=== PATIENT | female | born 1935 | race Caucasian/White ===

== ENCOUNTER 2018-06-07 12:33 | Emergency (ER) | payer MEDICARE, SELFPAY ==
[2018-06-07 12:35] VITALS: BP 159/75; PULSE 72; RESP 16; TEMP 36.6; O2SAT 96; BMI 24.5
--- NOTE | 2018-06-07 13:12 | EKG12_ITS ---
Test Reason : DIZZINESS Blood Pressure : / mmHG Vent. Rate : 062 BPM Atrial Rate : 062 BPM P-R Int : 220 ms QRS Dur : 084 ms QT Int : 446 ms P-R-T Axes : 029 000 076 degrees QTc Int : 452 ms Sinus rhythm with 1st degree A-V block Minimal voltage criteria for LVH, may be normal variant Nonspecific T wave abnormality Abnormal ECG Confirmed by DAVID LAWSON, YORDAN ([id number]), food expeditor CHANG CONCEPCION ([id number]) on 06/09/2018 1:44:09 PM Referred By: DAYTON Confirmed By:YORDAN HERNANDEZ MD
[2018-06-07 13:29] LABS: Absolute Lymphocyte Count 2.04 X10^3/ul (0.83-4.51); Absolute Neutrophil Count 3.2 X10^3/uL (2.0-7.7); Basophil# 0.06 X10^3/uL; Eosinophil# 0.07 X10^3/uL; Eosinophils% 1.2 % (0-5); Hematocrit 41.3 % (37-47); Hemoglobin 13.1 g/dl (12.0-15.0); Lymphocyte # 2.04 X10^3/ul (4.0); Lymphocyte % 35.2 % (19-41); Mean Corp Hgb Conc 31.7 g/gl (32-36); Mean Corpuscular Hgb 28.7 pg (27.0-32.0); Mean Corpuscular Volume 90.6 fL (81-99); Mean Platelet Vol. 9.3 fl (6.2-12.0); Monocyte# 0.39 X10^3/uL; Monocyte% 6.7 % (0-10); Neutrophil # 3.22 X10^3/uL (2.7-7.7); Neutrophil % 55.6 % (47-70); POSITIVE COUNT NO; POSITIVE DIFFERENTIAL NO; POSITIVE MORPHOLOGY NO; Platelet Count 340 K/mm3 (150-450); RBC Distribution Width SD 42.9 fl (35.1-43.9); Red Blood Count 4.56 M/mm3 (4.2-5.4); White Blood Count 5.8 K/mm3 (4.4-11.0)
[2018-06-07 13:39] LABS: Anion Gap 8 (5-15); BUN 17 mg/dL (7-18); BUN/Creat Ratio 14.4 RATIO (10-20); Calcium,Total 9.8 mg/dL (8.5-10.1); Chloride 103 mmol/L (98-107); Creatinine, Serum 1.18 mg/dL (0.55-1.02); EST Glomerular Filtration Rate 47 mL/min (>60); Est Glom Filt Rate - Afr Amer 56 mL/min (>60); Estimated Creatinine Clearance 31.74 ml/min; Glucose 110 mg/dL (74-106); Potassium 3.7 mmol/L (3.5-5.1); Sodium Level 141 mmol/L (136-145)
[2018-06-07 13:56] VITALS: BP 137/79; BP 171/76; BP 184/81; PULSE 60; PULSE 63; PULSE 80
[2018-06-07 14:56] VITALS: BP 184/69; PULSE 58; RESP 24; O2SAT 92
--- NOTE | 2018-06-07 15:27 | ED.VISSUMM ---
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 She presents because she complains of dizziness. Patient's description of dizziness is vertigo not orthostatic symptoms. She does admit to taking Pepto-Bismol this weekend. She did not no blood in her stool or maroon colored stool. She is had no nausea and vomiting. She does report mild mid abdominal discomfort located above the umbilicus. She denies fever, chills night sweats. She denies visual, ocular auditory symptoms. She denies cardiac respiratory symptoms. She denies myalgias arthralgias. She denies anesthesia, paresthesia or motor weakness. She denies headache. She denies bruising easily. Please read written note for complete detail There is a history of coronary disease, hypertension, hypercholesterolemia, pulmonary embolus and GERD. 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 Physical Examination: Vital signs noted. Blood pressure slightly elevated 141/76. Head is atraumatic normocephalic. Pupils are equal round reactive. Extraocular muscles are intact. Conjunctive are pink. TMs are pearly white with landmarks noted. Nares patent with no drainage. Posterior pharynx without erythema or exudate. Uvula is midline. There is no dysphonia or dysphasia. Trachea is midline. There is no stridor with auscultation of the neck. Heart is regular without murmur, gallop or rub. S1 and S2 are normal. Lungs are clear to auscultation with good movement of air bilaterally. Abdomen is tympanitic with increased bowel sounds. No stool in the rectal vault. There is no fissures, fistulas or hemorrhoids noted. Test Results: CBC and BMP are unremarkable. Creatinine is 1.18 which is an improvement from prior. BUN/creatinine ratio is normal. One would expect a drop in hemoglobin if bleeding for 2 days and an elevated BUN to creatinine ratio. Emergency Department Course and Treatment: With history of black stool will obtain blood work to rule in or rule out GI bleed since there is no material in the rectum to assess for blood. A [place]-Hallpike maneuver was performed and patient had nystagmus that was evident with head turned to the right. She had symptoms but no nystagmus with head turned to the right. The eye askew test was negative. The HINT was negative. Treatment Plan: Since blood work confirms suspicion that the black stool is secondary to Pepto-Bismol and Aleta maneuver was performed. This reproduced her symptoms as well as the nystagmus. Nystagmus fatigue and her symptoms resolved. Disposition: Discharged home in stable improved condition. She was instructed to resume her Eliquis since the cause of her black stools not secondary to GI bleed. Impression: 1. [place] no benign positional vertigo 2. History of hypertension, coronary disease, GERD and PE This note was generated with [employer] dictation software. It may contain incorrect words, spelling, and punctuation that were not noted in review of the chart prior to signing ED Disposition - Plan for ED Patient: Disposition: Home or Assisted Living Chief Complaint: Dizziness Instructions: ED BPV Vertigo Prescriptions: Ondansetron [Zofran Odt] 4 mg PO Q8H PRN PRN #5 tab PRN Reason: Nausea/Vomiting Referrals: Nayely Connell MD [Primary Care Provider] - As Needed
--- NOTE | 2018-06-07 15:32 | ED.DCSUM_ITS ---
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 She presents because she complains of dizziness. Patient's description of dizziness is vertigo not orthostatic symptoms. She does admit to taking Pepto-Bismol this weekend. She did not no blood in her stool or maroon colored stool. She is had no nausea and vomiting. She does report mild mid abdominal discomfort located above the umbilicus. She denies fever, chills night sweats. She denies visual, ocular auditory symptoms. She denies cardiac respiratory symptoms. She denies myalgias arthralgias. She denies anesthesia, paresthesia or motor weakness. She denies headache. She denies bruising easily. Please read written note for complete detail There is a history of coronary disease, hypertension, hypercholesterolemia, pulmonary embolus and GERD. 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 Physical Examination: Vital signs noted. Blood pressure slightly elevated 141/76. Head is atraumatic normocephalic. Pupils are equal round reactive. Extraocular muscles are intact. Conjunctive are pink. TMs are pearly white with landmarks noted. Nares patent with no drainage. Posterior pharynx without erythema or exudate. Uvula is midline. There is no dysphonia or dysphasia. Trachea is midline. There is no stridor with auscultation of the neck. Heart is regular without murmur, gallop or rub. S1 and S2 are normal. Lungs are clear to auscultation with good movement of air bilaterally. Abdomen is tympanitic with increased bowel sounds. No stool in the rectal vault. There is no fissures, fistulas or hemorrhoids noted. Test Results: CBC and BMP are unremarkable. Creatinine is 1.18 which is an improvement from prior. BUN/creatinine ratio is normal. One would expect a drop in hemoglobin if bleeding for 2 days and an elevated BUN to creatinine ratio. Emergency Department Course and Treatment: With history of black stool will obtain blood work to rule in or rule out GI bleed since there is no material in the rectum to assess for blood. A [place]-Hallpike maneuver was performed and patient had nystagmus that was evident with head turned to the right. She had symptoms but no nystagmus with head turned to the right. The eye askew test was negative. The HINT was negative. Treatment Plan: Since blood work confirms suspicion that the black stool is secondary to Pepto-Bismol and Aleta maneuver was performed. This reproduced her symptoms as well as the nystagmus. Nystagmus fatigue and her symptoms resolved. Disposition: Discharged home in stable improved condition. She was instructed to resume her Eliquis since the cause of her black stools not secondary to GI bleed. Impression: 1. [place] no benign positional vertigo 2. History of hypertension, coronary disease, GERD and PE This note was generated with [employer] dictation software. It may contain incorrect words, spelling, and punctuation that were not noted in review of the chart prior to signing ED Disposition - Plan for ED Patient: Disposition: Home or Assisted Living Chief Complaint: Dizziness Instructions: ED BPV Vertigo Prescriptions: Ondansetron [Zofran Odt] 4 mg PO Q8H PRN PRN #5 tab PRN Reason: Nausea/Vomiting Referrals: Nayely Connell MD [Primary Care Provider] - As Needed
[2018-06-07 15:49] VITALS: BP 187/78; PULSE 59; RESP 15; O2SAT 95
--- OUTSIDE RECORDS SUMMARY | 2018-08-10 02:43 | XMS RPT_ITS | Clinical Summary ---
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, CT) bilateral Essential 38537863 Active Scott Wei Essential hypertension (SNOMED 0/26 0/ Alex LAWSON hypertension CT) Sciatica 42862465 Active Scott Wei Sciatica (SNOMED 0/26 0/ Alex LAWSON CT) Pure 550331129 Active Scott Wei Pure hyperglycerid (SNOMED 0 0/ Alex LAWSON hyperglyceridemia emia CT) Pure 630258333 Active Scott Wei Pure hypercholeste (SNOMED 0 0/ Alex LAWSON hypercholesterole rolemia CT) shimon Paroxysmal 48802304 Active Scott Wei Paroxysmal supraventricu (SNOMED 0 0/ Alex LAWSON supraventricular lar CT) tachycardia tachycardia Hyperlipidemi 79786557 Active Scott Wei Hyperlipidemia a (SNOMED 0 0/[address]) Moderate 92649581 Active Scott Wei Aortic valve aortic (SNOMED 0/26 0/ Alex LAWSON stenosis stenosis CT) Generalized 341931271 Active Scott Wei 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 Generalized 47418471 Active Scott Wei Generalized anxiety (SNOMED 0/26 0/ Alex LAWSON anxiety disorder disorder CT) Esophageal 606476177 Active Scott Wei Gastroesophageal reflux (SNOMED Alex LAWSON reflux disease CT) Dysmetabolic 689530456 Active Scott Wei Metabolic syndrome X (SNOMED Alex LAWSON syndrome X CT) Carpal tunnel 71692782 Active Scott Wei Carpal tunnel syndrome (SNOMED Alex LAWSON syndrome CT) Carotid 085585161 Active Scott Wei Carotid artery artery (SNOMED Alex LAWSON occlusion occlusion CT) Allergic 23646303 Active Scott Wei Allergic rhinitis rhinitis (SNOMED Alex LAWSON CT) Medications Medication Instructions Start Stop Generic Name NDC Provider Date Date ACTIGALL 300 MG One tablet by / URSODIOL [id number] Scott Wei CAPS mouth twice 26 Alex LAWSON daily BIOTIN CAPS / BIOTIN CAPS 90957881952 Scott Wei 26 Alex LAWSON DURAGESIC-50 50 / FENTANYL 94778413568 Scott Wei MCG/HR PT72 26 Alex LAWSON NORCO 7.5-325 MG / HYDROCODONE-ACETA 24223519684 Scott Wei TABS 26 MINOPHEN Alex LAWSON NORVASC 10 MG One tablet by / AMLODIPINE 43087934284 Scott Wei TABS mouth daily 26 BESYLATE Alex LAWSON LISINOPRIL 40 MG One tablet by / LISINOPRIL 90939609435 Scott Wei TABS mouth daily 26 Alex LAWSON GABAPENTIN 600 Two tablets by / GABAPENTIN 14957113572 Scott Wei MG TABS mouth three 26 Alex LAWSON times daily LORAZEPAM 1 MG One tablet by / LORAZEPAM 11516338037 Scott Wei TABS mouth daily 26 Alex LAWSON PREVACID 30 MG One tablet by / LANSOPRAZOLE 52351627886 Scott Wei CPDR mouth daily 26 Alex LAWSON NITROGLYCERIN / NITROGLYCERIN 02828056516 Scott Wei 0.4 MG SUBL 26 Alex LAWSON ZANAFLEX 4 MG One tablet by / TIZANIDINE HCL 50036104030 Scott Wei TABS mouth daily at 26 Alex LAWSON bedtime as needed DRISDOL 63317 One tablet by / ERGOCALCIFEROL 78031212355 Scott Wei UNIT CAPS mouth three 26 Alex LAWSON times weekly TRIAMTERENE-HCTZ One tablet by / TRIAMTERENE-HCTZ 53533664858 Scott Wei 37.5-25 MG TABS mouth daily 26 Alex LAWSON VENTOLIN HFA 108 / ALBUTEROL SULFATE 48367505190 Scott Wei (90 Base) 26 Alex LAWSON MCG/ACT AERS ELIQUIS 5 MG One tablet by / APIXABAN 23919747532 Scott Wei TABS mouth twice 26 Alex LAWSON daily GUAIFENESIN-CODE as needed for / GUAIFENESIN-CODEI 51810464153 Scott Wei INE 100-10 [address] Alex LAWSON MG/5ML SOLN MECLIZINE HCL 25 One tablet by / MECLIZINE HCL 87556379618 Scott Wei MG TABS mouth three 26 Alex LAWSON times daily as needed dizziness FLONASE 50 / FLUTICASONE 84933413380 Scott Wei MCG/ACT SUSP 26 PROPIONATE Alex LAWSON DICLOFENAC use as directed / DICLOFENAC SODIUM 40850260553 Scott Wei SODIUM 1 % GEL 26 Alex LAWSON ASPIRIN 81 MG One tablet by / ASPIRIN 64762597137 Scott Wei TABS mouth daily 26 Alex LAWSON LEXISCAN 0.4 / REGADENOSON 11210742061 Scott Wei MG/5ML SOLN 26 Alex LAWSON CARAFATE 1 GM Take 1 tablet / SUCRALFATE 72993966174 Scott Wei TABS prior to meals 26 Alex LAWSON and bedtime LIDODERM 5 % Apply 2 patches / LIDOCAINE 87594529069 Scott Wei [facility] as directed 26 Alex LAWSON every 24 hours. Remove patch after 12 hours TESSALON PERLES One tablet by / BENZONATATE 44612033158 Scott Wei 100 MG CAPS mouth three 26 Alex LAWSON times daily Medications Administered No information available. Allergies, Adverse Reactions, Alerts Allergy Name Reaction Start Date Severity Status Provider Description DARVOCET Critical Active Scott Johnson MD NOVACLAINE Critical Active Scott Johnson MD SULFADIAZINE Moderate Active Scott Johnson MD PENICILLIN V POTASSIUM Moderate Active Scott Johnson MD LEVAQUIN Moderate Active Scott Johnson MD CYCLOBENZAPRINE HCL Moderate Active Scott Johnson MD DOXYCYCLINE HYCLATE Moderate Active Scott Johnson MD CARDIZEM Moderate Active Scott Johnson MD Results Date Name Value Unit Range Flag Description Office Visit: Right Cartoid blockage MEDS REVIEW Done Documentation of current medications (procedure) FALLRSKASSES No Fall risk assessment ORALTOBACUSE Never Tobacco smoking status NHIS SMOK STATUS Former smoker Tobacco use [facility] Plan of Care Type Date Detail Appointment 08:30 AM Scott Johnson MD, [address] [place] [address], [address], [place], [address], Pending order CTA Neck Procedures No information available. Vital Signs Date Name Value Unit Description BMI (Body Mass Index) 24.37 kg/m2 Body Mass Index [Ratio] Body Temperature 98.0 [degF] temperature E&M Body Temperature 36.67 Grace temperature in centigrade E&M BP Diastolic 68 mm[Hg] blood pressure, diastolic - 8462-4 BP Systolic 151 mm[Hg] blood pressure, systolic - 8480-6 Heart Rate 66 /min pulse rate E&M - 8867-4 Height 64 [in_us] height E&M - 8302-2 Height 162.56 cm height in centimeters E&M Respiratory Rate 18 /min respiratory rate E&M - 9279-1 Weight Measured 142 [lb_av] weight E&M - 3141-9 Weight Measured 64.41 kg weight in kilograms E&M
--- OUTSIDE RECORDS SUMMARY | 2018-08-10 02:43 | XMS RPT_ITS | Clinical Summary ---
:1935 Author Organization [facility] Address [address] [place] [address] Phone Care Team Providers Name Role Phone Scott Johnson MD Unavailable Conditions or Problems Problem Name Problem Onset Status Entry Provider Comment Standard Annotate Code Date Date Description Carotid 61672968 Active Scott Wei Carotid artery artery (SNOMED 0/ 0 Alex LAWSON stenosis stenosis, CT) bilateral Essential 37089836 Active Scott Wei Essential hypertension (SNOMED 0/26 0/ Alex LAWSON hypertension CT) Sciatica 01691781 Active Scott Wei Sciatica (SNOMED 0/26 0/ Alex LAWSON CT) Pure 184372316 Active Scott Wei Pure hyperglycerid (SNOMED 0/26 0/ Alex LAWSON hyperglyceridemia emia CT) Pure 500640366 Active Scott Wei Pure hypercholeste (SNOMED 0/ 0/ Alex LAWSON hypercholesterole rolemia CT) shimon Paroxysmal 35436184 Active Scott Wei Paroxysmal supraventricu (SNOMED 0 0/ Alex LAWSON supraventricular lar CT) tachycardia tachycardia Hyperlipidemi 01252829 Active Scott Wei Hyperlipidemia a (SNOMED 026 0/[address]) Moderate 85428628 Active Scott Wei Aortic valve aortic (SNOMED 0/26 0/ Alex LAWSON stenosis stenosis CT) Generalized 837773857 Active Scott Wei 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 Generalized 97660751 Active Scott Wei Generalized anxiety (SNOMED 0/26 0/ Alex LAWSON anxiety disorder disorder CT) Esophageal 294837020 Active Scott Wei Gastroesophageal reflux (SNOMED Alex LAWSON reflux disease CT) Dysmetabolic 581311013 Active Scott Wei Metabolic syndrome X (SNOMED Alex LAWSON syndrome X CT) Carpal tunnel 99989413 Active Scott Wei Carpal tunnel syndrome (SNOMED Alex LAWSON syndrome CT) Carotid 816240010 Active Scott Wei Carotid artery artery (SNOMED Alex LAWSON occlusion occlusion CT) Allergic 76546050 Active Scott Wei Allergic rhinitis rhinitis (SNOMED Alex LAWSON CT) Medications Medication Instructions Start Stop Generic Name NDC Provider Date Date ACTIGALL 300 MG One tablet by / URSODIOL 24713602461 Scott Wei CAPS mouth twice 26 Alex LAWSON daily BIOTIN CAPS / BIOTIN CAPS 75603693665 Scott Wei 26 Aelx LAWSON DURAGESIC-50 50 / FENTANYL 04709018257 Scott Wei MCG/HR PT72 26 Alex LAWSON NORCO 7.5-325 MG / HYDROCODONE-ACETA 42492072222 Scott Wei TABS 26 MINOPHEN Alex LAWSON NORVASC 10 MG One tablet by / AMLODIPINE 56412974489 Scott Wei TABS mouth daily 26 BESYLATE Alex LAWSON LISINOPRIL 40 MG One tablet by / LISINOPRIL 99207647776 Scott Wei TABS mouth daily 26 Alex LAWSON GABAPENTIN 600 Two tablets by / GABAPENTIN 35727423782 Scott Wei MG TABS mouth three 26 Alex LAWSON times daily LORAZEPAM 1 MG One tablet by / LORAZEPAM 83956499981 Scott Wei TABS mouth daily 26 Alex LAWSON PREVACID 30 MG One tablet by / LANSOPRAZOLE 45156534293 Scott Wei CPDR mouth daily 26 Alex LAWSON NITROGLYCERIN / NITROGLYCERIN 11515596003 Scott Wei 0.4 MG SUBL 26 Alex LAWSON ZANAFLEX 4 MG One tablet by / TIZANIDINE HCL 51694098607 Scott Wei TABS mouth daily at 26 Alex LAWSON bedtime as needed DRISDOL 75919 One tablet by / ERGOCALCIFEROL 98853123138 Scott Wei UNIT CAPS mouth three 26 Alex LAWSON times weekly TRIAMTERENE-HCTZ One tablet by / TRIAMTERENE-HCTZ 21253225193 Scott Wei 37.5-25 MG TABS mouth daily 26 Alex LAWSON VENTOLIN HFA 108 / ALBUTEROL SULFATE 28699147236 Scott Wei (90 Base) 26 Alex LAWSON MCG/ACT AERS ELIQUIS 5 MG One tablet by / APIXABAN 43837549354 Scott Wei TABS mouth twice 26 Alex LAWSON daily GUAIFENESIN-CODE as needed for / GUAIFENESIN-CODEI 04085851259 Scott Wei INE 100-[address] Alex LAWSON MG/5ML SOLN MECLIZINE HCL 25 One tablet by / MECLIZINE HCL 80781625564 Scott Wei MG TABS mouth three 26 Alex LAWSON times daily as needed dizziness FLONASE 50 / FLUTICASONE 09375827545 Scott Wei MCG/ACT SUSP 26 PROPIONATE Alex LAWSON DICLOFENAC use as directed / DICLOFENAC SODIUM 86358406223 Scott Wei SODIUM 1 % GEL 26 Alex LAWSON ASPIRIN 81 MG One tablet by / ASPIRIN 07672633081 Scott Wei TABS mouth daily 26 Alex LAWSON LEXISCAN 0.4 / REGADENOSON 52681010281 Scott Wei MG/5ML SOLN 26 Alex LAWSON CARAFATE 1 GM Take 1 tablet / SUCRALFATE 76232006531 Scott Wei TABS prior to meals 26 Alex LAWSON and bedtime LIDODERM 5 % Apply 2 patches / LIDOCAINE 54548384319 Scott Wei [facility] as directed 26 Alex LAWSON every 24 hours. Remove patch after 12 hours TESSALON PERLES One tablet by / BENZONATATE 01681212950 Scott Wei 100 MG CAPS mouth three [...] Date Name Value Unit Range Flag Description Lab Report: CREATININE FINGERSTICK [id number]-GE-[id number] Test not performed mL/min >60 GE use only - for [employer] import when terms are not otherwise specified Office Visit: Discuss Carotid blockage MEDS REVIEW Done Documentation of current medications (procedure) FALLRSKASSES No Fall risk assessment ORALTOBACUSE Never Tobacco smoking status NHIS SMOK STATUS Former smoker Tobacco use [facility] Plan of Care Type Date Detail Pending order CTA Neck Procedures No information [...]
--- OUTSIDE RECORDS SUMMARY | 2018-08-10 02:43 | XMS RPT_ITS | Clinical Summary ---
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, CT) bilateral Essential 77398542 Active Scott Wei Essential hypertension (SNOMED 0/26 0/ Alex LAWSON hypertension CT) Sciatica 44718691 Active Scott Wei Sciatica (SNOMED 0/26 0/ Alex LAWSON CT) Pure 502061910 Active Scott Wei Pure hyperglycerid (SNOMED 0/26 0/ Alex LAWSON hyperglyceridemia emia CT) Pure 900378661 Active Scott Wei Pure hypercholeste (SNOMED 0/ 0/ Alex LAWSON hypercholesterole rolemia CT) shimon Paroxysmal 62634742 Active Scott Wei Paroxysmal supraventricu (SNOMED 0 0/ Alex LAWSON supraventricular lar CT) tachycardia tachycardia Hyperlipidemi 49763002 Active Scott Wei Hyperlipidemia a (SNOMED 026 0/[address]) Moderate 07019628 Active Scott Wei Aortic valve aortic (SNOMED 0/26 0/ Alex LAWSON stenosis stenosis CT) Generalized 379710942 Active Scott Wei 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 Generalized 38611433 Active Scott Wei Generalized anxiety (SNOMED 0/26 0/ Alex LAWSON anxiety disorder disorder CT) Esophageal 908293225 Active Scott Wei Gastroesophageal reflux (SNOMED Alex LAWSON reflux disease CT) Dysmetabolic 313133011 Active Scott Wei Metabolic syndrome X (SNOMED Alex LAWSON syndrome X CT) Carpal tunnel 68580780 Active Scott Wei Carpal tunnel syndrome (SNOMED Alex LAWSON syndrome CT) Carotid 713467281 Active Scott Wei Carotid artery artery (SNOMED Alex LAWSON occlusion occlusion CT) Allergic 29596290 Active Scott Wei Allergic rhinitis rhinitis (SNOMED Alex LAWSON CT) Medications Medication Instructions Start Stop Generic Name NDC Provider Date Date ACTIGALL 300 MG One tablet by / URSODIOL [id number] Scott Wei CAPS mouth twice 26 Alex LAWSON daily BIOTIN CAPS / BIOTIN CAPS 85972440853 Scott Wei 26 Alex LAWSON DURAGESIC-50 50 / FENTANYL 67844881260 Scott Wei MCG/HR PT72 26 Alex LAWSON NORCO 7.5-325 MG / HYDROCODONE-ACETA 42617276530 Scott Wie TABS 26 MINOPHEN Alex LAWSON NORVASC 10 MG One tablet by / AMLODIPINE 21513123572 Scott Wei TABS mouth daily 26 BESYLATE Alex LAWSON LISINOPRIL 40 MG One tablet by / LISINOPRIL 18672772728 Scott Wei TABS mouth daily 26 Alex LAWSON GABAPENTIN 600 Two tablets by / GABAPENTIN 55454399798 Scott Wei MG TABS mouth three 26 Alex LAWSON times daily LORAZEPAM 1 MG One tablet by / LORAZEPAM 93820674795 Scott Wei TABS mouth daily 26 Alex LAWSON PREVACID 30 MG One tablet by / LANSOPRAZOLE 03182255203 Scott Wei CPDR mouth daily 26 Alex LAWSON NITROGLYCERIN / NITROGLYCERIN 47243718864 Scott Wei 0.4 MG SUBL 26 Alex LAWSON ZANAFLEX 4 MG One tablet by / TIZANIDINE HCL 61060876685 Scott Wei TABS mouth daily at 26 Alex LAWSON bedtime as needed DRISDOL 38484 One tablet by / ERGOCALCIFEROL 29451444052 Scott Wei UNIT CAPS mouth three 26 Alex LAWSON times weekly TRIAMTERENE-HCTZ One tablet by / TRIAMTERENE-HCTZ 33783869930 Scott Wei 37.5-25 MG TABS mouth daily 26 Alex LAWSON VENTOLIN HFA 108 / ALBUTEROL SULFATE 84332558102 Scott Wei (90 Base) 26 Alex LAWSON MCG/ACT AERS ELIQUIS 5 MG One tablet by / APIXABAN 19882048467 Scott Wei TABS mouth twice 26 Alex LAWSON daily GUAIFENESIN-CODE as needed for / GUAIFENESIN-CODEI 22378962724 Scott Wei INE 100-10 cough 26 [address] Alex LAWSON MG/5ML SOLN MECLIZINE HCL 25 One tablet by / MECLIZINE HCL 58560910867 Scott Wei MG TABS mouth three 26 Alex LAWSON times daily as needed dizziness FLONASE 50 / FLUTICASONE 70146551564 Scott Wei MCG/ACT SUSP 26 PROPIONATE Alex LAWSON DICLOFENAC use as directed / DICLOFENAC SODIUM 99781528143 Scott Wei SODIUM 1 % GEL 26 Alex LAWSON ASPIRIN 81 MG One tablet by / ASPIRIN 59018334948 Scott Wei TABS mouth daily 26 Alex LAWSON LEXISCAN 0.4 / REGADENOSON 53442944963 Scott Wei MG/5ML SOLN 26 Alex LAWSON CARAFATE 1 GM Take 1 tablet / SUCRALFATE 52531074595 Scott Wei TABS prior to meals 26 Alex LAWSON and bedtime LIDODERM 5 % Apply 2 patches / LIDOCAINE 31905937345 Scott Wei [facility] as directed 26 Alex LAWSON every 24 hours. Remove patch after 12 hours TESSALON PERLES One tablet by / BENZONATATE 64481790978 Scott Wei 100 MG CAPS mouth three [...] NHIS SMOK STATUS Former smoker Tobacco use [facility] Plan of Care Type Date Detail Pending [...]
--- OUTSIDE RECORDS SUMMARY | 2018-08-10 02:43 | XMS RPT_ITS | Clinical Summary ---
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, CT) bilateral Essential 57402426 Active Scott Wei Essential hypertension (SNOMED 0/26 0/ Alex LAWSON hypertension CT) Sciatica 30259582 Active Scott Wei Sciatica (SNOMED 0/26 0/ Alex LAWSON CT) Pure 512779220 Active Scott Wei Pure hyperglycerid (SNOMED 0/26 0/ Alex LAWSON hyperglyceridemia emia CT) Pure 862896487 Active Scott Wei Pure hypercholeste (SNOMED 0/ 0/ Alex LAWSON hypercholesterole rolemia CT) shimon Paroxysmal 60698901 Active Scott Wei Paroxysmal supraventricu (SNOMED 0 0/ Alex LAWSON supraventricular lar CT) tachycardia tachycardia Hyperlipidemi 60828926 Active Scott Wei Hyperlipidemia a (SNOMED 026 0/[address]) Moderate 72875211 Active Scott Wei Aortic valve aortic (SNOMED 0/26 0/ Alex LAWSON stenosis stenosis CT) Generalized 955717173 Active Scott Wei 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 Generalized 43142950 Active Scott Wei Generalized anxiety (SNOMED 0/26 0/ Alex LAWSON anxiety disorder disorder CT) Esophageal 436024667 Active Scott Wei Gastroesophageal reflux (SNOMED Alex LAWSON reflux disease CT) Dysmetabolic 879254999 Active Scott Wei Metabolic syndrome X (SNOMED Alex LAWSON syndrome X CT) Carpal tunnel 68305557 Active Scott Wei Carpal tunnel syndrome (SNOMED Alex LAWSON syndrome CT) Carotid 173652601 Active Scott Wei Carotid artery artery (SNOMED Alex LAWSON occlusion occlusion CT) Allergic 94456144 Active Scott Wei Allergic rhinitis rhinitis (SNOMED Alex LAWSON CT) Medications Medication Instructions Start Stop Generic Name NDC Provider Date Date ACTIGALL 300 MG One tablet by / URSODIOL 15444042413 Scott Wei CAPS mouth twice 26 Alex LAWSON daily BIOTIN CAPS / BIOTIN CAPS 42963750297 Scott Wei 26 Alex LAWSON DURAGESIC-50 50 / FENTANYL 72618402534 Scott Wei MCG/HR PT72 26 Alex LAWSON NORCO 7.5-325 MG / HYDROCODONE-ACETA 33668105139 Scott Wei TABS 26 MINOPHEN Alex LAWSON NORVASC 10 MG One tablet by / AMLODIPINE 82422241107 Scott Wei TABS mouth daily 26 BESYLATE Alex LAWSON LISINOPRIL 40 MG One tablet by / LISINOPRIL 99700969941 Scott Wei TABS mouth daily 26 Alex LAWSON GABAPENTIN 600 Two tablets by / GABAPENTIN 32499028065 Scott Wei MG TABS mouth three 26 Alex LAWSON times daily LORAZEPAM 1 MG One tablet by / LORAZEPAM 10594889330 Scott Wei TABS mouth daily 26 Alex LAWSON PREVACID 30 MG One tablet by / LANSOPRAZOLE 51811131697 Scott Wei CPDR mouth daily 26 Alex LAWSON NITROGLYCERIN / NITROGLYCERIN 97692846270 Scott Wei 0.4 MG SUBL 26 Alex LAWSON ZANAFLEX 4 MG One tablet by / TIZANIDINE HCL 84156087646 Scott Wei TABS mouth daily at 26 Alex LAWSON bedtime as needed DRISDOL 57181 One tablet by / ERGOCALCIFEROL 53071644783 Scott Wei UNIT CAPS mouth three 26 Alex ALWSON times weekly TRIAMTERENE-HCTZ One tablet by / TRIAMTERENE-HCTZ 76942561948 Scott Wei 37.5-25 MG TABS mouth daily 26 Alex LAWSON VENTOLIN HFA 108 / ALBUTEROL SULFATE 24776377241 Scott Wei (90 Base) 26 Alex LAWSON MCG/ACT AERS ELIQUIS 5 MG One tablet by / APIXABAN 37258085198 Scott Wei TABS mouth twice 26 Alex LAWSON daily GUAIFENESIN-CODE as needed for / GUAIFENESIN-CODEI 58428245823 Scott Wei INE 100-10 [address] 26 [address] Alex LAWSON MG/5ML SOLN MECLIZINE HCL 25 One tablet by / MECLIZINE HCL 34220112383 Scott Wei MG TABS mouth three 26 Alex LAWSON times daily as needed dizziness FLONASE 50 / FLUTICASONE 35777083786 Scott Wei MCG/ACT SUSP 26 PROPIONATE Alex LAWSON DICLOFENAC use as directed / DICLOFENAC SODIUM 10200476313 Scott Wei SODIUM 1 % GEL 26 Alex LAWSON ASPIRIN 81 MG One tablet by / ASPIRIN 17567307060 Scott Wei TABS mouth daily 26 Alex LAWSON LEXISCAN 0.4 / REGADENOSON 17829341445 Scott Wei MG/5ML SOLN 26 Alex LAWSON CARAFATE 1 GM Take 1 tablet / SUCRALFATE 21439072727 Scott Wei TABS prior to meals 26 Alex LAWSON and bedtime LIDODERM 5 % Apply 2 patches / LIDOCAINE 11936499418 Scott Wei [facility] as directed 26 Alex LAWSON every 24 hours. Remove patch after 12 hours TESSALON PERLES One tablet by / BENZONATATE 90328768523 Scott Wei 100 MG CAPS mouth three [...] NHIS SMOK STATUS Former smoker Tobacco use [facility] Plan of Care Type Date Detail Appointment 03:50 PM Scott Johnson MD, [address] [place] [address], [address], [place], [address], Pending order CTA Neck Procedures No information [...]
--- OUTSIDE RECORDS SUMMARY | 2018-08-10 02:43 | XMS RPT_ITS | Clinical Summary ---
:[address] 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, CT) bilateral Essential 92292781 Active Scott Wei Essential hypertension (SNOMED 0/26 0/ Alex LAWSON hypertension CT) Sciatica 85761984 Active Scott Wei Sciatica (SNOMED 0/26 0/ Alex LAWSON CT) Pure 416494045 Active Scott Wei Pure hyperglycerid (SNOMED 0/26 0/ Alex LAWSON hyperglyceridemia emia CT) Pure 358250901 Active [facility] Pure hypercholeste (SNOMED 0/ 0/ Alex LAWSON hypercholesterole rolemia CT) shimon Paroxysmal 92139483 Active Scott Wei Paroxysmal supraventricu (SNOMED 0 0/ Alex LAWSON supraventricular lar CT) tachycardia tachycardia Hyperlipidemi 98142798 Active Scott Wei Hyperlipidemia a (SNOMED 026 0/[address]) Moderate 00921756 Active Scott Wei Aortic valve aortic (SNOMED 0/26 0/ Alex LAWSON stenosis stenosis CT) Generalized 383304165 Active Scott Wei 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 Generalized 58116307 Active Scott Wei Generalized anxiety (SNOMED 0/26 0/ Alex LAWSON anxiety disorder disorder CT) Esophageal 982737362 Active Scott Wei Gastroesophageal reflux (SNOMED Alex LAWSON reflux disease CT) Dysmetabolic 389549330 Active Scott Wei Metabolic syndrome X (SNOMED Alex LAWSON syndrome X CT) Carpal tunnel 64609831 Active Scott Wei Carpal tunnel syndrome (SNOMED Alex LAWSON syndrome CT) Carotid 057143948 Active Scott Wei Carotid artery artery (SNOMED Alex LAWSON occlusion occlusion CT) Allergic 16764595 Active Scott Wei Allergic rhinitis rhinitis (SNOMED Alex LAWSON CT) Medications Medication Instructions Start Stop Generic Name NDC Provider Date Date ACTIGALL 300 MG One tablet by / URSODIOL 99640777038 Scott Wei CAPS mouth twice 26 Alex LAWSON daily BIOTIN CAPS / BIOTIN CAPS 39014775676 Scott Wei 26 Alex LAWSON DURAGESIC-50 50 / FENTANYL 65850063587 Scott Wei MCG/HR PT72 26 Alex LAWSON NORCO 7.5-325 MG / HYDROCODONE-ACETA 01506297877 Scott Wei TABS 26 MINOPHEN Alex LAWSON NORVASC 10 MG One tablet by / AMLODIPINE 77389339789 Scott Wei TABS mouth daily 26 BESYLATE Alex LAWSON LISINOPRIL 40 MG One tablet by / LISINOPRIL 68282440150 Scott Wei TABS mouth daily 26 Alex LAWSON GABAPENTIN 600 Two tablets by / GABAPENTIN 74159575806 Scott Wei MG TABS mouth three 26 Alex LAWSON times daily LORAZEPAM 1 MG One tablet by / LORAZEPAM 94938801018 Scott Wei TABS mouth daily 26 Alex LAWSON PREVACID 30 MG One tablet by / LANSOPRAZOLE 07163649106 Scott Wei CPDR mouth daily 26 Alex LAWSON NITROGLYCERIN / NITROGLYCERIN 64709387118 Scott Wei 0.4 MG SUBL 26 Alex LAWSON ZANAFLEX 4 MG One tablet by / TIZANIDINE HCL 78305311625 Scott Wei TABS mouth daily at 26 Alex LAWSON bedtime as needed DRISDOL 19769 One tablet by / ERGOCALCIFEROL 12904092303 Scott Wei UNIT CAPS mouth three 26 Alex LAWSON times weekly TRIAMTERENE-HCTZ One tablet by / TRIAMTERENE-HCTZ 68367501099 Scott Wei 37.5-25 MG TABS mouth daily 26 Alex LAWSON VENTOLIN HFA 108 / ALBUTEROL SULFATE 81468975234 Scott Wei (90 Base) 26 Alex LAWSON MCG/ACT AERS ELIQUIS 5 MG One tablet by / APIXABAN 96003594337 Scott Wei TABS mouth twice 26 Alex LAWSON daily GUAIFENESIN-CODE as needed for / GUAIFENESIN-CODEI 54686753695 Scott Wei INE 100-10 [address] 26 [address] Alex LAWSON MG/5ML SOLN MECLIZINE HCL 25 One tablet by / MECLIZINE HCL 63993950267 Scott Wei MG TABS mouth three 26 Alex LAWSON times daily as needed dizziness FLONASE 50 / FLUTICASONE 32021386676 Scott Wei MCG/ACT SUSP 26 PROPIONATE Alex LAWSON DICLOFENAC use as directed / DICLOFENAC SODIUM 48931341264 Scott Wei SODIUM 1 % GEL 26 Alex LAWSON ASPIRIN 81 MG One tablet by / ASPIRIN 67890217659 Scott Wei TABS mouth daily 26 Alex LAWSON LEXISCAN 0.4 / REGADENOSON 93085228690 Scott Wei MG/5ML SOLN 26 Alex LAWSON CARAFATE 1 GM Take 1 tablet / SUCRALFATE 96935707450 Scott Wei TABS prior to meals 26 Alex LAWSON and bedtime LIDODERM 5 % Apply 2 patches / LIDOCAINE 56526163325 Scott Wei [facility] as directed 26 Alex LAWSON every 24 hours. Remove patch after 12 hours TESSALON PERLES One tablet by / BENZONATATE 19244265149 Scott Wei 100 MG CAPS mouth three [...] NHIS SMOK STATUS Former smoker Tobacco use [facility] Plan of Care Type Date [...]
--- OUTSIDE RECORDS SUMMARY | 2018-08-10 02:44 | XMS RPT_ITS ---
:1935 Author Organization OHIP Care Team Providers Name Role Phone Augustoampas, David Primary Care Unavailable Roge Mckeon Attending Unavailable ARJUN JEAN) Attending Unavailable TALAMPAS, DAVID D Referring Unavailable DOMINGA TIMMONS Attending Unavailable TALAMPAS, DAVID D Referring Unavailable ARJUN JEAN) Admitting Unavailable ARJUN JEAN) Attending Unavailable DOMINGA TIMMONS Attending Unavailable TALAMPAS, DAVID D Referring Unavailable KEVIN OR[place]O Attending Unavailable DOMINGA TIMMONS Referring Unavailable DOMINGA TIMMONS Referring Unavailable JETHRO CONTE (SUPERVISOR DRYING AND SOFTENING) Attending Unavailable OLDER, CAROLINE (CORPORATE OPERATIONS COMPLIANCE MANAGER) Attending Unavailable SARAH PISANO Referring Unavailable NILSA, IAN E Attending Unavailable NILSA, IAN E Referring Unavailable TALAMPAS, DAVID D Referring Unavailable TALAMPAS, DAVID D Attending Unavailable TALAMPAS, DAVID D Referring Unavailable NILSA, IAN E Referring Unavailable NILSA, IAN E Attending Unavailable NILSA, IAN E Referring Unavailable CONTE, JETHRO (SUPERVISOR DRYING AND SOFTENING) Attending Unavailable CHEYANNE CALVO (JOAN) Attending Unavailable OLDER, CAROLINE (CORPORATE OPERATIONS COMPLIANCE MANAGER) Attending Unavailable OLDER, CAROLINE (CORPORATE OPERATIONS COMPLIANCE MANAGER) Referring Unavailable OLDER, CAROLINE (CORPORATE OPERATIONS COMPLIANCE MANAGER) Referring Unavailable OLDER, CAROLINE (CORPORATE OPERATIONS COMPLIANCE MANAGER) Referring Unavailable OLDER, CAROLINE (CORPORATE OPERATIONS COMPLIANCE MANAGER) Referring Unavailable TALAMPAS, DAVID D Attending Unavailable TALAMPAS, DAVID D Referring Unavailable NILSA IAN Attending Unavailable IMCA Referring Unavailable Adrienne TIMMONS Attending Unavailable TALAMPAS, DAVID Referring Unavailable TALAMPAS, DAVID Primary Care Unavailable Adrienne ORLANDO Attending Unavailable Adrienne TIMMONS Referring Unavailable TALAMPAS, DAVID Primary Care Unavailable Adrienne TIMMONS Attending Unavailable TALAMPAS, DAVID Referring Unavailable TALAMPAS, DAVID Primary Care Unavailable Adrienne TIMMONS Attending Unavailable TALAMPAS, DAVID Referring Unavailable TALAMPAS, DAVID Primary Care Unavailable ARJUN JEAN () Admitting Unavailable ARJUN JEAN) Attending Unavailable TALAMPAS, DAVID Primary Care Unavailable ARJUN JEAN) Admitting Unavailable ARJUN JEAN) Attending Unavailable TALAMPAS, DAVID Primary Care Unavailable Adrienne [place]O Attending Unavailable TALAMPAS, DAVID Referring Unavailable TALAMPAS, DAVID Primary Care Unavailable Adrienne TIMMONS Attending Unavailable TALAMPAS, DAVID Referring Unavailable TALAMPAS, DAVID Primary Care Unavailable ARJUN JEAN) Attending Unavailable TALAMPAS, DAVID Referring Unavailable TALAMPAS, DAVID Primary Care Unavailable Adrienne [place]O Attending Unavailable TALAMPAS, DAVID Referring Unavailable TALAMPAS, DAVID Primary Care Unavailable PROBLEMS PROBLEMS DATE TYPE CONDITION / CODE ATTENDING STATUS SOURCE 06/09/2018 Active Generalized NA Active [facility] abdominal pain / Clinic Main R10.84(ICD-10) [facility] 06/09/2018 Active Abdominal NA Active [facility] tenderness, Clinic Main unspecified site / [facility] R10.819(ICD-10) Repository 03/19/2018 Active Dizziness and NA Active [facility] giddiness / Clinic Main R42(ICD-10) [facility] 04/04/2015 Active Vitamin D NA Active [facility] deficiency, Clinic Main unspecified / [facility] E55.9(ICD-10) Repository 04/04/2015 Active Hyperlipidemia, NA Active [facility] unspecified / Clinic Main E78.5(ICD-10) [facility] 11/16/2017 Active Encounter for other NA Active [facility] preprocedural Clinic Main examination / [place] Z01.818(ICD-10) Repository 11/16/2017 Active 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 [facility] (current) drug Clinic Main therapy / [place] Z79.899(ICD-10) Repository 10/09/2017 Active Unknown / IAN ASH Active [facility] UNK(Unknown) E Clinic Main [facility] 09/08/2017 Active Other specified DOMINGA TIMMONS Active [facility] bacterial H Clinic Other intestinal [place] infections / Repository A04.8(ICD-10) 09/08/2017 Active Nausea / DOMINGA TIMMONS Active [facility] R11.0(ICD-10) H Clinic Other [facility] 07/07/2017 Active Right upper DOMINGA TIMMONS Active [facility] quadrant pain / H Clinic Other R10.11(ICD-10) [facility] 01/27/2017 Active Other specified DOMINGA TIMMONS Active [facility] diseases of biliary H Clinic Other tract / [place] K83.8(ICD-10) Repository 09/08/2017 Admitting Unknown / Adrienne TIMMONS Active [facility] diagnosis UNK(Unknown) [facility] Repository 09/02/2017 Active Abnormal findings ARJUN JEAN Active [facility] on diagnostic (MD) Clinic Other imaging of other [place] parts of digestive Repository tract / R93.3(ICD-10) 07/07/2017 Active Encounter for DOMINGA TIMMONS [facility] screening for other H Clinic Other disorder / [place] Z13.89(ICD-10) Repository PROCEDURES PROCEDURES No Procedure Records FoundRESULTS RESULTS PROGRESS Observed: 06/09/2018 Status: COMPLETED Source: [place] 3:37 PM [facility] REPOSITORY HNO ID: [id number] Author: Lisha Huston Service: (none) Author Type: (none) Type: Progress Notes Filed: 06/09/2018 3:38 PM Note Text: Radiology Service Progress Note PATIENT NAME: Cady Salmeron DATE OF SERVICE: June 09, 2018 TIME: 3:37 PM PATIENT IDENTITY VERIFICATION COMPLETED USING TWO (2) METHODS: Patient confirmed name verbally and Date of . PATIENT GENDER DATA: Female. status: : No status: NO. PATIENT RELEVANT IMPLANT DATA REVIEWED: Not Applicable CONTRAST INDUCED NEPHROPATHY RISK FACTORS: Patient age > 60 years CREATININE: Creatinine Date Value Ref Range Status 06/09/2018 1.32 (H) 0.58 - 0.96 mg/dL Final 11/16/2017 0.81 0.58 - 0.96 mg/dL Final 07/08/2017 0.83 0.58 - 0.96 mg/dL Final eGFR-All Other Races Date Value Ref Range Status 06/09/2018 39 . Final Comment: eGFR (Estimated GFR) Units of measure: mL/min/1.73 meters squared eGFR is derived from the reexpressed MDRD Study equation using the following parameters: serum creatinine, age, gender and race. The creatinine assay has been calibrated to be traceable to IDMS. An eGFR <60 mL/min/1.73m2 for >3 months is consistent with chronic kidney disease. Refer to KDOQI guidelines for clinical interpretation. In patients with unstable renal function, e.g. those with acute kidney injury, the eGFR may not accurately reflect actual GFR. eGFR- Date Value Ref Range Status 06/09/2018 47 Final P.O.C.T. RESULTS: POC done: Yes, See Lab Tab June 09, 2018 RADIOLOGIST NOTIFIED?: No ALLERGIES: Reviewed and unchanged CONTRAST ALLERGY: NO. PERIPHERAL IV ACCESS: Ambulatory: IV type: Existing peripheral IV utilized, Site assessment: Clean,Dry and Intact, Site disposition Discontinued RADIOLOGY DEPARTMENT: CT; Exam(s) Completed: Abdomen/Pelvis SIGNED BY: Lisha Shell Ct June 09, 2018 3:[address] ABD/PEL W IVCON Observed: 06/09/2018 Status: F Source: [place] 3:37 PM [facility] REPOSITORY * * *Final Report* * * DATE OF EXAM: Jun 09 2018 3:37PM [facility] 0530 - CT ABD/PEL W IVCON / PROCEDURE REASON: Generalized abdominal pain * * * * Physician Interpretation * * * * EXAMINATION: CT ABDOMEN AND PELVIS WITH IV CONTRAST CLINICAL HISTORY: Upper abdominal pain. Prior cholecystectomy and hysterectomy. TECHNIQUE: CT of the abdomen and pelvis was performed using standard technique, scanning from just above the dome of the diaphragm to the symphysis pubis. MQ: CTAP_3 Contrast: IV: 135 ml of Omnipaque 300 Oral: 50 ml of 50ML Omnipaque [address] Radiation dose: Integrated Dose-length product (DLP) for this visit = 383 mGy*cm. CT Dose Reduction Employed: Automated exposure control(AEC) and iterative recon COMPARISON: There are no prior CT abdomen pelvis for comparison. Correlation is made to report from 14 July 2017. Images are not available within the archives. RESULT: Liver: No mass. No hepatomegaly Biliary: The gallbladder surgically absent. Mild central and intrahepatic biliary prominence is consistent with postsurgical state. Common duct just before the pancreatic head measures 11 mm. No obvious obstructing stone or mass. Spleen: No mass. No splenomegaly. Pancreas: No mass or duct dilation. Adrenals: No mass. Kidneys: The kidneys promptly and symmetrically excrete contrast material without suspicious solid enhancing mass. Small 5 mm or less too small to fully characterize hypodensity is seen within the right midpole posteriorly which likely represents a tiny cyst. 2. Punctate 3 mm nonobstructing stones noted within the mid and lower pole right kidney. GI tract: The bowel gas pattern is nonobstructive. There is no bowel wall thickening or inflammatory process. The appendix is segmentally visualized and unremarkable. Multiple diverticula are present compatible with diverticulosis. There is no wall thickening or pericolonic inflammatory change to suggest diverticulitis. Lymph nodes: No abdominal or pelvic lymphadenopathy. Mesentery/Peritoneum: No ascites or mass. Retroperitoneum: No mass. Vasculature: The aorta is normal course and caliber with atherosclerotic calcification. Calcifications are seen at the origin of the mesenteric vessels as well as both renal arteries without obstruction. Pelvis: No mass, ascites or fluid collection. Bones/Soft Tissues: The bony structures are intact. Lower thorax: The lung bases are clear IMPRESSION: No acute intra-abdominal process. Box Person: PSCTerra Transcribe Date/Time: Jun 09 2018 3:44P Dictated by : CLINTON CABRAL MD This examination was interpreted and the report reviewed and electronically signed by: CLINTON CABRAL MD on Jun 09 2018 3:57PM EST [id number] LEAD ELECTROCARDIOGRAM Observed: 06/09/2018 Status: F Source: [place] 1:44 PM [facility] REPOSITORY [facility] Cardiovascular Services [address] [place] [address] 12 Lead EKG 06/07/18 1322 MR#: [id number] Acct: [id number] Name: CADY SALMERON Rep #: [id number] : 1935 83 From: Jason Hernandez MD Attending Dr: Status: DEP ER Ordering Dr: Roge Mckeon MD Date: 06/07/18 Location: ED Sex: F C Admitted: Test Reason : DIZZINESS Blood Pressure : / mmHG Vent. Rate : 062 BPM Atrial Rate : 062 BPM P-R Int : 220 ms QRS Dur : 084 ms QT Int : 446 ms P-R-T Axes : 029 000 076 degrees QTc Int : 452 ms Sinus rhythm with 1st degree A-V block Minimal voltage criteria for LVH, may be normal variant Nonspecific T wave abnormality Abnormal ECG Confirmed by DAVID LAWSON, JASON ([id number]), medical transcription editor CHANG CONCEPCION ([id number]) on 06/09/2018 1:44:09 PM Referred By: DAYTON Confirmed By:JASON HERNANDEZ MD 06/09/18 1344 Date Jason Hernandez MD CC: David Connell MD; Roge Mckeon MD Signed BASIC METABOLIC PANL Collected: 06/09/2018 Status: F Source: [place] 10:36 AM [facility] REPOSITORY TYPE CODE TESTS RESULT OUT OF REFERENCE UNITS RANGE LAB GLU 74-99 mg/dL Glucose High 158 LAB BUN 7-21 mg/dL BUN High 22 LAB CRET 0.58-0.96 mg/dL High Creatinine 1.32 LAB NA 136-144 mmol/L Sodium 140 LAB K 3.7-5.1 mmol/L Low Potassium 3.6 LAB CL 97-105 mmol/L Chloride 102 LAB CO2 22-30 mmol/L CO2 26 LAB AGAP mmol/L Anion Gap 12 LAB CA 8.5-10.2 mg/dL Calcium, Total 9.6 LAB GFRAA eGFR- 47 Amer. LAB GFRNAA . eGFR-All Other Races 39 Result Comment: eGFR (Estimated GFR) Units of measure: mL/min/1.73 meters squared eGFR is derived from the reexpressed MDRD Study equation using the following parameters: serum creatinine, age, gender and race. The creatinine assay has been calibrated to be traceable to IDMS. An eGFR <60 mL/min/1.73m2 for >3 months is consistent with chronic kidney disease. Refer to KDOQI guidelines for clinical interpretation. In patients with unstable renal function, e.g. those with acute kidney injury, the eGFR may not accurately reflect actual GFR. PROGRESS Observed: 06/08/2018 Status: COMPLETED Source: [place] 4:41 PM [facility] [place] REPOSITORY HNO ID: [id number] Author: Caroline (Robbie) Older Service: (none) Author Type: Nurse Practitioner Type: Progress Notes Filed: 06/08/2018 5:12 PM Note Text: CC Patient presents with: Established Patient HPI Cady Salmeron is a 83 year old female who presents with abdominal pain for 4 days. Gradually worsening. She was seen in the ER for dizziness and black stool yesterday. Patient states she also had abdominal pain as well. CBC, BMP unremarkable. Black stool attributed to Pepto Bismol and not GI bleed secondary to Eliquis. Diagnosed with BPPV as cause of dizziness. Pain is a little worse today then when she was in the ER. Characteristics of the pain are as follows: Location: upper abdomen without radiation Quality: constant stabbing Quantity: 7/10 in intensity Aggravating factors: eating and drinking Alleviating factors: pepto bismol Associated symptoms: nausea, gas, bloating Denies: fever, chills, vomiting, diarrhea, constipation, heartburn/reflux symptoms GI history: H.pylori treated in early 2017. Surgeries: cholecsytecomty. Endoscopy: EUS and EGD 2018, no acute findings other than H.pylori Patient treated two weeks ago for sinusitis and cough with Zithromax x 2, Tessalon Perles, Robitussin with codeine. States all symptoms have resolved. Denies cough, wheezing, SOB or sinus symptoms. 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) - Paroxysmal supraventricular tachycardia (HCC) - Pure hypercholesterolemia - Pure hyperglyceridemia - Sciatica - Stented coronary artery - Unspecified essential hypertension PAST SURGICAL HISTORY Procedure Laterality Date - CATHETER ART SYS-1ST ORD THORA 01/29/07 LEFT - CATHETER ART SYS-2ND ORD THORA 01/29/07 RIGHT - CHOLECYSTECTOMY W/CHOLANGIOGRAPHY 2017 DR TIMMONS - INSERT CATH,ART,PERCUT,SHORTTERM 02/16/07 - THROMBOENDARTECTMY NECK,NECK INCIS 02/16/07 LEFT - TOTAL ABDOM HYSTERECTOMY 1973 Hysterectomy, RAN ALLERGIES Cardizem [Diltiazem Hcl]; Cefdinir; Darvocet A500 [Propoxyphene N-Acetaminophen]; Doxycycline; Flexeril [Cyclobenzaprine Hcl]; Levaquin [Levofloxacin]; Novacaine [Other]; Peniciillins [Other]; Sulfa (Sulfonamide Antibiotics) MEDICATIONS codeine-guaiFENesin (ROBITUSSIN AC) 10-100 mg/5 mL syrup Take 5-10 mL by mouth four times daily as needed for Cough for up to 7 days. May cause drowsiness. benzonatate (TESSALON PERLE) 100 mg capsule Take 1 capsule by mouth three times daily as needed. fluticasone (FLONASE) 50 mcg/actuation nasal spray Use 2 Sprays in each nostril once daily. Rinse mouth after use. cetirizine (ZYRTEC) 10 mg tablet Take 1 tablet by mouth once daily. for nasal drainage and congestion apixaban (ELIQUIS) 5 mg tab(s) Take 1 tablet by mouth twice daily. LORazepam (ATIVAN) 0.5 mg tab Take 0.5-1 tablets by mouth twice daily for 90 days. As directed labetalol (TRANDATE) 200 mg tablet Take 1 tablet by mouth twice daily. rosuvastatin (CRESTOR) 5 mg tablet Take 1 tablet by mouth daily at bedtime. gabapentin (NEURONTIN) 600 mg tablet Take 2 tablets by mouth three times daily. lisinopril (ZESTRIL) 40 mg tablet Take 1 tablet by mouth once daily. amLODIPine (NORVASC) 10 mg tablet Take 1 tablet by mouth once daily. lansoprazole (PREVACID) 30 mg capsule TAKE 1 CAPSULE BY MOUTH EVERY DAY tiZANidine (ZANAFLEX) 4 mg tablet Take 1 tablet by mouth at bedtime as needed. bismuth subsalicylate (BISMATROL) 262 mg chew Take 1 tablet by mouth four times daily for 14 days. fentaNYL (DURAGESIC) 25 mcg/hr HYDROcodone-Acetaminophen (NORCO) 10-325 mg per tablet triamcinolone acetonide (KENALOG) 0.1 % cream aspirin 81 mg chewable tablet Take 81 mg by mouth once daily. colestipol (COLESTID) 1 gram tablet Take 1 tablet by mouth twice daily. docusate sodium (COLACE) 100 mg capsule Take 1 capsule by mouth once daily. ergocalciferol, vitamin D2, (DRISDOL) 50,000 unit capsule Take 1 capsule three times wekly triamterene-hydrochlorothiazide 37.5-25 mg per capsule Take 1 capsule by mouth once daily. Take in am. BIOTIN ORAL Take by mouth. nitroglycerin sublingual (NITROQUICK) 0.4 mg SL tablet Dissolve 1 tablet under the tongue as needed. FOR CHEST PAIN. IF NO RELIEF CALL 911 FAMILY HISTORY Problem Relation Age of Onset - Diabetes Mother - Heart Mother - Diabetes Father - Heart Father - Diabetes Sister x 3 - Diabetes Brother x 2 Social History Substance Use Topics - Smoking status: Former Smoker Packs/day: 1.00 Years: 30.00 Types: Cigarettes Quit date: 09/03/1996 - Smokeless tobacco: Never Used - Alcohol use No PHYSICAL EXAM BP 144/52 (BP Site: Left Arm, BP Position: Sitting, BP Cuff Size: Regular Adult) Pulse 62 Resp 16 Wt 66.7 kg (147 lb) BMI 26.04 kg/m? General Appearance: in no acute distress, alert, appears uncomfortable Pysch: affect is anxious Skin: Skin color, texture, turgor normal for age; Eyes: conjunctiva pink and moist, no icterus, sclera white, non-injected Oropharynx: moist Lungs: lungs clear to auscultation. No wheezing, rhonchi, rales Heart: RRR without murmur, gallop, or rubs. No ectopy Abdomen soft, non-distended. moderate upper quadrant abdominal tenderness with palpation. No guarding or rebound tenderness. Bowel sounds normal and active. No masses, organomegaly. No CVA tenderness. ASSESSMENT/PLAN: 1. Generalized abdominal pain - ICD9: 789.07, ICD10: R10.84 (primary diagnosis) Differential Diagnosis includes PUD, dyspepsia or gastritis secondary to recent antibiotics Tenderness and pain concerning, needs further work-up with CT ABD/PEL W IVCON [place] - BERTRAM ISTAT BMP to evaluate renal function for IV contrast - To ER for worsening symptoms - Follow-up pending results 2. Abdominal tenderness without rebound tenderness, unspecified location - ICD9: 789.60, ICD10: R10.819 As above - BERTRAM ISTAT BMP 3. Nausea - ICD9: 787.02, ICD10: R11.0 As above Prescription instructions reviewed with patient as applicable. Potential red flag symptoms discussed with the patient. Reviewed appropriate action plan to take if red flag symptoms occur. Patient agreeable to treatment plan. Caroline Dupree APRN.CNP CNOV Observed: 06/08/2018 Status: COMPLETED Source: [place] 4:20 PM [facility] REPOSITORY Office Visit (INTMWS) CADY SALMERON ([id number]) 1935 F Date Time Provider Department 06/08/18 4:20 PM CAROLINE DUPREE (ROBBIE) INTMWS During your visit today, we recorded the following information about you: Pulse Respiration Blood pressure Weight 62/minute 16/minute 144/52 66.7 kg Caroline Dupree APRN.CNP 06/08/2018 5:12 PM Signed CC Patient presents with: Established Patient HPI Cady Salmeron is a 83 year old female who presents with abdominal pain for 4 days. Gradually worsening. She was seen in the ER for dizziness and black stool yesterday. Patient states she also had abdominal pain as well. CBC, BMP unremarkable. Black stool attributed to Pepto Bismol and not GI bleed secondary to Eliquis. Diagnosed with BPPV as cause of dizziness. Pain is a little worse today then when she was in the ER. Characteristics of the pain are as follows: Location: upper abdomen without radiation Quality: constant stabbing Quantity: 7/10 in intensity Aggravating factors: eating and drinking Alleviating factors: pepto bismol Associated symptoms: nausea, gas, bloating Denies: fever, chills, vomiting, diarrhea, constipation, heartburn/reflux symptoms GI history: H.pylori treated in early 2018. Surgeries: cholecsytecomty. Endoscopy: EUS and EGD 2018, no acute findings other than H.pylori Patient treated two weeks ago for sinusitis and cough with Zithromax x 2, Tessalon Perles, Robitussin with codeine. States all symptoms have resolved. Denies cough, wheezing, SOB or sinus symptoms. 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) - Paroxysmal supraventricular tachycardia (HCC) - Pure hypercholesterolemia - Pure hyperglyceridemia - Sciatica - Stented coronary artery - Unspecified essential hypertension PAST SURGICAL HISTORY Procedure Laterality Date - CATHETER ART SYS-1ST ORD THORA 01/29/07 LEFT - CATHETER ART SYS-2ND ORD THORA 01/29/07 RIGHT - CHOLECYSTECTOMY W/CHOLANGIOGRAPHY 2016 DR TIMMONS - INSERT CATH,ART,PERCUT,SHORTTERM 02/16/07 - THROMBOENDARTECTMY NECK,NECK INCIS 02/16/07 LEFT - TOTAL ABDOM HYSTERECTOMY 1973 Hysterectomy, RAN ALLERGIES Cardizem [Diltiazem Hcl]; Cefdinir; Darvocet A500 [Propoxyphene N-Acetaminophen]; Doxycycline; Flexeril [Cyclobenzaprine Hcl]; Levaquin [Levofloxacin]; Novacaine [Other]; Peniciillins [Other]; Sulfa (Sulfonamide Antibiotics) MEDICATIONS codeine-guaiFENesin (ROBITUSSIN AC) 10-100 mg/5 mL syrup Take 5-10 mL by mouth four times daily as needed for Cough for up to 7 days. May cause drowsiness. benzonatate (TESSALON PERLE) 100 mg capsule Take 1 capsule by mouth three times daily as needed. fluticasone (FLONASE) 50 mcg/actuation nasal spray Use 2 Sprays in each nostril once daily. Rinse mouth after use. cetirizine (ZYRTEC) 10 mg tablet Take 1 tablet by mouth once daily. for nasal drainage and congestion apixaban (ELIQUIS) 5 mg tab(s) Take 1 tablet by mouth twice daily. LORazepam (ATIVAN) 0.5 mg tab Take 0.5-1 tablets by mouth twice daily for 90 days. As directed labetalol (TRANDATE) 200 mg tablet Take 1 tablet by mouth twice daily. rosuvastatin (CRESTOR) 5 mg tablet Take 1 tablet by mouth daily at bedtime. gabapentin (NEURONTIN) 600 mg tablet Take 2 tablets by mouth three times daily. lisinopril (ZESTRIL) 40 mg tablet Take 1 tablet by mouth once daily. amLODIPine (NORVASC) 10 mg tablet Take 1 tablet by mouth once daily. lansoprazole (PREVACID) 30 mg capsule TAKE 1 CAPSULE BY MOUTH EVERY DAY tiZANidine (ZANAFLEX) 4 mg tablet Take 1 tablet by mouth at bedtime as needed. bismuth subsalicylate (BISMATROL) 262 mg chew Take 1 tablet by mouth four times daily for 14 days. fentaNYL (DURAGESIC) 25 mcg/hr HYDROcodone-Acetaminophen (NORCO) 10-325 mg per tablet triamcinolone acetonide (KENALOG) 0.1 % cream aspirin 81 mg chewable tablet Take 81 mg by mouth once daily. colestipol (COLESTID) 1 gram tablet Take 1 tablet by mouth twice daily. docusate sodium (COLACE) 100 mg capsule Take 1 capsule by mouth once daily. ergocalciferol, vitamin D2, (DRISDOL) 50,000 unit capsule Take 1 capsule three times wekly triamterene-hydrochlorothiazide 37.5-25 mg per capsule Take 1 capsule by mouth once daily. Take in am. BIOTIN ORAL Take by mouth. nitroglycerin sublingual (NITROQUICK) 0.4 mg SL tablet Dissolve 1 tablet under the tongue as needed. FOR CHEST PAIN. IF NO RELIEF CALL 911 FAMILY HISTORY Problem Relation Age of Onset - Diabetes Mother - Heart Mother - Diabetes Father - Heart Father - Diabetes Sister x 3 - Diabetes Brother x 2 Social History Substance Use Topics - Smoking status: Former Smoker Packs/day: 1.00 Years: 30.00 Types: Cigarettes Quit date: 09/03/1996 - Smokeless tobacco: Never Used - Alcohol use No PHYSICAL EXAM BP 144/52 (BP Site: Left Arm, BP Position: Sitting, BP Cuff Size: Regular Adult) Pulse 62 Resp 16 Wt 66.7 kg (147 lb) BMI 26.04 kg/m? General Appearance: in no acute distress, alert, appears uncomfortable Pysch: affect is anxious Skin: Skin color, texture, turgor normal for age; Eyes: conjunctiva pink and moist, no icterus, sclera white, non-injected Oropharynx: moist Lungs: lungs clear to auscultation. No wheezing, rhonchi, rales Heart: RRR without murmur, gallop, or rubs. No ectopy Abdomen soft, non-distended. moderate upper quadrant abdominal tenderness with palpation. No guarding or rebound tenderness. Bowel sounds normal and active. No masses, organomegaly. No CVA tenderness. ASSESSMENT/PLAN: 1. Generalized abdominal pain - ICD9: 789.07, ICD10: R10.84 (primary diagnosis) Differential Diagnosis includes PUD, dyspepsia or gastritis secondary to recent antibiotics Tenderness and pain concerning, needs further work-up with CT ABD/PEL W IVCON [place] - BERTRAM ISTAT BMP to evaluate renal function for IV contrast - To ER for worsening symptoms - Follow-up pending results 2. Abdominal tenderness without rebound tenderness, unspecified location - ICD9: 789.60, ICD10: R10.819 As above - BERTRAM ISTAT BMP 3. Nausea - ICD9: 787.02, ICD10: R11.0 As above Prescription instructions reviewed with patient as applicable. Potential red flag symptoms discussed with the patient. Reviewed appropriate action plan to take if red flag symptoms occur. Patient agreeable to treatment plan. Caroline Dupree APRN.CORPORATE OPERATIONS COMPLIANCE MANAGER Referring Provider: SELF [[id number]] Allergies As of Date: 06/08/2018 Noted Allergy Reaction CARDIZEM (DILTIAZEM HCL) 03/18/2005 2 - Rash CEFDINIR 04/21/2017 4 - Hives DARVOCET A500 (PROPOXYPHENE N-ROSA*03/18/2005 8 - GI Upset DOXYCYCLINE 05/26/2008 11 - Vomiting FLEXERIL (CYCLOBENZAPRINE HCL) 02/19/2007 5 - Intolerance Comments: heart racing LEVAQUIN (LEVOFLOXACIN) 01/20/2013 16 - Unknown NOVACAINE [Other] 02/15/2005 PENICIILLINS [Other] 02/15/2005 10 - Anaphylaxis SULFA (SULFONAMIDE ANTIBIOTICS) 02/15/2005 7 - Swelling Comments: tongue swelling Date Reviewed: 06/06/2018 Reviewed by: Prema (Rn) Olga Lidia - Fully Assessed Reason for Visit: Established Patient [175] Primary Visit Diagnosis:Generalized abdominal pain [R10.84] Other Visit Diagnoses:Abdominal tenderness without rebound tenderness, unspecified location [R10.819] Nausea [R11.0] Order(s):CT ABD/PEL W IVCON [[id number]] Order #: [id number] FUTURE iv contrast (will be provided with radiology test)CT ABD/PEL -Inject, intravenously, once for 1 dose.No IV access, insert saline lock prior to the beginning of sedation, infusion, injection of imaging exam. Discontinue saline lock post exam. If Pt. has a central line or IVAD, may access for administration according to line specific nursing protocol. Once exam is complete flush line and de- access according to line specific nursing protocol in the CT contrast administration guidelines link.Disp: 1 EachRfl: 0 enteric contrast (will be provided with radiology test)For CT ABD/PEL W IVCON Routine order Administer, As Directed One Time Only, via Oral, Rectal, both Oral and Rectal, Enteric Tube, Stoma or Indwelling Catheter, Enteric Contrast as designated per enteric contrast guidelinesDisp: 1 EachRfl: 0 BERTRAM [facility] [[id number]] Order #: [id number] FUTURE Prescriptions as of 06/08/2018 Sig: IV CONTRAST (RADIOLOGY PROCED* CT ABD/PEL -Inject, intraveno* ENTERIC CONTRAST (RADIOLOGY P* For CT ABD/PEL W IVCON Routin* CODEINE 10 MG-GUAIFENESIN 100* Take 5-10 mL by mouth four ti* BENZONATATE 100 MG CAPSULE Take 1 capsule by mouth three* FLUTICASONE 50 MCG/ACTUATION * Use 2 Sprays in each nostril * CETIRIZINE 10 MG TABLET Take 1 tablet by mouth once d* APIXABAN 5 MG TABLET Take 1 tablet by mouth twice * LORAZEPAM 0.5 MG TABLET Take 0.5-1 tablets by mouth t* LABETALOL 200 MG TABLET Take 1 tablet by mouth twice * ROSUVASTATIN 5 MG TABLET Take 1 tablet by mouth daily * GABAPENTIN 600 MG TABLET Take 2 tablets by mouth three* LISINOPRIL 40 MG TABLET Take 1 tablet by mouth once d* AMLODIPINE 10 MG TABLET Take 1 tablet by mouth once d* LANSOPRAZOLE 30 MG CAPSULE,DE* TAKE 1 CAPSULE BY MOUTH EVERY* TIZANIDINE 4 MG TABLET Take 1 tablet by mouth at bed* BISMUTH SUBSALICYLATE 262 MG * Take 1 tablet by mouth four t* FENTANYL 25 MCG/HR TRANSDERMA* HYDROCODONE 10 MG-ACETAMINOPH* TRIAMCINOLONE ACETONIDE 0.1 %* ASPIRIN 81 MG CHEWABLE TABLET Take 81 mg by mouth once robbin* COLESTIPOL 1 GRAM TABLET Take 1 tablet by mouth twice * DOCUSATE SODIUM 100 MG CAPSULE Take 1 capsule by mouth once * ERGOCALCIFEROL (VITAMIN D2) 5* Take 1 capsule three times we* TRIAMTERENE 37.5 MG-HYDROCHLO* Take 1 capsule by mouth once * BIOTIN ORAL Take by mouth. NITROGLYCERIN 0.4 MG SUBLINGU* Dissolve 1 tablet under the t* Problem List As Of Date 06/08/2018 Noted Resolved GENERALIZED ANXIETY DIS [F41.1] More... DISACCHARIDASE DEF/MALAB [E73.9] GENERAL OSTEOARTHROSIS [M15.9] CARPAL TUNNEL SYNDROME [G56.00] Hyperlipidemia [E78.5] ALLERGIC RHINITIS NOS [J30.9] More... ARTERIAL DISEASE NEC [I77.89] SCIATICA [M54.30] Obesity, unspecified [E66.9] 12/04/2017 ESOPHAGEAL REFLUX [K21.9] PAROX ATRIAL TACHYCARDIA [I47.1] Essential hypertension [I10] Occlusion and stenosis of carotid artery [I65.2*INVALID FOR* Vitamin D deficiency [E55.9] INVALID FOR* Dysmetabolic Syndrome [E88.81] INVALID FOR* Laceration [UNC9284] INVALID FOR* Calcaneal spur [M77.30] INVALID FOR* Sinusitis [J32.9] INVALID FOR* More... 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 Imaging of gastrointestinal tract abnormal [R93*INVALID FOR* More... Nausea [R11.0] INVALID FOR* Helicobacter pylori infection [A04.8] INVALID FOR* Magnesium deficiency [E61.2] INVALID FOR* Prescriptions ordered this encounter Disp Refills Start End IV CONTRAST (RADIOLOGY PROCEDURE) 1 Ea* 0 06/08/2018 06/09/2018 Class: In Office Sig: CT ABD/PEL -Inject, intravenously, once for 1 dose.No IV access, insert saline lock prior to the beginning of sedation, infusion, injection of imaging exam. Discontinue saline lock post exam. If Pt. has a central line or IVAD, may access for administration according to line specific nursing protocol. Once exam is complete flush line and de-access according to line specific nursing protocol in the CT contrast administration guidelines link. ENTERIC CONTRAST (RADIOLOGY PROCEDUR* 1 Ea* 0 06/08/2018 06/09/2018 Class: In Office Sig: For CT ABD/PEL W IVCON Routine order Administer, As Directed One Time Only, via Oral, Rectal, both Oral and Rectal, Enteric Tube, Stoma or Indwelling Catheter, Enteric Contrast as designated per enteric contrast guidelines Encounter Status:Closed by CAROLINE DUPREE CNP on 06/08/18 EMERGENCY DEPARTMENT Observed: 06/07/2018 Status: F Source: [place] SUMMARY 3:33 PM [facility] REPOSITORY [facility] Medical Records Department [address] [place] [address] Emergency Department Summary 06/07/18 1527 MR#: [id number] Acct: [id number] Name: CADY SALMERON Rep #: [id number] : [id number] From: Roge Mckeon MD PCP: David Connell MD Status: REG ER - ER Visit Summary Date of Service: 06/07/18 Chief Complaint: Dizziness and black stool History of Present Illness: The patient is a 83 F who has 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 She presents because she complains of dizziness. Patient's description of dizziness is vertigo not orthostatic symptoms. She does admit to taking Pepto-Bismol this weekend. She did not no blood in her stool or maroon colored stool. She is had no nausea and vomiting. She does report mild mid abdominal discomfort located above the umbilicus. She denies fever, chills night sweats. She denies visual, ocular auditory symptoms. She denies cardiac respiratory symptoms. She denies myalgias arthralgias. She denies anesthesia, paresthesia or motor weakness. She denies headache. She denies bruising easily. Please read written note for complete detail There is a history of coronary disease, hypertension, hypercholesterolemia, pulmonary embolus and GERD. 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 Physical Examination: Vital signs noted. Blood pressure slightly elevated 141/76. Head is atraumatic normocephalic. Pupils are equal round reactive. Extraocular muscles are intact. Conjunctive are pink. TMs are pearly white with landmarks noted. Nares patent with no drainage. Posterior pharynx without erythema or exudate. Uvula is midline. There is no dysphonia or dysphasia. Trachea is midline. There is no stridor with auscultation of the neck. Heart is regular without murmur, gallop or rub. S1 and S2 are normal. Lungs are clear to auscultation with good movement of air bilaterally. Abdomen is tympanitic with increased bowel sounds. No stool in the rectal vault. There is no fissures, fistulas or hemorrhoids noted. Test Results: CBC and BMP are unremarkable. Creatinine is 1.18 which is an improvement from prior. BUN/creatinine ratio is normal. One would expect a drop in hemoglobin if bleeding for 2 days and an elevated BUN to creatinine ratio. Emergency Department Course and Treatment: With history of black stool will obtain blood work to rule in or rule out GI bleed since there is no material in the rectum to assess for blood. A [place]-Hallpike maneuver was performed and patient had nystagmus that was evident with head turned to the right. She had symptoms but no nystagmus with head turned to the right. The eye askew test was negative. The HINT was negative. Treatment Plan: Since blood work confirms suspicion that the black stool is secondary to Pepto-Bismol and Aleta maneuver was performed. This reproduced her symptoms as well as the nystagmus. Nystagmus fatigue and her symptoms resolved. Disposition: Discharged home in stable improved condition. She was instructed to resume her Eliquis since the cause of her black stools not secondary to GI bleed. Impression: 1. Clark no benign positional vertigo 2. History of hypertension, coronary disease, GERD and PE This note was generated with Aquafadasation software. It may contain incorrect words, spelling, and punctuation that were not noted in review of the chart prior to signing ED Disposition - Plan for ED Patient: Disposition: Home or Assisted Living Chief Complaint: Dizziness Instructions: ED BPV Vertigo Prescriptions: Ondansetron [Zofran Odt] 4 mg PO Q8H PRN PRN #5 tab PRN Reason: Nausea/Vomiting Referrals: David Connell MD [Primary Care Provider] - As Needed What to do if you have Problems For any increased pain, shortness of breath, bleeding, nausea or vomiting, chest pain, or any unexpected problems, contact your Primary Care Provider. Call [facility] ([phone]) or report to the closest Emergency Room. Call 911 if necessary. 06/07/18 1533 <Electronically signed by Roge Mckeon MD> Date Roge Mckeon MD Cosigner Signature (If Indicated): Date CC: David Connell MD CBC W/DIFF, AUTOMATED Collected: 06/07/2018 Status: F Source: [place] 1:20 PM [facility] REPOSITORY TYPE CODE TESTS RESULT OUT OF RANGE REFERENCE UNITS LAB L100.1000 4.4-11.0 K/mm3 Normal WBC 5.8 LAB L100.1200 4.2-5.4 M/mm3 Normal RBC 4.56 LAB L100.1300 12.0-15.0 g/dl Normal HGB 13.1 LAB L100.1400 37-47 % Normal HCT 41.3 LAB L100.1500 81-99 fL Normal MCV 90.6 LAB L100.1600 27.0-32.0 pg Normal MCH 28.7 LAB L100.1700 32-36 g/gl Low MCHC 31.7 LAB L100.1810 11.6-14.6 % Normal RDW CV 13.0 LAB L100.1820 35.1-43.9 fl Normal RDW SD 42.9 LAB L100.1900 150-450 K/mm3 Normal PLT 340 LAB L100.2000 6.2-12.0 fl Normal MPV 9.3 LAB L100.2100 47-70 % Normal NEUT% 55.6 LAB L100.2200 19-41 % Normal LY% 35.2 LAB L100.2300 0-10 % Normal MONO% 6.7 LAB L100.2400 0-5 % Normal EO% 1.2 LAB L100.2500 0-1 % Normal BASO% 1.0 LAB L100.2550 0.0-0.9 % Normal IM GRAN % 0.300 Result Comment: IG% - Immature Granulocytes (promyelocytes, myelocytes and metamyelocytes) > 1% indicates that a LEFT SHIFT is Present. LAB L100.2620 2.0-7.7 X10 3/uL Normal Absolute Neut 3.2 LAB L100.2720 0.83-4.51 X10 3/ul Normal Absolute Lymph 2.04 Performed By: #### L100.0100 #### [facility] [address] [place], [address] BASIC METABOLIC Collected: 06/07/2018 Status: F Source: [place] PROFILE ([facility]) 1:20 PM [facility] REPOSITORY TYPE CODE TESTS RESULT OUT OF RANGE REFERENCE UNITS LAB L501.0100 74-106 mg/dL High GLU 110 Result Comment: Fasting Glucose result from 100 to 125 mg/dL suggests IMPAIRED HOMEOSTASIS per A.D.A. criteria. Please note revised GLUCOSE reference range effective 2017. LAB L501.1000 7-18 mg/dL Normal BUN 17 LAB L501.1100 0.55-1.02 mg/dL High CREAT,SERUM 1.18 Result Comment: The validity of the calculated GFR AND GFRAA in patients over 70 years has not been determined. Clinical correlation is essential. LAB L501.1110 >60 mL/min Low EST GFR 47 Result Comment: Non- GFR Calc LAB L501.1115 >60 mL/min Low EST GFR - AA 56 Result Comment: GFR Calc LAB L501.1255 ml/min Normal Estimated CRCL 31.74 LAB L501.1300 10-20 RATIO Normal BUN/CRE 14.4 LAB L501.2200 8.5-10 mg/dL Normal .1 CA 9.8 LAB L501.5300 136-14 mmol/L Normal 5 NA 141 LAB L501.5600 3.5-5. mmol/L Normal 1 K 3.7 LAB L501.5900 98-107 mmol/L Normal CL 103 LAB L501.6100 21.0-3 mmol/L Normal 2.0 CO2 30.0 LAB L501.6200 5-15 Normal GAP 8 Performed By: #### L500.2500 #### [facility] [address] [place], [address] PROGRESS Observed: 06/01/2018 Status: COMPLETED Source: [place] 11:00 AM [facility] REPOSITORY HNO ID: [id number] Author: Krupa Calvo Service: (none) Author Type: Physician Operations Supervisor Type: Progress Notes Filed: 06/01/2018 12:02 PM Note Text: Patient presents with: Cough: patient is here cough; sinus pressure; sore throat x 3 weeks 83 year old female with c/o URI sx over the last 3 weeks with Sore throat: Yes. Nasal congestion: Yes. Nasal drip: Yes. Sinus pain/ pressure: Yes. Headache Yes. Body aches No. Ear pain: Yes. Cough: Yes. Production: Yes. Shortness of Breath: Yes. Wheezing: Yes. Fever: No. Tmax n/a. Hx asthma No. Hx pneumonia Yes Smoker: former. OTC meds tried: cough medications. Has been seen in office twice and has tried symptomatic treatments without improvement. ACTIVE PROBLEM LIST Generalized Anxiety Disorder Intestinal Disaccharidase Deficiencies and Disaccharide Malabsorption Generalized Osteoarthrosis, Unspecified Site Carpal Tunnel Syndrome Hyperlipidemia Allergic Rhinitis, Cause Unspecified Other Specified Disorders of Arteries and Arterioles (Hcc) Sciatica Esophageal Reflux Paroxysmal Supraventricular Tachycardia (Hcc) Essential Hypertension Occlusion and Stenosis of Carotid Artery Vitamin D Deficiency Dysmetabolic Syndrome Laceration Calcaneal Spur Sinusitis S/P Ptca (Percutaneous Transluminal Coronary Angioplasty) Hx Pulmonary Embolism Chronic Anticoagulation H/O Carotid Endarterectomy Nonrheumatic Aortic Valve Stenosis Dilation of Biliary Tract Chest Pain Aftercare Following Surgery Common Bile Duct Stricture Ruq Pain Abdominal Pain, Ruq Imaging of Gastrointestinal Tract Abnormal Nausea Helicobacter Pylori Infection Magnesium Deficiency Current Outpatient Prescriptions: benzonatate (TESSALON PERLE) 100 mg capsule Take 1 capsule by mouth three times daily as needed. Disp: 30 capsule Rfl: 0 fluticasone (FLONASE) 50 mcg/actuation nasal spray Use 2 Sprays in each nostril once daily. Rinse mouth after use. Disp: 1 Bottle Rfl: 0 cetirizine (ZYRTEC) 10 mg tablet Take 1 tablet by mouth once daily. for nasal drainage and congestion Disp: 30 tablet Rfl: 0 apixaban (ELIQUIS) 5 mg tab(s) Take 1 tablet by mouth twice daily. Disp: 60 tablet Rfl: 11 LORazepam (ATIVAN) 0.5 mg tab Take 0.5-1 tablets by mouth twice daily for 90 days. As directed Disp: 60 tablet Rfl: 0 labetalol (TRANDATE) 200 mg tablet Take 1 tablet by mouth twice daily. Disp: 60 tablet Rfl: 11 rosuvastatin (CRESTOR) 5 mg tablet Take 1 tablet by mouth daily at bedtime. Disp: 90 tablet Rfl: 3 gabapentin (NEURONTIN) 600 mg tablet Take 2 tablets by mouth three times daily. Disp: 540 tablet Rfl: 3 lisinopril (ZESTRIL) 40 mg tablet Take 1 tablet by mouth once daily. Disp: 90 tablet Rfl: 3 amLODIPine (NORVASC) 10 mg tablet Take 1 tablet by mouth once daily. Disp: 90 tablet Rfl: 3 lansoprazole (PREVACID) 30 mg capsule TAKE 1 CAPSULE BY MOUTH EVERY DAY Disp: 90 capsule Rfl: 5 tiZANidine (ZANAFLEX) 4 mg tablet Take 1 tablet by mouth at bedtime as needed. Disp: 90 tablet Rfl: 3 bismuth subsalicylate (BISMATROL) 262 mg chew Take 1 tablet by mouth four times daily for 14 days. Disp: 56 tablet Rfl: 0 fentaNYL (DURAGESIC) 25 mcg/hr Disp: Rfl: HYDROcodone-Acetaminophen (NORCO) 10-325 mg per tablet Disp: Rfl: triamcinolone acetonide (KENALOG) 0.1 % cream Disp: Rfl: aspirin 81 mg chewable tablet Take 81 mg by mouth once daily. Disp: Rfl: colestipol (COLESTID) 1 gram tablet Take 1 tablet by mouth twice daily. Disp: 60 tablet Rfl: 2 docusate sodium (COLACE) 100 mg capsule Take 1 capsule by mouth once daily. Disp: Rfl: ergocalciferol, vitamin D2, (DRISDOL) 50,000 unit capsule Take 1 capsule three times wekly Disp: 36 capsule Rfl: 4 triamterene-hydrochlorothiazide 37.5-25 mg per capsule Take 1 capsule by mouth once daily. Take in am. Disp: 90 capsule Rfl: 3 BIOTIN ORAL Take by mouth. Disp: Rfl: nitroglycerin sublingual (NITROQUICK) 0.4 mg SL tablet Dissolve 1 tablet under the tongue as needed. FOR CHEST PAIN. IF NO RELIEF CALL 911 Disp: 25 tablet Rfl: 3 No current facility-administered medications for this visit. ROS: SEE HPI OBJECTIVE: BP 152/60 (BP Site: Left Arm, BP Position: Sitting, BP Cuff Size: Regular Adult) Pulse 60 Temp 37.1 ?C (98.7 ?F) (Tympanic) Resp 12 Wt 65.8 kg (145 lb) BMI 25.69 kg/m? General appearance: Well appearing, alert, in no acute distress, well-hydrated, well nourished., Head: Normocephalic, no masses, lesions, tenderness or abnormalities; Ears: External ears normal, canals clear, TM's normal Nose/Sinuses: Positive findings: mucosa erythematous and swollen, and sinus pressure to palp Oropharynx: Lips, mucosa, and tongue normal, teeth and gums normal, oropharynx normal Neck: Supple, no adenopathy; thyroid symmetric, normal size, no bruits Lungs: Lungs clear to auscultation. No wheezing, rhonchi, rales Heart: RRR without murmur, gallop, or rubs. No ectopy ASSESSMENT/PLAN: 1. Bacterial sinusitis - ICD9: 473.9, 041.9, ICD10: J32.9, B96.89 (primary diagnosis) - Will begin treatment with Zithromax pack as directed - Supportive care with plenty of fluids, rest, and analgesia prn. - AZITHROMYCIN 250 MG TABLET - CODEINE 10 MG-GUAIFENESIN 100 MG/5 ML ORAL LIQUID 2. Cough - ICD9: 786.2, ICD10: R05 Can use the cough medication prn cihlo at night. - AZITHROMYCIN 250 MG TABLET - CODEINE 10 MG-GUAIFENESIN 100 MG/5 ML [facility]ID [facility] and [facility]. All prescriptions have been APPROPRIATELY filled. No suspicious activity was identified. 06/01/2018 by JIMMY BIRD PA-C CNOV Observed: 06/01/2018 Status: COMPLETED Source: [place] 10:40 AM [facility] REPOSITORY Office Visit (FAMPWS) CADY SALMERON ([id number]) 1935 F Date Time Provider Department 06/01/18 10:40 AM CHEYANNE CALVO(JIMMY) FAMPriscilaWS During your visit today, we recorded the following information about you: Temperature Pulse Respiration Blood pressure 98.7 degrees 60/minute 12/minute 152/60 Weight 65.8 kg CHEYANNE CALVO PA-C 06/01/2018 12:02 PM Signed Patient presents with: Cough: patient is here cough; sinus pressure; sore throat x 3 weeks 83 year old female with c/o URI sx over the last 3 weeks with Sore throat: Yes. Nasal congestion: Yes. Nasal drip: Yes. Sinus pain/ pressure: Yes. Headache Yes. Body aches No. Ear pain: Yes. Cough: Yes. Production: Yes. Shortness of Breath: Yes. Wheezing: Yes. Fever: No. Tmax n/a. Hx asthma No. Hx pneumonia Yes Smoker: former. OTC meds tried: cough medications. Has been seen in office twice and has tried symptomatic treatments without improvement. ACTIVE PROBLEM LIST Generalized Anxiety Disorder Intestinal Disaccharidase Deficiencies and Disaccharide Malabsorption Generalized Osteoarthrosis, Unspecified Site Carpal Tunnel Syndrome Hyperlipidemia Allergic Rhinitis, Cause Unspecified Other Specified Disorders of Arteries and Arterioles (Hcc) Sciatica Esophageal Reflux Paroxysmal Supraventricular Tachycardia (Hcc) Essential Hypertension Occlusion and Stenosis of Carotid Artery Vitamin D Deficiency Dysmetabolic Syndrome Laceration Calcaneal Spur Sinusitis S/P Ptca (Percutaneous Transluminal Coronary Angioplasty) Hx Pulmonary Embolism Chronic Anticoagulation H/O Carotid Endarterectomy Nonrheumatic Aortic Valve Stenosis Dilation of Biliary Tract Chest Pain Aftercare Following Surgery Common Bile Duct Stricture Ruq Pain Abdominal Pain, Ruq Imaging of Gastrointestinal Tract Abnormal Nausea Helicobacter Pylori Infection Magnesium Deficiency Current Outpatient Prescriptions: benzonatate (TESSALON PERLE) 100 mg capsule Take 1 capsule by mouth three times daily as needed. Disp: 30 capsule Rfl: 0 fluticasone (FLONASE) 50 mcg/actuation nasal spray Use 2 Sprays in each nostril once daily. Rinse mouth after use. Disp: 1 Bottle Rfl: 0 cetirizine (ZYRTEC) 10 mg tablet Take 1 tablet by mouth once daily. for nasal drainage and congestion Disp: 30 tablet Rfl: 0 apixaban (ELIQUIS) 5 mg tab(s) Take 1 tablet by mouth twice daily. Disp: 60 tablet Rfl: 11 LORazepam (ATIVAN) 0.5 mg tab Take 0.5-1 tablets by mouth twice daily for 90 days. As directed Disp: 60 tablet Rfl: 0 labetalol (TRANDATE) 200 mg tablet Take 1 tablet by mouth twice daily. Disp: 60 tablet Rfl: 11 rosuvastatin (CRESTOR) 5 mg tablet Take 1 tablet by mouth daily at bedtime. Disp: 90 tablet Rfl: 3 gabapentin (NEURONTIN) 600 mg tablet Take 2 tablets by mouth three times daily. Disp: 540 tablet Rfl: 3 lisinopril (ZESTRIL) 40 mg tablet Take 1 tablet by mouth once daily. Disp: 90 tablet Rfl: 3 amLODIPine (NORVASC) 10 mg tablet Take 1 tablet by mouth once daily. Disp: 90 tablet Rfl: 3 lansoprazole (PREVACID) 30 mg capsule TAKE 1 CAPSULE BY MOUTH EVERY DAY Disp: 90 capsule Rfl: 5 tiZANidine (ZANAFLEX) 4 mg tablet Take 1 tablet by mouth at bedtime as needed. Disp: 90 tablet Rfl: 3 bismuth subsalicylate (BISMATROL) 262 mg chew Take 1 tablet by mouth four times daily for 14 days. Disp: 56 tablet Rfl: 0 fentaNYL (DURAGESIC) 25 mcg/hr Disp: Rfl: HYDROcodone-Acetaminophen (NORCO) 10-325 mg per tablet Disp: Rfl: triamcinolone acetonide (KENALOG) 0.1 % cream Disp: Rfl: aspirin 81 mg chewable tablet Take 81 mg by mouth once daily. Disp: Rfl: colestipol (COLESTID) 1 gram tablet Take 1 tablet by mouth twice daily. Disp: 60 tablet Rfl: 2 docusate sodium (COLACE) 100 mg capsule Take 1 capsule by mouth once daily. Disp: Rfl: ergocalciferol, vitamin D2, (DRISDOL) 50,000 unit capsule Take 1 capsule three times wekly Disp: 36 capsule Rfl: 4 triamterene-hydrochlorothiazide 37.5-25 mg per capsule Take 1 capsule by mouth once daily. Take in am. Disp: 90 capsule Rfl: 3 BIOTIN ORAL Take by mouth. Disp: Rfl: nitroglycerin sublingual (NITROQUICK) 0.4 mg SL tablet Dissolve 1 tablet under the tongue as needed. FOR CHEST PAIN. IF NO RELIEF CALL 911 Disp: 25 tablet Rfl: 3 No current facility-administered medications for this visit. ROS: SEE HPI OBJECTIVE: BP 152/60 (BP Site: Left Arm, BP Position: Sitting, BP Cuff Size: Regular Adult) Pulse 60 Temp 37.1 ?C (98.7 ?F) (Tympanic) Resp 12 Wt 65.8 kg (145 lb) BMI 25.69 kg/m? General appearance: Well appearing, alert, in no acute distress, well-hydrated, well nourished., Head: Normocephalic, no masses, lesions, tenderness or abnormalities; Ears: External ears normal, canals clear, TM's normal Nose/Sinuses: Positive findings: mucosa erythematous and swollen, and sinus pressure to palp Oropharynx: Lips, mucosa, and tongue normal, teeth and gums normal, oropharynx normal Neck: Supple, no adenopathy; thyroid symmetric, normal size, no bruits Lungs: Lungs clear to auscultation. No wheezing, rhonchi, rales Heart: RRR without murmur, gallop, or rubs. No ectopy ASSESSMENT/PLAN: 1. Bacterial sinusitis - ICD9: 473.9, 041.9, ICD10: J32.9, B96.89 (primary diagnosis) - Will begin treatment with Zithromax pack as directed - Supportive care with plenty of fluids, rest, and analgesia prn. - AZITHROMYCIN 250 MG TABLET - CODEINE 10 MG-GUAIFENESIN 100 MG/5 ML ORAL LIQUID 2. Cough - ICD9: 786.2, ICD10: R05 Can use the cough medication prn chilo at night. - AZITHROMYCIN 250 MG TABLET - CODEINE 10 MG-GUAIFENESIN 100 MG/5 ML ORAL LIQUID PDMP website checked and validated. All prescriptions have been APPROPRIATELY filled. No suspicious activity was identified. 06/01/2018 by JIMMY BIRD PA-C Referring Provider: SELF [[id number]] Allergies As of Date: 06/01/2018 Noted Allergy Reaction CARDIZEM (DILTIAZEM HCL) 03/18/2005 2 - Rash CEFDINIR 04/21/2017 4 - Hives DARVOCET A500 (PROPOXYPHENE N-ROSA*03/18/2005 8 - GI Upset DOXYCYCLINE 05/26/2008 11 - Vomiting FLEXERIL (CYCLOBENZAPRINE HCL) 02/19/2007 5 - Intolerance Comments: heart racing LEVAQUIN (LEVOFLOXACIN) 01/20/2013 16 - Unknown NOVACAINE [Other] 02/15/2005 PENICIILLINS [Other] 02/15/2005 10 - Anaphylaxis SULFA (SULFONAMIDE ANTIBIOTICS) 02/15/2005 7 - Swelling Comments: tongue swelling Date Reviewed: 06/01/2018 Reviewed by: Susie Lozano Ma - Fully Assessed Reason for Visit: Cough [28] Cmt: patient is here cough; sinus pressure; sore throat x 3 weeks Primary Visit Diagnosis:Bacterial sinusitis [J32.9, B96.89] Other Visit Diagnosis:Cough [R05] Order(s):azithromycin (ZITHROMAX Z-ARIANNA) 250 mg tabletTake 2 tablets day one, then, 1 tablet daily until gone.Disp: 1 PackageRfl: 0 codeine-guaiFENesin (ROBITUSSIN AC) 10-100 mg/5 mL syrupTake 5-10 mL by mouth four times daily as needed for Cough for up to 7 days. May cause drowsiness.Disp: 120 mLRfl: 0 Prescriptions as of 06/01/2018 Sig: BENZONATATE 100 MG CAPSULE Take 1 capsule by mouth three* FLUTICASONE 50 MCG/ACTUATION * Use 2 Sprays in each nostril * CETIRIZINE 10 MG TABLET Take 1 tablet by mouth once d* APIXABAN 5 MG TABLET Take 1 tablet by mouth twice * LORAZEPAM 0.5 MG TABLET Take 0.5-1 tablets by mouth t* LABETALOL 200 MG TABLET Take 1 tablet by mouth twice * ROSUVASTATIN 5 MG TABLET Take 1 tablet by mouth daily * GABAPENTIN 600 MG TABLET Take 2 tablets by mouth three* LISINOPRIL 40 MG TABLET Take 1 tablet by mouth once d* AMLODIPINE 10 MG TABLET Take 1 tablet by mouth once d* LANSOPRAZOLE 30 MG CAPSULE,DE* TAKE 1 CAPSULE BY MOUTH EVERY* TIZANIDINE 4 MG TABLET Take 1 tablet by mouth at bed* BISMUTH SUBSALICYLATE 262 MG * Take 1 tablet by mouth four t* FENTANYL 25 MCG/HR TRANSDERMA* HYDROCODONE 10 MG-ACETAMINOPH* TRIAMCINOLONE ACETONIDE 0.1 %* ASPIRIN 81 MG CHEWABLE TABLET Take 81 mg by mouth once robbin* COLESTIPOL 1 GRAM TABLET Take 1 tablet by mouth twice * DOCUSATE SODIUM 100 MG CAPSULE Take 1 capsule by mouth once * ERGOCALCIFEROL (VITAMIN D2) 5* Take 1 capsule three times we* TRIAMTERENE 37.5 MG-HYDROCHLO* Take 1 capsule by mouth once * BIOTIN ORAL Take by mouth. NITROGLYCERIN 0.4 MG SUBLINGU* Dissolve 1 tablet under the t* AZITHROMYCIN 250 MG TABLET Take 2 tablets day one, then,* CODEINE 10 MG-GUAIFENESIN 100* Take 5-10 mL by mouth four ti* Problem List As Of Date 06/01/2018 Noted Resolved GENERALIZED ANXIETY DIS [F41.1] More... DISACCHARIDASE DEF/MALAB [E73.9] GENERAL OSTEOARTHROSIS [M15.9] CARPAL TUNNEL SYNDROME [G56.00] Hyperlipidemia [E78.5] ALLERGIC RHINITIS NOS [J30.9] More... ARTERIAL DISEASE NEC [I77.89] SCIATICA [M54.30] Obesity, unspecified [E66.9] 12/04/2017 ESOPHAGEAL REFLUX [K21.9] PAROX ATRIAL TACHYCARDIA [I47.1] Essential hypertension [I10] Occlusion and stenosis of carotid artery [I65.2*INVALID FOR* Vitamin D deficiency [E55.9] INVALID FOR* Dysmetabolic Syndrome [E88.81] INVALID FOR* Laceration [[id number]] INVALID FOR* Calcaneal spur [M77.30] INVALID FOR* Sinusitis [J32.9] INVALID FOR* More... 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 Imaging of gastrointestinal tract abnormal [R93*INVALID FOR* More... Nausea [R11.0] INVALID FOR* Helicobacter pylori infection [A04.8] INVALID FOR* Magnesium deficiency [E61.2] INVALID FOR* Prescriptions ordered this encounter Disp Refills Start End AZITHROMYCIN 250 MG TABLET 1 Pa* 0 06/01/2018 06/06/2018 Sig: Take 2 tablets day one, then, 1 tablet daily until gone. CODEINE 10 MG-GUAIFENESIN 100 MG/5 M* 120 * 0 06/01/2018 06/08/2018 Class: Print RX Route: ORAL Sig: Take 5-10 mL by mouth four times daily as needed for Cough for up to 7 days. May cause drowsiness. Encounter Status:Closed by CHEYANNE RAMIREZ on 06/01/18 PROGRESS Observed: 05/14/2018 Status: COMPLETED Source: [place] 11:31 AM [facility] REPOSITORY HNO ID: [id number] Author: Zoe Kelley Service: (none) Author Type: Nurse Practitioner Type: Progress Notes Filed: 05/14/2018 11:50 AM Note Text: Subjective The history is provided by the patient. No medical attendant was used. HPI Cady Salmeron is a 83 year old female who presents today for CC of sinus congestion and pressure. She is also having a cough. This 2 weeks ago. She was seen on 05/07/2018 by Jethro Conte and was given a zpack and no improvement. has been ill. Former smoker. BP 132/62 Pulse 64 Temp 37.2 ?C (99 ?F) (Left Tympanic) Resp 16 Wt 67.6 kg (149 lb) SpO2 96% BMI 26.39 kg/m? PAST MEDICAL HISTORY Diagnosis Date - Allergic rhinitis, cause unspecified Allergic rhinitis - CAROTID ART OCCL-NO INFARCT 01/14/2007 - Carpal tunnel syndrome - Dysmetabolic syndrome X - Esophageal reflux - Generalized anxiety disorder Anxiety, Generalized - Generalized osteoarthrosis, unspecified site - History of blood clots legs and lungs - Moderate aortic stenosis - Murmur - Obesity, unspecified - Other and unspecified hyperlipidemia - Other specified disorders of arteries and arterioles (HCC) - Paroxysmal supraventricular tachycardia (HCC) - Pure hypercholesterolemia - Pure hyperglyceridemia - Sciatica - Stented coronary artery - Unspecified essential hypertension Social History Marital status: Spouse name: Years of education: Number of children: Social History Main Topics Smoking status: Former Smoker Packs/day: 1.00 Years: 30.00 Types: Cigarettes Quit date: 09/03/1996 Smokeless tobacco: Never Used Alcohol use: No Drug use: No Sexual activity: Yes Partners with: Male I have confirmed and edited as necessary, the [facility] Review of Systems Constitutional: Positive for fever (tactile). Negative for chills. HENT: Positive for congestion and sinus pain. Negative for ear pain and sore throat. Respiratory: Positive for cough. Musculoskeletal: Negative for myalgias. Neurological: Negative for headaches. All other systems reviewed and are negative. Objective Physical Exam Constitutional: She is well-developed, well-nourished, and in no distress. HENT: Head: Normocephalic and atraumatic. Right Ear: Tympanic membrane, external ear and ear canal normal. Left Ear: Tympanic membrane and ear canal normal. Nose: Mucosal edema and rhinorrhea present. Right sinus exhibits no maxillary sinus tenderness and no frontal sinus tenderness. Left sinus exhibits no maxillary sinus tenderness and no frontal sinus tenderness. Mouth/Throat: Uvula is midline, oropharynx is clear and moist and mucous membranes are normal. Cardiovascular: Normal rate, regular rhythm and normal heart sounds. Pulmonary/Chest: Effort normal and breath sounds normal. She has no decreased breath sounds. She has no wheezes. She has no rhonchi. She has no rales. A dry hacking cough was noted during this encounter. Talking in full sentences. Handling secretions without drooling. Lips and nailbeds are pink without cyanosis. Lymphadenopathy: Head (right side): No submental, no submandibular and no tonsillar adenopathy present. Head (left side): No submental, no submandibular and no tonsillar adenopathy present. She has no cervical adenopathy. Neurological: She is alert. Skin: Skin is warm and dry. Psychiatric: Affect normal. Nursing note and vitals reviewed. ASSESSMENT/PLAN: 1. URI with cough and congestion - ICD9: 465.9, ICD10: J06.9 - Discussed viral etiology and rationale for treatment. Rest, increase water intake Motrin or Tylenol as needed for fever or pain. Salt water gargles, chloraseptic spray or lozenges as needed for sore throat. Nasal saline spray Or raul pot as needed Cool mist humidifier at night Zyrtec 10 mg By mouth daily at bedtime Flonase 1 spray each nostril two times a day. Tessalon Perles as prescribed for coughing, do not combine this with other cough and cold medications Follow up with PCP if no improvements next week or develop a fever > 100 * Seek medical care immediately, call 911, go to ER if you have chest pain, difficulty breathing, shortness of breath, inability to swallow. Diagnosis and treatment plan were discussed and questions were answered to the patient's satisfaction. Pt acknowledged understanding of concepts and follow up plan. Specific signs and symptoms that would indicate the need for higher level of care were discussed in detail warranting prompt ER evaluation. Zoe Kelley APRN.ROBBIE ARAUJOOV Observed: 05/14/2018 Status: COMPLETED Source: [place] 11:00 AM [facility] REPOSITORY Office Visit (WSTR) CADY SALMERON ([id number]) 1935 F Date Time Provider Department 05/14/18 11:00 AM ZOE KELLEY (ROBBIE) WS During your visit today, we recorded the following information about you: Temperature Pulse Respiration Blood pressure 99 degrees 64/minute 16/minute 132/62 Weight 67.6 kg Zoe Kelley APRN.ROBBIE 05/14/2018 11:50 AM Addendum Subjective The history is provided by the patient. No medical attendant was used. HPI Cady Salmeron is a 83 year old female who presents today for CC of sinus congestion and pressure. She is also having a cough. This 2 weeks ago. She was seen on 05/07/2018 by Jethro Conte and was given a zpack and no improvement. has been ill. Former smoker. BP 132/62 Pulse 64 Temp 37.2 ?C (99 ?F) (Left Tympanic) Resp 16 Wt 67.6 kg (149 lb) SpO2 96% BMI 26.39 kg/m? PAST MEDICAL HISTORY Diagnosis Date - Allergic rhinitis, cause unspecified Allergic rhinitis - CAROTID ART OCCL-NO INFARCT 01/14/2007 - Carpal tunnel syndrome - Dysmetabolic syndrome X - Esophageal reflux - Generalized anxiety disorder Anxiety, Generalized - Generalized osteoarthrosis, unspecified site - History of blood clots legs and lungs - Moderate aortic stenosis - Murmur - Obesity, unspecified - Other and unspecified hyperlipidemia - Other specified disorders of arteries and arterioles (HCC) - Paroxysmal supraventricular tachycardia (HCC) - Pure hypercholesterolemia - Pure hyperglyceridemia - Sciatica - Stented coronary artery - Unspecified essential hypertension Social History Marital status: Spouse name: Years of education: Number of children: Social History Main Topics Smoking status: Former Smoker Packs/day: 1.00 Years: 30.00 Types: Cigarettes Quit date: 09/03/1996 Smokeless tobacco: Never Used Alcohol use: No Drug use: No Sexual activity: Yes Partners with: Male I have confirmed and edited as necessary, the [facility] Review of Systems Constitutional: Positive for fever (tactile). Negative for chills. HENT: Positive for congestion and sinus pain. Negative for ear pain and sore throat. Respiratory: Positive for cough. Musculoskeletal: Negative for myalgias. Neurological: Negative for headaches. All other systems reviewed and are negative. Objective Physical Exam Constitutional: She is well-developed, well-nourished, and in no distress. HENT: Head: Normocephalic and atraumatic. Right Ear: Tympanic membrane, external ear and ear canal normal. Left Ear: Tympanic membrane and ear canal normal. Nose: Mucosal edema and rhinorrhea present. Right sinus exhibits no maxillary sinus tenderness and no frontal sinus tenderness. Left sinus exhibits no maxillary sinus tenderness and no frontal sinus tenderness. Mouth/Throat: Uvula is midline, oropharynx is clear and moist and mucous membranes are normal. Cardiovascular: Normal rate, regular rhythm and normal heart sounds. Pulmonary/Chest: Effort normal and breath sounds normal. She has no decreased breath sounds. She has no wheezes. She has no rhonchi. She has no rales. A dry hacking cough was noted during this encounter. Talking in full sentences. Handling secretions without drooling. Lips and nailbeds are pink without cyanosis. Lymphadenopathy: Head (right side): No submental, no submandibular and no tonsillar adenopathy present. Head (left side): No submental, no submandibular and no tonsillar adenopathy present. She has no cervical adenopathy. Neurological: She is alert. Skin: Skin is warm and dry. Psychiatric: Affect normal. Nursing note and vitals reviewed. ASSESSMENT/PLAN: 1. URI with cough and congestion - ICD9: 465.9, ICD10: J06.9 - Discussed viral etiology and rationale for treatment. Rest, increase water intake Motrin or Tylenol as needed for fever or pain. Salt water gargles, chloraseptic spray or lozenges as needed for sore throat. Nasal saline spray Or raul pot as needed Cool mist humidifier at night Zyrtec 10 mg By mouth daily at bedtime Flonase 1 spray each nostril two times a day. Tessalon Perles as prescribed for coughing, do not combine this with other cough and cold medications Follow up with PCP if no improvements next week or develop a fever > 100 * Seek medical care immediately, call 911, go to ER if you have chest pain, difficulty breathing, shortness of breath, inability to swallow. Diagnosis and treatment plan were discussed and questions were answered to the patient's satisfaction. Pt acknowledged understanding of concepts and follow up plan. Specific signs and symptoms that would indicate the need for higher level of care were discussed in detail warranting prompt ER evaluation. CHEYENNE Ridley APRN.CNP 05/14/2018 11:50 AM Addendum ASSESSMENT/PLAN: 1. URI with cough and congestion - ICD9: 465.9, ICD10: J06.9 - Discussed viral etiology and rationale for treatment. Rest, increase water intake Motrin or Tylenol as needed for fever or pain. Salt water gargles, chloraseptic spray or lozenges as needed for sore throat. Nasal saline spray Or raul pot as needed Cool mist humidifier at night Zyrtec 10 mg By mouth daily at bedtime Flonase 1 spray each nostril two times a day. Tessalon Perles as prescribed for coughing, do not combine this with other cough and cold medications Follow up with PCP if no improvements next week or develop a fever > 100 * Seek medical care immediately, call 911, go to ER if you have chest pain, difficulty breathing, shortness of breath, inability to swallow. Referring Provider: SELF [[id number]] Allergies As of Date: 05/14/2018 Noted Allergy Reaction CARDIZEM (DILTIAZEM HCL) 03/18/2005 2 - Rash CEFDINIR 04/21/2017 4 - Hives DARVOCET A500 (PROPOXYPHENE N-ROSA*03/18/2005 8 - GI Upset DOXYCYCLINE 05/26/2008 11 - Vomiting FLEXERIL (CYCLOBENZAPRINE HCL) 02/19/2007 5 - Intolerance Comments: heart racing LEVAQUIN (LEVOFLOXACIN) 01/20/2013 16 - Unknown NOVACAINE [Other] 02/15/2005 PENICIILLINS [Other] 02/15/2005 10 - Anaphylaxis SULFA (SULFONAMIDE ANTIBIOTICS) 02/15/2005 7 - Swelling Comments: tongue swelling Date Reviewed: 05/14/2018 Reviewed by: Zoe Kelley - Fully Assessed Reason for Visit: Cough [28] Fever [47] Primary Visit Diagnosis:URI with cough and congestion [J06.9] Order(s):benzonatate (TESSALON PERLE) 100 mg capsuleTake 1 capsule by mouth three times daily as needed.Disp: 30 capsuleRfl: 0 fluticasone (FLONASE) 50 mcg/actuation nasal sprayUse 2 Sprays in each nostril once daily. Rinse mouth after use.Disp: 1 BottleRfl: 0 Prescriptions as of 05/14/2018 Sig: AMLODIPINE 10 MG TABLET Take 1 tablet by mouth once d* APIXABAN 5 MG TABLET Take 1 tablet by mouth twice * ASPIRIN 81 MG CHEWABLE TABLET Take 81 mg by mouth once robbin* BIOTIN ORAL Take by mouth. BISMUTH SUBSALICYLATE 262 MG * Take 1 tablet by mouth four t* CETIRIZINE 10 MG TABLET Take 1 tablet by mouth once d* COLESTIPOL 1 GRAM TABLET Take 1 tablet by mouth twice * DOCUSATE SODIUM 100 MG CAPSULE Take 1 capsule by mouth once * ERGOCALCIFEROL (VITAMIN D2) 5* Take 1 capsule three times we* FENTANYL 25 MCG/HR TRANSDERMA* GABAPENTIN 600 MG TABLET Take 2 tablets by mouth three* HYDROCODONE 10 MG-ACETAMINOPH* LABETALOL 200 MG TABLET Take 1 tablet by mouth twice * LANSOPRAZOLE 30 MG CAPSULE,DE* TAKE 1 CAPSULE BY MOUTH EVERY* LISINOPRIL 40 MG TABLET Take 1 tablet by mouth once d* LORAZEPAM 0.5 MG TABLET Take 0.5-1 tablets by mouth t* NITROGLYCERIN 0.4 MG SUBLINGU* Dissolve 1 tablet under the t* ROSUVASTATIN 5 MG TABLET Take 1 tablet by mouth daily * TIZANIDINE 4 MG TABLET Take 1 tablet by mouth at bed* TRIAMCINOLONE ACETONIDE 0.1 %* TRIAMTERENE 37.5 MG-HYDROCHLO* Take 1 capsule by mouth once * BENZONATATE 100 MG CAPSULE Take 1 capsule by mouth three* FLUTICASONE 50 MCG/ACTUATION * Use 2 Sprays in each nostril * Problem List As Of Date 05/14/2018 Noted Resolved GENERALIZED ANXIETY DIS [F41.1] More... DISACCHARIDASE DEF/MALAB [E73.9] GENERAL OSTEOARTHROSIS [M15.9] CARPAL TUNNEL SYNDROME [G56.00] Hyperlipidemia [E78.5] ALLERGIC RHINITIS NOS [J30.9] More... ARTERIAL DISEASE NEC [I77.89] SCIATICA [M54.30] Obesity, unspecified [E66.9] 12/04/2017 ESOPHAGEAL REFLUX [K21.9] PAROX ATRIAL TACHYCARDIA [I47.1] Essential hypertension [I10] Occlusion and stenosis of carotid artery [I65.2*INVALID FOR* Vitamin D deficiency [E55.9] INVALID FOR* Dysmetabolic Syndrome [E88.81] INVALID FOR* Laceration [[id number]] INVALID FOR* Calcaneal spur [M77.30] INVALID FOR* Sinusitis [J32.9] INVALID FOR* More... 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 Imaging of gastrointestinal tract abnormal [R93*INVALID FOR* More... Nausea [R11.0] INVALID FOR* Helicobacter pylori infection [A04.8] INVALID FOR* Magnesium deficiency [E61.2] INVALID FOR* Other instructions from your clinician: ASSESSMENT/PLAN: 1. URI with cough and congestion - ICD9: 465.9, ICD10: J06.9 - Discussed viral etiology and rationale for treatment. Rest, increase water intake Motrin or Tylenol as needed for fever or pain. Salt water gargles, chloraseptic spray or lozenges as needed for sore throat. Nasal saline spray Or raul pot as needed Cool mist humidifier at night Zyrtec 10 mg By mouth daily at bedtime Flonase 1 spray each nostril two times a day. Tessalon Perles as prescribed for coughing, do not combine this with other cough and cold medications Follow up with PCP if no improvements next week or develop a fever > 100 * Seek medical care immediately, call 911, go to ER if you have chest pain, difficulty breathing, shortness of breath, inability to swallow. Prescriptions ordered this encounter Disp Refills Start End BENZONATATE 100 MG CAPSULE 30 c* 0 05/14/2018 Route: ORAL Sig: Take 1 capsule by mouth three times daily as needed. FLUTICASONE 50 MCG/ACTUATION NASAL S* 1 Shilo* 0 05/14/2018 Route: EACH NOSTRIL Sig: Use 2 Sprays in each nostril once daily. Rinse mouth after use. Encounter Status:Closed by ZOE KELLEY CNP on 05/14/18 PROGRESS Observed: 05/07/2018 Status: COMPLETED Source: [place] 10:27 AM [facility] REPOSITORY HNO ID: [id number] Author: Jethro Carter) Dg Service: (none) Author Type: Nurse Specialist Type: Progress Notes Filed: 05/07/2018 10:58 AM Note Text: This note was created using [employer]. Subjective Cady Salmeron is a 83 year old female. She reports nasal congestion and pressure, tenderness in maxillary and frontal sinus areas, frontal headache, nasal drainage, ears feel stopped up, some difficulty sleeping due to nasal congestion for 4- 5 days. Has tried nasal irrigation with normal saline without improvement. No fever at home. No sick contacts. States does best with azithromycin when treating sinus infections in the past. The history is provided by the patient. Sinus Problem This is a new problem. The current episode started in the past 7 days. The problem has been gradually worsening. Associated symptoms include congestion, fatigue, headaches (frontal) and a sore throat. Pertinent negatives include no chills, diaphoresis or fever. The symptoms are aggravated by bending. She has tried rest for the symptoms. The treatment provided mild relief. Review of Systems Constitutional: Positive for fatigue. Negative for chills, diaphoresis and fever. HENT: Positive for congestion, rhinorrhea, sinus pain, sinus pressure and sore throat. Negative for ear pain, postnasal drip, trouble swallowing and voice change. Respiratory: Negative for chest tightness, shortness of breath and wheezing. Neurological: Positive for headaches (frontal). Objective There were no vitals taken for this visit. Physical Exam Constitutional: She appears well-developed and well-nourished. HENT: Head: Normocephalic and atraumatic. Right Ear: Tympanic membrane, external ear and ear canal normal. Left Ear: Tympanic membrane, external ear and ear canal normal. Nose: Rhinorrhea present. Right sinus exhibits maxillary sinus tenderness and frontal sinus tenderness. Left sinus exhibits maxillary sinus tenderness and frontal sinus tenderness. Mouth/Throat: Uvula is midline, oropharynx is clear and moist and mucous membranes are normal. Tonsils are 0 on the right. Tonsils are 0 on the left. No tonsillar exudate. Eyes: Conjunctivae are normal. Cardiovascular: Normal rate and regular rhythm. Murmur heard. Pulmonary/Chest: Effort normal and breath sounds normal. Skin: Skin is warm and dry. Nursing note and vitals reviewed. HISTORIES FAMILY HISTORY Problem Relation Age of Onset - Diabetes Mother - Heart Mother - Diabetes Father - Heart Father - Diabetes Sister x 3 - Diabetes Brother x 2 PAST MEDICAL HISTORY Diagnosis Date - Allergic rhinitis, cause unspecified Allergic rhinitis - CAROTID ART OCCL-NO INFARCT 01/14/2007 - Carpal tunnel syndrome - Dysmetabolic syndrome X - Esophageal reflux - Generalized anxiety disorder Anxiety, Generalized - Generalized osteoarthrosis, unspecified site - History of blood clots legs and lungs - Moderate aortic stenosis - Murmur - Obesity, unspecified - Other and unspecified hyperlipidemia - Other specified disorders of arteries and arterioles (HCC) - Paroxysmal supraventricular tachycardia (HCC) - Pure hypercholesterolemia - Pure hyperglyceridemia - Sciatica - Stented coronary artery - Unspecified essential hypertension PAST SURGICAL HISTORY Procedure Laterality Date - CATHETER ART SYS-1ST ORD THORA 01/29/07 LEFT - CATHETER ART SYS-2ND ORD THORA 01/29/07 RIGHT - CHOLECYSTECTOMY W/CHOLANGIOGRAPHY 2016 DR TIMMONS - INSERT CATH,ART,PERCUT,SHORTTERM 02/16/07 - THROMBOENDARTECTMY NECK,NECK INCIS 02/16/07 LEFT - TOTAL ABDOM HYSTERECTOMY 1973 Hysterectomy, RAN Social History Marital status: Spouse name: Years of education: Number of children: Social History Main Topics Smoking status: Former Smoker Packs/day: 1.00 Years: 30.00 Types: Cigarettes Quit date: 09/03/1996 Smokeless tobacco: Never Used Alcohol use: No Drug use: No Sexual activity: Yes Partners with: Male ALLERGIES Allergen Reactions - Cardizem [Diltiazem* Rash - Cefdinir Hives - Darvocet A500 [Prop* GI Upset - Doxycycline Vomiting - Flexeril [Cyclobenz* Intolerance heart racing - Levaquin [Levofloxa* Unknown - Novacaine [Other] - Peniciillins [Other] Anaphylaxis - Sulfa (Sulfonamide * Swelling tongue swelling Current Outpatient Prescriptions: amLODIPine (NORVASC) 10 mg tablet Take 1 tablet by mouth once daily. apixaban (ELIQUIS) 5 mg tab(s) Take 1 tablet by mouth twice daily. aspirin 81 mg chewable tablet Take 81 mg by mouth once daily. BIOTIN ORAL Take by mouth. docusate sodium (COLACE) 100 mg capsule Take 1 capsule by mouth once daily. ergocalciferol, vitamin D2, (DRISDOL) 50,000 unit capsule Take 1 capsule three times wekly fentaNYL (DURAGESIC) 25 mcg/hr gabapentin (NEURONTIN) 600 mg tablet Take 2 tablets by mouth three times daily. HYDROcodone-Acetaminophen (NORCO) 10-325 mg per tablet labetalol (TRANDATE) 200 mg tablet Take 1 tablet by mouth twice daily. lansoprazole (PREVACID) 30 mg capsule TAKE 1 CAPSULE BY MOUTH EVERY DAY lisinopril (ZESTRIL) 40 mg tablet Take 1 tablet by mouth once daily. LORazepam (ATIVAN) 0.5 mg tab Take 0.5-1 tablets by mouth twice daily for 90 days. As directed nitroglycerin sublingual (NITROQUICK) 0.4 mg SL tablet Dissolve 1 tablet under the tongue as needed. FOR CHEST PAIN. IF NO RELIEF CALL 911 rosuvastatin (CRESTOR) 5 mg tablet Take 1 tablet by mouth daily at bedtime. tiZANidine (ZANAFLEX) 4 mg tablet Take 1 tablet by mouth at bedtime as needed. triamcinolone acetonide (KENALOG) 0.1 % cream triamterene-hydrochlorothiazide 37.5-25 mg per capsule Take 1 capsule by mouth once daily. Take in am. azithromycin (ZITHROMAX Z-ARIANNA) 250 mg tablet Take 2 tablets day one, then, 1 tablet daily until gone. bismuth subsalicylate (BISMATROL) 262 mg chew Take 1 tablet by mouth four times daily for 14 days. cetirizine (ZYRTEC) 10 mg tablet Take 1 tablet by mouth once daily. for nasal drainage and congestion colestipol (COLESTID) 1 gram tablet Take 1 tablet by mouth twice daily. No current facility-administered medications for this visit. Assessment and Plan 1. Acute frontal sinusitis, recurrence not specified - ICD9: 461.1, ICD10: J01.10 (primary diagnosis) - Will begin treatment with as per antibiotic as written, see orders - Supportive care with plenty of fluids, rest, and analgesia prn. - Follow up if symptoms persist or worsen. - AZITHROMYCIN 250 MG TABLET 2. Sinus drainage - ICD9: 478.19, ICD10: J34.89 - CETIRIZINE 10 MG TABLET Jethro Conte APRN.CNS May 07, 2018 CNOV Observed: 05/07/2018 Status: COMPLETED Source: [place] 10:20 AM [facility] REPOSITORY Office Visit (INTMWS) CADY SALMERON ([id number]) 1935 F Date Time Provider Department 05/07/18 10:20 AM JETHRO CONTE ([facility]) INTMWS During your visit today, we recorded the following information about you: Temperature Pulse Respiration Blood pressure 98.8 degrees 60/minute 16/minute 150/78 Weight 68.5 kg Jethro Conte APRN.CNS 05/07/2018 10:58 AM Signed This note was created using [employer]. Subjective Cady Salmeron is a 83 year old female. She reports nasal congestion and pressure, tenderness in maxillary and frontal sinus areas, frontal headache, nasal drainage, ears feel stopped up, some difficulty sleeping due to nasal congestion for 4-5 days. Has tried nasal irrigation with normal saline without improvement. No fever at home. No sick contacts. States does best with azithromycin when treating sinus infections in the past. The history is provided by the patient. Sinus Problem This is a new problem. The current episode started in the past 7 days. The problem has been gradually worsening. Associated symptoms include congestion, fatigue, headaches (frontal) and a sore throat. Pertinent negatives include no chills, diaphoresis or fever. The symptoms are aggravated by bending. She has tried rest for the symptoms. The treatment provided mild relief. Review of Systems Constitutional: Positive for fatigue. Negative for chills, diaphoresis and fever. HENT: Positive for congestion, rhinorrhea, sinus pain, sinus pressure and sore throat. Negative for ear pain, postnasal drip, trouble swallowing and voice change. Respiratory: Negative for chest tightness, shortness of breath and wheezing. Neurological: Positive for headaches (frontal). Objective There were no vitals taken for this visit. Physical Exam Constitutional: She appears well-developed and well-nourished. HENT: Head: Normocephalic and atraumatic. Right Ear: Tympanic membrane, external ear and ear canal normal. Left Ear: Tympanic membrane, external ear and ear canal normal. Nose: Rhinorrhea present. Right sinus exhibits maxillary sinus tenderness and frontal sinus tenderness. Left sinus exhibits maxillary sinus tenderness and frontal sinus tenderness. Mouth/Throat: Uvula is midline, oropharynx is clear and moist and mucous membranes are normal. Tonsils are 0 on the right. Tonsils are 0 on the left. No tonsillar exudate. Eyes: Conjunctivae are normal. Cardiovascular: Normal rate and regular rhythm. Murmur heard. Pulmonary/Chest: Effort normal and breath sounds normal. Skin: Skin is warm and dry. Nursing note and vitals reviewed. HISTORIES FAMILY HISTORY Problem Relation Age of Onset - Diabetes Mother - Heart Mother - Diabetes Father - Heart Father - Diabetes Sister x 3 - Diabetes Brother x 2 PAST MEDICAL HISTORY Diagnosis Date - Allergic rhinitis, cause unspecified Allergic rhinitis - CAROTID ART OCCL-NO INFARCT 01/14/2007 - Carpal tunnel syndrome - Dysmetabolic syndrome X - Esophageal reflux - Generalized anxiety disorder Anxiety, Generalized - Generalized osteoarthrosis, unspecified site - History of blood clots legs and lungs - Moderate aortic stenosis - Murmur - Obesity, unspecified - Other and unspecified hyperlipidemia - Other specified disorders of arteries and arterioles (HCC) - Paroxysmal supraventricular tachycardia (HCC) - Pure hypercholesterolemia - Pure hyperglyceridemia - Sciatica - Stented coronary artery - Unspecified essential hypertension PAST SURGICAL HISTORY Procedure Laterality Date - CATHETER ART SYS-1ST ORD THORA 01/29/07 LEFT - CATHETER ART SYS-2ND ORD THORA 01/29/07 RIGHT - CHOLECYSTECTOMY W/CHOLANGIOGRAPHY 2016 DR TIMMONS - INSERT CATH,ART,PERCUT,SHORTTERM 02/16/07 - THROMBOENDARTECTMY NECK,NECK INCIS 02/16/07 LEFT - TOTAL ABDOM HYSTERECTOMY 1973 Hysterectomy, RAN Social History Marital status: Spouse name: Years of education: Number of children: Social History Main Topics Smoking status: Former Smoker Packs/day: 1.00 Years: 30.00 Types: Cigarettes Quit date: 09/03/1996 Smokeless tobacco: Never Used Alcohol use: No Drug use: No Sexual activity: Yes Partners with: Male ALLERGIES Allergen Reactions - Cardizem [Diltiazem* Rash - Cefdinir Hives - Darvocet A500 [Prop* GI Upset - Doxycycline Vomiting - Flexeril [Cyclobenz* Intolerance heart racing - Levaquin [Levofloxa* Unknown - Novacaine [Other] - Peniciillins [Other] Anaphylaxis - Sulfa (Sulfonamide * Swelling tongue swelling Current Outpatient Prescriptions: amLODIPine (NORVASC) 10 mg tablet Take 1 tablet by mouth once daily. apixaban (ELIQUIS) 5 mg tab(s) Take 1 tablet by mouth twice daily. aspirin 81 mg chewable tablet Take 81 mg by mouth once daily. BIOTIN ORAL Take by mouth. docusate sodium (COLACE) 100 mg capsule Take 1 capsule by mouth once daily. ergocalciferol, vitamin D2, (DRISDOL) 50,000 unit capsule Take 1 capsule three times wekly fentaNYL (DURAGESIC) 25 mcg/hr gabapentin (NEURONTIN) 600 mg tablet Take 2 tablets by mouth three times daily. HYDROcodone-Acetaminophen (NORCO) 10-325 mg per tablet labetalol (TRANDATE) 200 mg tablet Take 1 tablet by mouth twice daily. lansoprazole (PREVACID) 30 mg capsule TAKE 1 CAPSULE BY MOUTH EVERY DAY lisinopril (ZESTRIL) 40 mg tablet Take 1 tablet by mouth once daily. LORazepam (ATIVAN) 0.5 mg tab Take 0.5-1 tablets by mouth twice daily for 90 days. As directed nitroglycerin sublingual (NITROQUICK) 0.4 mg SL tablet Dissolve 1 tablet under the tongue as needed. FOR CHEST PAIN. IF NO RELIEF CALL 911 rosuvastatin (CRESTOR) 5 mg tablet Take 1 tablet by mouth daily at bedtime. tiZANidine (ZANAFLEX) 4 mg tablet Take 1 tablet by mouth at bedtime as needed. triamcinolone acetonide (KENALOG) 0.1 % cream triamterene-hydrochlorothiazide 37.5-25 mg per capsule Take 1 capsule by mouth once daily. Take in am. azithromycin (ZITHROMAX Z-ARIANNA) 250 mg tablet Take 2 tablets day one, then, 1 tablet daily until gone. bismuth subsalicylate (BISMATROL) 262 mg chew Take 1 tablet by mouth four times daily for 14 days. cetirizine (ZYRTEC) 10 mg tablet Take 1 tablet by mouth once daily. for nasal drainage and congestion colestipol (COLESTID) 1 gram tablet Take 1 tablet by mouth twice daily. No current facility-administered medications for this visit. Assessment and Plan 1. Acute frontal sinusitis, recurrence not specified - ICD9: 461.1, ICD10: J01.10 (primary diagnosis) - Will begin treatment with as per antibiotic as written, see orders - Supportive care with plenty of fluids, rest, and analgesia prn. - Follow up if symptoms persist or worsen. - AZITHROMYCIN 250 MG TABLET 2. Sinus drainage - ICD9: 478.19, ICD10: J34.89 - CETIRIZINE 10 MG TABLET Jethro Conte APRN.[employer] May 07, 2018 Referring Provider: SELF [200] Allergies As of Date: 05/07/2018 Noted Allergy Reaction CARDIZEM (DILTIAZEM HCL) 03/18/2005 2 - Rash CEFDINIR 04/21/2017 4 - Hives DARVOCET A500 (PROPOXYPHENE N-ROSA*03/18/2005 8 - GI Upset DOXYCYCLINE 05/26/2008 11 - Vomiting FLEXERIL (CYCLOBENZAPRINE HCL) 02/19/2007 5 - Intolerance Comments: heart racing LEVAQUIN (LEVOFLOXACIN) 01/20/2013 16 - Unknown NOVACAINE [Other] 02/15/2005 PENICIILLINS [Other] 02/15/2005 10 - Anaphylaxis SULFA (SULFONAMIDE ANTIBIOTICS) 02/15/2005 7 - Swelling Comments: tongue swelling Date Reviewed: 05/07/2018 Reviewed by: Mckenzie Hotte JEWELRY SALES REPRESENTATIVE - Fully Assessed Reason for Visit: Sinus Problem [99] Primary Visit Diagnosis:Acute frontal sinusitis, recurrence not specified [J01.10] Other Visit Diagnosis:Sinus drainage [J34.89] Order(s):azithromycin (ZITHROMAX Z-ARIANNA) 250 mg tabletTake 2 tablets day one, then, 1 tablet daily until gone.Disp: 1 PackageRfl: 0 cetirizine (ZYRTEC) 10 mg tabletTake 1 tablet by mouth once daily. for nasal drainage and congestionDisp: 30 tabletRfl: 0 Prescriptions as of 05/07/2018 Sig: AMLODIPINE 10 MG TABLET Take 1 tablet by mouth once d* APIXABAN 5 MG TABLET Take 1 tablet by mouth twice * ASPIRIN 81 MG CHEWABLE TABLET Take 81 mg by mouth once robbin* BIOTIN ORAL Take by mouth. DOCUSATE SODIUM 100 MG CAPSULE Take 1 capsule by mouth once * ERGOCALCIFEROL (VITAMIN D2) 5* Take 1 capsule three times we* FENTANYL 25 MCG/HR TRANSDERMA* GABAPENTIN 600 MG TABLET Take 2 tablets by mouth three* HYDROCODONE 10 MG-ACETAMINOPH* LABETALOL 200 MG TABLET Take 1 tablet by mouth twice * LANSOPRAZOLE 30 MG CAPSULE,DE* TAKE 1 CAPSULE BY MOUTH EVERY* LISINOPRIL 40 MG TABLET Take 1 tablet by mouth once d* LORAZEPAM 0.5 MG TABLET Take 0.5-1 tablets by mouth t* NITROGLYCERIN 0.4 MG SUBLINGU* Dissolve 1 tablet under the t* ROSUVASTATIN 5 MG TABLET Take 1 tablet by mouth daily * TIZANIDINE 4 MG TABLET Take 1 tablet by mouth at bed* TRIAMCINOLONE ACETONIDE 0.1 %* TRIAMTERENE 37.5 MG-HYDROCHLO* Take 1 capsule by mouth once * AZITHROMYCIN 250 MG TABLET Take 2 tablets day one, then,* BISMUTH SUBSALICYLATE 262 MG * Take 1 tablet by mouth four t* CETIRIZINE 10 MG TABLET Take 1 tablet by mouth once d* COLESTIPOL 1 GRAM TABLET Take 1 tablet by mouth twice * Problem List As Of Date 05/07/2018 Noted Resolved GENERALIZED ANXIETY DIS [F41.1] More... DISACCHARIDASE DEF/MALAB [E73.9] GENERAL OSTEOARTHROSIS [M15.9] CARPAL TUNNEL SYNDROME [G56.00] Hyperlipidemia [E78.5] ALLERGIC RHINITIS NOS [J30.9] More... ARTERIAL DISEASE NEC [I77.89] SCIATICA [M54.30] Obesity, unspecified [E66.9] 12/04/2017 ESOPHAGEAL REFLUX [K21.9] PAROX ATRIAL TACHYCARDIA [I47.1] Essential hypertension [I10] Occlusion and stenosis of carotid artery [I65.2*INVALID FOR* Vitamin D deficiency [E55.9] INVALID FOR* Dysmetabolic Syndrome [E88.81] INVALID FOR* Laceration [[id number]] INVALID FOR* Calcaneal spur [M77.30] INVALID FOR* Sinusitis [J32.9] INVALID FOR* More... 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 Imaging of gastrointestinal tract abnormal [R93*INVALID FOR* More... Nausea [R11.0] INVALID FOR* Helicobacter pylori infection [A04.8] INVALID FOR* Magnesium deficiency [E61.2] INVALID FOR* Prescriptions ordered this encounter Disp Refills Start End AZITHROMYCIN 250 MG TABLET 1 Pa* 0 05/07/2018 05/12/2018 Cmt: Take with food Sig: Take 2 tablets day one, then, 1 tablet daily until gone. CETIRIZINE 10 MG TABLET 30 t* 0 05/07/2018 Route: ORAL Sig: Take 1 tablet by mouth once daily. for nasal drainage and congestion Medications Discontinued During This Encounter azithromycin (ZITHROMAX Z-ARIANNA) 250 m* 1 Pa* 0 08/05/2017 05/07/2018 Sig: Take 2 tablets day one, then, 1 tablet daily until gone. Disc: Reason for discontinue is not on file. 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, chronic a/c ADHERENCE TO GUIDELINES ROSA-I or ARB for HF with prior LVEF<40 (NQF 0081) - N/A ASA or Plavix for ASHD (NQF 0067) - met Beta david for ASHD with prior OK or prior LVEF<40 (NQF 0070) - met Beta david for HF with prior LVEF<40 (NQF 0083) - N/A ROSA-I or ARB for ASHD with DM or prior LVEF<40 (NQF 0066) - met Statin therapy for ASHD or FHL or DM - met BMI documented and plan if >25 (NQF 0421) - lifestyle recommendation form Tobacco use screening and referral (NQF 0028) - lifestyle recommendation form Recommendation for whole food, plant based diet - lifestyle recommendation form CLINICAL IMPRESSION/PLAN: Cady Salmeron is doing well. Her aortic stenosis is stable by exam. We will repeat echocardiogram in 6 months. She was encouraged to continue her current medications. She's having a lot of back pain today and her blood pressure was elevated. I asked her to increase labetalol to 200 milligrams twice daily and update me with vital signs next week. Further adjustments may need to be made. Her current chest pain is likely musculoskeletal, but she has been reminded to use nitroglycerin liberally for chest discomfort. I will see her in 6 months at which time she will have an echocardiogram. Written and verbal health teaching given to patient, patient verbalizes understanding and agrees with treatment plan. DIAGNOSIS FOR VISIT: ASHD Aortic stenosis Hypertension HISTORY OF PRESENT ILLNESS Cady Salmeron returns for follow-up of multiple cardiac issues, as noted above. She's had a few episodes of chest pain which are brief and predominantly in areas where she has orthopedic issues. She has taken an aspirin a few times but no nitroglycerin. Overall her exercise tolerance has been stable. She denies orthopnea. She's had minimal edema. She denies syncope, TIAs, amaurosis or claudication. She's had no true palpitations. ALLERGIES: ALLERGIES Allergen Reactions - Cardizem [Diltiazem* Rash - Cefdinir Hives - Darvocet A500 [Prop* GI Upset - Doxycycline Vomiting - Flexeril [Cyclobenz* Intolerance heart racing - Levaquin [Levofloxa* Unknown - Novacaine [Other] - Peniciillins [Other] Anaphylaxis - Sulfa (Sulfonamide * Swelling tongue swelling CURRENT OUTPATIENT MEDICATIONS: rosuvastatin (CRESTOR) 5 mg tablet Take 1 tablet by mouth daily at bedtime. gabapentin (NEURONTIN) 600 mg tablet Take 2 tablets by mouth three times daily. lisinopril (ZESTRIL) 40 mg tablet Take 1 tablet by mouth once daily. amLODIPine (NORVASC) 10 mg tablet Take 1 tablet by mouth once daily. lansoprazole (PREVACID) 30 mg capsule TAKE 1 CAPSULE BY MOUTH EVERY DAY labetalol (TRANDATE) 100 mg tablet Take 1 tablet by mouth twice daily. tiZANidine (ZANAFLEX) 4 mg tablet Take 1 tablet by mouth at bedtime as needed. bismuth subsalicylate (BISMATROL) 262 mg chew Take 1 tablet by mouth four times daily for 14 days. fentaNYL (DURAGESIC) 25 mcg/hr HYDROcodone-Acetaminophen (NORCO) 10-325 mg per tablet triamcinolone acetonide (KENALOG) 0.1 % cream aspirin 81 mg chewable tablet Take 81 mg by mouth once daily. colestipol (COLESTID) 1 gram tablet Take 1 tablet by mouth twice daily. docusate sodium (COLACE) 100 mg capsule Take 1 capsule by mouth once daily. ergocalciferol, vitamin D2, (DRISDOL) 50,000 unit capsule Take 1 capsule three times weklkarla triamterene-hydrochlorothiazide 37.5-25 mg per capsule Take 1 capsule by mouth once daily. Take in am. apixaban (ELIQUIS) 5 mg tab tab(s) Take 1 tablet by mouth twice daily. BIOTIN ORAL Take by mouth. nitroglycerin sublingual (NITROQUICK) 0.4 mg SL tablet Dissolve 1 tablet under the tongue as needed. FOR CHEST PAIN. IF NO RELIEF CALL 911 PHYSICAL EXAMINATION: VITAL SIGNS: BP 199/73 Pulse 60 Wt 152 lb (68.9kg) Chest: Clear to auscultation. Trachea is midline. Air entry is equal. Cardiac: Regular rhythm. S1 and S2 are normal. PMI is nondisplaced. There is a 3/6 mid peaking murmur of aortic stenosis. Carotids are brisk with soft bilateral bruits. JVP is less than 10 cm. Abdomen: Soft and nontender. There are no pulsatile masses or bruits. No liver enlargement. Bowel sounds are active. Extremities: Trace edema. Pulses are intact and symmetrical. Recent labs were reviewed. Renal function is normal. LDL was 79. Carotid Doppler was performed today and shows stable findings. Electronically Signed: Ian Ash MD March 19, 2018 10:36 AM CC: David Connell MD CNOV Observed: 03/19/2018 Status: COMPLETED Source: [place] 10:00 AM [facility] Office Visit (CAWSTR) CADY SALMERON ([id number]) 1935 F Date Time Provider Department 03/19/18 10:00 AM IAN ASH CAWSTR During your visit today, we recorded the following information about you: Pulse Blood pressure Weight 60/minute 199/73 68.9 kg Ian Ash MD 03/19/2018 5:30 PM Signed PERTINENT CARDIAC HISTORY Aortic stenosis - moderate Carotid disease - Left CEA 2006 ASHD - PCI RCA 1998 HTN HL - tolerating low dose Crestor DVT/PE - unprovoked, 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, chronic a/c ADHERENCE TO GUIDELINES ROSA-I or ARB for HF with prior LVEF<40 (NQF 0081) - N/A ASA or Plavix for ASHD (NQF 0067) - met Beta david for ASHD with prior OK or prior LVEF<40 (NQF 0070) - met Beta david for HF with prior LVEF<40 (NQF 0083) - N/A ROSA-I or ARB for ASHD with DM or prior LVEF<40 (NQF 0066) - met Statin therapy for ASHD or FHL or DM - met BMI documented and plan if >25 (NQF 0421) - lifestyle recommendation form Tobacco use screening and referral (NQF 0028) - lifestyle recommendation form Recommendation for whole food, plant based diet - lifestyle recommendation form CLINICAL IMPRESSION/PLAN: Cady Salmeron is doing well. Her aortic stenosis is stable by exam. We will repeat echocardiogram in 6 months. She was encouraged to continue her current medications. She's having a lot of back pain today and her blood pressure was elevated. I asked her to increase labetalol to 200 milligrams twice daily and update me with vital signs next week. Further adjustments may need to be made. Her current chest pain is likely musculoskeletal, but she has been reminded to use nitroglycerin liberally for chest discomfort. I will see her in 6 months at which time she will have an echocardiogram. Written and verbal health teaching given to patient, patient verbalizes understanding and agrees with treatment plan. DIAGNOSIS FOR VISIT: ASHD Aortic stenosis Hypertension HISTORY OF PRESENT ILLNESS Cady Salmeron returns for follow-up of multiple cardiac issues, as noted above. She's had a few episodes of chest pain which are brief and predominantly in areas where she has orthopedic issues. She has taken an aspirin a few times but no nitroglycerin. Overall her exercise tolerance has been stable. She denies orthopnea. She's had minimal edema. She denies syncope, TIAs, amaurosis or claudication. She's had no true palpitations. ALLERGIES: ALLERGIES Allergen Reactions - Cardizem [Diltiazem* Rash - Cefdinir Hives - Darvocet A500 [Prop* GI Upset - Doxycycline Vomiting - Flexeril [Cyclobenz* Intolerance heart racing - Levaquin [Levofloxa* Unknown - Novacaine [Other] - Peniciillins [Other] Anaphylaxis - Sulfa (Sulfonamide * Swelling tongue swelling CURRENT OUTPATIENT MEDICATIONS: rosuvastatin (CRESTOR) 5 mg tablet Take 1 tablet by mouth daily at bedtime. gabapentin (NEURONTIN) 600 mg tablet Take 2 tablets by mouth three times daily. lisinopril (ZESTRIL) 40 mg tablet Take 1 tablet by mouth once daily. amLODIPine (NORVASC) 10 mg tablet Take 1 tablet by mouth once daily. lansoprazole (PREVACID) 30 mg capsule TAKE 1 CAPSULE BY MOUTH EVERY DAY labetalol (TRANDATE) 100 mg tablet Take 1 tablet by mouth twice daily. tiZANidine (ZANAFLEX) 4 mg tablet Take 1 tablet by mouth at bedtime as needed. bismuth subsalicylate (BISMATROL) 262 mg chew Take 1 tablet by mouth four times daily for 14 days. fentaNYL (DURAGESIC) 25 mcg/hr HYDROcodone-Acetaminophen (NORCO) 10-325 mg per tablet triamcinolone acetonide (KENALOG) 0.1 % cream aspirin 81 mg chewable tablet Take 81 mg by mouth once daily. colestipol (COLESTID) 1 gram tablet Take 1 tablet by mouth twice daily. docusate sodium (COLACE) 100 mg capsule Take 1 capsule by mouth once daily. ergocalciferol, vitamin D2, (DRISDOL) 50,000 unit capsule Take 1 capsule three times wekly triamterene-hydrochlorothiazide 37.5-25 mg per capsule Take 1 capsule by mouth once daily. Take in am. apixaban (ELIQUIS) 5 mg tab tab(s) Take 1 tablet by mouth twice daily. BIOTIN ORAL Take by mouth. nitroglycerin sublingual (NITROQUICK) 0.4 mg SL tablet Dissolve 1 tablet under the tongue as needed. FOR CHEST PAIN. IF NO RELIEF CALL 911 PHYSICAL EXAMINATION: VITAL SIGNS: BP 199/73 Pulse 60 Wt 152 lb (68.9kg) Chest: Clear to auscultation. Trachea is midline. Air entry is equal. Cardiac: Regular rhythm. S1 and S2 are normal. PMI is nondisplaced. There is a 3/6 mid peaking murmur of aortic stenosis. Carotids are brisk with soft bilateral bruits. JVP is less than 10 cm. Abdomen: Soft and nontender. There are no pulsatile masses or bruits. No liver enlargement. Bowel sounds are active. Extremities: Trace edema. Pulses are intact and symmetrical. Recent labs were reviewed. Renal function is normal. LDL was 79. Carotid Doppler was performed today and shows stable findings. Electronically Signed: Ian Ash MD March 19, 2018 10:36 AM CC: MD Ian Barrera MD 03/19/2018 10:38 AM Signed LIFESTYLE CHANGE A healthy lifestyle is the most important component of your overall treatment plan. 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 EAT A WHOLE FOOD, PLANT BASED DIET The nutrition your body gets is more important than the medicine you take. What matters most is the overall way you eat. We encourage you to minimize the use of animal products (which include dairy and all meats except fatty fish) and use whole, unprocessed plant foods to provide your protein, vitamins and other nutrients. We have a lot of information to share with you on this topic. This is not a diet. It is a way of life that you will keep with you. EXERCISE REGULARLY It is not important to spend hours in the gym, lifting weights and perspiring heavily. A total of 2-3 hours per week of aerobic (causing you to be moderately short of breath) exercise is sufficient to improve your health. Talk to us before you begin a new exercise program, if you have heart disease or experience shortness of breath or chest pain. REDUCE STRESS Chronic emotional and physical stress leads to disease. Ways of reducing stress include meditation, visualization, prayer, yoga and other forms of relaxation therapy. Consistency is the brooke. Find a technique that works for you and do it every day. CULTIVATE RELATIONSHIPS Loneliness and isolation have a major negative impact on health. Seek out others who can love, care for and nurture you. Avoid hurtful relationships. MAINTAIN IDEAL BODY WEIGHT The best way to do this is to do all the things above. Our bodies naturally find the right weight if we keep moving and feed ourselves the right food. If your BMI is greater than 25, we strongly recommend a referral to a weight management program. Please speak to us or your family physician about available programs. AVOID NICOTINE IN ALL FORMS This includes all tobacco products, whether chewed, smoked, vaped, or rubbed on the skin. Smoking cessation programs, which can make use of tobacco substitutes, medications to suppress cravings and behavior management, are available. Please contact your family physician about programs in your area. Referring Provider: IAN ASH [[id number]] Allergies As of Date: 03/19/2018 Noted Allergy Reaction CARDIZEM (DILTIAZEM HCL) 03/18/2005 2 - Rash CEFDINIR 04/21/2017 4 - Hives DARVOCET A500 (PROPOXYPHENE N-ROSA*03/18/2005 8 - GI Upset DOXYCYCLINE 05/26/2008 11 - Vomiting FLEXERIL (CYCLOBENZAPRINE HCL) 02/19/2007 5 - Intolerance Comments: heart racing LEVAQUIN (LEVOFLOXACIN) 01/20/2013 16 - Unknown NOVACAINE [Other] 02/15/2005 PENICIILLINS [Other] 02/15/2005 10 - Anaphylaxis SULFA (SULFONAMIDE ANTIBIOTICS) 02/15/2005 7 - Swelling Comments: tongue swelling Date Reviewed: 03/19/2018 Reviewed by: Tami (Janey) Lucía - Fully Assessed Reason for Visit: Recheck [92] Primary Visit Diagnosis:ASHD (arteriosclerotic heart disease) [I25.10] Other Visit Diagnosis:Essential hypertension [I10] Order(s):ECHO [347616] Order #: [id number]: 1 FUTURE labetalol (TRANDATE) 200 mg tabletTake 1 tablet by mouth twice daily.Disp: 60 tabletRfl: 11 Prescriptions as of 03/19/2018 Sig: LABETALOL 200 MG TABLET Take 1 tablet by mouth twice * ROSUVASTATIN 5 MG TABLET Take 1 tablet by mouth daily * GABAPENTIN 600 MG TABLET Take 2 tablets by mouth three* LISINOPRIL 40 MG TABLET Take 1 tablet by mouth once d* AMLODIPINE 10 MG TABLET Take 1 tablet by mouth once d* LANSOPRAZOLE 30 MG CAPSULE,DE* TAKE 1 CAPSULE BY MOUTH EVERY* TIZANIDINE 4 MG TABLET Take 1 tablet by mouth at bed* BISMUTH SUBSALICYLATE 262 MG * Take 1 tablet by mouth four t* FENTANYL 25 MCG/HR TRANSDERMA* HYDROCODONE 10 MG-ACETAMINOPH* TRIAMCINOLONE ACETONIDE 0.1 %* ASPIRIN 81 MG CHEWABLE TABLET Take 81 mg by mouth once robbin* COLESTIPOL 1 GRAM TABLET Take 1 tablet by mouth twice * DOCUSATE SODIUM 100 MG CAPSULE Take 1 capsule by mouth once * ERGOCALCIFEROL (VITAMIN D2) 5* Take 1 capsule three times we* TRIAMTERENE 37.5 MG-HYDROCHLO* Take 1 capsule by mouth once * APIXABAN 5 MG TABLET Take 1 tablet by mouth twice * BIOTIN ORAL Take by mouth. NITROGLYCERIN 0.4 MG SUBLINGU* Dissolve 1 tablet under the t* Problem List As Of Date 03/19/2018 Noted Resolved GENERALIZED ANXIETY DIS [F41.1] More... DISACCHARIDASE DEF/MALAB [E73.9] GENERAL OSTEOARTHROSIS [M15.9] CARPAL TUNNEL SYNDROME [G56.00] Hyperlipidemia [E78.5] ALLERGIC RHINITIS NOS [J30.9] More... ARTERIAL DISEASE NEC [I77.89] SCIATICA [M54.30] Obesity, unspecified [E66.9] 12/04/2017 ESOPHAGEAL REFLUX [K21.9] PAROX ATRIAL TACHYCARDIA [I47.1] Essential hypertension [I10] Occlusion and stenosis of carotid artery [I65.2*INVALID FOR* Vitamin D deficiency [E55.9] INVALID FOR* Dysmetabolic Syndrome [E88.81] INVALID FOR* Laceration [[id number]] INVALID FOR* Calcaneal spur [M77.30] INVALID FOR* Sinusitis [J32.9] INVALID FOR* More... 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 Imaging of gastrointestinal tract abnormal [R93*INVALID FOR* More... Nausea [R11.0] INVALID FOR* Helicobacter pylori infection [A04.8] INVALID FOR* Magnesium deficiency [E61.2] INVALID FOR* Other instructions from your clinician: LIFESTYLE CHANGE A healthy lifestyle is the most important component of your overall treatment plan. Please give serious thought to the following areas and commit to making [facility] changes. EAT A WHOLE FOOD, PLANT BASED DIET The nutrition your body gets is more important than the medicine you take. What matters most is the overall way you eat. We encourage you to minimize the use of animal products (which include dairy and all meats except fatty fish) and use whole, unprocessed plant foods to provide your protein, vitamins and other nutrients. We have a lot of information to share with you on this topic. This is not a diet. It is a way of life that you will keep with you. EXERCISE REGULARLY It is not important to spend hours in the gym, lifting weights and perspiring heavily. A total of 2-3 hours per week of aerobic (causing you to be moderately short of breath) exercise is sufficient to improve your health. Talk to us before you begin a new exercise program, if you have heart disease or experience shortness of breath or chest pain. REDUCE STRESS Chronic emotional and physical stress leads to disease. Ways of reducing stress include meditation, visualization, prayer, yoga and other forms of relaxation therapy. Consistency is the brooke. Find a technique that works for you and do it every day. CULTIVATE RELATIONSHIPS Loneliness and isolation have a major negative impact on health. Seek out others who can love, care for and nurture you. Avoid hurtful relationships. MAINTAIN IDEAL BODY WEIGHT The best way to do this is to do all the things above. Our bodies naturally find the right weight if we keep moving and feed ourselves the right food. If your BMI is greater than 25, we strongly recommend a referral to a weight management program. Please speak to us or your family physician about available programs. AVOID NICOTINE IN ALL FORMS This includes all tobacco products, whether chewed, smoked, vaped, or rubbed on the skin. Smoking cessation programs, which can make use of tobacco substitutes, medications to suppress cravings and behavior management, are available. Please contact your family physician about programs in your area. Prescriptions ordered this encounter Disp Refills Start End LABETALOL 100 MG TABLET 60 t* 11 03/19/2018 03/19/2018 Route: ORAL Sig: Take 2 tablets by mouth twice daily. LABETALOL 200 MG TABLET 60 t* 11 03/19/2018 Route: ORAL Sig: Take 1 tablet by mouth twice daily. Medications Discontinued During This Encounter labetalol (TRANDATE) 100 mg tablet 60 t* 11 10/09/2017 03/19/2018 Route: ORAL Sig: Take 1 tablet by mouth twice daily. Disc: Reason for discontinue is not on file. labetalol (TRANDATE) 100 mg tablet 60 t* 11 03/19/2018 03/19/2018 Route: ORAL Sig: Take 2 tablets by mouth twice daily. Disc: Reason for discontinue is not on file. Encounter Status:Closed by IAN ASH MD on 03/19/18 PROGRESS Observed: 11/17/2017 Status: COMPLETED Source: [place] 11:00 AM [facility] [place] REPOSITORY HNO ID: [id number] Author: David Connell Service: (none) Author Type: Physician Type: Progress Notes Filed: 12/04/2017 1:23 AM Note Text: Patient presents with: Recheck: Follow up SUBJECTIVE: Cady Salmeron is a 82 year old year old lady here today for 6 month follow up appointment for review of medical conditions. Gallbladder out now--seems some symptoms worse. Took meds for H pylori--2 months ago. Still having symptoms with upper abdominal pain--knife jabbing, gas and hurts bad. Pain in lower abdomen when has BM. Has urgency after eats and has soft stool. Sometimes liquid stool followed by more formed stool. The other day: Burned sensation in hurt lower abdomen and thought was bladder infection--drank a lot of cranberry juice and resolved that pain. Cut out caffeine. Just the smell of coffee causes nausea. Trying diet for IBS. Avoid meat. Avoids greasy food. Eats some crackers. PAST MEDICAL HISTORY Diagnosis Date - Allergic rhinitis, cause unspecified Allergic rhinitis - CAROTID ART OCCL-NO INFARCT 01/14/2007 - Carpal tunnel syndrome - Dysmetabolic syndrome X - Esophageal reflux - Generalized anxiety disorder Anxiety, Generalized - Generalized osteoarthrosis, unspecified site - History of blood clots legs and lungs - Moderate aortic stenosis - Murmur - Obesity, unspecified - Other and unspecified hyperlipidemia - Other specified disorders of arteries and arterioles (HCC) - Paroxysmal supraventricular tachycardia (HCC) - Pure hypercholesterolemia - Pure hyperglyceridemia - Sciatica - Stented coronary artery - Unspecified essential hypertension Current Outpatient Prescriptions: lansoprazole (PREVACID) 30 mg capsule TAKE 1 CAPSULE BY MOUTH EVERY DAY labetalol (TRANDATE) 100 mg tablet Take 1 tablet by mouth twice daily. tiZANidine (ZANAFLEX) 4 mg tablet Take 1 tablet by mouth at bedtime as needed. fentaNYL (DURAGESIC) 25 mcg/hr HYDROcodone-Acetaminophen (NORCO) 10-325 mg per tablet triamcinolone acetonide (KENALOG) 0.1 % cream aspirin 81 mg chewable tablet Take 81 mg by mouth once daily. colestipol (COLESTID) 1 gram tablet Take 1 tablet by mouth twice daily. LORazepam (ATIVAN) 1 mg tablet daily at bedtime. rosuvastatin (CRESTOR) 5 mg tablet Take 1 tablet by mouth daily at bedtime. docusate sodium (COLACE) 100 mg capsule Take 1 capsule by mouth once daily. ergocalciferol, vitamin D2, (DRISDOL) 50,000 unit capsule Take 1 capsule three times wekly triamterene-hydrochlorothiazide 37.5-25 mg per capsule Take 1 capsule by mouth once daily. Take in am. apixaban (ELIQUIS) 5 mg tab tab(s) Take 1 tablet by mouth twice daily. BIOTIN ORAL Take by mouth. amLODIPine (NORVASC) 10 mg tablet Take 1 tablet by mouth once daily. lisinopril (ZESTRIL) 40 mg tablet Take 1 tablet by mouth once daily. gabapentin (NEURONTIN) 600 mg tablet Take 2 tablets by mouth three times daily. nitroglycerin sublingual (NITROQUICK) 0.4 mg SL tablet Dissolve 1 tablet under the tongue as needed. FOR CHEST PAIN. IF NO RELIEF CALL [address] (PROTONIX) 20 mg tablet Take 2 tablets by mouth twice daily for 14 days. Take 30 mins before meals bismuth subsalicylate (BISMATROL) 262 mg chew Take 1 tablet by mouth four times daily for 14 days. azithromycin (ZITHROMAX) 250 mg tablet benzonatate (TESSALON PERLE) 100 mg capsule fentaNYL (DURAGESIC) 12 mcg/hr pt72 HYDROcodone-Acetaminophen (NORCO) 7.5-325 mg per tablet Take 1 tablet by mouth every 6 hours as needed for Pain. (Patient not taking: Reported on 10/09/2017 ) fentaNYL (DURAGESIC) 50 mcg/hr No current facility-administered medications for this visit. OBJECTIVE: BP 140/50 Pulse 62 Resp 12 Wt 67.1 kg (148 lb) BMI 26.22 kg/m? Patient is alert, oriented times 3, no apparent distress, affect is bright, reactive. Last 5 Encounter BP Readings: Date: BP: 11/17/2017 140/50 10/09/2017 164/82 09/09/2017 176/58 09/08/2017 186/48 08/18/2017 186/69 Last 5 Encounter Wt Readings: Date: Wt: 11/17/2017 67.1 kg (148 lb) 10/09/2017 67.9 kg (149 lb 12.8 oz) 09/09/2017 66.7 kg (147 lb) 09/08/2017 63.5 kg (140 lb) 08/18/2017 63.5 kg (140 lb) Heart: Regular rate, rhythm, no murmurs, gallops, rubs. Lungs: Clear to auscultation, bilaterally, breathing non labored. Ext: No cyanosis, clubbing, or edema. Component Latest Ref Rng AND Units 05/28/2017 07/08/2017 11/16/2017 Protein, Total 6.3 - 8.0 g/dL 7.8 6.8 Albumin 3.9 - 4.9 g/dL 4.4 4.2 Calcium 8.5 - 10.2 mg/dL 9.2 Bilirubin, Total 0.2 - 1.3 mg/dL 0.2 0.3 Alkaline Phosphatase 32 - 117 U/L 53 46 AST 13 - 35 U/L 21 24 Glucose 74 - 99 mg/dL 97 BUN 7 - 21 mg/dL 15 Creatinine 0.58 - 0.96 mg/dL 0.83 0.81 Sodium 136 - 144 mmol/L 140 Potassium 3.7 - 5.1 mmol/L 4.1 Chloride 97 - 105 mmol/L 99 CO2 22 - 30 mmol/L 26 Anion Gap 9 - 18 mmol/L 15 ALT 7 - 38 U/L 13 16 eGFR- >60 >60 eGFR-All Other Races . >60 >60 WBC 3.70 - 11.00 k/uL 6.81 6.24 RBC 3.90 - 5.20 m/uL 4.08 3.88 (L) Hemoglobin 11.5 - 15.5 g/dL 12.1 11.4 (L) Hematocrit 36.0 - 46.0 % 38.9 36.6 MCV 80.0 - 100.0 fL 95.3 94.3 MCH 26.0 - 34.0 pG 29.7 29.4 MCHC 30.5 - 36.0 g/dL 31.1 31.1 RDW-CV 11.5 - 15.0 % 13.4 13.6 Platelet Count 150 - 400 k/uL 220 217 MPV 9.0 - 12.7 fL 10.9 11.4 Absolute nRBC <0.01 k/uL <0.01 <0.01 Cholesterol, Total <200 mg/dL 164 Triglyceride <150 mg/dL 183 (H) HDL Cholesterol >39 mg/dL 48 LDL Cholesterol <100 mg/dL 79 Non HDL Cholesterol <130 mg/dL 116 Fasting Time hrs 19 VLDL Cholesterol <30 mg/dL 37 (H) TC:HDL Ratio <5.10 3.42 LDL:HDL Ratio <2.54 1.65 Bilirubin, Conjug <0.2 mg/dL <0.2 Lipase 16 - 61 U/L 21 CA19-9 <36 U/mL 29 Magnesium 1.7 - 2.3 mg/dL 1.6 (L) Vitamin D level pending ASSESSMENT AND PLAN: Encounter Diagnosis ICD-10-CM 1. Mixed hyperlipidemia E78.2 rosuvastatin (CRESTOR) 5 mg tablet 2. Sciatica, unspecified laterality M54.30 gabapentin (NEURONTIN) 600 mg tablet 3. Helicobacter pylori infection A04.8 4. Anxiety F41.9 LORazepam (ATIVAN) 0.5 mg tab 5. Essential hypertension I10 6. Vitamin D deficiency E55.9 7. Magnesium deficiency E61.2 Stable with control of axiety. No signs of diversion or abuse of medication(s); no adverse effects. Continue present management. Note that sees pain management for her pain meds. At this time benefits outweigh risks. Continue to monitor for adverse effects and indications for decreasing dose or tapering off.. PDMP website checked and validated. All prescriptions have been APPROPRIATELY filled. No suspicious activity was identified. 12/04/2017 by David Connell MD Above issues addressed with patient. Patient involved in shared decision making for management of her medical issues. History and medications reviewed. Epic updated as needed Refills taken care of and meds adjusted as indicated after reviewed history, exam and labs. Health Maintenance reviewed. Updated record and/or ordered tests as recorded. Encouraged on efforts at healthy diet and regular exercise and adequate sleep. Mild anemia noted. Monitor labs. Further evaluation and treatment as indicated. See if H pylori needs treated again. PUD could cause her anemia. The majority of the visit was spent counseling and/or coordinating care for the patient. Dioc-re-wueg time was at least 20 minutes. David Connell MD CNOV Observed: 11/17/2017 Status: COMPLETED Source: [place] 10:20 AM [facility] REPOSITORY Office Visit (INTMWS) CADY SALMERON ([id number]) 1935 F Date Time Provider Department 11/17/17 10:20 AM DAVID CONNELL INTMWS During your visit today, we recorded the following information about you: Pulse Respiration Blood pressure Weight 62/minute 12/minute 140/50 67.1 kg David Connell MD 12/04/2017 1:23 AM Signed Patient presents with: Recheck: Follow up SUBJECTIVE: Cady Salmeron is a 82 year old year old lady here today for 6 month follow up appointment for review of medical conditions. Gallbladder out now--seems some symptoms worse. Took meds for H pylori--2 months ago. Still having symptoms with upper abdominal pain--knife jabbing, gas and hurts bad. Pain in lower abdomen when has BM. Has urgency after eats and has soft stool. Sometimes liquid stool followed by more formed stool. The other day: Burned sensation in hurt lower abdomen and thought was bladder infection--drank a lot of cranberry juice and resolved that pain. Cut out caffeine. Just the smell of coffee causes nausea. Trying diet for IBS. Avoid meat. Avoids greasy food. Eats some crackers. PAST MEDICAL HISTORY Diagnosis Date - Allergic rhinitis, cause unspecified Allergic rhinitis - CAROTID ART OCCL-NO INFARCT 01/14/2007 - Carpal tunnel syndrome - Dysmetabolic syndrome X - Esophageal reflux - Generalized anxiety disorder Anxiety, Generalized - Generalized osteoarthrosis, unspecified site - History of blood clots legs and lungs - Moderate aortic stenosis - Murmur - Obesity, unspecified - Other and unspecified hyperlipidemia - Other specified disorders of arteries and arterioles (HCC) - Paroxysmal supraventricular tachycardia (HCC) - Pure hypercholesterolemia - Pure hyperglyceridemia - Sciatica - Stented coronary artery - Unspecified essential hypertension Current Outpatient Prescriptions: lansoprazole (PREVACID) 30 mg capsule TAKE 1 CAPSULE BY MOUTH EVERY DAY labetalol (TRANDATE) 100 mg tablet Take 1 tablet by mouth twice daily. tiZANidine (ZANAFLEX) 4 mg tablet Take 1 tablet by mouth at bedtime as needed. fentaNYL (DURAGESIC) 25 mcg/hr HYDROcodone-Acetaminophen (NORCO) 10-325 mg per tablet triamcinolone acetonide (KENALOG) 0.1 % cream aspirin 81 mg chewable tablet Take 81 mg by mouth once daily. colestipol (COLESTID) 1 gram tablet Take 1 tablet by mouth twice daily. LORazepam (ATIVAN) 1 mg tablet daily at bedtime. rosuvastatin (CRESTOR) 5 mg tablet Take 1 tablet by mouth daily at bedtime. docusate sodium (COLACE) 100 mg capsule Take 1 capsule by mouth once daily. ergocalciferol, vitamin D2, (DRISDOL) 50,000 unit capsule Take 1 capsule [facility] triamterene-hydrochlorothiazide 37.5-25 mg per capsule Take 1 capsule by mouth once daily. Take in am. apixaban (ELIQUIS) 5 mg tab tab(s) Take 1 tablet by mouth twice daily. BIOTIN ORAL Take by mouth. amLODIPine (NORVASC) 10 mg tablet Take 1 tablet by mouth once daily. lisinopril (ZESTRIL) 40 mg tablet Take 1 tablet by mouth once daily. gabapentin (NEURONTIN) 600 mg tablet Take 2 tablets by mouth three times daily. nitroglycerin sublingual (NITROQUICK) 0.4 mg SL tablet Dissolve 1 tablet under the tongue as needed. FOR CHEST PAIN. IF NO RELIEF CALL [address] (PROTONIX) 20 mg tablet Take 2 tablets by mouth twice daily for 14 days. Take 30 mins before meals bismuth subsalicylate (BISMATROL) 262 mg chew Take 1 tablet by mouth four times daily for 14 days. azithromycin (ZITHROMAX) 250 mg tablet benzonatate (TESSALON PERLE) 100 mg capsule fentaNYL (DURAGESIC) 12 mcg/hr pt72 HYDROcodone-Acetaminophen (NORCO) 7.5-325 mg per tablet Take 1 tablet by mouth every 6 hours as needed for Pain. (Patient not taking: Reported on 10/09/2017 ) fentaNYL (DURAGESIC) 50 mcg/hr No current facility-administered medications for this visit. OBJECTIVE: BP 140/50 Pulse 62 Resp 12 Wt 67.1 kg (148 lb) BMI 26.22 kg/m? Patient is alert, oriented times 3, no apparent distress, affect is bright, reactive. Last 5 Encounter BP Readings: Date: BP: 11/17/2017 140/50 10/09/2017 164/82 09/09/2017 176/58 09/08/2017 186/48 08/18/2017 186/69 Last 5 Encounter Wt Readings: Date: Wt: 11/17/2017 67.1 kg (148 lb) 10/09/2017 67.9 kg (149 lb 12.8 oz) 09/09/2017 66.7 kg (147 lb) 09/08/2017 63.5 kg (140 lb) 08/18/2017 63.5 kg (140 lb) Heart: Regular rate, rhythm, no murmurs, gallops, rubs. Lungs: Clear to auscultation, bilaterally, breathing non labored. Ext: No cyanosis, clubbing, or edema. Component Latest Ref Rng AND Units 05/28/2017 07/08/2017 11/16/2017 Protein, Total 6.3 - 8.0 g/dL 7.8 6.8 Albumin 3.9 - 4.9 g/dL 4.4 4.2 Calcium 8.5 - 10.2 mg/dL 9.2 Bilirubin, Total 0.2 - 1.3 mg/dL 0.2 0.3 Alkaline Phosphatase 32 - 117 U/L 53 46 AST 13 - 35 U/L 21 24 Glucose 74 - 99 mg/dL 97 BUN 7 - 21 mg/dL 15 Creatinine 0.58 - 0.96 mg/dL 0.83 0.81 Sodium 136 - 144 mmol/L 140 Potassium 3.7 - 5.1 mmol/L 4.1 Chloride 97 - 105 mmol/L 99 CO2 22 - 30 mmol/L 26 Anion Gap 9 - 18 mmol/L 15 ALT 7 - 38 U/L 13 16 eGFR- >60 >60 eGFR-All Other Races . >60 >60 WBC 3.70 - 11.00 k/uL 6.81 6.24 RBC 3.90 - 5.20 m/uL 4.08 3.88 (L) Hemoglobin 11.5 - 15.5 g/dL 12.1 11.4 (L) Hematocrit 36.0 - 46.0 % 38.9 36.6 MCV 80.0 - 100.0 fL 95.3 94.3 MCH 26.0 - 34.0 pG 29.7 29.4 MCHC 30.5 - 36.0 g/dL 31.1 31.1 RDW-CV 11.5 - 15.0 % 13.4 13.6 Platelet Count 150 - 400 k/uL 220 217 MPV 9.0 - 12.7 fL 10.9 11.4 Absolute nRBC <0.01 k/uL <0.01 <0.01 Cholesterol, Total <200 mg/dL 164 Triglyceride <150 mg/dL 183 (H) HDL Cholesterol >39 mg/dL 48 LDL Cholesterol <100 mg/dL 79 Non HDL Cholesterol <130 mg/dL 116 Fasting Time hrs 19 VLDL Cholesterol <30 mg/dL 37 (H) TC:HDL Ratio <5.10 3.42 LDL:HDL Ratio <2.54 1.65 Bilirubin, Conjug <0.2 mg/dL <0.2 Lipase 16 - 61 U/L 21 CA19-9 <36 U/mL 29 Magnesium 1.7 - 2.3 mg/dL 1.6 (L) Vitamin D level pending ASSESSMENT AND PLAN: Encounter Diagnosis ICD-10-CM 1. Mixed hyperlipidemia E78.2 rosuvastatin (CRESTOR) 5 mg tablet 2. Sciatica, unspecified laterality M54.30 gabapentin (NEURONTIN) 600 mg tablet 3. Helicobacter pylori infection A04.8 4. Anxiety F41.9 LORazepam (ATIVAN) 0.5 mg tab 5. Essential hypertension I10 6. Vitamin D deficiency E55.9 7. Magnesium deficiency E61.2 Stable with control of axiety. No signs of diversion or abuse of medication(s); no adverse effects. Continue present management. Note that sees pain management for her pain meds. At this time benefits outweigh risks. Continue to monitor for adverse effects and indications for decreasing dose or tapering off.. PDMP website checked and validated. All prescriptions have been APPROPRIATELY filled. No suspicious activity was identified. 12/04/2017 by David Connell MD Above issues addressed with patient. Patient involved in shared decision making for management of her medical issues. History and medications reviewed. Epic updated as needed Refills taken care of and meds adjusted as indicated after reviewed history, exam and labs. Health Maintenance reviewed. Updated record and/or ordered tests as recorded. Encouraged on efforts at healthy diet and regular exercise and adequate sleep. Mild anemia noted. Monitor labs. Further evaluation and treatment as indicated. See if H pylori needs treated again. PUD could cause her anemia. The majority of the visit was spent counseling and/or coordinating care for the patient. Soiv-lp-kwvy time was at least 20 minutes. MD David Wolf MD 11/17/2017 11:32 AM Addendum Try taking the Colestid at least 1 pill daily every day. May increase as tolerated (max dose 16 mg but most people do not need this much for IBS and bile issues after gallbladder taken out). Might need to take 2 pills once or twice daily. Might need to take Lactaid with milk products. Alternative is to try Lactaid milk or change to nondairy milk (Soy, [place], Goat milks). If not getting better with above, might need to try Carafate for stomach and esophagus pain Can let me or the annealing operator know if not getting better so can pursue different treatments as needed for H pylori--might need H pylori test. After get stomach issues settled down, then can decide about magnesium supplements. Let me know when stomach settled down (hoping in the next 2 months). Referring Provider: DAVID CONNELL [[id number]] Allergies As of Date: 11/17/2017 Noted Allergy Reaction CARDIZEM (DILTIAZEM HCL) 03/18/2005 2 - Rash CEFDINIR 04/21/2017 4 - Hives DARVOCET A500 (PROPOXYPHENE N-ROSA*03/18/2005 8 - GI Upset DOXYCYCLINE 05/26/2008 11 - Vomiting FLEXERIL (CYCLOBENZAPRINE HCL) 02/19/2007 5 - Intolerance Comments: heart racing LEVAQUIN (LEVOFLOXACIN) 01/20/2013 16 - Unknown NOVACAINE [Other] 02/15/2005 PENICIILLINS [Other] 02/15/2005 10 - Anaphylaxis SULFA (SULFONAMIDE ANTIBIOTICS) 02/15/2005 7 - Swelling Comments: tongue swelling Date Reviewed: 11/17/2017 Reviewed by: Bela López LPN - Fully Assessed Reason for Visit: Recheck [92] Cmt: Follow up Primary Visit Diagnosis:Mixed hyperlipidemia [E78.2] Other Visit Diagnoses:Sciatica, unspecified laterality [M54.30] Helicobacter pylori infection [A04.8] Anxiety [F41.9] Essential hypertension [I10] Vitamin D deficiency [E55.9] Magnesium deficiency [E61.2] Order(s):rosuvastatin (CRESTOR) 5 mg tabletTake 1 tablet by mouth daily at bedtime.Disp: 90 tabletRfl: 3 gabapentin (NEURONTIN) 600 mg tabletTake 2 tablets by mouth three times daily.Disp: 540 tabletRfl: 3 lisinopril (ZESTRIL) 40 mg tabletTake 1 tablet by mouth once daily.Disp: 90 tabletRfl: 3 amLODIPine (NORVASC) 10 mg tabletTake 1 tablet by mouth once daily.Disp: 90 tabletRfl: 3 LORazepam (ATIVAN) 0.5 mg tabTake 0.5-1 tablets by mouth twice daily for 90 days. As directedDisp: 60 tabletRfl: 2 Prescriptions as of 11/17/2017 Sig: ROSUVASTATIN 5 MG TABLET Take 1 tablet by mouth daily * GABAPENTIN 600 MG TABLET Take 2 tablets by mouth three* LISINOPRIL 40 MG TABLET Take 1 tablet by mouth once d* AMLODIPINE 10 MG TABLET Take 1 tablet by mouth once d* LANSOPRAZOLE 30 MG CAPSULE,DE* TAKE 1 CAPSULE BY MOUTH EVERY* LABETALOL 100 MG TABLET Take 1 tablet by mouth twice * TIZANIDINE 4 MG TABLET Take 1 tablet by mouth at bed* FENTANYL 25 MCG/HR TRANSDERMA* HYDROCODONE 10 MG-ACETAMINOPH* TRIAMCINOLONE ACETONIDE 0.1 %* ASPIRIN 81 MG CHEWABLE TABLET Take 81 mg by mouth once robbin* COLESTIPOL 1 GRAM TABLET Take 1 tablet by mouth twice * DOCUSATE SODIUM 100 MG CAPSULE Take 1 capsule by mouth once * ERGOCALCIFEROL (VITAMIN D2) 5* Take 1 capsule three times we* TRIAMTERENE 37.5 MG-HYDROCHLO* Take 1 capsule by mouth once * APIXABAN 5 MG TABLET Take 1 tablet by mouth twice * BIOTIN ORAL Take by mouth. NITROGLYCERIN 0.4 MG SUBLINGU* Dissolve 1 tablet under the t* LORAZEPAM 0.5 MG TABLET Take 0.5-1 tablets by mouth t* BISMUTH SUBSALICYLATE 262 MG * Take 1 tablet by mouth four t* Problem List As Of Date 11/17/2017 Noted Resolved GENERALIZED ANXIETY DIS [F41.1] More... DISACCHARIDASE DEF/MALAB [E73.9] GENERAL OSTEOARTHROSIS [M15.9] CARPAL TUNNEL SYNDROME [G56.00] Hyperlipidemia [E78.5] ALLERGIC RHINITIS NOS [J30.9] More... ARTERIAL DISEASE NEC [I77.89] SCIATICA [M54.30] OBESITY NOS [E66.9] ESOPHAGEAL REFLUX [K21.9] PAROX ATRIAL TACHYCARDIA [I47.1] Essential hypertension [I10] Occlusion and stenosis of carotid artery [I65.2*INVALID FOR* Vitamin D deficiency [E55.9] INVALID FOR* Dysmetabolic Syndrome [E88.81] INVALID FOR* Laceration [FMP9426] INVALID FOR* Calcaneal spur [M77.30] INVALID FOR* Sinusitis [J32.9] INVALID FOR* More... 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 Imaging of gastrointestinal tract abnormal [R93*INVALID FOR* More... Nausea [R11.0] INVALID FOR* Helicobacter pylori infection [A04.8] INVALID FOR* Other instructions from your clinician: Try taking the Colestid at least 1 pill daily every day. May increase as tolerated (max dose 16 mg but most people do not need this much for IBS and bile issues after gallbladder taken out). Might need to take 2 pills once or twice daily. Might need to take Lactaid with milk products. Alternative is to try Lactaid milk or change to nondairy milk (Soy, [place], Goat milks). If not getting better with above, might need to try Carafate for stomach and esophagus pain Can let me or the annealing operator know if not getting better so can pursue different treatments as needed for H pylori--might need H pylori test. After get stomach issues settled down, then can decide about magnesium supplements. Let me know when stomach settled down (hoping in the next 2 months). Prescriptions ordered this encounter Disp Refills Start End ROSUVASTATIN 5 MG TABLET 90 t* 3 11/17/2017 Route: ORAL Sig: Take 1 tablet by mouth daily at bedtime. GABAPENTIN 600 MG TABLET 540 * 3 11/17/2017 11/17/2018 Route: ORAL Sig: Take 2 tablets by mouth three times daily. LISINOPRIL 40 MG TABLET 90 t* 3 11/17/2017 Route: ORAL Sig: Take 1 tablet by mouth once daily. AMLODIPINE 10 MG TABLET 90 t* 3 11/17/2017 Route: ORAL Sig: Take 1 tablet by mouth once daily. LORAZEPAM 0.5 MG TABLET 60 t* 2 11/17/2017 02/15/2018 Class: Print RX Cmt: Dose decrease intentional Route: ORAL Sig: Take 0.5-1 tablets by mouth twice daily for 90 days. As directed Medications Discontinued During This Encounter pantoprazole DR (PROTONIX) 20 mg tab* 56 t* 0 09/09/2017 11/17/2017 Route: ORAL Sig: Take 2 tablets by mouth twice daily for 14 days. Take 30 mins before meals Disc: Changing Therapy/Dosage Form azithromycin (ZITHROMAX) 250 mg tabl* 08/05/2017 11/17/2017 Class: Historical Med Sig: Disc: Reason for discontinue is not on file. benzonatate (TESSALON PERLE) 100 mg * 08/05/2017 11/17/2017 Class: Historical Med Sig: Disc: Reason for discontinue is not on file. fentaNYL (DURAGESIC) 12 mcg/hr pt72 07/08/2017 11/17/2017 Class: Historical Med Sig: Disc: Reason for discontinue is not on file. HYDROcodone-Acetaminophen (NORCO) 7.* 30 t* 0 04/23/2017 11/17/2017 Class: Print RX Route: ORAL Sig: Take 1 tablet by mouth every 6 hours as needed for Pain. Patient not taking: Reported on 10/09/2017 Disc: Reason for discontinue is not on file. fentaNYL (DURAGESIC) 50 mcg/hr 12/10/2016 11/17/2017 Class: Historical Med Sig: Disc: Reason for discontinue is not on file. rosuvastatin (CRESTOR) 5 mg tablet 30 t* 11 05/20/2017 11/17/2017 Route: ORAL Sig: Take 1 tablet by mouth daily at bedtime. Disc: Reason for discontinue is not on file. gabapentin (NEURONTIN) 600 mg tablet 540 * 3 11/04/2016 11/17/2017 Route: ORAL Sig: Take 2 tablets by mouth three times daily. Disc: Reason for discontinue is not on file. lisinopril (ZESTRIL) 40 mg tablet 90 t* 3 11/04/2016 11/17/2017 Route: ORAL Sig: Take 1 tablet by mouth once daily. Disc: Reason for discontinue is not on file. amLODIPine (NORVASC) 10 mg tablet 90 t* 3 11/04/2016 11/17/2017 Route: ORAL Sig: Take 1 tablet by mouth once daily. Disc: Reason for discontinue is not on file. LORazepam (ATIVAN) 1 mg tablet 06/16/2017 11/17/2017 Class: Historical Med Sig: daily at bedtime. Disc: Reason for discontinue is not on file. Disposition: Return in about 6 months (around 05/20/2018) for 6 months follow up. Follow-up and Disposition History Recorded Encounter Status:Closed by DAVID CONNELL MD on 12/04/17 CBC Collected: 11/16/2017 Status: F Source: [facility] 10:30 AM [facility] REPOSITORY TYPE CODE TESTS RESULT OUT OF REFERENCE UNITS RANGE LAB WBC 3.70-11.00 k/uL WBC 6.24 LAB RBC 3.90-5.20 m/uL Low RBC 3.88 LAB HGB 11.5-15.5 g/dL Low Hemoglobin 11.4 LAB HCT 36.0-46.0 % Hematocrit 36.6 LAB MCV 80.0-100.0 fL MCV 94.3 LAB MCH 26.0-34.0 pG MCH 29.4 LAB MCHC 30.5-36.0 g/dL MCHC 31.1 LAB RDWCV 11.5-15.0 % RDW-CV 13.6 LAB PLTCT 150-400 k/uL Platelet Count 217 LAB MPV 9.0-12.7 fL MPV 11.4 LAB ABSNUC <0.01 k/uL Absolute nRBC <0.01 Performed By: #### CBC, CMP, LIPB, MG1, VITD #### [facility] [address] [place], [place] [address] COMP METABOLIC PANEL Collected: 11/16/2017 Status: F Source: [facility] 10:30 AM [facility] [place] REPOSITORY TYPE CODE TESTS RESULT OUT OF REFERENCE UNITS RANGE LAB TP 6.3-8.0 g/dL Protein, Total 6.8 LAB ALB 3.9-4.9 g/dL Albumin 4.2 LAB CA 8.5-10.2 mg/dL Calcium, Total 9.2 LAB TBIL 0.2-1.3 mg/dL Bilirubin, Total 0.3 LAB ALKP 32-117 U/L Alkaline Phosphatase 46 LAB AST 13-35 U/L AST 24 LAB GLU 74-99 mg/dL Glucose 97 Result Comment: The [place] [employer] (ADA) provides guidance for cutoff values for fasting glucose and random glucose. The ADA defines fasting as no caloric intake for at least 8 hours. Fas ting plasma glucose results between 100 to 125 mg/dL indicate increased risk for diabetes (prediabetes). Fasting plasma glucose results greater than or equal to 126 mg/dL meet the criteria for diagnosis of diabetes. In the absence of unequivocal hyperglycemia, results should be confirmed by repeat testing. In a patient with classic symptoms of hyperglycemia or hyperglycemic crisis, random plasma glucose results greater than or equal to 200 mg/dL meet the criteria for diagnosis of diabetes. Reference: Standards of Medical Care in Diabetes 2016, [place] [employer]. Diabetes Care. 2016.39(Suppl 1). LAB BUN 7-21 mg/dL BUN 15 LAB CRET 0.58-0.96 mg/dL Creatinine 0.81 LAB NA 136-144 mmol/L Sodium 140 LAB K 3.7-5.1 mmol/L Potassium 4.1 LAB CL 97-105 mmol/L Chloride 99 LAB CO2 22-30 mmol/L CO2 26 LAB AGAP 9-18 mmol/L Anion Gap 15 LAB ALT 7-38 U/L ALT 16 LAB GFRAA eGFR- Amer. >60 LAB GFRNAA . eGFR-All Other Races >60 Result Comment: eGFR (Estimated GFR) Units of measure: mL/min/1.73 meters squared eGFR is derived from the reexpressed MDRD Study equation using the following parameters: serum creatinine, age, gender and race. The creatinine assay has been calibrated to be traceable to IDMS. An eGFR <60 mL/min/1.73m2 for >3 months is consistent with chronic kidney disease. Refer to KDOQI guidelines for clinical interpretation. In patients with unstable renal function, e.g. those with acute kidney injury, the eGFR may not accurately reflect actual GFR. Performed By: #### CBC, CMP, LIPB, MG1, VITD #### [facility] [address] [place] [id number] LIPID PANEL, BASIC Collected: 11/16/2017 Status: F Source: [facility] 10:30 AM [facility] [place] REPOSITORY TYPE CODE TESTS RESULT OUT OF REFERENCE UNITS RANGE LAB CHOL <200 mg/dL Cholesterol 164 Result Comment: <200 mg/dL, Desirable 200-239 mg/dL, Borderline high >239 mg/dL, High LAB TRIGLY <150 mg/dL Triglyceride High 183 Result Comment: <150 mg/dL, Normal 150-199 mg/dL, Borderline high 200-499 mg/dL, High >499 mg/dL, Very high LAB HDL >39 mg/dL HDL-Cholesterol 48 Result Comment: 40-59 mg/dL, Acceptable >59 mg/dL, High: Negative risk factor for coronary heart disease <40 mg/dL, Low: Positive risk factor for coronary heart disease LAB LDL <100 mg/dL LDL-Cholesterol 79 Result Comment: <100 mg/dL, Optimal 100-129 mg/dL, Near optimal/above optimal 130-159 mg/dL, Borderline high 160-189 mg/dL, High >189 mg/dL, Very high Secondary prevention optimal LDL Cholesterol levels are recommended to be < 70 mg/dL LAB NONHDL <130 mg/dL Non HDL Cholesterol 116 Result Comment: <130 mg/dL, Optimal 130-159 mg/dL, Near optimal/above optimal 160-189 mg/dL, Borderline high 190-219 mg/dL, High >219 mg/dL, Very high Secondary prevention optimal non HDL Cholesterol levels are recommended to be < 100 mg/dL LAB FT hrs Fasting Time 19 LAB VLDL <30 mg/dL High VLDL Cholesterol 37 LAB TCHDL <5.10 TC:HDL Ratio 3.42 LAB LDLHDL <2.54 LDL:HDL Ratio 1.65 Result Comment: Reference: 1. National Cholesterol Education Program ATP III Guideline At-A-Glance Quick Desk Reference: National Heart, Lung, and Blood [place]. National Institutes of Health. 2001: NIH Publication No. 01-3305. 2. An International Atherosclerosis Society position paper: global recommendations for the management of dyslipidemia: executive summary, Atherosclerosis. 2014: 232(2):410-413. Performed By: #### CBC, CMP, LIPB, MG1, VITD #### [facility] [address] [place] [address] MAGNESIUM Collected: 11/16/2017 Status: F Source: [facility] 10:30 AM [facility] REPOSITORY TYPE CODE TESTS RESULT OUT OF REFERENCE UNITS RANGE LAB MG 1.7-2.3 mg/dL Low Magnesium 1.6 Performed By: #### CBC, CMP, LIPB, MG1, VITD #### [facility] [address] [place] [address] VITAMIN D 25 HYDROXY Collected: 11/16/2017 Status: F Source: [facility] 10:30 AM [facility] REPOSITORY TYPE CODE TESTS RESULT OUT OF REFERENCE UNITS RANGE LAB VITD 31.0-80.0 ng/mL Vitamin D 25 33.7 Hydroxy Result Comment: Classification of 25 [place] Vitamin D status: Insufficiency/Moderate Deficiency: < or = 30 ng/mL Sufficiency/Optimal Levels: 31 to 80 ng/mL Toxicity: > 100 ng/mL Test performed by chemiluminescent immunoassay. 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, chronic a/c ADHERENCE TO GUIDELINES ROSA-I or ARB for HF with prior LVEF<40 (NQF 0081) - N/A ASA or Plavix for ASHD (NQF 0067) - met Beta david for ASHD with prior OK or prior LVEF<40 (NQF 0070) - met Beta david for HF with prior LVEF<40 (NQF 0083) - N/A ROSA-I or ARB for ASHD with DM or prior LVEF<40 (NQF 0066) - met Statin therapy for ASHD or FHL or DM - met BMI documented and plan if >25 (NQF 0421) - lifestyle recommendation form Tobacco use screening and referral (NQF 0028) - lifestyle recommendation form Recommendation for whole food, plant based diet - lifestyle recommendation form CLINICAL IMPRESSION/PLAN: Cady Salmeron has multiple cardiac issues, which are slowly progressive. Her palpitations and chest discomfort have been stable. Blood pressure could use better control. I've asked her to restart labetalol 100 milligrams twice daily. This may also help with her sensation of palpitations, which have been shown in the past to be related to ventricular ectopy. She's been advised to contact Dr. Johnson for follow-up of her carotid exam. She to contact me in one to 2 weeks with report of vital signs. I will see her in 6 months or as needed. Written and verbal health teaching given to patient, patient verbalizes understanding and agrees with treatment plan. DIAGNOSIS FOR VISIT: Aortic stenosis Hypertension HISTORY OF PRESENT ILLNESS Cady Salmeron returns for follow-up of multiple cardiac issues, as noted above. She reports that she's had rare episodes of chest discomfort, typically occurring at rest and usually sharp. These can last for minutes to hours. She has had not taken any nitroglycerin. Palpitations have been present intermittently. Her exercise tolerance has been stable. She has shortness of breath with moderate activity. She's had some lower extremity edema by the end of the day but denies orthopnea. She's had no TIAs, amaurosis or claudication. She is on low-dose statin and tolerating it fairly well. She has not been taking her blood pressure at home. ALLERGIES: ALLERGIES Allergen Reactions - Cardizem [Diltiazem* Rash - Cefdinir Hives - Darvocet A500 [Prop* GI Upset - Doxycycline Vomiting - Flexeril [Cyclobenz* Intolerance heart racing - Levaquin [Levofloxa* Unknown - Novacaine [Other] - Peniciillins [Other] Anaphylaxis - Sulfa (Sulfonamide * Swelling tongue swelling CURRENT OUTPATIENT MEDICATIONS: tiZANidine (ZANAFLEX) 4 mg tablet Take 1 tablet by mouth at bedtime as needed. fentaNYL (DURAGESIC) 25 mcg/hr HYDROcodone-Acetaminophen (NORCO) 10-325 mg per tablet triamcinolone acetonide (KENALOG) 0.1 % cream aspirin 81 mg chewable tablet Take 81 mg by mouth once daily. colestipol (COLESTID) 1 gram tablet Take 1 tablet by mouth twice daily. LORazepam (ATIVAN) 1 mg tablet daily at bedtime. rosuvastatin (CRESTOR) 5 mg tablet Take 1 tablet by mouth daily at bedtime. docusate sodium (COLACE) 100 mg capsule Take 1 capsule by mouth once daily. ergocalciferol, vitamin D2, (DRISDOL) 50,000 unit capsule Take 1 capsule three times wekly triamterene-hydrochlorothiazide 37.5-25 mg per capsule Take 1 capsule by mouth once daily. Take in am. apixaban (ELIQUIS) 5 mg tab tab(s) Take 1 tablet by mouth twice daily. BIOTIN ORAL Take by mouth. amLODIPine (NORVASC) 10 mg tablet Take 1 tablet by mouth once daily. lisinopril (ZESTRIL) 40 mg tablet Take 1 tablet by mouth once daily. nitroglycerin sublingual (NITROQUICK) 0.4 mg SL tablet Dissolve 1 tablet under the tongue as needed. FOR CHEST PAIN. IF NO RELIEF CALL [address] (PROTONIX) 20 mg tablet Take 2 tablets by mouth twice daily for 14 days. Take 30 mins before meals bismuth subsalicylate (BISMATROL) 262 mg chew Take 1 tablet by mouth four times daily for 14 days. azithromycin (ZITHROMAX) 250 mg tablet benzonatate (TESSALON PERLE) 100 mg capsule fentaNYL (DURAGESIC) 12 mcg/hr pt72 HYDROcodone-Acetaminophen (NORCO) 7.5-325 mg per tablet Take 1 tablet by mouth every 6 hours as needed for Pain. fentaNYL (DURAGESIC) 50 mcg/hr gabapentin (NEURONTIN) 600 mg tablet Take 2 tablets by mouth three times daily. PHYSICAL EXAMINATION: VITAL SIGNS: BP 164/82 Pulse 76 Resp 16 Ht 5' 3 (1.60m) Wt 149 lb 12.8 oz (67.9kg) BMI 26.54 kg/(m2). Chest: Clear to percussion and auscultation. Trachea is midline. Air entry is equal. Cardiac: Regular rhythm. S1 and S2 are normal. PMI is nondisplaced. There is a 3/6 mid peaking aortic stenosis murmur. Carotids are brisk with soft bilateral bruits. JVP is less than 10 cm. Abdomen: Soft and nontender. There are no pulsatile masses or bruits. No liver enlargement. Bowel sounds are active. Extremities: Trace edema. Pulses are intact and symmetrical. Recent labs were reviewed. Renal function is normal. Most recent EKG shows diffuse repolarization abnormality, without change. Carotid Doppler examination shows some progression in the right side, although this is not critical. Recent echocardiogram was discussed. This shows gradually worsening aortic valve disease. Stress test shows no evidence of ischemia. Electronically Signed: Ian Ash MD October 09, 2017 12:11 PM CC: David Connell MD CNOV Observed: 10/09/2017 Status: COMPLETED Source: [facility] 11:30 AM [facility] REPOSITORY Office Visit (CAWSTR) CADY SALMERON ([id number]) 1935 F Date Time Provider Department 10/09/17 11:30 AM [facility] During your visit today, we recorded the following information about you: Pulse Respiration Blood pressure Weight 76/minute 16/minute 164/82 67.9 kg Height 1.6 m Ian Ash MD 10/09/2017 6:15 PM Signed PERTINENT CARDIAC HISTORY Aortic stenosis - moderate Carotid disease - Left CEA 2006 ASHD - PCI RCA 1998 HTN HL - tolerating low dose Crestor DVT/PE - unprovoked, 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, chronic a/c ADHERENCE TO GUIDELINES ROSA-I or ARB for HF with prior LVEF<40 (NQF 0081) - N/A ASA or Plavix for ASHD (NQF 0067) - met Beta david for ASHD with prior OK or prior LVEF<40 (NQF 0070) - met Beta david for HF with prior LVEF<40 (NQF 0083) - N/A ROSA-I or ARB for ASHD with DM or prior LVEF<40 (NQF 0066) - met Statin therapy for ASHD or FHL or DM - met BMI documented and plan if >25 (NQF 0421) - lifestyle recommendation form Tobacco use screening and referral (NQF 0028) - lifestyle recommendation form Recommendation for whole food, plant based diet - lifestyle recommendation form CLINICAL IMPRESSION/PLAN: Cady Salmeron has multiple cardiac issues, which are slowly progressive. Her palpitations and chest discomfort have been stable. Blood pressure could use better control. I've asked her to restart labetalol 100 milligrams twice daily. This may also help with her sensation of palpitations, which have been shown in the past to be related to ventricular ectopy. She's been advised to contact Dr. Johnson for follow-up of her carotid exam. She to contact me in one to 2 weeks with report of vital signs. I will see her in 6 months or as needed. Written and verbal health teaching given to patient, patient verbalizes understanding and agrees with treatment plan. DIAGNOSIS FOR VISIT: Aortic stenosis Hypertension HISTORY OF PRESENT ILLNESS Cady Salmeron returns for follow-up of multiple cardiac issues, as noted above. She reports that she's had rare episodes of chest discomfort, typically occurring at rest and usually sharp. These can last for minutes to hours. She has had not taken any nitroglycerin. Palpitations have been present intermittently. Her exercise tolerance has been stable. She has shortness of breath with moderate activity. She's had some lower extremity edema by the end of the day but denies orthopnea. She's had no TIAs, amaurosis or claudication. She is on low-dose statin and tolerating it fairly well. She has not been taking her blood pressure at home. ALLERGIES: ALLERGIES Allergen Reactions - Cardizem [Diltiazem* Rash - Cefdinir Hives - Darvocet A500 [Prop* GI Upset - Doxycycline Vomiting - Flexeril [Cyclobenz* Intolerance heart racing - Levaquin [Levofloxa* Unknown - Novacaine [Other] - Peniciillins [Other] Anaphylaxis - Sulfa (Sulfonamide * Swelling tongue swelling CURRENT OUTPATIENT MEDICATIONS: tiZANidine (ZANAFLEX) 4 mg tablet Take 1 tablet by mouth at bedtime as needed. fentaNYL (DURAGESIC) 25 mcg/hr HYDROcodone-Acetaminophen (NORCO) 10-325 mg per tablet triamcinolone acetonide (KENALOG) 0.1 % cream aspirin 81 mg chewable tablet Take 81 mg by mouth once daily. colestipol (COLESTID) 1 gram tablet Take 1 tablet by mouth twice daily. LORazepam (ATIVAN) 1 mg tablet daily at bedtime. rosuvastatin (CRESTOR) 5 mg tablet Take 1 tablet by mouth daily at bedtime. docusate sodium (COLACE) 100 mg capsule Take 1 capsule by mouth once daily. ergocalciferol, vitamin D2, (DRISDOL) 50,000 unit capsule Take 1 capsule three times wekly triamterene-hydrochlorothiazide 37.5-25 mg per capsule Take 1 capsule by mouth once daily. Take in am. apixaban (ELIQUIS) 5 mg tab tab(s) Take 1 tablet by mouth twice daily. BIOTIN ORAL Take by mouth. amLODIPine (NORVASC) 10 mg tablet Take 1 tablet by mouth once daily. lisinopril (ZESTRIL) 40 mg tablet Take 1 tablet by mouth once daily. nitroglycerin sublingual (NITROQUICK) 0.4 mg SL tablet Dissolve 1 tablet under the tongue as needed. FOR CHEST PAIN. IF NO RELIEF CALL [address] (PROTONIX) 20 mg tablet Take 2 tablets by mouth twice daily for 14 days. Take 30 mins before meals bismuth subsalicylate (BISMATROL) 262 mg chew Take 1 tablet by mouth four times daily for 14 days. azithromycin (ZITHROMAX) 250 mg tablet benzonatate (TESSALON PERLE) 100 mg capsule fentaNYL (DURAGESIC) 12 mcg/hr pt72 HYDROcodone-Acetaminophen (NORCO) 7.5-325 mg per tablet Take 1 tablet by mouth every 6 hours as needed for Pain. fentaNYL (DURAGESIC) 50 mcg/hr gabapentin (NEURONTIN) 600 mg tablet Take 2 tablets by mouth three times daily. PHYSICAL EXAMINATION: VITAL SIGNS: BP 164/82 Pulse 76 Resp 16 Ht 5' 3 (1.60m) Wt 149 lb 12.8 oz (67.9kg) BMI 26.54 kg/(m2). Chest: Clear to percussion and auscultation. Trachea is midline. Air entry is equal. Cardiac: Regular rhythm. S1 and S2 are normal. PMI is nondisplaced. There is a 3/6 mid peaking aortic stenosis murmur. Carotids are brisk with soft bilateral bruits. JVP is less than 10 cm. Abdomen: Soft and nontender. There are no pulsatile masses or bruits. No liver enlargement. Bowel sounds are active. Extremities: Trace edema. Pulses are intact and symmetrical. Recent labs were reviewed. Renal function is normal. Most recent EKG shows diffuse repolarization abnormality, without change. Carotid Doppler examination shows some progression in the right side, although this is not critical. Recent echocardiogram was discussed. This shows gradually worsening aortic valve disease. Stress test shows no evidence of ischemia. Electronically Signed: Ian Ash MD October 09, 2017 12:11 PM CC: MD Ian Barrera MD 10/09/2017 12:10 PM Signed Add labetalol 100 mg twice a day Call with BP readings in 2 wks. LIFESTYLE CHANGE A healthy lifestyle is the most important component of your overall treatment plan. 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 EAT A WHOLE FOOD, PLANT BASED DIET The nutrition your body gets is more important than the medicine you take. What matters most is the overall way you eat. We encourage you to minimize the use of animal products (which include dairy and all meats except fatty fish) and use whole, unprocessed plant foods to provide your protein, vitamins and other nutrients. We have a lot of information to share with you on this topic. This is not a diet. It is a way of life that you will keep with you. EXERCISE REGULARLY It is not important to spend hours in the gym, lifting weights and perspiring heavily. A total of 2-3 hours per week of aerobic (causing you to be moderately short of breath) exercise is sufficient to improve your health. Talk to us before you begin a new exercise program, if you have heart disease or experience shortness of breath or chest pain. REDUCE STRESS Chronic emotional and physical stress leads to disease. Ways of reducing stress include meditation, visualization, prayer, yoga and other forms of relaxation therapy. Consistency is the brooke. Find a technique that works for you and do it every day. CULTIVATE RELATIONSHIPS Loneliness and isolation have a major negative impact on health. Seek out others who can love, care for and nurture you. Avoid hurtful relationships. MAINTAIN IDEAL BODY WEIGHT The best way to do this is to do all the things above. Our bodies naturally find the right weight if we keep moving and feed ourselves the right food. If your BMI is greater than 25, we strongly recommend a referral to a weight management program. Please speak to us or your family physician about available programs. AVOID NICOTINE IN ALL FORMS This includes all tobacco products, whether chewed, smoked, vaped, or rubbed on the skin. Smoking cessation programs, which can make use of tobacco substitutes, medications to suppress cravings and behavior management, are available. Please contact your family physician about programs in your area. Referring Provider: IAN ASH [[id number]] Allergies As of Date: 10/09/2017 Noted Allergy Reaction CARDIZEM (DILTIAZEM HCL) 03/18/2005 2 - Rash CEFDINIR 04/21/2017 4 - Hives DARVOCET A500 (PROPOXYPHENE N-ROSA*03/18/2005 8 - GI Upset DOXYCYCLINE 05/26/2008 11 - Vomiting FLEXERIL (CYCLOBENZAPRINE HCL) 02/19/2007 5 - Intolerance Comments: heart racing LEVAQUIN (LEVOFLOXACIN) 01/20/2013 16 - Unknown NOVACAINE [Other] 02/15/2005 PENICIILLINS [Other] 02/15/2005 10 - Anaphylaxis SULFA (SULFONAMIDE ANTIBIOTICS) 02/15/2005 7 - Swelling Comments: tongue swelling Date Reviewed: 10/09/2017 Reviewed by: Alvina Newell RN - Fully Assessed Reason for Visit: Recheck [92] Primary Visit Diagnosis:ASHD (arteriosclerotic heart disease) [I25.10] Other Visit Diagnosis:Hypertension, essential [I10] Order(s):labetalol (TRANDATE) 100 mg tabletTake 1 tablet by mouth twice daily.Disp: 60 tabletRfl: 11 Prescriptions as of 10/09/2017 Sig: TIZANIDINE 4 MG TABLET Take 1 tablet by mouth at bed* FENTANYL 25 MCG/HR TRANSDERMA* HYDROCODONE 10 MG-ACETAMINOPH* TRIAMCINOLONE ACETONIDE 0.1 %* ASPIRIN 81 MG CHEWABLE TABLET Take 81 mg by mouth once robbin* COLESTIPOL 1 GRAM TABLET Take 1 tablet by mouth twice * LORAZEPAM 1 MG TABLET daily at bedtime. ROSUVASTATIN 5 MG TABLET Take 1 tablet by mouth daily * DOCUSATE SODIUM 100 MG CAPSULE Take 1 capsule by mouth once * ERGOCALCIFEROL (VITAMIN D2) 5* Take 1 capsule three times we* TRIAMTERENE 37.5 MG-HYDROCHLO* Take 1 capsule by mouth once * APIXABAN 5 MG TABLET Take 1 tablet by mouth twice * BIOTIN ORAL Take by mouth. AMLODIPINE 10 MG TABLET Take 1 tablet by mouth once d* LISINOPRIL 40 MG TABLET Take 1 tablet by mouth once d* NITROGLYCERIN 0.4 MG SUBLINGU* Dissolve 1 tablet under the t* LABETALOL 100 MG TABLET Take 1 tablet by mouth twice * PANTOPRAZOLE 20 MG TABLET,DEL* Take 2 tablets by mouth twice* BISMUTH SUBSALICYLATE 262 MG * Take 1 tablet by mouth four t* AZITHROMYCIN 250 MG TABLET BENZONATATE 100 MG CAPSULE FENTANYL 12 MCG/HR TRANSDERMA* HYDROCODONE 7.5 MG-ACETAMINOP* Take 1 tablet by mouth every * Patient not taking: Reported on 10/09/2017 FENTANYL 50 MCG/HR TRANSDERMA* GABAPENTIN 600 MG TABLET Take 2 tablets by mouth three* Patient not taking: Reported on 10/09/2017 Problem List As Of Date 10/09/2017 Noted Resolved GENERALIZED ANXIETY DIS [F41.1] More... DISACCHARIDASE DEF/MALAB [E73.9] GENERAL OSTEOARTHROSIS [M15.9] CARPAL TUNNEL SYNDROME [G56.00] Hyperlipidemia [E78.5] ALLERGIC RHINITIS NOS [J30.9] More... ARTERIAL DISEASE NEC [I77.89] SCIATICA [M54.30] OBESITY NOS [E66.9] ESOPHAGEAL REFLUX [K21.9] PAROX ATRIAL TACHYCARDIA [I47.1] Essential hypertension [I10] Occlusion and stenosis of carotid artery [I65.2*INVALID FOR* Vitamin D deficiency [E55.9] INVALID FOR* Dysmetabolic Syndrome [E88.81] INVALID FOR* Laceration [[id number]] INVALID FOR* Calcaneal spur [M77.30] INVALID FOR* Sinusitis [J32.9] INVALID FOR* More... 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 Imaging of gastrointestinal tract abnormal [R93*INVALID FOR* More... Nausea [R11.0] INVALID FOR* Helicobacter pylori infection [A04.8] INVALID FOR* Other instructions from your clinician: Add labetalol 100 mg twice a day Call with BP readings in 2 wks. LIFESTYLE CHANGE A healthy lifestyle is the most important component of your overall treatment plan. Please give serious thought to the following areas and commit to making [facility] changes. EAT A WHOLE FOOD, PLANT BASED DIET The nutrition your body gets is more important than the medicine you take. What matters most is the overall way you eat. We encourage you to minimize the use of animal products (which include dairy and all meats except fatty fish) and use whole, unprocessed plant foods to provide your protein, vitamins and other nutrients. We have a lot of information to share with you on this topic. This is not a diet. It is a way of life that you will keep with you. EXERCISE REGULARLY It is not important to spend hours in the gym, lifting weights and perspiring heavily. A total of 2-3 hours per week of aerobic (causing you to be moderately short of breath) exercise is sufficient to improve your health. Talk to us before you begin a new exercise program, if you have heart disease or experience shortness of breath or chest pain. REDUCE STRESS Chronic emotional and physical stress leads to disease. Ways of reducing stress include meditation, visualization, prayer, yoga and other forms of relaxation therapy. Consistency is the brooke. Find a technique that works for you and do it every day. CULTIVATE RELATIONSHIPS Loneliness and isolation have a major negative impact on health. Seek out others who can love, care for and nurture you. Avoid hurtful relationships. MAINTAIN IDEAL BODY WEIGHT The best way to do this is to do all the things above. Our bodies naturally find the right weight if we keep moving and feed ourselves the right food. If your BMI is greater than 25, we strongly recommend a referral to a weight management program. Please speak to us or your family physician about available programs. AVOID NICOTINE IN ALL FORMS This includes all tobacco products, whether chewed, smoked, vaped, or rubbed on the skin. Smoking cessation programs, which can make use of tobacco substitutes, medications to suppress cravings and behavior management, are available. Please contact your family physician about programs in your area. Prescriptions ordered this encounter Disp Refills Start End LABETALOL 100 MG TABLET 60 t* 11 10/09/2017 10/09/2017 Route: ORAL Sig: Take 2 tablets by mouth twice daily. LABETALOL 100 MG TABLET 60 t* 11 10/09/2017 Route: ORAL Sig: Take 1 tablet by mouth twice daily. Medications Discontinued During This Encounter labetalol (TRANDATE) 100 mg tablet 60 t* 11 10/09/2017 10/09/2017 Route: ORAL Sig: Take 2 tablets by mouth twice daily. Disc: Reason for discontinue is not on file. Encounter Status:Closed by IAN ASH MD on 10/09/17 PROGRESS Observed: 09/09/2017 Status: COMPLETED Source: [facility] 4:04 PM CLINIC OTHER CAMPUS REPOSITORY HNO ID: [id number] Author: Arjun Jean Service: (none) Author Type: Physician Type: Progress Notes Filed: 09/09/2017 4:10 PM Note Text: HPI: I saw Cady Salmeron today for a follow up regarding positive H. pylori on biopsy. She was last seen here by me on 09/02/2017. This patient underwent EGD and EUS on September 02. EUS showed CBD to 9 mm and pancreatic Duct of 5 mm with no intraductal stones. The dilated ducts were thought to be related to significant use of pain medications (gabapentin, fentanyl patch, Vicodin, tizanidine).The EGD also showed a small hiatus hernia. Biopsies of the stomach were positive for H. Pylori. She was supposed to follow-up with Dr. Orlando but the patient presented today asking to see a GI physician. She saw Dr. Timmons yesterday and I think she may have been confused as to when her appointment with Dr. Orlando was scheduled as this is supposed to be in early September. Nevertheless, as she was here I tried to squeeze her in to get her started on H. pylori treatment. Of note, when I saw her last I did prescribe Colestid but she has not filled this prescription. Her diarrhea is not too bothersome but she does have ongoing epigastric and right upper quadrant pain. PAST MEDICAL HISTORY Diagnosis Date - Allergic rhinitis, cause unspecified Allergic rhinitis - CAROTID ART OCCL-NO INFARCT 01/14/2007 - Carpal tunnel syndrome - Dysmetabolic syndrome X - Esophageal reflux - Generalized anxiety disorder Anxiety, Generalized - Generalized osteoarthrosis, unspecified site - History of blood clots legs and lungs - Moderate aortic stenosis - Murmur - Obesity, unspecified - Other and unspecified hyperlipidemia - Other specified disorders of arteries and arterioles (HCC) - Paroxysmal supraventricular tachycardia (HCC) - Pure hypercholesterolemia - Pure hyperglyceridemia - Sciatica - Stented coronary artery - Unspecified essential hypertension PAST SURGICAL HISTORY Procedure Laterality Date - CATHETER ART SYS-1ST ORD THORA 01/29/07 LEFT - CATHETER ART SYS-2ND ORD THORA 01/29/07 RIGHT - CHOLECYSTECTOMY W/CHOLANGIOGRAPHY 2016 DR TIMMONS - INSERT CATH,ART,PERCUT,SHORTTERM 02/16/07 - THROMBOENDARTECTMY NECK,NECK INCIS 02/16/07 LEFT - TOTAL ABDOM HYSTERECTOMY 1973 Hysterectomy, RAN Social History Marital status: Spouse name: Years of education: Number of children: Social History Main Topics Smoking status: Former Smoker Packs/day: 1.00 Years: 30.00 Types: Cigarettes Quit date: 09/03/1996 Smokeless status: Never Used Alcohol use: No Drug use: No Sexual activity: Yes Partners with: Male Family history reviewed. No history of IBD, CRC or HPB malignancy. Current Outpatient Prescriptions: fentaNYL (DURAGESIC) 25 mcg/hr HYDROcodone-Acetaminophen (NORCO) 10-325 mg per tablet triamcinolone acetonide (KENALOG) 0.1 % cream aspirin 81 mg chewable tablet Take 81 mg by mouth once daily. colestipol (COLESTID) 1 gram tablet Take 1 tablet by mouth twice daily. LORazepam (ATIVAN) 1 mg tablet rosuvastatin (CRESTOR) 5 mg tablet Take 1 tablet by mouth daily at bedtime. docusate sodium (COLACE) 100 mg capsule Take 1 capsule by mouth once daily. ergocalciferol, vitamin D2, (DRISDOL) 50,000 unit capsule Take 1 capsule three times wekly triamterene-hydrochlorothiazide 37.5-25 mg per capsule Take 1 capsule by mouth once daily. Take in am. apixaban (ELIQUIS) 5 mg tab tab(s) Take 1 tablet by mouth twice daily. BIOTIN ORAL Take by mouth. amLODIPine (NORVASC) 10 mg tablet Take 1 tablet by mouth once daily. lisinopril (ZESTRIL) 40 mg tablet Take 1 tablet by mouth once daily. nitroglycerin sublingual (NITROQUICK) 0.4 mg SL tablet Dissolve 1 tablet under the tongue as needed. FOR CHEST PAIN. IF NO RELIEF CALL 911 tiZANidine (ZANAFLEX) 4 mg tablet Take 1 tablet by mouth at bedtime as needed. metroNIDAZOLE (FLAGYL) 500 mg tablet Take 1 tablet by mouth twice daily for [address] (PROTONIX) 20 mg tablet Take 2 tablets by mouth twice daily for 14 days. Take 30 mins before meals bismuth subsalicylate (BISMATROL) 262 mg chew Take 1 tablet by mouth four times daily for 14 days. tetracycline (SUMYCIN) 500 mg cap Take 1 capsule by mouth before meals and at bedtime for 14 days. azithromycin (ZITHROMAX) 250 mg tablet benzonatate (TESSALON PERLE) 100 mg capsule fentaNYL (DURAGESIC) 12 mcg/hr pt72 HYDROcodone-Acetaminophen (NORCO) 7.5-325 mg per tablet Take 1 tablet by mouth every 6 hours as needed for Pain. fentaNYL (DURAGESIC) 50 mcg/hr gabapentin (NEURONTIN) 600 mg tablet Take 2 tablets by mouth three times daily. (Patient taking differently: Take 1,200 mg by mouth three times daily. Pt takes twice daily) No current facility-administered medications for this visit. ALLERGIES Allergen Reactions - Cardizem [Diltiazem* Rash - Cefdinir Hives - Darvocet A500 [Prop* GI Upset - Doxycycline Vomiting - Flexeril [Cyclobenz* Intolerance heart racing - Levaquin [Levofloxa* Unknown - Novacaine [Other] - Peniciillins [Other] Anaphylaxis - Sulfa (Sulfonamide * Swelling tongue swelling REVIEW OF SYSTEMS GASTROINTESTINAL: SEE ABOVE URINARY: NONE CARDIOVASCULAR: NONE NEUROLOGICAL: NONE CONSTITUTIONAL: NONE EYES: NONE EARS, NOSE AND THROAT: NONE RESPIRATORY: NONE SKIN: NONE ENDOCRINE: NONE PSYCHIATRIC: NONE HEMATOLOGIC NONE MUSCULOSKELETAL: NONE IMMUNOLOGIC: NONE PHYSICAL EXAMINATION: BP 176/58 Ht 5' 3 (1.60m) Wt 147 lb (66.7kg) BMI 26.05 kg/(m2). GENERAL APPEARANCE: Well appearing, alert, in no acute distress, well-hydrated, well nourished. SKIN: Skin color, texture, turgor normal, no suspicious rashes or lesions. EYES: Anicteric sclera. Pupils are equally round and reactive to light. Extraocular movements are intact. . NECK: Supple, no adenopathy; thyroid symmetric, normal size, no bruits. LUNGS: Lungs clear to auscultation. No wheezing, rhonchi, rales. HEART: RRR without murmur, gallop, or rubs. No ectopy. ABDOMEN: Abdomen soft, non-tender, non distended. Bowel sounds normal. No masses, ascites or hepatosplenomegaly. EXTREMITIES: No deformities, edema, skin discoloration, clubbing or cyanosis. NEUROLOGIC: Gait normal. Sensation and strength grossly intact. DATA: Diagnostic tests and/or endoscopic procedures reviewed for today's visit: Most recent labs Most recent imaging LABS: Hemoglobin (g/dL) Date Value 05/28/2017 12.1 Hematocrit (%) Date Value 05/28/2017 38.9 WBC (k/uL) Date Value 05/28/2017 6.81 Lab Results Component Value Date LIPASE 21 05/28/2017 TBILI 0.2 05/28/2017 CREAT 0.83 07/08/2017 INR 1.0 02/01/2016 ALB 4.4 05/28/2017 CBILI <0.2 05/28/2017 ALKPHOS 53 05/28/2017 AST 21 05/28/2017 ALT 13 05/28/2017 TPROT 7.8 05/28/2017 Plan ASSESSMENT AND PLAN: This 82-year-old woman underwent EGD and EUS as reported above. The gastric biopsies are positive for H. pylori. I will start her on bismuth, metronidazole, tetracycline and a PPI given that she has a penicillin allergy. She also has doxycycline allergy listed but she says she has tolerated this previously. However her penicillin allergy is more serious so we will avoid standard Hp treatment such as CLAMET therapy. The above quadruple therapy should last 14 days. I've asked her not to fill the Colestid prescription for the time being until we treat the H. pylori. She has elected to keep the follow-up appointment with Dr. Orlando and see him once she has completed the H. pylori treatment. Thank you for involving me in the care of this patient. Arjun Jean MD MPH [facility] Observed: 09/09/2017 Status: COMPLETED Source: [facility] 11:00 AM CLINIC OTHER CAMPUS REPOSITORY Office Visit (AGGAST[facility]) CADY SALMERON ([id number]) 1935 F Date Time Provider Department 09/09/17 11:00 AM ARJUN JEAN During your visit today, we recorded the following information about you: Blood pressure Weight Height 176/58 66.7 kg 1.6 m Arjun Jean MD MPH [facility] 09/09/2017 4:10 PM Signed HPI: I saw Cady Salmeron today for a follow up regarding positive H. pylori on biopsy. She was last seen here by me on 09/02/2017. This patient underwent EGD and EUS on September 02. EUS showed CBD to 9 mm and pancreatic Duct of 5 mm with no intraductal stones. The dilated ducts were thought to be related to significant use of pain medications (gabapentin, fentanyl patch, Vicodin, tizanidine).The EGD also showed a small hiatus hernia. Biopsies of the stomach were positive for H. Pylori. She was supposed to follow-up with Dr. Orlando but the patient presented today asking to see a GI physician. She saw Dr. Timmons yesterday and I think she may have been confused as to when her appointment with Dr. Orlando was scheduled as this is supposed to be in early September. Nevertheless, as she was here I tried to squeeze her in to get her started on H. pylori treatment. Of note, when I saw her last I did prescribe Colestid but she has not filled this prescription. Her diarrhea is not too bothersome but she does have ongoing epigastric and right upper quadrant pain. PAST MEDICAL HISTORY Diagnosis Date - Allergic rhinitis, cause unspecified Allergic rhinitis - CAROTID ART OCCL-NO INFARCT 01/14/2007 - Carpal tunnel syndrome - Dysmetabolic syndrome X - Esophageal reflux - Generalized anxiety disorder Anxiety, Generalized - Generalized osteoarthrosis, unspecified site - History of blood clots legs and lungs - Moderate aortic stenosis - Murmur - Obesity, unspecified - Other and unspecified hyperlipidemia - Other specified disorders of arteries and arterioles (HCC) - Paroxysmal supraventricular tachycardia (HCC) - Pure hypercholesterolemia - Pure hyperglyceridemia - Sciatica - Stented coronary artery - Unspecified essential hypertension PAST SURGICAL HISTORY Procedure Laterality Date - CATHETER ART SYS-1ST ORD THORA 01/29/07 LEFT - CATHETER ART SYS-2ND ORD THORA 01/29/07 RIGHT - CHOLECYSTECTOMY W/CHOLANGIOGRAPHY 2016 DR TIMMONS - INSERT CATH,ART,PERCUT,SHORTTERM 02/16/07 - THROMBOENDARTECTMY NECK,NECK INCIS 02/16/07 LEFT - TOTAL ABDOM HYSTERECTOMY 1973 Hysterectomy, RAN Social History Marital status: Spouse name: Years of education: Number of children: Social History Main Topics Smoking status: Former Smoker Packs/day: 1.00 Years: 30.00 Types: Cigarettes Quit date: 09/03/1996 Smokeless status: Never Used Alcohol use: No Drug use: No Sexual activity: Yes Partners with: Male Family history reviewed. No history of IBD, CRC or HPB malignancy. Current Outpatient Prescriptions: fentaNYL (DURAGESIC) 25 mcg/hr HYDROcodone-Acetaminophen (NORCO) 10-325 mg per tablet triamcinolone acetonide (KENALOG) 0.1 % cream aspirin 81 mg chewable tablet Take 81 mg by mouth once daily. colestipol (COLESTID) 1 gram tablet Take 1 tablet by mouth twice daily. LORazepam (ATIVAN) 1 mg tablet rosuvastatin (CRESTOR) 5 mg tablet Take 1 tablet by mouth daily at bedtime. docusate sodium (COLACE) 100 mg capsule Take 1 capsule by mouth once daily. ergocalciferol, vitamin D2, (DRISDOL) 50,000 unit capsule Take 1 capsule three times wekly triamterene-hydrochlorothiazide 37.5-25 mg per capsule Take 1 capsule by mouth once daily. Take in am. apixaban (ELIQUIS) 5 mg tab tab(s) Take 1 tablet by mouth twice daily. BIOTIN ORAL Take by mouth. amLODIPine (NORVASC) 10 mg tablet Take 1 tablet by mouth once daily. lisinopril (ZESTRIL) 40 mg tablet Take 1 tablet by mouth once daily. nitroglycerin sublingual (NITROQUICK) 0.4 mg SL tablet Dissolve 1 tablet under the tongue as needed. FOR CHEST PAIN. IF NO RELIEF CALL 911 tiZANidine (ZANAFLEX) 4 mg tablet Take 1 tablet by mouth at bedtime as needed. metroNIDAZOLE (FLAGYL) 500 mg tablet Take 1 tablet by mouth twice daily for [address] (PROTONIX) 20 mg tablet Take 2 tablets by mouth twice daily for 14 days. Take 30 mins before meals bismuth subsalicylate (BISMATROL) 262 mg chew Take 1 tablet by mouth four times daily for 14 days. tetracycline (SUMYCIN) 500 mg cap Take 1 capsule by mouth before meals and at bedtime for 14 days. azithromycin (ZITHROMAX) 250 mg tablet benzonatate (TESSALON PERLE) 100 mg capsule fentaNYL (DURAGESIC) 12 mcg/hr pt72 HYDROcodone-Acetaminophen (NORCO) 7.5-325 mg per tablet Take 1 tablet by mouth every 6 hours as needed for Pain. fentaNYL (DURAGESIC) 50 mcg/hr gabapentin (NEURONTIN) 600 mg tablet Take 2 tablets by mouth three times daily. (Patient taking differently: Take 1,200 mg by mouth three times daily. Pt takes twice daily) No current facility-administered medications for this visit. ALLERGIES Allergen Reactions - Cardizem [Diltiazem* Rash - Cefdinir Hives - Darvocet A500 [Prop* GI Upset - Doxycycline Vomiting - Flexeril [Cyclobenz* Intolerance heart racing - Levaquin [Levofloxa* Unknown - Novacaine [Other] - Peniciillins [Other] Anaphylaxis - Sulfa (Sulfonamide * Swelling tongue swelling REVIEW OF SYSTEMS GASTROINTESTINAL: SEE ABOVE URINARY: NONE CARDIOVASCULAR: NONE NEUROLOGICAL: NONE CONSTITUTIONAL: NONE EYES: NONE EARS, NOSE AND THROAT: NONE RESPIRATORY: NONE SKIN: NONE ENDOCRINE: NONE PSYCHIATRIC: NONE HEMATOLOGIC NONE MUSCULOSKELETAL: NONE IMMUNOLOGIC: NONE PHYSICAL EXAMINATION: BP 176/58 Ht 5' 3ANDquot; (1.60m) Wt 147 lb (66.7kg) BMI 26.05 kg/(m2). GENERAL APPEARANCE: Well appearing, alert, in no acute distress, well-hydrated, well nourished. SKIN: Skin color, texture, turgor normal, no suspicious rashes or lesions. EYES: Anicteric sclera. Pupils are equally round and reactive to light. Extraocular movements are intact. . NECK: Supple, no adenopathy; thyroid symmetric, normal size, no bruits. LUNGS: Lungs clear to auscultation. No wheezing, rhonchi, rales. HEART: RRR without murmur, gallop, or rubs. No ectopy. ABDOMEN: Abdomen soft, non-tender, non distended. Bowel sounds normal. No masses, ascites or hepatosplenomegaly. EXTREMITIES: No deformities, edema, skin discoloration, clubbing or cyanosis. NEUROLOGIC: Gait normal. Sensation and strength grossly intact. DATA: Diagnostic tests and/or endoscopic procedures reviewed for today's visit: Most recent labs Most recent imaging LABS: Hemoglobin (g/dL) Date Value 05/28/2017 12.1 Hematocrit (%) Date Value 05/28/2017 38.9 WBC (k/uL) Date Value 05/28/2017 6.81 Lab Results Component Value Date LIPASE 21 05/28/2017 TBILI 0.2 05/28/2017 CREAT 0.83 07/08/2017 INR 1.0 02/01/2016 ALB 4.4 05/28/2017 CBILI ANDlt;0.2 05/28/2017 ALKPHOS 53 05/28/2017 AST 21 05/28/2017 ALT 13 05/28/2017 TPROT 7.8 05/28/2017 Plan ASSESSMENT AND PLAN: This 82-year-old woman underwent EGD and EUS as reported above. The gastric biopsies are positive for H. pylori. I will start her on bismuth, metronidazole, tetracycline and a PPI given that she has a penicillin allergy. She also has doxycycline allergy listed but she says she has tolerated this previously. However her penicillin allergy is more serious so we will avoid standard Hp treatment such as CLAMET therapy. The above quadruple therapy should last 14 days. I've asked her not to fill the Colestid prescription for the time being until we treat the H. pylori. She has elected to keep the follow-up appointment with Dr. Orlando and see him once she has completed the H. pylori treatment. Thank you for involving me in the care of this patient. Arjun Jean MD MPH [facility] Referring Provider: DAVID CONNELL [[id number]] Allergies As of Date: 09/09/2017 Noted Allergy Reaction CARDIZEM (DILTIAZEM HCL) 03/18/2005 2 - Rash CEFDINIR 04/21/2017 4 - Hives DARVOCET A500 (PROPOXYPHENE N-ROSA*03/18/2005 8 - GI Upset DOXYCYCLINE 05/26/2008 11 - Vomiting FLEXERIL (CYCLOBENZAPRINE HCL) 02/19/2007 5 - Intolerance Comments: heart racing LEVAQUIN (LEVOFLOXACIN) 01/20/2013 16 - Unknown NOVACAINE [Other] 02/15/2005 PENICIILLINS [Other] 02/15/2005 10 - Anaphylaxis SULFA (SULFONAMIDE ANTIBIOTICS) 02/15/2005 7 - Swelling Comments: tongue swelling Date Reviewed: 09/09/2017 Reviewed by: Ann ([facility]) Erik - Fully Assessed Visit Diagnosis:Helicobacter pylori infection [A04.8] Order(s):metroNIDAZOLE (FLAGYL) 500 mg tabletTake 1 tablet by mouth twice daily for 14 days.Disp: 28 tabletRfl: [address] (PROTONIX) 20 mg tabletTake 2 tablets by mouth twice daily for 14 days. Take 30 mins before mealsDisp: 56 tabletRfl: 0 bismuth subsalicylate (BISMATROL) 262 mg chewTake 1 tablet by mouth four times daily for 14 days.Disp: 56 tabletRfl: 0 tetracycline (SUMYCIN) 500 mg capTake 1 capsule by mouth before meals and at bedtime for 14 days.Disp: 56 capsuleRfl: 0 Prescriptions as of 09/09/2017 Sig: FENTANYL 25 MCG/HR TRANSDERMA* HYDROCODONE 10 MG-ACETAMINOPH* TRIAMCINOLONE ACETONIDE 0.1 %* ASPIRIN 81 MG CHEWABLE TABLET Take 81 mg by mouth once robbin* COLESTIPOL 1 GRAM TABLET Take 1 tablet by mouth twice * LORAZEPAM 1 MG TABLET ROSUVASTATIN 5 MG TABLET Take 1 tablet by mouth daily * DOCUSATE SODIUM 100 MG CAPSULE Take 1 capsule by mouth once * ERGOCALCIFEROL (VITAMIN D2) 5* Take 1 capsule three times we* TRIAMTERENE 37.5 MG-HYDROCHLO* Take 1 capsule by mouth once * APIXABAN 5 MG TABLET Take 1 tablet by mouth twice * BIOTIN ORAL Take by mouth. AMLODIPINE 10 MG TABLET Take 1 tablet by mouth once d* LISINOPRIL 40 MG TABLET Take 1 tablet by mouth once d* NITROGLYCERIN 0.4 MG SUBLINGU* Dissolve 1 tablet under the t* TIZANIDINE 4 MG TABLET Take 1 tablet by mouth at bed* METRONIDAZOLE 500 MG TABLET Take 1 tablet by mouth twice * PANTOPRAZOLE 20 MG TABLET,DEL* Take 2 tablets by mouth twice* BISMUTH SUBSALICYLATE 262 MG * Take 1 tablet by mouth four t* TETRACYCLINE 500 MG CAPSULE Take 1 capsule by mouth befor* AZITHROMYCIN 250 MG TABLET BENZONATATE 100 MG CAPSULE FENTANYL 12 MCG/HR TRANSDERMA* HYDROCODONE 7.5 MG-ACETAMINOP* Take 1 tablet by mouth every * FENTANYL 50 MCG/HR TRANSDERMA* GABAPENTIN 600 MG TABLET Take 2 tablets by mouth three* Patient taking differently: Take 1,200 mg by mouth three * Medication notes this encounter FENTANYL 12 MCG/HR TRANSDERMAL PATCH >> Ann (Abigail) Erik 09/09/2017 11:17 AM >> ANN BUI CMA ThuSep 09, 2017 11:17 AM Not taking HYDROCODONE 7.5 MG-ACETAMINOPHEN 325 MG TABLET >> Ann (Director Trade) Erik 09/09/2017 11:17 AM >> ANN BUI CMA ThuSep 09, 2017 11:17 AM Not taking Problem List As Of Date 09/09/2017 Noted Resolved GENERALIZED ANXIETY DIS [F41.1] More... DISACCHARIDASE DEF/MALAB [E73.9] GENERAL OSTEOARTHROSIS [M15.9] CARPAL TUNNEL SYNDROME [G56.00] Hyperlipidemia [E78.5] ALLERGIC RHINITIS NOS [J30.9] More... ARTERIAL DISEASE NEC [I77.89] SCIATICA [M54.30] OBESITY NOS [E66.9] ESOPHAGEAL REFLUX [K21.9] PAROX ATRIAL TACHYCARDIA [I47.1] Essential hypertension [I10] Occlusion and stenosis of carotid artery [I65.2*INVALID FOR* Vitamin D deficiency [E55.9] INVALID FOR* Dysmetabolic Syndrome [E88.81] INVALID FOR* Laceration [[id number]] INVALID FOR* Calcaneal spur [M77.30] INVALID FOR* Sinusitis [J32.9] INVALID FOR* More... 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 Imaging of gastrointestinal tract abnormal [R93*INVALID FOR* More... Nausea [R11.0] INVALID FOR* Helicobacter pylori infection [A04.8] INVALID FOR* Prescriptions ordered this encounter Disp Refills Start End METRONIDAZOLE 500 MG TABLET 28 t* 0 09/09/2017 09/23/2017 Route: ORAL Sig: Take 1 tablet by mouth twice daily for 14 days. PANTOPRAZOLE 20 MG TABLET,DELAYED RE* 56 t* 0 09/09/2017 09/23/2017 Route: ORAL Sig: Take 2 tablets by mouth twice daily for 14 days. Take 30 mins before meals BISMUTH SUBSALICYLATE 262 MG CHEWABL* 56 t* 0 09/09/2017 09/23/2017 Route: ORAL Sig: Take 1 tablet by mouth four times daily for 14 days. TETRACYCLINE 500 MG CAPSULE 56 c* 0 09/09/2017 09/23/2017 Route: ORAL Sig: Take 1 capsule by mouth before meals and at bedtime for 14 days. Medications Discontinued During This Encounter lansoprazole (PREVACID) 30 mg capsule 90 c* 3 11/04/2016 09/09/2017 Route: ORAL Sig: Take 1 capsule by mouth once daily. Disc: Reason for discontinue is not on file. Letter Text Encounter Status:Closed by ARJUN JEAN MD on 09/09/17 PROGRESS Observed: 09/08/2017 Status: COMPLETED Source: [facility] 3:22 PM [facility] OTHER C[facility] REPOSITORY HNO ID: [id number] Author: Dominga Timmons Service: (none) Author Type: Physician Type: Progress Notes Filed: 09/08/2017 5:58 PM Note Text: Cady Salmeron is a 82 year old female who is here for follow- up after EUS and ERCP. 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 Gastric biopsy shows gastritis and positive for H. pylori. She is due to see gastroenterology tomorrow. She still notes nausea and some abdominal discomfort especially in the morning. ALLERGIES Allergen Reactions - Cardizem [Diltiazem* Rash - Cefdinir Hives - Darvocet A500 [Prop* GI Upset - Doxycycline Vomiting - Flexeril [Cyclobenz* Intolerance heart racing - Levaquin [Levofloxa* Unknown - Novacaine [Other] - Peniciillins [Other] Anaphylaxis - Sulfa (Sulfonamide * Swelling tongue swelling Current Outpatient Prescriptions: fentaNYL (DURAGESIC) 12 mcg/hr pt72 fentaNYL (DURAGESIC) 25 mcg/hr HYDROcodone-Acetaminophen (NORCO) 10-325 mg per tablet triamcinolone acetonide (KENALOG) 0.1 % cream aspirin 81 mg chewable tablet Take 81 mg by mouth once daily. colestipol (COLESTID) 1 gram tablet Take 1 tablet by mouth twice daily. LORazepam (ATIVAN) 1 mg tablet rosuvastatin (CRESTOR) 5 mg tablet Take 1 tablet by mouth daily at bedtime. docusate sodium (COLACE) 100 mg capsule Take 1 capsule by mouth once daily. ergocalciferol, vitamin D2, (DRISDOL) 50,000 unit capsule Take 1 capsule three times wekly triamterene-hydrochlorothiazide 37.5-25 mg per capsule Take 1 capsule by mouth once daily. Take in am. apixaban (ELIQUIS) 5 mg tab tab(s) Take 1 tablet by mouth twice daily. BIOTIN ORAL Take by mouth. amLODIPine (NORVASC) 10 mg tablet Take 1 tablet by mouth once daily. lisinopril (ZESTRIL) 40 mg tablet Take 1 tablet by mouth once daily. gabapentin (NEURONTIN) 600 mg tablet Take 2 tablets by mouth three times daily. (Patient taking differently: Take 1,200 mg by mouth three times daily. Pt takes twice daily) lansoprazole (PREVACID) 30 mg capsule Take 1 capsule by mouth once daily. nitroglycerin sublingual (NITROQUICK) 0.4 mg SL tablet Dissolve 1 tablet under the tongue as needed. FOR CHEST PAIN. IF NO RELIEF CALL 911 tiZANidine (ZANAFLEX) 4 mg tablet Take 1 tablet by mouth at bedtime as needed. azithromycin (ZITHROMAX) 250 mg tablet benzonatate (TESSALON PERLE) 100 mg capsule HYDROcodone-Acetaminophen (NORCO) 7.5-325 mg per tablet Take 1 tablet by mouth every 6 hours as needed for Pain. fentaNYL (DURAGESIC) 50 mcg/hr No current facility-administered medications for this visit. PHYSICAL EXAM: BP 186/48 Pulse 68 Ht 5' 3 (1.60m) Wt 140 lb (63.5kg) BMI 24.81 kg/(m2). General Appearance: Well appearing, alert, in no acute distress, well-hydrated, well nourished.. Skin: Skin texture and turgor normal, no suspicious rashes or lesions, Negative for jaundice or pallor. Lungs: Normal respirations Heart: RRR, 4/6 JACINDA Abdomen: Soft with mild tenderness to deep palpation in the epigastrium and right upper quadrant, without masses, guarding, hepatomegaly or peritoneal signs. Musculoskeletal: No soft tissue edema; calves non tender EUS and Path findings reviewed with the patient and her . ASSESSMENT/PLAN: 1. RUQ pain - ICD9: 789.01, ICD10: R10.11 (primary diagnosis) Patient will follow-up with her annealing operator tomorrow for review of her studies and possibly treatment of her H. pylori. She is going to follow-up with me as needed. 2. Nausea - ICD9: 787.02, ICD10: R11.0 3. Dilation of CBD 4. Helicobacter pylori infection - ICD9: 041.86, ICD10: A04.8 Treatment as per gastroenterology. Dominga Timmons MD, FACS CNOV Observed: 09/08/2017 Status: COMPLETED Source: [facility] 2:00 PM [facility] OTHER [facility] REPOSITORY Office Visit ([facility]GENS[facility]) CADY SALMERON ([id number]) 1935 F Date Time Provider Department 09/08/17 2:00 PM DOMINGA TIMMONS [facility] During your visit today, we recorded the following information about you: Pulse Blood pressure Weight Height 68/minute 186/48 63.5 kg 1.6 m Felicia Wallace CMA 09/08/2017 2:[address] JEAN AND HAD EUS DONE IN August. SHE STILL STATES SHE FEELS THE SAME. SHE DOES HAVE A PAST HISTORY OF H-PYLORI A KID AND SHE THINKS THIS IS BACK AND WHATS CAUSING HER PAIN AND NAUSEA. Dominga Timmons MD, FACS 09/08/2017 5:58 PM Signed Cady Salmeron is a 82 year old female who is here for follow- up after EUS and ERCP. 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 Gastric biopsy shows gastritis and positive for H. pylori. She is due to see gastroenterology tomorrow. She still notes nausea and some abdominal discomfort especially in the morning. ALLERGIES Allergen Reactions - Cardizem [Diltiazem* Rash - Cefdinir Hives - Darvocet A500 [Prop* GI Upset - Doxycycline Vomiting - Flexeril [Cyclobenz* Intolerance heart racing - Levaquin [Levofloxa* Unknown - Novacaine [Other] - Peniciillins [Other] Anaphylaxis - Sulfa (Sulfonamide * Swelling tongue swelling Current Outpatient Prescriptions: fentaNYL (DURAGESIC) 12 mcg/hr pt72 fentaNYL (DURAGESIC) 25 mcg/hr HYDROcodone-Acetaminophen (NORCO) 10-325 mg per tablet triamcinolone acetonide (KENALOG) 0.1 % cream aspirin 81 mg chewable tablet Take 81 mg by mouth once daily. colestipol (COLESTID) 1 gram tablet Take 1 tablet by mouth twice daily. LORazepam (ATIVAN) 1 mg tablet rosuvastatin (CRESTOR) 5 mg tablet Take 1 tablet by mouth daily at bedtime. docusate sodium (COLACE) 100 mg capsule Take 1 capsule by mouth once daily. ergocalciferol, vitamin D2, (DRISDOL) 50,000 unit capsule Take 1 capsule three times wekly triamterene-hydrochlorothiazide 37.5-25 mg per capsule Take 1 capsule by mouth once daily. Take in am. apixaban (ELIQUIS) 5 mg tab tab(s) Take 1 tablet by mouth twice daily. BIOTIN ORAL Take by mouth. amLODIPine (NORVASC) 10 mg tablet Take 1 tablet by mouth once daily. lisinopril (ZESTRIL) 40 mg tablet Take 1 tablet by mouth once daily. gabapentin (NEURONTIN) 600 mg tablet Take 2 tablets by mouth three times daily. (Patient taking differently: Take 1,200 mg by mouth three times daily. Pt takes twice daily) lansoprazole (PREVACID) 30 mg capsule Take 1 capsule by mouth once daily. nitroglycerin sublingual (NITROQUICK) 0.4 mg SL tablet Dissolve 1 tablet under the tongue as needed. FOR CHEST PAIN. IF NO RELIEF CALL 911 tiZANidine (ZANAFLEX) 4 mg tablet Take 1 tablet by mouth at bedtime as needed. azithromycin (ZITHROMAX) 250 mg tablet benzonatate (TESSALON PERLE) 100 mg capsule HYDROcodone-Acetaminophen (NORCO) 7.5-325 mg per tablet Take 1 tablet by mouth every 6 hours as needed for Pain. fentaNYL (DURAGESIC) 50 mcg/hr No current facility-administered medications for this visit. PHYSICAL EXAM: BP 186/48 Pulse 68 Ht 5' 3ANDquot; (1.60m) Wt 140 lb (63.5kg) BMI 24.81 kg/(m2). General Appearance: Well appearing, alert, in no acute distress, well-hydrated, well nourished.. Skin: Skin texture and turgor normal, no suspicious rashes or lesions, Negative for jaundice or pallor. Lungs: Normal respirations Heart: RRR, 4/6 JACINDA Abdomen: Soft with mild tenderness to deep palpation in the epigastrium and right upper quadrant, without masses, guarding, hepatomegaly or peritoneal signs. Musculoskeletal: No soft tissue edema; calves non tender EUS and Path findings reviewed with the patient and her . ASSESSMENT/PLAN: 1. RUQ pain - ICD9: 789.01, ICD10: R10.11 (primary diagnosis) Patient will follow-up with her annealing operator tomorrow for review of her studies and possibly treatment of her H. pylori. She is going to follow-up with me as needed. 2. Nausea - ICD9: 787.02, ICD10: R11.0 3. Dilation of CBD 4. Helicobacter pylori infection - ICD9: 041.86, ICD10: A04.8 Treatment as per gastroenterology. Dominga Timmons MD, FACS Referring Provider: DAVID CONNELL [[id number]] Allergies As of Date: 09/08/2017 Noted Allergy Reaction CARDIZEM (DILTIAZEM HCL) 03/18/2005 2 - Rash CEFDINIR 04/21/2017 4 - Hives DARVOCET A500 (PROPOXYPHENE N-ROSA*03/18/2005 8 - GI Upset DOXYCYCLINE 05/26/2008 11 - Vomiting FLEXERIL (CYCLOBENZAPRINE HCL) 02/19/2007 5 - Intolerance Comments: heart racing LEVAQUIN (LEVOFLOXACIN) 01/20/2013 16 - Unknown NOVACAINE [Other] 02/15/2005 PENICIILLINS [Other] 02/15/2005 10 - Anaphylaxis SULFA (SULFONAMIDE ANTIBIOTICS) 02/15/2005 7 - Swelling Comments: tongue swelling Date Reviewed: 09/08/2017 Reviewed by: Dominga Timmons - Fully Assessed Reason for Visit: Follow Up [171] Primary Visit Diagnosis:RUQ pain [R10.11] Other Visit Diagnoses:Nausea [R11.0] Dilation of biliary tract [K83.8] Helicobacter pylori infection [A04.8] Prescriptions as of 09/08/2017 Sig: FENTANYL 12 MCG/HR TRANSDERMA* FENTANYL 25 MCG/HR TRANSDERMA* HYDROCODONE 10 MG-ACETAMINOPH* TRIAMCINOLONE ACETONIDE 0.1 %* ASPIRIN 81 MG CHEWABLE TABLET Take 81 mg by mouth once robbin* COLESTIPOL 1 GRAM TABLET Take 1 tablet by mouth twice * LORAZEPAM 1 MG TABLET ROSUVASTATIN 5 MG TABLET Take 1 tablet by mouth daily * DOCUSATE SODIUM 100 MG CAPSULE Take 1 capsule by mouth once * ERGOCALCIFEROL (VITAMIN D2) 5* Take 1 capsule three times we* TRIAMTERENE 37.5 MG-HYDROCHLO* Take 1 capsule by mouth once * APIXABAN 5 MG TABLET Take 1 tablet by mouth twice * BIOTIN ORAL Take by mouth. AMLODIPINE 10 MG TABLET Take 1 tablet by mouth once d* LISINOPRIL 40 MG TABLET Take 1 tablet by mouth once d* GABAPENTIN 600 MG TABLET Take 2 tablets by mouth three* Patient taking differently: Take 1,200 mg by mouth three * LANSOPRAZOLE 30 MG CAPSULE,DE* Take 1 capsule by mouth once * NITROGLYCERIN 0.4 MG SUBLINGU* Dissolve 1 tablet under the t* TIZANIDINE 4 MG TABLET Take 1 tablet by mouth at bed* AZITHROMYCIN 250 MG TABLET BENZONATATE 100 MG CAPSULE HYDROCODONE 7.5 MG-ACETAMINOP* Take 1 tablet by mouth every * FENTANYL 50 MCG/HR TRANSDERMA* Medication notes this encounter AZITHROMYCIN 250 MG TABLET >> Felicia Wallace CMA 09/08/2017 2:50 PM >> FELICIA WALLACE CMA Sep 08, 2017 2:50 PM COMPLETED BENZONATATE 100 MG CAPSULE >> Felicia Wallace CMA 09/08/2017 2:50 PM >> FELICIA WALLACE CMA Sep 08, 2017 2:50 PM COMPLETED FENTANYL 50 MCG/HR TRANSDERMAL PATCH >> Felicia Wallace CMA 09/08/2017 2:51 PM >> FELICIA WALLACE CMASep 08, 2017 2:51 PM NOT USING Problem List As Of Date 09/08/2017 Noted Resolved GENERALIZED ANXIETY DIS [F41.1] More... DISACCHARIDASE DEF/MALAB [E73.9] GENERAL OSTEOARTHROSIS [M15.9] CARPAL TUNNEL SYNDROME [G56.00] Hyperlipidemia [E78.5] ALLERGIC RHINITIS NOS [J30.9] More... ARTERIAL DISEASE NEC [I77.89] SCIATICA [M54.30] OBESITY NOS [E66.9] ESOPHAGEAL REFLUX [K21.9] PAROX ATRIAL TACHYCARDIA [I47.1] Essential hypertension [I10] Occlusion and stenosis of carotid artery [I65.2*INVALID FOR* Vitamin D deficiency [E55.9] INVALID FOR* Dysmetabolic Syndrome [E88.81] INVALID FOR* Laceration [[id number]] INVALID FOR* Calcaneal spur [M77.30] INVALID FOR* Sinusitis [J32.9] INVALID FOR* More... 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 Imaging of gastrointestinal tract abnormal [R93*INVALID FOR* More... Nausea [R11.0] INVALID FOR* Helicobacter pylori infection [A04.8] INVALID FOR* Visit Notes: >> Felicia Mercado Sep 08, 2017 2:48 PM Status: Signed SAW DR JEAN AND HAD EUS DONE IN August. SHE STILL STATES SHE FEELS THE SAME. SHE DOES HAVE A PAST HISTORY OF H-PYLORI A KID AND SHE THINKS THIS IS BACK AND WHATS CAUSING HER PAIN AND NAUSEA. Disposition: Return if symptoms worsen or fail to improve. Follow-up and Disposition History Recorded Letter Text Encounter Status:Closed by DOMINGA TIMMONS MD on 09/08/17 XR SHOULDER 2V Observed: 09/07/2017 Status: F Source: [place] AP/TRUE AP RT 2:25 PM [facility] REPOSITORY * * *Final Report* * * DATE OF EXAM: Sep 07 2017 2:25PM [id number] - XR SHOULDER 2V AP/TRUE AP RT / PROCEDURE REASON: pain * * * * Physician Interpretation * * * * HISTORY: Pt. states pain in bilateral shoulders. Hx of fall 2 yrs ago. No new injury.. pain. TECHNIQUE: XR SHOULDER 2V AP/TRUE AP LT, XR SHOULDER 2V AP/TRUE AP RT Laterality: LEFT (accession [id number]), RIGHT (accession [id number]) Number of different views (projections): 2 of each side COMPARISON: None RESULT: Degenerative changes in the AC joint on both sides. Bones otherwise unremarkable. The glenohumeral articulation and subacromial space are maintained. IMPRESSION: Acromioclavicular degenerative changes. Box Person: TOMMY Transcribe Date/Time: Sep 08 2017 11:56A Dictated by : CHRISTIANO BRADLEY MD This examination was interpreted and the report reviewed and electronically signed by: CHRISTIANO BRADLEY MD on Sep 08 2017 11:58AM EST [id number] XR SHOULDER 2V Observed: 09/07/2017 Status: F Source: [place] AP/TRUE AP LT 2:25 PM [facility] REPOSITORY * * *Final Report* * * DATE OF EXAM: Sep 07 2017 2:25PM [id number] - XR SHOULDER 2V AP/TRUE AP LT / PROCEDURE REASON: pain * * * * Physician Interpretation * * * * HISTORY: Pt. states pain in bilateral shoulders. Hx of fall 2 yrs ago. No new injury.. pain. TECHNIQUE: XR SHOULDER 2V AP/TRUE AP LT, XR SHOULDER 2V AP/TRUE AP RT Laterality: LEFT (accession [id number]), RIGHT (accession [id number]) Number of different views (projections): 2 of each side COMPARISON: None RESULT: Degenerative changes in the AC joint on both sides. Bones otherwise unremarkable. The glenohumeral articulation and subacromial space are maintained. IMPRESSION: Acromioclavicular degenerative changes. Box Person: TOMMY Transcribe Date/Time: Sep 08 2017 11:56A Dictated by : CHRISTIANO BRADLEY MD This examination was interpreted and the report reviewed and electronically signed by: CHRISTIANO BRADLEY MD on Sep 08 2017 11:58AM EST [id number] XR CERVICAL 4V Observed: 09/07/2017 Status: F Source: [place] AP/LAT/OBL 2:25 PM [facility] REPOSITORY * * *Final Report* * * DATE OF EXAM: Sep 07 2017 2:25PM [id number] - XR CERVICAL 4V AP/LAT/OBL / PROCEDURE REASON: pain * * * * Physician Interpretation * * * * CERVICAL SPINE X-RAYS HISTORY: Pt. states pain in bilateral shoulders. Hx of fall 2 yrs ago. No new injury.. pain TECHNIQUE: 4 views of the cervical spine COMPARISON: 07/14/2007 cervical spine x-rays RESULT: Counting reference: Craniocervical junction. There is degenerative disc disease with disc space narrowing at C4-C5, C5-C6 and C6-C7. Facet arthropathy is also noted at C7-T1. There is left-sided neural foraminal stenosis at C4-C5, C5-C6 and C6- C7 and right-sided neural foraminal stenosis C5-C6 and C6-C7 secondary to uncovertebral osteophyte formation. IMPRESSION: Multilevel degenerative change C4-C7 with associated neural foraminal stenosis as described. Box Person: PSCB Transcribe Date/Time: Sep 08 2017 12:43P Dictated by : JILLIAN SINGH MD This examination was interpreted and the report reviewed and electronically signed by: JILLIAN SINGH MD on Sep 08 2017 12:44PM EST [id number] PROGRESS Observed: 09/07/2017 Status: COMPLETED Source: [place] 2:09 PM [facility] REPOSITORY HNO ID: [id number] Author: Ian Marion (Rt) Liana Catalan Service: (none) Author Type: Junior Accounting Clerk Type: Progress Notes Filed: 09/07/2017 2:26 PM Note Text: Radiology Service Progress Note PATIENT NAME: Cady Salmeron DATE OF SERVICE: September 07, 2017 TIME: 2:09 PM PATIENT IDENTITY VERIFICATION COMPLETED USING TWO (2) METHODS: Patient confirmed name verbally and Date of . PATIENT GENDER DATA: Female. status: : No status: NO. PATIENT RELEVANT IMPLANT DATA REVIEWED: Not Applicable RADIOLOGY DEPARTMENT: General X-ray: Exam(s) Completed: Spine X-Ray(s): Cervical AP / LAT / OBL Upper Extremity X-Ray(s): Shoulder, AP / TRUE AP bilateral : PERIPHERAL IV DATA: Not applicable SIGNED BY: RT Darcie September 07, 2017 2:09 PM NURSING PROG Observed: 09/02/2017 Status: COMPLETED Source: [place] 3:33 PM [facility] REPOSITORY HNO ID: [id number] Author: Nancy (Rn) NHI Bender Service: Nursing Author Type: Registered Nurse Type: Nursing Progress Note Filed: 09/02/2017 3:37 PM Note Text: Dr. Concepcion notified of elevated BP 186/69 and of patient's complaint of pain to feet and legs. Ok to be discharged to home per Dr. Concepcion No furthers orders given at this time. Patient is passing air. Abdominal pain decreases when passing air. ANES POST Observed: 09/02/2017 Status: COMPLETED Source: [place] 3:19 PM [facility] [place] REPOSITORY HNO ID: [id number] Author: Allan Concepcion Service: Anesthesiology Author Type: Physician Type: Anesthesia PostOp Filed: 09/02/2017 3:19 PM Note Text: POST ANESTHESIA EVALUATION NOTE SERVICE DATE: 09/02/2017 SERVICE TIME: 3:19 PM : 1935 Vitals: There were no vitals filed for this visit. 09/02/17 1253 09/02/17 1503 BP: 187/65 142/68 09/02/17 1253 09/02/17 1503 Pulse: 72 (!) 59 09/02/17 1253 09/02/17 1503 Resp: 16 16 09/02/17 1253 09/02/17 1503 SpO2: 96% 100% Validated Vital Signs: Yes POST ANES STATUS: No apparent anesthetic complications. The patient is appropriately hydrated with stable respiratory and cardiovascular status. Patient has safe and adequate airway control. The patient has appropriate pain relief and no significant post operative nausea or vomiting. The patient has achieved baseline mental status. Further assessment by Anesthesia Service: None Other Remarks: SIGNATURE: Allan Concepcion DO PATIENT NAME: Cady Salmeron DATE: September 02, 2017 TIME: 3:19 PM PAGER/CONTACT #: [phone] PT ED Observed: 09/02/2017 Status: COMPLETED Source: [place] 3:13 PM [facility] REPOSITORY HNO ID: [id number] Author: Nancy De PazRn) NHI Bender Service: Nursing Author Type: Registered Nurse Type: Patient Education Filed: 09/02/2017 3:15 PM Note Text: POST OP LEARNING RESPONSE INSTRUCTION PROVIDED TO: Patient and family member METHOD OF INSTRUCTION: Individual instruction PATIENT / FAMILY RESPONSE: Verbalizes understanding of: POST-PROCEDURE INSTRUCTIONS-Correct actions to take to reduce post procedure complications FOLLOW-UP PLAN: Patient instructed to call with any further issues SUPPLEMENTAL MATERIAL: None REFERRAL (RECOMMENDATION): None Electronically Signed By: Nancy Bender RN In Department: [facility] NO Observed: 09/02/2017 Status: COMPLETED Source: [place] 3:02 PM [facility] REPOSITORY HNO ID: [id number] Author: Arjun Jean Service: Gastroenterology Author Type: Physician Type: Operative Report Filed: 09/02/2017 3:18 PM Note Text: OPERATIVE/PROCEDURE REPORT LOG ID: [id number] Surgery/Procedure Date: 09/02/2017 Incision/Procedure Start Time: 2:41 PM Incision Close/Procedure End Time: 2:57 PM Surgeon(s)/Proceduralist(s) and Operations Supervisor(s): Surgeon(s) and Role: * Arjun Jean - Primary No Additional Staff Procedure(s): Endoscopic Ultrasound (EUS) Esophagogastroduodenoscopy (EGD) and biopsy Anesthesia: Monitored Anesthesia Care Brief History: RUQ pain x 1 yr. Went for lap trav but no change in pain. Tends to be worse post-prandially. Associated N but no V. Reports 25lb wt loss over 9 months. Does report non-bloody diarrhea 2-3 BM/d after trav. No dysphagia or GERD. No jaundice, icterus, dark urine. No prior EGD or EUS. Had c-scope 18yrs ago - results unknown. Has dilated CBD on CT and MRI. Procedure Details: The patient was placed in the left lateral decubitus position. A bite block was placed and medications administered as above. The Olympus gastroscope was used to intubate the oropharynx and esophagus with ease. We proceeded down to the second part of the duodenum. The duodenal mucosa and bulb appeared normal. Biopsies were taken to rule out celiac disease. We then withdrew into the stomach and visualized a normal antrum and body. Biopsies were taken to rule out H. Pylori. Retroflexion was performed and this showed a normal fundus and cardia. A small 2cm HH was noted. The squamocolumnar junction, GE junction and esophagus appeared normal. The scope was then withdrawn and the patient tolerated the procedure well. With the patient in the same position, the Olympus radial echoendoscope was then used to intubate the oropharynx and esophagus with ease. We proceeded down to the posterior aspect of the gastric body. The aorta and celiac artery takeoff were visualized. The splenic vasculature appeared normal. The pancreatic parenchyma was visualized and had normal echogenicity. The pancreatic duct in the body was mildly dilated and measured 3mm. There is no evidence of cystic structures, masses or chronic pancreatitis. The pancreatic parenchyma was scanned down to the tail and appeared normal. We then advanced the scope to the duodenal bulb. The CBD was dilated, measuring 9mm with no evidence of intraductal stones. The pancreatic duct measured up to 5mm in the head. A normal stack sign was seen with normal portal vein, pancreatic duct and CBD. The scope was advanced to the second part of the duodenum. The ampullary view appeared normal. The uncinate process of the pancreas along with the SMA, aorta and SMV were normal. The scope was then withdrawn and the patient tolerated procedure well. 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 SOD pts sometimes respond to ERCP + sphincterotomy and this can be discussed with her in follow up. 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 Orlando but I would be happy to be involved again if needed The primary surgeon/proceduralist performed the entire procedure. Arjun Jean MD MPH [facility] SIGNATURE: Arjun Jean MD MPH [facility] PATIENT NAME: Cady Salmeron DATE: September 02, 2017 TIME: 3:02 PM PAGER/CONTACT #: [phone] ANES PREOP Observed: 09/02/2017 Status: COMPLETED Source: [facility] 1:16 PM [facility] OTHER [facility] REPOSITORY HNO ID: [id number] Author: Allan Concepcion Service: Anesthesiology Author Type: Physician Type: Anesthesia PreOp Filed: 09/02/2017 1:18 PM Note Text: ANESTHESIOLOGY DAY OF SURGERY NOTE SERVICE DATE: 09/02/2017 SERVICE TIME: 1:16 PM : 1935 Procedure(s) (LRB): ENDOSCOPY UPPER GI W/ ENDOSCOPIC ULTRASOUND EXAMINATION, (Left) Surgeon(s): Arjun Jean Estimated body mass index is 24.03 kg/(m2) as calculated from the following: Height as of this encounter: 162.6 cm (5' 4). Weight as of this encounter: 63.5 kg (140 lb). Most recent hematocrit and potassium results: Hematocrit 38.9 05/28/2017 Potassium 4.3 04/23/2017 ANES DOS/PREOP NOTE: Vitals: 09/02/17 1253 BP: 187/65 Pulse: 72 Resp: 16 SpO2: 96% Weight: 63.5 kg (140 lb) Height: 162.6 cm (5' 4) ACTIVE PROBLEM LIST Generalized Anxiety Disorder Intestinal Disaccharidase Deficiencies and Disaccharide Malabsorption Generalized Osteoarthrosis, Unspecified Site Carpal Tunnel Syndrome Hyperlipidemia Allergic Rhinitis, Cause Unspecified Other Specified Disorders of Arteries and Arterioles (Hcc) Sciatica Obesity, Unspecified Esophageal Reflux Paroxysmal Supraventricular Tachycardia (Hcc) Essential Hypertension Occlusion and Stenosis of Carotid Artery Vitamin D Deficiency Dysmetabolic Syndrome Laceration Calcaneal Spur Sinusitis S/P Ptca (Percutaneous Transluminal Coronary Angioplasty) Hx Pulmonary Embolism Chronic Anticoagulation H/O Carotid Endarterectomy Nonrheumatic Aortic Valve Stenosis Dilation of Biliary Tract Chest Pain Aftercare Following Surgery Common Bile Duct Stricture Ruq Pain Abdominal Pain, Ruq Imaging of Gastrointestinal Tract Abnormal PAST MEDICAL HISTORY Diagnosis Date - Allergic rhinitis, cause unspecified Allergic rhinitis - CAROTID ART OCCL-NO INFARCT 01/14/2007 - Carpal tunnel syndrome - Dysmetabolic syndrome X - Esophageal reflux - Generalized anxiety disorder Anxiety, Generalized - Generalized osteoarthrosis, unspecified site - History of blood clots legs and lungs - Moderate aortic stenosis - Obesity, unspecified - Other and unspecified hyperlipidemia - Other specified disorders of arteries and arterioles (HCC) - Paroxysmal supraventricular tachycardia (HCC) - Pure hypercholesterolemia - Pure hyperglyceridemia - Sciatica - Stented coronary artery - Unspecified essential hypertension PAST SURGICAL HISTORY Procedure Laterality Date - CATHETER ART SYS-1ST ORD THORA 01/29/07 LEFT - CATHETER ART SYS-2ND ORD THORA 01/29/07 RIGHT - CHOLECYSTECTOMY W/CHOLANGIOGRAPHY 2016 DR TIMMONS - INSERT CATH,ART,PERCUT,SHORTTERM 02/16/07 - THROMBOENDARTECTMY NECK,NECK INCIS 02/16/07 LEFT - TOTAL ABDOM HYSTERECTOMY 1973 Hysterectomy, RAN FAMILY HISTORY Problem Relation Age of Onset - Diabetes Mother - Heart Mother - Diabetes Father - Heart Father - Diabetes Sister x 3 - Diabetes Brother x 2 Social History: Social History Substance Use Topics - Smoking status: Former Smoker Packs/day: 1.00 Years: 30.00 Types: Cigarettes Quit date: 09/03/1996 - Smokeless tobacco: Never Used - Alcohol use No No current facility-administered medications on file prior to encounter. Current Outpatient Prescriptions on File Prior to Encounter: LORazepam (ATIVAN) 1 mg tablet rosuvastatin (CRESTOR) 5 mg tablet Take 1 tablet by mouth daily at bedtime. HYDROcodone-Acetaminophen (NORCO) 7.5-325 mg per tablet Take 1 tablet by mouth every 6 hours as needed for Pain. amLODIPine (NORVASC) 10 mg tablet Take 1 tablet by mouth once daily. lisinopril (ZESTRIL) 40 mg tablet Take 1 tablet by mouth once daily. gabapentin (NEURONTIN) 600 mg tablet Take 2 tablets by mouth three times daily. (Patient taking differently: Take 1,200 mg by mouth three times daily. Pt takes twice daily) lansoprazole (PREVACID) 30 mg capsule Take 1 capsule by mouth once daily. tiZANidine (ZANAFLEX) 4 mg tablet Take 1 tablet by mouth at bedtime as needed. docusate sodium (COLACE) 100 mg capsule Take 1 capsule by mouth once daily. ergocalciferol, vitamin D2, (DRISDOL) 50,000 unit capsule Take 1 capsule three times wekly triamterene-hydrochlorothiazide 37.5-25 mg per capsule Take 1 capsule by mouth once daily. Take in am. apixaban (ELIQUIS) 5 mg tab tab(s) Take 1 tablet by mouth twice daily. BIOTIN ORAL Take by mouth. fentaNYL (DURAGESIC) 50 mcg/hr nitroglycerin sublingual (NITROQUICK) 0.4 mg SL tablet Dissolve 1 tablet under the tongue as needed. FOR CHEST PAIN. IF NO RELIEF CALL 911 Current Facility-Administered Medications: lactated ringers infusion 30 mL/hr INTRAVENOUS CONTINUOUS Meera E (High School English Teacher) Bucur Last Rate: 30 mL/hr at 09/02/17 1300 30 mL/hr at 09/02/17 1300 Allergies: ALLERGIES Allergen Reactions - Cardizem [Diltiazem* Rash - Cefdinir Hives - Darvocet A500 [Prop* GI Upset - Doxycycline Vomiting - Flexeril [Cyclobenz* Intolerance heart racing - Levaquin [Levofloxa* Unknown - Novacaine [Other] - Peniciillins [Other] Anaphylaxis - Sulfa (Sulfonamide * Swelling tongue swelling DOS EXAM: Adequate NPO status: Yes Anesthetic risks, benefits, alternatives, personnel and consent discussed: Yes Patient agrees to proceed: Yes Previous Anesthesia: No history of adverse event. Airway Assessment: MP 2; Neck ROM: Full ROM without neurologic symptoms; Airway Evaluation: No significant abnormalities Symptoms of Sleep Apnea: Hypertension and Age over 50 (82 year old) Dentition: Dentures: upper Removable partial: lower Additional Physical Exam: Lungs: Patient health status unchanged since recent history and physical. See history and physical for exam findings. Cardiac: Patient health status unchanged since recent history and physical. See history and physical for exam findings. Additional Pertinent Findings: N/A Blood Products: Not anticipated for this procedure. Anesthetic Plan: MAC with Sedation Pain Management Plan: Parenteral or Oral ASA Class: 4 Other Medical Problems: poorly controlled HTN, Hx CEA, coronary stent x 1 on aspirin. eliquis held since 08/29. Has 25 mcg fentanyl patch. Chronic Beta David medication administered within 24 hours: N/A I have interviewed and examined the patient. I have reviewed the medical record and/or the pre-anesthesia evaluation, pertinent labs, and test results. Significant changes in the patient's condition since the History and Physical, not otherwise documented in primary service progress notes: No This contains updated information obtained within 48 hours of Surgery/Procedure. SIGNATURE: Allan Concepcion DO PATIENT NAME: Cady Salmeron DATE: September 02, 2017 TIME: 1:16 PM CSN: [id number] PT ED Observed: 09/02/2017 Status: COMPLETED Source: [facility] 1:07 PM [facility] REPOSITORY HNO ID: [id number] Author: Concepción De PazRn) [facility] Haney Service: Nursing Author Type: Registered Nurse Type: Patient Education Filed: 09/02/2017 1:08 PM Note Text: PRE OP LEARNING ASSESSMENT PROCEDURE/SURGERY: GI PROCEDURES: EGD READINESS TO LEARN COGNITIVE ABILITY: Alert and oriented MOTIVATION TO LEARN: Interested FAMILY SUPPORT: High - Very involved in pt care PATIENT LEARNS BEST BY: Individual Instruction FACTORS AFFECTING LEARNING: None PHYSICAL LIMITATIONS AFFECTING LEARNING: None Electronically Signed By: Concepción Haney RN In Department: [facility] ONGOING PATIENT EDUCATION TOPIC Reinforced: pre and post Patient Name: Cady Salmeron [facility] Readiness To Learn Motivation To Learn: Interested Instruction Provided To: Patient and family member Learning Response Patient/Family Response: Information received as demonstrated by interest and questions Method of Instruction: Individual instruction Follow-Up Plan: Recommend - Recommend continued instruction and follow up as directed Electronically signed by: Concepción Haney RN HISTORY PHYSICAL Observed: 09/02/2017 Status: COMPLETED Source: [facility] 12:41 PM [facility] REPOSITORY HNO ID: [id number] Author: Meera Ace Service: General Surgery Author Type: Nurse Practitioner Type: HANDP Filed: 09/02/2017 1:45 PM Note Text: HISTORY AND PHYSICAL EXAMINATION SERVICE DATE: 09/02/2017 SERVICE TIME: 1241 PRIMARY CARE PHYSICIAN: David Connell MD REASON FOR VISIT: Cady Salmeron is a 82 year old female who is scheduled for Procedure(s) with comments: ENDOSCOPY UPPER GI W/ ENDOSCOPIC ULTRASOUND EXAMINATION, (Left) - RADIAL SCOPE, NO CYTO - Dr. Jean. The patient has the following: ACTIVE PROBLEM LIST Generalized Anxiety Disorder Intestinal Disaccharidase Deficiencies and Disaccharide Malabsorption Generalized Osteoarthrosis, Unspecified Site Carpal Tunnel Syndrome Hyperlipidemia Allergic Rhinitis, Cause Unspecified Other Specified Disorders of Arteries and Arterioles (Hcc) Sciatica Obesity, Unspecified Esophageal Reflux Paroxysmal Supraventricular Tachycardia (Hcc) Essential Hypertension Occlusion and Stenosis of Carotid Artery Vitamin D Deficiency Dysmetabolic Syndrome Laceration Calcaneal Spur Sinusitis S/P Ptca (Percutaneous Transluminal Coronary Angioplasty) Hx Pulmonary Embolism Chronic Anticoagulation H/O Carotid Endarterectomy Nonrheumatic Aortic Valve Stenosis Dilation of Biliary Tract Chest Pain Aftercare Following Surgery Common Bile Duct Stricture Ruq Pain Abdominal Pain, Ruq Imaging of Gastrointestinal Tract Abnormal Subjective CHIEF COMPLAINT: Nausea- before and after eating HPI: 82 year old female reports for UGI. Patient is status post laparoscopic cholecystectomy (03/2017). Patient has been experiencing nausea before and after eating for over a year. Prevacid daily. Pepto-bismol prn. Denies vomiting. Denies fever and chills. Per patient has lost weight over the past 6 months- clothes are big- patient unsure how much weight she has lost. Denies bloody and tarry stools. Last EGD was several years ago. CT ABD 07/14/2017 IMPRESSION: ? Surgically absent gallbladder. ?No fluid collections are identified in the gallbladder fossa to suggest abscess or leak. ? The common bile duct is mildly dilated measuring 9 mm. ?This is unchanged in size when compared with previous MRCP from 12/01/2016. ?No cause for this dilatation is ?identified. ? Nonobstructing right renal calculi. ? Sigmoid colon diverticulosis without evidence of diverticulitis. PAST MEDICAL HISTORY Diagnosis Date - Allergic rhinitis, cause unspecified Allergic rhinitis - CAROTID ART OCCL-NO INFARCT 01/14/2007 - Carpal tunnel syndrome - Dysmetabolic syndrome X - Esophageal reflux - Generalized anxiety disorder Anxiety, Generalized - Generalized osteoarthrosis, unspecified site - History of blood clots legs and lungs - Moderate aortic stenosis - Murmur - Obesity, unspecified - Other and unspecified hyperlipidemia - Other specified disorders of arteries and arterioles (HCC) - Paroxysmal supraventricular tachycardia (HCC) - Pure hypercholesterolemia - Pure hyperglyceridemia - Sciatica - Stented coronary artery - Unspecified essential hypertension PAST SURGICAL HISTORY Procedure Laterality Date - CATHETER ART SYS-1ST ORD THORA 01/29/07 LEFT - CATHETER ART SYS-2ND ORD THORA 01/29/07 RIGHT - CHOLECYSTECTOMY W/CHOLANGIOGRAPHY 2016 DR TIMMONS - INSERT CATH,ART,PERCUT,SHORTTERM 02/16/07 - THROMBOENDARTECTMY NECK,NECK INCIS 02/16/07 LEFT - TOTAL ABDOM HYSTERECTOMY 1973 Hysterectomy, RAN FAMILY HISTORY Problem Relation Age of Onset - Diabetes Mother - Heart Mother - Diabetes Father - Heart Father - Diabetes Sister x 3 - Diabetes Brother x 2 SOCIAL HISTORY: Social History Marital status: Spouse name: Years of education: Number of children: Social History Main Topics Smoking status: Former Smoker Packs/day: 1.00 Years: 30.00 Types: Cigarettes Quit date: 09/03/1996 Smokeless status: Never Used Alcohol use: No Drug use: No Sexual activity: Yes Partners with: Male Prior to Admission medications as of 09/02/17 1315 Medication Sig Last Dose Taking aspirin 81 mg chewable tablet Take 81 mg by mouth once daily. 09/01/2017 Yes LORazepam (ATIVAN) 1 mg tablet 09/01/2017 at Unknown time Yes rosuvastatin (CRESTOR) 5 mg tablet Take 1 tablet by mouth daily at bedtime. Past Week at Unknown time Yes HYDROcodone-Acetaminophen (NORCO) 7.5-325 mg per tablet Take 1 tablet by mouth every 6 hours as needed for Pain. 09/01/2017 at Unknown time Yes amLODIPine (NORVASC) 10 mg tablet Take 1 tablet by mouth once daily. 09/01/2017 at Unknown time Yes lisinopril (ZESTRIL) 40 mg tablet Take 1 tablet by mouth once daily. 09/02/2017 at Unknown time Yes gabapentin (NEURONTIN) 600 mg tablet Take 2 tablets by mouth three times daily. Patient taking differently: Take 1,200 mg by mouth three times daily. Pt takes twice daily 09/01/2017 at Unknown time Yes lansoprazole (PREVACID) 30 mg capsule Take 1 capsule by mouth once daily. 09/01/2017 at Unknown time Yes tiZANidine (ZANAFLEX) 4 mg tablet Take 1 tablet by mouth at bedtime as needed. 09/01/2017 at Unknown time Yes docusate sodium (COLACE) 100 mg capsule Take 1 capsule by mouth once daily. Unknown at Unknown time ergocalciferol, vitamin D2, (DRISDOL) 50,000 unit capsule Take 1 capsule three times wekly 08/26/2017 triamterene-hydrochlorothiazide 37.5-25 mg per capsule Take 1 capsule by mouth once daily. Take in am. Unknown at Unknown time apixaban (ELIQUIS) 5 mg tab tab(s) Take 1 tablet by mouth twice daily. 08/29/2017 BIOTIN ORAL Take by mouth. Unknown at Unknown time fentaNYL (DURAGESIC) 50 mcg/hr nitroglycerin sublingual (NITROQUICK) 0.4 mg SL tablet Dissolve 1 tablet under the tongue as needed. FOR CHEST PAIN. IF NO RELIEF CALL 911 Unknown at Unknown time No medication comments found. ALLERGIES Allergen Reactions - Cardizem [Diltiazem* Rash - Cefdinir Hives - Darvocet A500 [Prop* GI Upset - Doxycycline Vomiting - Flexeril [Cyclobenz* Intolerance heart racing - Levaquin [Levofloxa* Unknown - Novacaine [Other] - Peniciillins [Other] Anaphylaxis - Sulfa (Sulfonamide * Swelling tongue swelling REVIEW OF SYSTEMS: PAIN ASSESSMENT: Pain Pain Score: 5/10 Pain Location: (all over, arthritis) Pain Assessment (RN/JEWELRY SALES REPRESENTATIVE): Assessment Tool: Verbal (Numeric Rating or Visual Analog Scale) General: Denies fever, chills Neuro: positive headaches. Respiratory: Denies SOB. Cardiovascular: Occasional chest tightness. Feels like heart beats fast. Denies chest pain at this time. Dr. Concepcion aware. Appointment with oil burner installer next month. GI: see HPI : Denies dysuria. Endocrine: No history of diabetes. Hematology: PE and DVT- 2016 Eliquis daily Psych: Denies anxiety/depression. Musculoskeletal: generalized pain- arthritis Skin: small rash to abd. Objective PHYSICAL EXAM: VITALS: BP 187/65 Pulse 72 Resp 16 Ht 5' 4 (1.63m) Wt 140 lb (63.5kg) SpO2 96% BMI 24.02 kg/(m2). General: NAD. Cooperative. Skin: Skin is warm HEENT: Normocephalic. Cardiovascular: Normal S1 AND S2. RRR 3/6 murmur Lungs: Dim post Abdomen: Soft. +BS Extremities: No edema. Neurological: Alert and oriented to person, place, and time. Pulses: radial pulses +2 Diagnostic tests reviewed for today's visit: Lab Value Units Date High Low HB 12.1 g/dL 05/28/2017 15.5 11.5 HB 12.3 g/dL 04/23/2017 15.7 11.2 HCT 38.9 % 05/28/2017 46.0 36.0 WBC 6.81 k/uL 05/28/2017 11.00 3.70 PLT 220 k/uL 05/28/2017 400 150 NA 138 mEq/L 04/23/2017 145 136 K 4.3 mEq/L 04/23/2017 5.1 3.5 GLUC 111 mg/dL 04/23/2017 99 70 BUN 13 mg/dL 04/23/2017 18 7 CREAT 0.83 mg/dL 07/08/2017 0.96 0.58 ALT 13 U/L 05/28/2017 38 7 AST 21 U/L 05/28/2017 35 13 TBILI 0.2 mg/dL 05/28/2017 1.3 0.2 Hemoglobin A1C (%) Date Value 05/05/2016 6.2 11/22/2014 6.0 05/09/2014 6.2 HBA1CBertram (%) Date Value 05/29/2011 6.1 11/18/2007 6.9 Assessment/Plan METS: Take care of self; that is eating, dressing, bathing, using the toilet (2.75 METs) ANESTHESIA FINDINGS: Intubation History: No history of difficult intubation Significant Anesthesia Considerations: high blood pressure after anesthesia Shaker Plate Operator- Dr. Reese (Bertram) Seen by Dr. Mensah on 04/2017- note in EPIC Echo 02/2017 CONCLUSIONS: - Exam indication: Preop evaluation for noncardiac surgery with low/intermediate clinical risk - The left ventricle is normal in size. There is mild left ventricular hypertrophy. Left ventricular?systolic function is normal. EF = 62 ? 5% (2D biplane) Grade I left ventricular diastolic dysfunction. - The right ventricle is normal in size. Right ventricular systolic function is normal. - The left atrial cavity is mildly dilated. - Tricuspid aortic valve. There is moderate aortic valve stenosis caused by calcified valve and restricted opening. AV area is 1.07 cm? (0.60 cm?/m?) by continuity, VTI. The peak gradient is 34 mmHg, the mean gradient is 21 mmHg and the dimensionless valve index is 0.27. - Exam was compared with the prior echocardiographic exam performed on 09/20/2015 (stress). Overall, similar findings. PLAN Diagnosis: Right upper quadrant abdominal pain [R10.11], Imaging of gastrointestinal tract abnormal [R93.3] Planned Procedure: Procedure(s) with comments: ENDOSCOPY UPPER GI W/ ENDOSCOPIC ULTRASOUND EXAMINATION, (Left) - RADIAL SCOPE, NO CYTO The Following Tests/Procedures Have Been Initiated: Insert IV, LR KVO Planned Anesthetic: MAC Instructions Given to Patient: Patient given verbal preop instructions and voices comprehension and compliance. SIGNATURE: Meera Ace APRN.CNP PATIENT NAME: Cady Duarte Salmeron DATE: September 02, 2017 TIME: 12:41 PM PAGER/CONTACT #: [email or web address] Observed: 09/02/2017 Status: COMPLETED Source: [facility] 12:00 AM [facility] OTHER [facility] REPOSITORY Telephone ([facility]) CADY SALMERON ([id number]) 1935 F Date Time Provider Department 09/02/17 ARJUN JEAN During your visit today, we recorded the following information about you: Matt Mckeon 09/03/2017 4:44 PM Signed Follow up 10/09/17 @10:15 w/ Dr. Orlando 09/03/2017 16:44:04 Matt Mckeon Allergies As of Date: 09/02/2017 Noted Allergy Reaction CARDIZEM (DILTIAZEM HCL) 03/18/2005 2 - Rash CEFDINIR 04/21/2017 4 - Hives DARVOCET A500 (PROPOXYPHENE N-ROSA*03/18/2005 8 - GI Upset DOXYCYCLINE 05/26/2008 11 - Vomiting FLEXERIL (CYCLOBENZAPRINE HCL) 02/19/2007 5 - Intolerance Comments: heart racing LEVAQUIN (LEVOFLOXACIN) 01/20/2013 16 - Unknown NOVACAINE [Other] 02/15/2005 PENICIILLINS [Other] 02/15/2005 10 - Anaphylaxis SULFA (SULFONAMIDE ANTIBIOTICS) 02/15/2005 7 - Swelling Comments: tongue swelling Date Reviewed: 09/02/2017 Reviewed by: Nancy (Rn) [facility] Bender - Fully Assessed Reason for Visit: office f/u [Other] Cmt: office f/u w Dr. Orlando in 3-4wks Prescriptions as of 09/02/2017 Sig: ASPIRIN 81 MG CHEWABLE TABLET Take 81 mg by mouth once robbin* COLESTIPOL 1 GRAM TABLET Take 1 tablet by mouth twice * LORAZEPAM 1 MG TABLET ROSUVASTATIN 5 MG TABLET Take 1 tablet by mouth daily * DOCUSATE SODIUM 100 MG CAPSULE Take 1 capsule by mouth once * HYDROCODONE 7.5 MG-ACETAMINOP* Take 1 tablet by mouth every * ERGOCALCIFEROL (VITAMIN D2) 5* Take 1 capsule three times we* TRIAMTERENE 37.5 MG-HYDROCHLO* Take 1 capsule by mouth once * APIXABAN 5 MG TABLET Take 1 tablet by mouth twice * BIOTIN ORAL Take by mouth. FENTANYL 50 MCG/HR TRANSDERMA* AMLODIPINE 10 MG TABLET Take 1 tablet by mouth once d* LISINOPRIL 40 MG TABLET Take 1 tablet by mouth once d* GABAPENTIN 600 MG TABLET Take 2 tablets by mouth three* Patient taking differently: Take 1,200 mg by mouth three * X LANSOPRAZOLE 30 MG CAPSULE,DE* Take 1 capsule by mouth once * NITROGLYCERIN 0.4 MG SUBLINGU* Dissolve 1 tablet under the t* X TIZANIDINE 4 MG TABLET Take 1 tablet by mouth at bed* Problem List As Of Date 09/02/2017 Noted Resolved GENERALIZED ANXIETY DIS [F41.1] More... DISACCHARIDASE DEF/MALAB [E73.9] GENERAL OSTEOARTHROSIS [M15.9] CARPAL TUNNEL SYNDROME [G56.00] Hyperlipidemia [E78.5] ALLERGIC RHINITIS NOS [J30.9] More... ARTERIAL DISEASE NEC [I77.89] SCIATICA [M54.30] OBESITY NOS [E66.9] ESOPHAGEAL REFLUX [K21.9] PAROX ATRIAL TACHYCARDIA [I47.1] Essential hypertension [I10] Occlusion and stenosis of carotid artery [I65.2*INVALID FOR* Vitamin D deficiency [E55.9] INVALID FOR* Dysmetabolic Syndrome [E88.81] INVALID FOR* Laceration [VMA0371] INVALID FOR* Calcaneal spur [M77.30] INVALID FOR* Sinusitis [J32.9] INVALID FOR* More... 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 Imaging of gastrointestinal tract abnormal [R93*INVALID FOR* More... Encounter Status:Closed by ARJUN JEAN MD on 10/06/17 SURGICAL TISSUE EXAM Observed: 09/02/2017 Status: F Source: [facility] 12:00 AM [facility] REPOSITORY Test performed at [address] [address] NAME: CADY SALMERON REQUESTING: ARJNU JEAN MD FINAL DIAGNOSIS: A) DUODENUM, BIOPSY - SMALL BOWEL MUCOSA WITH NO SIGNIFICANT HISTOPATHOLOGIC CHANGE. B) STOMACH, BIOPSY - FOCALLY ACTIVE MODERATE CHRONIC GASTRITIS AND REACTIVE GASTROPATHY. POSITIVE FOR HELICOBACTER PYLORI ORGANISMS. (SEE NOTE) NOTE: Immunostain for H. pylori is positive. OPERATIVE PROCEDURE: EGD with biopsy and radial EUS CLINICAL INFORMATION: RUQ pain; dilated CBD and pancreatic duct GROSS DESCRIPTION: A) Duodenal biopsy Received in formalin labeled duodenal biopsy is an irregular-shaped segment of rodriguez-brown soft tissue measuring 0.4 x 0.3 x 0.2 cm. The specimen is totally submitted in cassette A1. Levels x 3. B) Gastric biopsy Received in formalin labeled gastric biopsy are two irregular-shaped segments of rodriguez soft tissue aggregating to 0.5 x 0.1 x 0.1 cm. The specimen is totally submitted in cassette B1. Levels x 3. H. pylori. ARH:oli KINGSLEY M.D.,PATHOLOGIST (Electronic signature on file) Signed out: 09/04/2017 14:46 PRINTED: 09/04/2017 Page 1 of 1 Performed By: #### SURG #### [place] [id number] HOSP Observed: 08/18/2017 Status: COMPLETED Source: [facility] 12:00 AM CLINIC OTHER CAMPUS REPOSITORY Patient:Cady Salmeron MRN: <[id number]> Height:5' 4(1.626 m) Weight:140 lb (63.504 kg) Outpatient Medications as of 09/02/17: aspirin 81 mg chewable tablet LORazepam (ATIVAN) 1 mg tablet rosuvastatin (CRESTOR) 5 mg tablet docusate sodium (COLACE) 100 mg capsule HYDROcodone-Acetaminophen (NORCO) 7.5-325 mg per tablet ergocalciferol, vitamin D2, (DRISDOL) 50,000 unit capsule triamterene-hydrochlorothiazide 37.5-25 mg per capsule apixaban (ELIQUIS) 5 mg tab tab(s) BIOTIN ORAL fentaNYL (DURAGESIC) 50 mcg/hr amLODIPine (NORVASC) 10 mg tablet lisinopril (ZESTRIL) 40 mg tablet gabapentin (NEURONTIN) 600 mg tablet lansoprazole (PREVACID) 30 mg capsule nitroglycerin sublingual (NITROQUICK) 0.4 mg SL tablet tiZANidine (ZANAFLEX) 4 mg tablet Admission/Clinic Administered Medications as of 09/02/17: lactated ringers infusion Problem List: Generalized anxiety disorder [F41.1] 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] Generalized osteoarthrosis, unspecified site [M15.9] Carpal tunnel syndrome [G56.00] Hyperlipidemia [E78.5] Allergic rhinitis, cause unspecified [J30.9] Other specified disorders of arteries and arterioles (HCC) [I77.89] Sciatica [M54.30] Obesity, unspecified [E66.9] Esophageal reflux [K21.9] Paroxysmal supraventricular tachycardia (HCC) [I47.1] Essential hypertension [I10] Occlusion and stenosis of carotid artery [I65.29] Vitamin D deficiency [E55.9] Dysmetabolic syndrome [E88.81] Laceration [[id number]] Calcaneal spur [M77.30] Sinusitis [J32.9] S/P PTCA (percutaneous transluminal coronary angioplasty) [Z98.61] Hx pulmonary embolism [Z86.711] Chronic anticoagulation [Z79.01] H/O carotid endarterectomy [Z98.890] Nonrheumatic aortic valve stenosis [I35.0] Dilation of biliary tract [K83.8] Chest pain [R07.9] Aftercare following surgery [Z48.89] 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 CASE # [id number]. PREP MAILED TO PT. 08/18/2017 16:31:34 Eli Pedroza CMA Progress Notes (GENS AG ACC 107): Felicia Wallace CMA 08/17/2017 10:59 AM Signed SPOKE TO PATIENT AND ASKED WHY HER EUS WAS CANCELLED WITH DR JEAN AND IF THIS WAS RESCHEDULED. PATIENT STATES SHE CANCELLED IT DUE TO BEING VERY SICK. DR JEAN OFFICE IS SUPPOSED TO CALL HER AND GET THE TEST RESCHEDULED HAI[place]. SHE WILL LET DR TIMMONS KNOW WHEN THIS HAS BEEN RESCHEDULED AND FOLLOW UP WITH DR TIMMONS ACCORDINGLY. 08/17/2017 10:58:59 Felicia Wallace CMA PROGRESS Observed: 08/05/2017 Status: COMPLETED Source: [facility] 1:11 PM [facility] REPOSITORY HNO ID: [id number] Author: Caroline (Robbie) CHEYENNE Dupree Service: (none) Author Type: Nurse Practitioner Type: Progress Notes Filed: 08/05/2017 1:22 PM Note Text: CC: Patient presents with: Sore Throat HPI: Cady Salmeron is a 82 year old female who presents to the office with complaint of respiratory symptoms for a few days. Symptoms are worsening Associated symptoms includes nasal congestion, sore throat, hoarse voice, right ear pain, cough and tactile fever. Denies wheezing and dyspnea. Treatments tried include tessalon perles with temporary relief of symptoms. Sick contacts: yes. History of asthma, frequent episodes of bronchitis, chronic bronchitis, bronchiectasis or COPD: No Smoker: No Seasonal/environmental allergies: No The ROS is otherwise negative. The patient's pmh, medications, allergies, and past visits are reviewed. PHYSICAL EXAM: BP 130/99 Pulse 67 Temp 36.6 ?C (97.9 ?F) (Temporal Artery) Resp 16 Wt 63.5 kg (140 lb) SpO2 97% BMI 24.03 kg/m2 General appearance: tired/ill appearing, in no acute distress Head: Normocephalic Eyes: conjunctiva pink and moist, no icterus, sclera white, non-injected Ears: Right ear: External ear/canal- Normal, TM - clear with good landmarks. Left ear: External ear/canal- Normal, TM - clear with good landmarks Nose: clear, no sinus tenderness. Oropharynx:No erythema, exudates or tonsillar hypertrophy. Neck:supple and no adenopathy Heart: Negative. RRR without obvious murmur, gallop, or rubs. No ectopy. Lungs: clear to auscultation, without rales or wheeze, good air exchange ASSESSMENT/PLAN: 1. Viral URI with cough - ICD9: 465.9, ICD10: J06.9, B97.89 - Discussed viral etiology and rationale for treatment. Patient very argumentative and upset that antibiotics were not offered. Attempted to educate patient on virus vs bacteria and antibiotics only work on bacterial infections. Patient reports had same symptoms and they gave him a shot in the office and antibiotics. Discussed risks of taking antibiotics unnecessarily. Patient continues to request antibiotic and remains adamant that her PCP always gives her a Z-pack and she gets better. - Start zithromax - Symptomatic treatment with prn analgesia - Supportive care with fluids and rest - The patient may also use Tessalon Perles. - Follow up in one week if symptoms persist or sooner if worsening of symptoms Prescription instructions reviewed with patient as applicable. Potential red flag symptoms discussed with the patient. Reviewed appropriate action plan to take if red flag symptoms occur. Patient agreeable to treatment plan. Caroline Dupree APRN.CNP CNOV Observed: 08/05/2017 Status: COMPLETED Source: [facility] 1:00 PM [facility] REPOSITORY Office Visit (INTMWS) CADY SALMERON ([id number]) 1935 F Date Time Provider Department 08/05/17 1:00 PM CAROLINE DUPREE (ROBBIE) INTMWS During your visit today, we recorded the following information about you: Temperature Pulse Respiration Blood pressure 97.9 degrees 67/minute 16/minute 130/99 Weight 63.5 kg Caroline Dupree APRN.CNP, APRN.CNP 08/05/2017 1:22 PM Signed CC: Patient presents with: Sore Throat HPI: Cady Salmeron is a 82 year old female who presents to the office with complaint of respiratory symptoms for a few days. Symptoms are worsening Associated symptoms includes nasal congestion, sore throat, hoarse voice, right ear pain, cough and tactile fever. Denies wheezing and dyspnea. Treatments tried include tessalon perles with temporary relief of symptoms. Sick contacts: yes. History of asthma, frequent episodes of bronchitis, chronic bronchitis, bronchiectasis or COPD: No Smoker: No Seasonal/environmental allergies: No The ROS is otherwise negative. The patient's pmh, medications, allergies, and past visits are reviewed. PHYSICAL EXAM: BP 130/99 Pulse 67 Temp 36.6 ?C (97.9 ?F) (Temporal Artery) Resp 16 Wt 63.5 kg (140 lb) SpO2 97% BMI 24.03 kg/m2 General appearance: tired/ill appearing, in no acute distress Head: Normocephalic Eyes: conjunctiva pink and moist, no icterus, sclera white, non-injected Ears: Right ear: External ear/canal- Normal, TM - clear with good landmarks. Left ear: External ear/canal- Normal, TM - clear with good landmarks Nose: clear, no sinus tenderness. Oropharynx:No erythema, exudates or tonsillar hypertrophy. Neck:supple and no adenopathy Heart: Negative. RRR without obvious murmur, gallop, or rubs. No ectopy. Lungs: clear to auscultation, without rales or wheeze, good air exchange ASSESSMENT/PLAN: 1. Viral URI with cough - ICD9: 465.9, ICD10: J06.9, B97.89 - Discussed viral etiology and rationale for treatment. Patient very argumentative and upset that antibiotics were not offered. Attempted to educate patient on virus vs bacteria and antibiotics only work on bacterial infections. Patient reports had same symptoms and ANDquot;they gave him a shot in the office and antibioticsANDquot;. Discussed risks of taking antibiotics unnecessarily. Patient continues to request antibiotic and remains adamant that her PCP always gives her a Z-pack and she gets better. - Start zithromax - Symptomatic treatment with prn analgesia - Supportive care with fluids and rest - The patient may also use Tessalon Perles. - Follow up in one week if symptoms persist or sooner if worsening of symptoms Prescription instructions reviewed with patient as applicable. Potential red flag symptoms discussed with the patient. Reviewed appropriate action plan to take if red flag symptoms occur. Patient agreeable to treatment plan. Caroline Dupree APRN.CORPORATE OPERATIONS COMPLIANCE MANAGER Referring Provider: SELF [[id number]] Allergies As of Date: 08/05/2017 Noted Allergy Reaction CARDIZEM (DILTIAZEM HCL) 03/18/2005 2 - Rash CEFDINIR 04/21/2017 4 - Hives DARVOCET A500 (PROPOXYPHENE N-ROSA*03/18/2005 8 - GI Upset DOXYCYCLINE 05/26/2008 11 - Vomiting FLEXERIL (CYCLOBENZAPRINE HCL) 02/19/2007 5 - Intolerance Comments: heart racing LEVAQUIN (LEVOFLOXACIN) 01/20/2013 16 - Unknown NOVACAINE [Other] 02/15/2005 PENICIILLINS [Other] 02/15/2005 10 - Anaphylaxis SULFA (SULFONAMIDE ANTIBIOTICS) 02/15/2005 7 - Swelling Comments: tongue swelling Date Reviewed: 08/05/2017 Reviewed by: Kika Pierce Director Trade - Fully Assessed Reason for Visit: Sore Throat [200] Primary Visit Diagnosis:Viral URI with cough [J06.9, B97.89] Order(s):benzonatate (TESSALON PERLE) 100 mg capsuleTake 1 capsule by mouth three times daily as needed.Disp: 30 capsuleRfl: 0 azithromycin (ZITHROMAX Z-ARIANNA) 250 mg tabletTake 2 tablets day one, then, 1 tablet daily until gone.Disp: 1 PackageRfl: 0 Prescriptions as of 08/05/2017 Sig: BENZONATATE 100 MG CAPSULE Take 1 capsule by mouth three* LORAZEPAM 1 MG TABLET TRIAMCINOLONE ACETONIDE 0.1 %* Apply 1 application to affect* ROSUVASTATIN 5 MG TABLET Take 1 tablet by mouth daily * NYSTATIN 100,000 UNIT/ML ORAL* Take 5 mL by mouth four times* DOCUSATE SODIUM 100 MG CAPSULE Take 1 capsule by mouth once * HYDROCODONE 7.5 MG-ACETAMINOP* Take 1 tablet by mouth every * ERGOCALCIFEROL (VITAMIN D2) 5* Take 1 capsule three times we* TRIAMTERENE 37.5 MG-HYDROCHLO* Take 1 capsule by mouth once * ALBUTEROL SULFATE HFA 90 MCG/* Inhale 2 Puffs as instructed * APIXABAN 5 MG TABLET Take 1 tablet by mouth twice * BIOTIN ORAL Take by mouth. FENTANYL 50 MCG/HR TRANSDERMA* AMLODIPINE 10 MG TABLET Take 1 tablet by mouth once d* LISINOPRIL 40 MG TABLET Take 1 tablet by mouth once d* GABAPENTIN 600 MG TABLET Take 2 tablets by mouth three* Patient taking differently: Take 1,200 mg by mouth three * LANSOPRAZOLE 30 MG CAPSULE,DE* Take 1 capsule by mouth once * NITROGLYCERIN 0.4 MG SUBLINGU* Dissolve 1 tablet under the t* TIZANIDINE 4 MG TABLET Take 1 tablet by mouth at bed* GUAIFENESIN 100 MG/5 ML ORAL * Take 10 mL by mouth three denisse* FLUTICASONE 50 MCG/ACTUATION * Use 2 Sprays in each nostril * DICLOFENAC 1 % TOPICAL GEL Apply to affected area. Appl* AZITHROMYCIN 250 MG TABLET Take 2 tablets day one, then,* Problem List As Of Date 08/05/2017 Noted Resolved GENERALIZED ANXIETY DIS [F41.1] More... DISACCHARIDASE DEF/MALAB [E73.9] GENERAL OSTEOARTHROSIS [M15.9] CARPAL TUNNEL SYNDROME [G56.00] Hyperlipidemia [E78.5] ALLERGIC RHINITIS NOS [J30.9] More... ARTERIAL DISEASE NEC [I77.89] SCIATICA [M54.30] OBESITY NOS [E66.9] ESOPHAGEAL REFLUX [K21.9] PAROX ATRIAL TACHYCARDIA [I47.1] Essential hypertension [I10] Occlusion and stenosis of carotid artery [I65.2*INVALID FOR* Vitamin D deficiency [E55.9] INVALID FOR* Dysmetabolic Syndrome [E88.81] INVALID FOR* Laceration [[id number]] INVALID FOR* Calcaneal spur [M77.30] INVALID FOR* Sinusitis [J32.9] INVALID FOR* More... 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 Imaging of gastrointestinal tract abnormal [R93*INVALID FOR* More... Prescriptions ordered this encounter Disp Refills Start End BENZONATATE 100 MG CAPSULE 30 c* 0 08/05/2017 Route: ORAL Sig: Take 1 capsule by mouth three times daily as needed. AZITHROMYCIN 250 MG TABLET 1 Pa* 0 08/05/2017 08/10/2017 Sig: Take 2 tablets day one, then, 1 tablet daily until gone. Medications Discontinued During This Encounter cefdinir (OMNICEF) 300 mg capsule 04/14/2017 08/05/2017 Class: Historical Med Sig: Disc: Reason for discontinue is not on file. benzonatate (TESSALON PERLE) 100 mg * 30 c* 0 07/10/2017 08/05/2017 Route: ORAL Sig: Take 1 capsule by mouth three times daily as needed. Disc: Reason for discontinue is not on file. Encounter Status:Closed by CAROLINE DUPREE CNP on 08/05/17 CNCO Observed: 07/16/2017 Status: COMPLETED Source: [facility] 12:00 AM CLINIC OTHER CAMPUS REPOSITORY Letter Text Endoscopy (EGD) Location: [address] [place] [address]) Report to the 3rd Floor - Endoscopy Center Date: August 14, 2017 Time: 11:30am Arrive at: 10:30am Endoscopy: This examination has been recommended for you. This examination involves guiding a tubular, flexible instrument through your mouth and into your esophagus, stomach and first portion of your small intestine. Instructions: Your exam is scheduled for August 14, 2017 at 11:30am. Do not have anything to eat or drink on the day of the procedure Make sure to take someone with you to your procedure. You will not be permitted to drive home afterward. Medications Rules: Insulin- Take 1/2 your usual dose on procedure day. Diabeta and Glucophage- do not take on the day of the procedure. Hold iron supplements for 5 days before your procedure. If you have any questions regarding your instructions or your exam, please contact Dr. Jean at . CT ABDOMEN AND PELVIS Observed: 07/14/2017 Status: F Source: [facility] W/O CONTRAST 12:05 PM [facility] REPOSITORY Performed at [facility] APPROVED BY: Irineo Alicia MD EXAMINATION: CT ABDOMEN AND PELVIS WITHOUT IV CONTRAST CLINICAL HISTORY: Right upper quadrant abdominal pain, previous cholecystectomy TECHNIQUE: Non-IV contrast imaging of the abdomen and pelvis was performed using standard technique, scanning from just above the dome of the diaphragm to the symphysis pubis. Sagittal and coronal wilton nstructions were performed. No IV access could be obtained and the study was performed without IV contrast. Unenhanced imaging is limited for the evaluation of some intra-abdominal and pelvic pathology. Oral contrast was administered. M: [id number]_3 Contrast: 900 mL Redicat oral contrast was administered. CT Dose-Length Product: 665.14 mGy*cm CT Dose Reduction Employed: 1. Automated exposure control (AEC) was used. COMPARISON: MRI and MRCP report available on [facility] dated 12/01/2016 RESULT: Abdomen / Pelvis: Lower thorax: Lung bases are unremarkable. Liver: Unremarkable. Normal liver morphology. Biliary: The common duct is mildly dilated measuring 9 mm. The duct had a similar size on previous MRCP. Gallbladder is surgically absent. No fluid collections are identified within the gallbladder fossa. Spleen: No splenomegaly. Pancreas: Unremarkable. Adrenals: No mass. Kidneys: There are 2 stones in the lower pole of the right kidney measuring 2 mm each. No hydronephrosis. Normal renal contour. GI Tract: No bowel dilation. There are multiple diverticula scattered throughout the sigmoid colon without evidence of diverticulitis. Normal appearance of the appendix. Lymph Nodes: No lymphadenopathy. Mesentery/peritoneum: No ascites. Retroperitoneum: No mass. Vasculature: There is fairly extensive atherosclerotic calcification of the vascular structures. Abdominal aorta and iliac arteries are normal in caliber. Pelvis: No mass or ascites. Bones/Soft Tissues: No acute abnormality. IMPRESSION: Surgically absent gallbladder. No fluid collections are identified in the gallbladder fossa to suggest abscess or leak. The common bile duct is mildly dilated measuring 9 mm. This is unchanged in size when compared with previous MRCP from 12/01/2016. No cause for this dilatation is identified. Nonobstructing right renal calculi. Sigmoid colon diverticulosis without evidence of diverticulitis. PROGRESS Observed: 07/10/2017 Status: COMPLETED Source: [facility] 11:15 AM [facility] REPOSITORY O ID: [id number] Author: ESCOBAR Graham (Cns) Service: (none) Author Type: Nurse Specialist Type: Progress Notes Filed: 07/10/2017 11:37 AM Note Text: OUTPATIENT VISIT DATE July 10, 2017 OUTPATIENT VISIT TYPE ESTABLISHED PRIMARY CARE PHYSICIAN: David Connell MD CHIEF COMPLAINT: Patient presents with: Sinus Problem Blood Pressure Check History of Present Illness: Cady Salmeron is a 82 year old female who was last seen 05/20/2017 by David Connell MD. She has been seen in the past for ACTIVE PROBLEM LIST Generalized Anxiety Disorder Intestinal Disaccharidase Deficiencies and Disaccharide Malabsorption Generalized Osteoarthrosis, Unspecified Site Carpal Tunnel Syndrome Hyperlipidemia Allergic Rhinitis, Cause Unspecified Other Specified Disorders of Arteries and Arterioles (Hcc) Sciatica Obesity, Unspecified Esophageal Reflux Paroxysmal Supraventricular Tachycardia (Hcc) Essential Hypertension Occlusion and Stenosis of Carotid Artery Vitamin D Deficiency Dysmetabolic Syndrome Laceration Calcaneal Spur Sinusitis S/P Ptca (Percutaneous Transluminal Coronary Angioplasty) Hx Pulmonary Embolism Chronic Anticoagulation H/O Carotid Endarterectomy Nonrheumatic Aortic Valve Stenosis Dilation of Biliary Tract Chest Pain Aftercare Following Surgery Common Bile Duct Stricture Ruq Pain Presents today for recheck of blood pressure. Separately reports congestion in her head, sore throat, ear discomfort, sinus pressure. She reports fever at home of 100-101F. reports cough is productive for green colored sputum. Reports has all of her medications for blood pressure at home. States she is allergic to all antibiotics except for azithromycin. Tessalon perles help with cough. The ROS is otherwise negative. The patient's pmh, medications, allergies, and past visits are reviewed. PHYSICAL EXAM: BP 142/68 (BP Site: Right Arm, BP Position: Sitting, BP Cuff Size: Regular Adult) Pulse 64 Temp 36.6 ?C (97.8 ?F) Resp 16 Wt 64.9 kg (143 lb) BMI 24.55 kg/m2 General appearance: alert, cooperative, pleasant Head: Normocephalic Eyes: conjunctiva/corneas normal Ears: R TM - dull, L TM - dull Nose: mucosa erythematous and swollen Oropharynx: moist without lesions, without exudates present Neck: supple and small, benign anterior cervical nodes bilaterally Heart: regular rate and rhythm, with 3/6 SM RUSB Lungs: clear to auscultation, without rales or wheeze, good air exchange No recent hospital or ED visits. No new medical problems or medications. Able to obtain medications. No problems with taking medications or note side effects. PAST MEDICAL HISTORY Diagnosis Date - Allergic rhinitis, cause unspecified Allergic rhinitis - CAROTID ART OCCL-NO INFARCT 01/14/2007 - Carpal tunnel syndrome - Dysmetabolic syndrome X - Esophageal reflux - Generalized anxiety disorder Anxiety, Generalized - Generalized osteoarthrosis, unspecified site - Moderate aortic stenosis - Obesity, unspecified - Other and unspecified hyperlipidemia - Other specified disorders of arteries and arterioles (HCC) - Paroxysmal supraventricular tachycardia (HCC) - Pure hypercholesterolemia - Pure hyperglyceridemia - Sciatica - Unspecified essential hypertension PAST SURGICAL HISTORY Procedure Laterality Date - CATHETER ART SYS-1ST ORD THORA 01/29/07 LEFT - CATHETER ART SYS-2ND ORD THORA 01/29/07 RIGHT - CHOLECYSTECTOMY W/CHOLANGIOGRAPHY 2016 DR TIMMONS - INSERT CATH,ART,PERCUT,SHORTTERM 02/16/07 - THROMBOENDARTECTMY NECK,NECK INCIS 02/16/07 LEFT - TOTAL ABDOM HYSTERECTOMY 1973 Hysterectomy, RAN FAMILY HISTORY Problem Relation Age of Onset - Diabetes Mother - Heart Mother - Diabetes Father - Heart Father - Diabetes Sister x 3 - Diabetes Brother x 2 Social History Substance Use Topics - Smoking status: Former Smoker Packs/day: 1.00 Years: 30.00 Types: Cigarettes Quit date: 09/03/1996 - Smokeless tobacco: Never Used - Alcohol use No ALLERGIES: ALLERGIES Allergen Reactions - Cardizem [Diltiazem* Rash - Cefdinir Hives - Darvocet A500 [Prop* GI Upset - Doxycycline Vomiting - Flexeril [Cyclobenz* Intolerance heart racing - Levaquin [Levofloxa* Unknown - Novacaine [Other] - Peniciillins [Other] Anaphylaxis - Sulfa (Sulfonamide * Swelling tongue swelling MEDICATIONS triamterene-hydrochlorothiazide 37.5-25 mg per capsule Take 1 capsule by mouth once daily. Take in am. lisinopril (ZESTRIL) 40 mg tablet Take 1 tablet by mouth once daily. LORazepam (ATIVAN) 1 mg tablet cefdinir (OMNICEF) 300 mg capsule triamcinolone acetonide (KENALOG) 0.1 % cream Apply 1 application to affected area three times daily as needed. Apply sparingly to area for rash/itching. rosuvastatin (CRESTOR) 5 mg tablet Take 1 tablet by mouth daily at bedtime. nystatin (MYCOSTATIN) 100,000 unit/mL suspension Take 5 mL by mouth four times daily. 1tsp swish in mouth for several minutes, then swallow (or expectorate) 4 times daily until gone. docusate sodium (COLACE) 100 mg capsule Take 1 capsule by mouth once daily. HYDROcodone-Acetaminophen (NORCO) 7.5-325 mg per tablet Take 1 tablet by mouth every 6 hours as needed for Pain. ergocalciferol, vitamin D2, (DRISDOL) 50,000 unit capsule Take 1 capsule three times wekly albuterol HFA (PROVENTIL HFA, VENTOLIN HFA) 90 mcg/actuation inhaler Inhale 2 Puffs as instructed every 4 hours as needed for Wheezing/Shortness of Breath. apixaban (ELIQUIS) 5 mg tab tab(s) Take 1 tablet by mouth twice daily. benzonatate (TESSALON PERLE) 100 mg capsule Take 1 capsule by mouth three times daily as needed. BIOTIN ORAL Take by mouth. fentaNYL (DURAGESIC) 50 mcg/hr amLODIPine (NORVASC) 10 mg tablet Take 1 tablet by mouth once daily. gabapentin (NEURONTIN) 600 mg tablet Take 2 tablets by mouth three times daily. lansoprazole (PREVACID) 30 mg capsule Take 1 capsule by mouth once daily. nitroglycerin sublingual (NITROQUICK) 0.4 mg SL tablet Dissolve 1 tablet under the tongue as needed. FOR CHEST PAIN. IF NO RELIEF CALL 911 tiZANidine (ZANAFLEX) 4 mg tablet Take 1 tablet by mouth at bedtime as needed. guaiFENesin (COUGH CONTROL) 100 mg/5 mL syrup Take 10 mL by mouth three times daily as needed for Cough. fluticasone (FLONASE) 50 mcg/actuation nasal spray Use 2 Sprays in each nostril once daily. Rinse mouth after use. Diclofenac Sodium 1 % gel Apply to affected area. Apply 2 grams to upper extremity joints up to 4 times daily as needed. No more than 32 grams total per day. I personally interviewed, confirmed and edited the above information if obtained by others. TESTING: Glucose (mg/dL) Date Value 04/23/2017 111 Potassium (mEq/L) Date Value 04/23/2017 4.3 Sodium (mEq/L) Date Value 04/23/2017 138 Chloride (mEq/L) Date Value 04/23/2017 102 CO2 (mEq/L) Date Value 04/23/2017 29 Creatinine (mg/dL) Date Value 07/08/2017 0.83 BUN (mg/dL) Date Value 04/23/2017 13 Anion Gap (no units) Date Value 04/23/2017 11 Calcium (mg/dL) Date Value 04/23/2017 8.9 Glucose (mg/dL) Date Value 04/23/2017 111 Potassium (mEq/L) Date Value 04/23/2017 4.3 Sodium (mEq/L) Date Value 04/23/2017 138 Chloride (mEq/L) Date Value 04/23/2017 102 CO2 (mEq/L) Date Value 04/23/2017 29 Creatinine (mg/dL) Date Value 07/08/2017 0.83 BUN (mg/dL) Date Value 04/23/2017 13 Anion Gap (no units) Date Value 04/23/2017 11 Calcium (mg/dL) Date Value 04/23/2017 8.9 Protein, Total (g/dL) Date Value 05/28/2017 7.8 Albumin (g/dL) Date Value 05/28/2017 4.4 Bilirubin, Total (mg/dL) Date Value 05/28/2017 0.2 Alkaline Phosphatase (U/L) Date Value 05/28/2017 53 AST (U/L) Date Value 05/28/2017 21 ALT (U/L) Date Value 05/28/2017 13 Hemoglobin (g/dL) Date Value 05/28/2017 12.1 Hematocrit (%) Date Value 05/28/2017 38.9 WBC (k/uL) Date Value 05/28/2017 6.81 Cholesterol, Total (mg/dL) Date Value 05/05/2016 194 HDL Cholesterol (mg/dL) Date Value 05/05/2016 48 LDL Cholesterol (mg/dL) Date Value 05/05/2016 92 Triglyceride (mg/dL) Date Value 05/05/2016 270 Hemoglobin A1C Date Value Ref Range Status 05/05/2016 6.2 (H) 4.3 - 5.6 % Final Comment: [place] [employer] guidelines indicate that patients with HgbA1c in the range 5.7-6.4% are at increased risk for development of diabetes, and intervention by lifestyle modification may be beneficial. HgbA1c greater or equal to 6.5% is considered diagnostic of diabetes. 11/22/2014 6.0 4.0 - 6.0 % Final Comment: [place] [employer] guidelines indicate that patients with HgbA1c in the range 5.7-6.4% are at increased risk for development of diabetes, and intervention by lifestyle modification may be beneficial. HgbA1c greater or equal to 6.5% is considered diagnostic of diabetes. 05/09/2014 6.2 (H) 4.0 - 6.0 % Final Comment: [place] [employer] guidelines indicate that patients with HgbA1c in the range 5.7-6.4% are at increased risk for development of diabetes, and intervention by lifestyle modification may be beneficial. HgbA1c greater or equal to 6.5% is considered diagnostic of diabetes. HBA1CBertram Date Value Ref Range Status 05/29/2011 6.1 (H) 4.0 - 6.0 % Final 11/18/2007 6.9 (H) 4.2 - 5.8 % Final Comment: Test performed by: [facility] [place], [id number] [place] [id number]. Ejection Fraction - Result: 62 % Date: 02/24/2017 Time: 15:14:44 IMPRESSION: Ms. Salmeron is a 82 year old Woman presents for blood pressure check and complaint of sinus symptoms. After my examination and review of data, I make the following recommendations. PLAN AND RECOMMENDATIONS: 1. Essential hypertension - ICD9: 401.9, ICD10: I10 (primary diagnosis) - Improved control - Continue current medication(s) - Encouraged dietary sodium restriction/DASH diet - Recommended regular aerobic exercise. - Recommend home blood pressure monitoring, to bring results in on next visit - Goal of BP <130/80 2. Sinobronchitis - ICD9: 473.9, 490, ICD10: J32.9, J40 - Will begin treatment with as per antibiotic as written, see orders - Supportive care with plenty of fluids, rest, and analgesia prn. - BENZONATATE 100 MG CAPSULE - AZITHROMYCIN 250 MG TABLET Advised to go to ER if develops chest pain, shortness of breath, or severe worsening of symptoms. Discussed risks, benefits, alternatives, and potential side effects of medications. Ms. Salmeron expressed understanding and agreed with the plan. ESCOBAR Graham PROGRESS Observed: 07/08/2017 Status: COMPLETED Source: [place] 1:45 PM [facility] [place] REPOSITORY HNO ID: [id number] Author: Karrie Mathew Cma Service: (none) Author Type: (none) Type: Progress Notes Filed: 07/08/2017 1:48 PM Note Text: I spoke with iris and she agreed to come in for a BP check. Appointment scheduled for 07/10/17. The patient has been identified by name and date of : YES I have scheduled the patient for an appointment on 11/17/2017. 07/10/17 for nurse BP check. The patient will report to the lab prior to the visit. PHMA Documentation 07/08/2017 Opts out of [employer] [facility] No Appointments Scheduled Scheduled PCP Appt BP > 139/89 Other Appt Appt Date 07/10/2017 Karrie Mathew Cma PROGRESS Observed: 07/08/2017 Status: COMPLETED Source: [place] 11:54 AM [facility] [place] REPOSITORY HNO ID: [id number] Author: Karrie Mathew Cma Service: (none) Author Type: (none) Type: Progress Notes Filed: 07/08/2017 1:48 PM Note Text: Previously PHMA encounter closed due to computer issue. Will make two more attempts to contact patient to make Nurse visit for a BP check. PHIA TEAMLET DOCUMENTATION ? Provider Action/FYI: ? ? PSR Action/FYI: ? ? ? Teamlet has identified patient by name and date of . ? Team: Myself, Felicity, Dr. Connell ? ? Last Office Visit:05/20/2017 ? Next Office Visit: 11/17/2017 ? ? Last BP/Labs: ? Blood Pressure: Last 3 Encounter BP Readings: Date: BP: 06/24/2017 186/79 05/22/2017 179/74 05/20/2017 140/60 Lipids: ? Cholesterol, Total (mg/dL) Date Value 05/05/2016 194 11/28/2015 201 ? HDL Cholesterol (mg/dL) Date Value 05/05/2016 48 11/28/2015 45 ? LDL Cholesterol (mg/dL) Date Value 05/05/2016 92 11/28/2015 85 ? Triglyceride (mg/dL) Date Value 05/05/2016 270 11/28/2015 354 HGB A1C: ? Lab Results Component Value Date HBA1C 6.2 05/05/2016 HBA1C 6.0 11/22/2014 HBA1C 6.2 05/09/2014 ? TSH: No results found for: TSH) ? Care Gap: HTN - Last BP NOT under 140/90 ?? Plan: ? ? Type of appointment needed: Nurse BP vist next available ? ? Labs, HM and Immunization: ? Health Maintenance Due: There are no preventive care reminders to display for this patient. ? ? Karrie Mathew Director Trade ? CREATININE Collected: 07/08/2017 Status: F Source: [place] 10:20 AM [facility] REPOSITORY TYPE CODE TESTS RESULT OUT OF REFERENCE UNITS RANGE LAB CRET 0.58-0.96 mg/dL Creatinine 0.83 LAB GFRAA eGFR- >60 Amer. LAB GFRNAA . eGFR-All Other Races >60 Result Comment: eGFR (Estimated GFR) Units of measure: mL/min/1.73 meters squared eGFR is derived from the reexpressed MDRD Study equation using the following parameters: serum creatinine, age, gender and race. The creatinine assay has been calibrated to be traceable to IDAZ. An eGFR <60 mL/min/1.73m2 for >3 months is consistent with chronic kidney disease. Refer to KDOQI guidelines for clinical interpretation. In patients with unstable renal function, e.g. those with acute kidney injury, the eGFR may not accurately reflect actual GFR. Performed By: #### CRET1 #### [facility] [address] [place], [place] [address] CNPTOUTREA Observed: 07/08/2017 Status: COMPLETED Source: [place] 12:00 AM [facility] REPOSITORY Patient Outreach (INTMWS) CADY SALMERON ([id number]) 1935 F Date Time Provider Department 07/08/17 KARRIE MATHEW ([facility]) INTMWS During your visit today, we recorded the following information about you: Karrie Mathew [facility] 07/08/2017 1:48 PM Signed Previously [facility] encounter closed due to computer issue. Will make two more attempts to contact patient to make Nurse visit for a BP check. PHMA TEAMLET DOCUMENTATION ? Provider Action/FYI: ? ? PSR Action/FYI: ? ? ? Teamlet has identified patient by name and date of . ? Team: Myself, Dr. Ko Blevins ? ? Last Office Visit:05/20/2017 ? Next Office Visit: 11/17/2017 ? ? Last BP/Labs: ? Blood Pressure: Last 3 Encounter BP Readings: Date: BP: 06/24/2017 186/79 05/22/2017 179/74 05/20/2017 140/60 Lipids: ? Cholesterol, Total (mg/dL) Date Value 05/05/2016 194 11/28/2015 201 ? HDL Cholesterol (mg/dL) Date Value 05/05/2016 48 11/28/2015 45 ? LDL Cholesterol (mg/dL) Date Value 05/05/2016 92 11/28/2015 85 ? Triglyceride (mg/dL) Date Value 05/05/2016 270 11/28/2015 354 HGB A1C: ? Lab Results Component Value Date HBA1C 6.2 05/05/2016 HBA1C 6.0 11/22/2014 HBA1C 6.2 05/09/2014 ? TSH: No results found for: TSH) ? Care Gap: HTN - Last BP NOT under 140/90 ?? Plan: ? ? Type of appointment needed: Nurse BP vist next available ? ? Labs, HM and Immunization: ? Health Maintenance Due: There are no preventive care reminders to display for this patient. ? ? Karrie Quincy Hayes ? Karrie Mathew Cma 07/08/2017 1:48 PM Signed I spoke with iris and she agreed to come in for a BP check. Appointment scheduled for 07/10/17. The patient has been identified by name and date of : YES I have scheduled the patient for an appointment on 11/17/2017. 07/10/17 for nurse BP check. The patient will report to the lab prior to the visit. PHMA Documentation 07/08/2017 Opts out of [facility] No Appointments Scheduled Scheduled PCP Appt BP ANDgt; 139/89 Other Appt Appt Date 07/10/2017 Karrie Mathew Cma Allergies As of Date: 07/08/2017 Noted Allergy Reaction CARDIZEM (DILTIAZEM HCL) 03/18/2005 2 - Rash CEFDINIR 04/21/2017 4 - Hives DARVOCET A500 (PROPOXYPHENE N-ROSA*03/18/2005 8 - GI Upset DOXYCYCLINE 05/26/2008 11 - Vomiting FLEXERIL (CYCLOBENZAPRINE HCL) 02/19/2007 5 - Intolerance Comments: heart racing LEVAQUIN (LEVOFLOXACIN) 01/20/2013 16 - Unknown NOVACAINE [Other] 02/15/2005 PENICIILLINS [Other] 02/15/2005 10 - Anaphylaxis SULFA (SULFONAMIDE ANTIBIOTICS) 02/15/2005 7 - Swelling Comments: tongue swelling Date Reviewed: 07/07/2017 Reviewed by: Dominga Timmons - Fully Assessed Reason for Visit: PHMA/Care Gap Outreach [[id number]] Prescriptions as of 07/08/2017 Sig: LORAZEPAM 1 MG TABLET IV CONTRAST (RADIOLOGY PROCED* CT ABD/PEL -Inject, intraveno* ENTERIC CONTRAST (RADIOLOGY P* For CT ABD/PEL W IVCON Routin* CEFDINIR 300 MG CAPSULE TRIAMCINOLONE ACETONIDE 0.1 %* Apply 1 application to affect* ROSUVASTATIN 5 MG TABLET Take 1 tablet by mouth daily * NYSTATIN 100,000 UNIT/ML ORAL* Take 5 mL by mouth four times* DOCUSATE SODIUM 100 MG CAPSULE Take 1 capsule by mouth once * HYDROCODONE 7.5 MG-ACETAMINOP* Take 1 tablet by mouth every * ERGOCALCIFEROL (VITAMIN D2) 5* Take 1 capsule three times we* TRIAMTERENE 37.5 MG-HYDROCHLO* Take 1 capsule by mouth once * ALBUTEROL SULFATE HFA 90 MCG/* Inhale 2 Puffs as instructed * APIXABAN 5 MG TABLET Take 1 tablet by mouth twice * BENZONATATE 100 MG CAPSULE Take 1 capsule by mouth three* BIOTIN ORAL Take by mouth. FENTANYL 50 MCG/HR TRANSDERMA* AMLODIPINE 10 MG TABLET Take 1 tablet by mouth once d* LISINOPRIL 40 MG TABLET Take 1 tablet by mouth once d* GABAPENTIN 600 MG TABLET Take 2 tablets by mouth three* Patient taking differently: Take 1,200 mg by mouth three * LANSOPRAZOLE 30 MG CAPSULE,DE* Take 1 capsule by mouth once * NITROGLYCERIN 0.4 MG SUBLINGU* Dissolve 1 tablet under the t* TIZANIDINE 4 MG TABLET Take 1 tablet by mouth at bed* GUAIFENESIN 100 MG/5 ML ORAL * Take 10 mL by mouth three denisse* FLUTICASONE 50 MCG/ACTUATION * Use 2 Sprays in each nostril * DICLOFENAC 1 % TOPICAL GEL Apply to affected area. Appl* Problem List As Of Date 07/08/2017 Noted Resolved GENERALIZED ANXIETY DIS [F41.1] More... DISACCHARIDASE DEF/MALAB [E73.9] GENERAL OSTEOARTHROSIS [M15.9] CARPAL TUNNEL SYNDROME [G56.00] Hyperlipidemia [E78.5] ALLERGIC RHINITIS NOS [J30.9] More... ARTERIAL DISEASE NEC [I77.89] SCIATICA [M54.30] OBESITY NOS [E66.9] ESOPHAGEAL REFLUX [K21.9] PAROX ATRIAL TACHYCARDIA [I47.1] Essential hypertension [I10] Occlusion and stenosis of carotid artery [I65.2*INVALID FOR* Vitamin D deficiency [E55.9] INVALID FOR* Dysmetabolic Syndrome [E88.81] INVALID FOR* Laceration [RHA0558] INVALID FOR* Calcaneal spur [M77.30] INVALID FOR* Sinusitis [J32.9] INVALID FOR* More... 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 She is still quite active but notes intermittent episodes of discomfort in her abdomen especially right sided with some nausea, especially after overeating. She states her bowels are moving frequently and are yellow in color. She did follow-up with GI and has no endoscopic ultrasound pending. ALLERGIES Allergen Reactions - Cardizem [Diltiazem* Rash - Cefdinir Hives - Darvocet A500 [Prop* GI Upset - Doxycycline Vomiting - Flexeril [Cyclobenz* Intolerance heart racing - Levaquin [Levofloxa* Unknown - Novacaine [Other] - Peniciillins [Other] Anaphylaxis - Sulfa (Sulfonamide * Swelling tongue swelling Current Outpatient Prescriptions: LORazepam (ATIVAN) 1 mg tablet cefdinir (OMNICEF) 300 mg capsule triamcinolone acetonide (KENALOG) 0.1 % cream Apply 1 application to affected area three times daily as needed. Apply sparingly to area for rash/itching. rosuvastatin (CRESTOR) 5 mg tablet Take 1 tablet by mouth daily at bedtime. nystatin (MYCOSTATIN) 100,000 unit/mL suspension Take 5 mL by mouth four times daily. 1tsp swish in mouth for several minutes, then swallow (or expectorate) 4 times daily until gone. docusate sodium (COLACE) 100 mg capsule Take 1 capsule by mouth once daily. HYDROcodone-Acetaminophen (NORCO) 7.5-325 mg per tablet Take 1 tablet by mouth every 6 hours as needed for Pain. ergocalciferol, vitamin D2, (DRISDOL) 50,000 unit capsule Take 1 capsule three times wekly triamterene-hydrochlorothiazide 37.5-25 mg per capsule Take 1 capsule by mouth once daily. Take in am. albuterol HFA (PROVENTIL HFA, VENTOLIN HFA) 90 mcg/actuation inhaler Inhale 2 Puffs as instructed every 4 hours as needed for Wheezing/Shortness of Breath. apixaban (ELIQUIS) 5 mg tab tab(s) Take 1 tablet by mouth twice daily. benzonatate (TESSALON PERLE) 100 mg capsule Take 1 capsule by mouth three times daily as needed. BIOTIN ORAL Take by mouth. fentaNYL (DURAGESIC) 50 mcg/hr amLODIPine (NORVASC) 10 mg tablet Take 1 tablet by mouth once daily. lisinopril (ZESTRIL) 40 mg tablet Take 1 tablet by mouth once daily. gabapentin (NEURONTIN) 600 mg tablet Take 2 tablets by mouth three times daily. (Patient taking differently: Take 1,200 mg by mouth three times daily. Pt takes twice daily) lansoprazole (PREVACID) 30 mg capsule Take 1 capsule by mouth once daily. nitroglycerin sublingual (NITROQUICK) 0.4 mg SL tablet Dissolve 1 tablet under the tongue as needed. FOR CHEST PAIN. IF NO RELIEF CALL 911 tiZANidine (ZANAFLEX) 4 mg tablet Take 1 tablet by mouth at bedtime as needed. guaiFENesin (COUGH CONTROL) 100 mg/5 mL syrup Take 10 mL by mouth three times daily as needed for Cough. fluticasone (FLONASE) 50 mcg/actuation nasal spray Use 2 Sprays in each nostril once daily. Rinse mouth after use. Diclofenac Sodium 1 % gel Apply to affected area. Apply 2 grams to upper extremity joints up to 4 times daily as needed. No more than 32 grams total per day. No current facility-administered medications for this visit. PHYSICAL EXAM: There were no vitals taken for this visit. General Appearance: Well appearing, alert, in no acute distress, well-hydrated, well nourished.. Skin: Skin texture and turgor normal, no suspicious rashes or lesions, Negative for jaundice or pallor. Lungs: Normal respirations Heart: RRR, + systolicmurmurs, gallops, rubs Abdomen: +BS, soft with right sided tenderness without guarding, peritoneal signs.. Musculoskeletal: No soft tissue edema; calves non tender Op AND Path and recent lab findings reviewed with patient / family and all questions were answered. ASSESSMENT/PLAN: 1. RUQ pain - ICD9: 789.01, ICD10: R10.11 (primary diagnosis) - Work up with CT Abdomen/Pelvis--with follow-up visit in 3-4 weeks. - CT ABD/PEL W IVCON - IV CONTRAST (RADIOLOGY PROCEDURE) - ENTERIC CONTRAST (RADIOLOGY PROCEDURE) Evaluation and probable endoscopic ultrasound is pending. 2. Screening for nephropathy - ICD9: V81.5, ICD10: Z13.89 - CREATININE BLD Dominga Timmons MD, FACS CNOV Observed: 07/07/2017 Status: COMPLETED Source: [facility] 2:00 PM [facility] OTHER [facility] REPOSITORY Office Visit ([id number]) CADY SALMERON ([id number]) 1935 F Date Time Provider Department 07/07/17 2:00 PM DOMINGA TIMMONS During your visit today, we recorded the following information about you: Felicia Wallace CMA 07/07/2017 3:[address] ORLANDO. AND HE REFERRED HER TO DR JEAN. FOR EUS. PATIENT STATES SHE FEELS THE SAME. Dominga Timmons MD, FACS 07/07/2017 4:04 PM Signed Cady Salmeron is a 82 year old female who is here for her follow- up visit. She is still quite active but notes intermittent episodes of discomfort in her abdomen especially right sided with some nausea, especially after overeating. She states her bowels are moving frequently and are yellow in color. She did follow-up with GI and has no endoscopic ultrasound pending. ALLERGIES Allergen Reactions - Cardizem [Diltiazem* Rash - Cefdinir Hives - Darvocet A500 [Prop* GI Upset - Doxycycline Vomiting - Flexeril [Cyclobenz* Intolerance heart racing - Levaquin [Levofloxa* Unknown - Novacaine [Other] - Peniciillins [Other] Anaphylaxis - Sulfa (Sulfonamide * Swelling tongue swelling Current Outpatient Prescriptions: LORazepam (ATIVAN) 1 mg tablet cefdinir (OMNICEF) 300 mg capsule triamcinolone acetonide (KENALOG) 0.1 % cream Apply 1 application to affected area three times daily as needed. Apply sparingly to area for rash/itching. rosuvastatin (CRESTOR) 5 mg tablet Take 1 tablet by mouth daily at bedtime. nystatin (MYCOSTATIN) 100,000 unit/mL suspension Take 5 mL by mouth four times daily. 1tsp swish in mouth for several minutes, then swallow (or expectorate) 4 times daily until gone. docusate sodium (COLACE) 100 mg capsule Take 1 capsule by mouth once daily. HYDROcodone-Acetaminophen (NORCO) 7.5-325 mg per tablet Take 1 tablet by mouth every 6 hours as needed for Pain. ergocalciferol, vitamin D2, (DRISDOL) 50,000 unit capsule Take 1 capsule three times wekly triamterene-hydrochlorothiazide 37.5-25 mg per capsule Take 1 capsule by mouth once daily. Take in am. albuterol HFA (PROVENTIL HFA, VENTOLIN HFA) 90 mcg/actuation inhaler Inhale 2 Puffs as instructed every 4 hours as needed for Wheezing/Shortness of Breath. apixaban (ELIQUIS) 5 mg tab tab(s) Take 1 tablet by mouth twice daily. benzonatate (TESSALON PERLE) 100 mg capsule Take 1 capsule by mouth three times daily as needed. BIOTIN ORAL Take by mouth. fentaNYL (DURAGESIC) 50 mcg/hr amLODIPine (NORVASC) 10 mg tablet Take 1 tablet by mouth once daily. lisinopril (ZESTRIL) 40 mg tablet Take 1 tablet by mouth once daily. gabapentin (NEURONTIN) 600 mg tablet Take 2 tablets by mouth three times daily. (Patient taking differently: Take 1,200 mg by mouth three times daily. Pt takes twice daily) lansoprazole (PREVACID) 30 mg capsule Take 1 capsule by mouth once daily. nitroglycerin sublingual (NITROQUICK) 0.4 mg SL tablet Dissolve 1 tablet under the tongue as needed. FOR CHEST PAIN. IF NO RELIEF CALL 911 tiZANidine (ZANAFLEX) 4 mg tablet Take 1 tablet by mouth at bedtime as needed. guaiFENesin (COUGH CONTROL) 100 mg/5 mL syrup Take 10 mL by mouth three times daily as needed for Cough. fluticasone (FLONASE) 50 mcg/actuation nasal spray Use 2 Sprays in each nostril once daily. Rinse mouth after use. Diclofenac Sodium 1 % gel Apply to affected area. Apply 2 grams to upper extremity joints up to 4 times daily as needed. No more than 32 grams total per day. No current facility-administered medications for this visit. PHYSICAL EXAM: There were no vitals taken for this visit. General Appearance: Well appearing, alert, in no acute distress, well-hydrated, well nourished.. Skin: Skin texture and turgor normal, no suspicious rashes or lesions, Negative for jaundice or pallor. Lungs: Normal respirations Heart: RRR, + systolicmurmurs, gallops, rubs Abdomen: +BS, soft with right sided tenderness without guarding, peritoneal signs.. Musculoskeletal: No soft tissue edema; calves non tender Op ANDamp; Path and recent lab findings reviewed with patient / family and all questions were answered. ASSESSMENT/PLAN: 1. RUQ pain - ICD9: 789.01, ICD10: R10.11 (primary diagnosis) - Work up with CT Abdomen/Pelvis--with follow-up visit in 3-4 weeks. - CT ABD/PEL W IVCON - IV CONTRAST (RADIOLOGY PROCEDURE) - ENTERIC CONTRAST (RADIOLOGY PROCEDURE) Evaluation and probable endoscopic ultrasound is pending. 2. Screening for nephropathy - ICD9: V81.5, ICD10: Z13.89 - CREATININE BLD Dominga Timmons MD, FACS Referring Provider: DAVID CONNELL [[id number]] Allergies As of Date: 07/07/2017 Noted Allergy Reaction CARDIZEM (DILTIAZEM HCL) 03/18/2005 2 - Rash CEFDINIR 04/21/2017 4 - Hives DARVOCET A500 (PROPOXYPHENE N-ROSA*03/18/2005 8 - GI Upset DOXYCYCLINE 05/26/2008 11 - Vomiting FLEXERIL (CYCLOBENZAPRINE HCL) 02/19/2007 5 - Intolerance Comments: heart racing LEVAQUIN (LEVOFLOXACIN) 01/20/2013 16 - Unknown NOVACAINE [Other] 02/15/2005 PENICIILLINS [Other] 02/15/2005 10 - Anaphylaxis SULFA (SULFONAMIDE ANTIBIOTICS) 02/15/2005 7 - Swelling Comments: tongue swelling Date Reviewed: 07/07/2017 Reviewed by: Dominga Timmons - Fully Assessed Reason for Visit: Follow Up [171] Cmt: S/P GI CONSULT Primary Visit Diagnosis:RUQ pain [R10.11] Other Visit Diagnosis:Screening for nephropathy [Z13.89] Order(s):CREATININE BLD [SQCRET] Order #: [id number] FUTURE CT ABD/PEL W IVCON [[id number]] Order #: [id number] FUTURE iv contrast (radiology procedure)CT ABD/PEL -Inject, intravenously, once for 1 dose.No IV access, insert saline lock prior to the beginning of sedation, infusion, injection of imaging exam. Discontinue saline lock post exam. If Pt. has a central line or IVAD, may access for administration according to line specific nursing protocol. Once exam is complete flush line and de- access according to line specific nursing protocol in the CT contrast administration guidelines link.Disp: 1 EachRfl: 0 enteric contrast (radiology procedure)For CT ABD/PEL W IVCON Routine order Administer, As Directed One Time Only, via Oral, Rectal, both Oral and Rectal, Enteric Tube, Stoma or Indwelling Catheter, Enteric Contrast as designated per enteric contrast guidelinesDisp: 1 EachRfl: 0 Prescriptions as of 07/07/2017 Sig: LORAZEPAM 1 MG TABLET CEFDINIR 300 MG CAPSULE TRIAMCINOLONE ACETONIDE 0.1 %* Apply 1 application to affect* ROSUVASTATIN 5 MG TABLET Take 1 tablet by mouth daily * NYSTATIN 100,000 UNIT/ML ORAL* Take 5 mL by mouth four times* DOCUSATE SODIUM 100 MG CAPSULE Take 1 capsule by mouth once * HYDROCODONE 7.5 MG-ACETAMINOP* Take 1 tablet by mouth every * ERGOCALCIFEROL (VITAMIN D2) 5* Take 1 capsule three times we* TRIAMTERENE 37.5 MG-HYDROCHLO* Take 1 capsule by mouth once * ALBUTEROL SULFATE HFA 90 MCG/* Inhale 2 Puffs as instructed * APIXABAN 5 MG TABLET Take 1 tablet by mouth twice * BENZONATATE 100 MG CAPSULE Take 1 capsule by mouth three* BIOTIN ORAL Take by mouth. FENTANYL 50 MCG/HR TRANSDERMA* AMLODIPINE 10 MG TABLET Take 1 tablet by mouth once d* LISINOPRIL 40 MG TABLET Take 1 tablet by mouth once d* GABAPENTIN 600 MG TABLET Take 2 tablets by mouth three* Patient taking differently: Take 1,200 mg by mouth three * LANSOPRAZOLE 30 MG CAPSULE,DE* Take 1 capsule by mouth once * NITROGLYCERIN 0.4 MG SUBLINGU* Dissolve 1 tablet under the t* TIZANIDINE 4 MG TABLET Take 1 tablet by mouth at bed* GUAIFENESIN 100 MG/5 ML ORAL * Take 10 mL by mouth three denisse* FLUTICASONE 50 MCG/ACTUATION * Use 2 Sprays in each nostril * DICLOFENAC 1 % TOPICAL GEL Apply to affected area. Appl* IV CONTRAST (RADIOLOGY PROCED* CT ABD/PEL -Inject, intraveno* ENTERIC CONTRAST (RADIOLOGY P* For CT ABD/PEL W IVCON Routin* Problem List As Of Date 07/07/2017 Noted Resolved GENERALIZED ANXIETY DIS [F41.1] More... DISACCHARIDASE DEF/MALAB [E73.9] GENERAL OSTEOARTHROSIS [M15.9] CARPAL TUNNEL SYNDROME [G56.00] Hyperlipidemia [E78.5] ALLERGIC RHINITIS NOS [J30.9] More... ARTERIAL DISEASE NEC [I77.89] SCIATICA [M54.30] OBESITY NOS [E66.9] ESOPHAGEAL REFLUX [K21.9] PAROX ATRIAL TACHYCARDIA [I47.1] Essential hypertension [I10] Occlusion and stenosis of carotid artery [I65.2*INVALID FOR* Vitamin D deficiency [E55.9] INVALID FOR* Dysmetabolic Syndrome [E88.81] INVALID FOR* Laceration [[id number]] INVALID FOR* Calcaneal spur [M77.30] INVALID FOR* Sinusitis [J32.9] INVALID FOR* More... 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 AND HE REFERRED HER TO DR JEAN. FOR EUS. PATIENT STATES SHE FEELS THE SAME. Prescriptions ordered this encounter Disp Refills Start End IV CONTRAST (RADIOLOGY PROCEDURE) 1 Ea* 0 07/07/2017 07/08/2017 Class: In Office Sig: CT ABD/PEL -Inject, intravenously, once for 1 dose.No IV access, insert saline lock prior to the beginning of sedation, infusion, injection of imaging exam. Discontinue saline lock post exam. If Pt. has a central line or IVAD, may access for administration according to line specific nursing protocol. Once exam is complete flush line and de-access according to line specific nursing protocol in the CT contrast administration guidelines link. ENTERIC CONTRAST (RADIOLOGY PROCEDUR* 1 Ea* 0 07/07/2017 07/08/2017 Class: In Office Sig: For CT ABD/PEL W IVCON Routine order Administer, As Directed One Time Only, via Oral, Rectal, both Oral and Rectal, Enteric Tube, Stoma or Indwelling Catheter, Enteric Contrast as designated per enteric contrast guidelines Disposition: Return in about 4 weeks (around 08/04/2017). Follow-up and Disposition History Recorded Letter Text Encounter Status:Closed by DOMINGA TIMMONS MD on 07/07/17 PROGRESS Observed: 07/03/2017 Status: COMPLETED Source: [place] 12:34 PM [facility] [place] REPOSITORY HNO ID: [id number] Author: Karrie Mathew Director Trade Service: (none) Author Type: (none) Type: Progress Notes Filed: 07/05/2017 10:07 PM Note Text: BP will be rechecked at appointment on 07/07. Will wait to see what it is. PROGRESS Observed: 06/30/2017 Status: COMPLETED Source: [place] 2:47 PM [facility] REPOSITORY HNO ID: [id number] Author: Karrie Mathew [facility] Service: (none) Author Type: (none) Type: Progress Notes Filed: 07/05/2017 10:07 PM Note Text: Mailbox full - unable to leave a message. Try again later. PROGRESS Observed: 06/30/2017 Status: COMPLETED Source: [place] 2:44 PM [facility] REPOSITORY HNO ID: [id number] Author: Karrie Mathew Director Trade Service: (none) Author Type: (none) Type: Progress Notes Filed: 07/05/2017 10:07 PM Note Text: PHMA TEAMLET DOCUMENTATION Provider Action/FYI: PSR Action/FYI: Teamlet has identified patient by name and date of . Team: Myself, Dr. Ko Blevins ? Last Office Visit:05/20/2017 ? Next Office Visit: 11/17/2017 ? Last BP/Labs: Blood Pressure: Last 3 Encounter BP Readings: Date: BP: 06/24/2017 186/79 05/22/2017 179/74 05/20/2017 140/60 Lipids: Cholesterol, Total (mg/dL) Date Value 05/05/2016 194 11/28/2015 201 HDL Cholesterol (mg/dL) Date Value 05/05/2016 48 11/28/2015 45 LDL Cholesterol (mg/dL) Date Value 05/05/2016 92 11/28/2015 85 Triglyceride (mg/dL) Date Value 05/05/2016 270 11/28/2015 354 HGB A1C: Lab Results Component Value Date HBA1C 6.2 05/05/2016 HBA1C 6.0 11/22/2014 HBA1C 6.2 05/09/2014 TSH: No results found for: TSH) Care Gap: HTN - Last BP NOT under 140/90 Plan: ? Type of appointment needed: Nurse BP vist next available Labs, HM and Immunization: Health Maintenance Due: There are no preventive care reminders to display for this patient. Karrie Mathew [facility] CNPTOUTREACH Observed: 06/30/2017 Status: COMPLETED Source: BRITT 12:00 AM [facility] REPOSITORY Patient Outreach (INTMWS) CADY SALMERON ([id number]) 1935 F Date Time Provider Department 06/30/17 KARRIE MATHEW ([facility]) INTMWS During your visit today, we recorded the following information about you: Karrie Mathew [facility] 07/05/2017 10:07 PM Signed PHMA TEAMLET DOCUMENTATION Provider Action/FYI: PSR Action/FYI: Teamlet has identified patient by name and date of . Team: Myself, Dr. Ko Blevins ? Last Office Visit:05/20/2017 ? Next Office Visit: 11/17/2017 ? Last BP/Labs: Blood Pressure: Last 3 Encounter BP Readings: Date: BP: 06/24/2017 186/79 05/22/2017 179/74 05/20/2017 140/60 Lipids: Cholesterol, Total (mg/dL) Date Value 05/05/2016 194 11/28/2015 201 HDL Cholesterol (mg/dL) Date Value 05/05/2016 48 11/28/2015 45 LDL Cholesterol (mg/dL) Date Value 05/05/2016 92 11/28/2015 85 Triglyceride (mg/dL) Date Value 05/05/2016 270 11/28/2015 354 HGB A1C: Lab Results Component Value Date HBA1C 6.2 05/05/2016 HBA1C 6.0 11/22/2014 HBA1C 6.2 05/09/2014 TSH: No results found for: TSH) Care Gap: HTN - Last BP NOT under 140/90 Plan: ? Type of appointment needed: Nurse BP vist next available Labs, HM and Immunization: Health Maintenance Due: There are no preventive care reminders to display for this patient. Karrie Mathew [facility] Karrie Mathew [facility] 07/05/2017 10:07 PM Signed Mailbox full - unable to leave a message. Try again later. Karrie Mathew [facility] 07/05/2017 10:07 PM Signed BP will be rechecked at appointment on 07/07. Will wait to see what it is. Allergies As of Date: 06/30/2017 Noted Allergy Reaction CARDIZEM (DILTIAZEM HCL) 03/18/2005 2 - Rash CEFDINIR 04/21/2017 4 - Hives DARVOCET A500 (PROPOXYPHENE N-ROSA*03/18/2005 8 - GI Upset DOXYCYCLINE 05/26/2008 11 - Vomiting FLEXERIL (CYCLOBENZAPRINE HCL) 02/19/2007 5 - Intolerance Comments: heart racing LEVAQUIN (LEVOFLOXACIN) 01/20/2013 16 - Unknown NOVACAINE [Other] 02/15/2005 PENICIILLINS [Other] 02/15/2005 10 - Anaphylaxis SULFA (SULFONAMIDE ANTIBIOTICS) 02/15/2005 7 - Swelling Comments: tongue swelling Date Reviewed: 06/24/2017 Reviewed by: Kevin Orlando - Fully Assessed Reason for Visit: PHMA/Care Gap Outreach [[id number]] Prescriptions as of 06/30/2017 Sig: CEFDINIR 300 MG CAPSULE TRIAMCINOLONE ACETONIDE 0.1 %* Apply 1 application to affect* ROSUVASTATIN 5 MG TABLET Take 1 tablet by mouth daily * NYSTATIN 100,000 UNIT/ML ORAL* Take 5 mL by mouth four times* DOCUSATE SODIUM 100 MG CAPSULE Take 1 capsule by mouth once * HYDROCODONE 7.5 MG-ACETAMINOP* Take 1 tablet by mouth every * ERGOCALCIFEROL (VITAMIN D2) 5* Take 1 capsule three times we* TRIAMTERENE 37.5 MG-HYDROCHLO* Take 1 capsule by mouth once * ALBUTEROL SULFATE HFA 90 MCG/* Inhale 2 Puffs as instructed * APIXABAN 5 MG TABLET Take 1 tablet by mouth twice * BENZONATATE 100 MG CAPSULE Take 1 capsule by mouth three* BIOTIN ORAL Take by mouth. FENTANYL 50 MCG/HR TRANSDERMA* AMLODIPINE 10 MG TABLET Take 1 tablet by mouth once d* LISINOPRIL 40 MG TABLET Take 1 tablet by mouth once d* GABAPENTIN 600 MG TABLET Take 2 tablets by mouth three* Patient taking differently: Take 1,200 mg by mouth three * LANSOPRAZOLE 30 MG CAPSULE,DE* Take 1 capsule by mouth once * NITROGLYCERIN 0.4 MG SUBLINGU* Dissolve 1 tablet under the t* TIZANIDINE 4 MG TABLET Take 1 tablet by mouth at bed* GUAIFENESIN 100 MG/5 ML ORAL * Take 10 mL by mouth three denisse* FLUTICASONE 50 MCG/ACTUATION * Use 2 Sprays in each nostril * DICLOFENAC 1 % TOPICAL GEL Apply to affected area. Appl* Problem List As Of Date 06/30/2017 Noted Resolved GENERALIZED ANXIETY DIS [F41.1] More... DISACCHARIDASE DEF/MALAB [E73.9] GENERAL OSTEOARTHROSIS [M15.9] CARPAL TUNNEL SYNDROME [G56.00] Hyperlipidemia [E78.5] ALLERGIC RHINITIS NOS [J30.9] More... ARTERIAL DISEASE NEC [I77.89] SCIATICA [M54.30] OBESITY NOS [E66.9] ESOPHAGEAL REFLUX [K21.9] PAROX ATRIAL TACHYCARDIA [I47.1] Essential hypertension [I10] Occlusion and stenosis of carotid artery [I65.2*INVALID FOR* Vitamin D deficiency [E55.9] INVALID FOR* Dysmetabolic Syndrome [E88.81] INVALID FOR* Laceration [[id number]] INVALID FOR* Calcaneal spur [M77.30] INVALID FOR* Sinusitis [J32.9] INVALID FOR* More... 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 Pt was seen by me in the past (February) and then had trav done by Dr. Timmons recently for gallstones and RUQ pain. Pt has had nl LFT's and MRCP showed some pancreatic and rell ductal dilation w/o any other pathology in November. Recent labs including LFT's, CBC, Ca 19-9, lipase were all nl. Still has postprandial RUQ pain, and nausea. Pt had IOC that suggested ?'able distal CBD stricture, so Dr. Timmons asked me to see again. I reviewed IOC. Current Outpatient Prescriptions: cefdinir (OMNICEF) 300 mg capsule triamcinolone acetonide (KENALOG) 0.1 % cream Apply 1 application to affected area three times daily as needed. Apply sparingly to area for rash/itching. rosuvastatin (CRESTOR) 5 mg tablet Take 1 tablet by mouth daily at bedtime. nystatin (MYCOSTATIN) 100,000 unit/mL suspension Take 5 mL by mouth four times daily. 1tsp swish in mouth for several minutes, then swallow (or expectorate) 4 times daily until gone. docusate sodium (COLACE) 100 mg capsule Take 1 capsule by mouth once daily. HYDROcodone-Acetaminophen (NORCO) 7.5-325 mg per tablet Take 1 tablet by mouth every 6 hours as needed for Pain. ergocalciferol, vitamin D2, (DRISDOL) 50,000 unit capsule Take 1 capsule three times wekly triamterene-hydrochlorothiazide 37.5-25 mg per capsule Take 1 capsule by mouth once daily. Take in am. albuterol HFA (PROVENTIL HFA, VENTOLIN HFA) 90 mcg/actuation inhaler Inhale 2 Puffs as instructed every 4 hours as needed for Wheezing/Shortness of Breath. apixaban (ELIQUIS) 5 mg tab tab(s) Take 1 tablet by mouth twice daily. benzonatate (TESSALON PERLE) 100 mg capsule Take 1 capsule by mouth three times daily as needed. BIOTIN ORAL Take by mouth. fentaNYL (DURAGESIC) 50 mcg/hr amLODIPine (NORVASC) 10 mg tablet Take 1 tablet by mouth once daily. lisinopril (ZESTRIL) 40 mg tablet Take 1 tablet by mouth once daily. gabapentin (NEURONTIN) 600 mg tablet Take 2 tablets by mouth three times daily. (Patient taking differently: Take 1,200 mg by mouth three times daily. Pt takes twice daily) lansoprazole (PREVACID) 30 mg capsule Take 1 capsule by mouth once daily. nitroglycerin sublingual (NITROQUICK) 0.4 mg SL tablet Dissolve 1 tablet under the tongue as needed. FOR CHEST PAIN. IF NO RELIEF CALL 911 tiZANidine (ZANAFLEX) 4 mg tablet Take 1 tablet by mouth at bedtime as needed. guaiFENesin (COUGH CONTROL) 100 mg/5 mL syrup Take 10 mL by mouth three times daily as needed for Cough. fluticasone (FLONASE) 50 mcg/actuation nasal spray Use 2 Sprays in each nostril once daily. Rinse mouth after use. Diclofenac Sodium 1 % gel Apply to affected area. Apply 2 grams to upper extremity joints up to 4 times daily as needed. No more than 32 grams total per day. No current facility-administered medications for this visit. ALLERGIES Allergen Reactions - Cardizem [Diltiazem* Rash - Cefdinir Hives - Darvocet A500 [Prop* GI Upset - Doxycycline Vomiting - Flexeril [Cyclobenz* Intolerance heart racing - Levaquin [Levofloxa* Unknown - Novacaine [Other] - Peniciillins [Other] Anaphylaxis - Sulfa (Sulfonamide * Swelling tongue swelling REVIEW OF SYSTEMS: GENERAL: No weight loss, malaise or fevers. HEENT: Negative for frequent or significant headaches, No changes in hearing or vision, no nose bleeds or other nasal problems. NECK: Negative for lumps, goiter, pain and significant neck swelling. RESPIRATORY: Negative for cough, hemoptysis, wheezing or shortness of breath CARDIOVASCULAR: Negative for chest pain, leg swelling or palpitations GI: See HPI : No history of dysuria, frequency or incontinence MUSCULOSKELETAL: Negative for joint pain or swelling, back pain or muscle pain. SKIN: Negative for lesions, rash, and itching PSYCH: Negative for sleep disturbance, mood disorder and recent psychosocial stressors NEURO: No history of headaches, syncope, paralysis, seizures or tremors PHYSICAL EXAMINATION: BP 186/79 Pulse 65 Ht 5' 4 (1.63m) Wt 145 lb 12.8 oz (66.1kg) BMI 25.01 kg/(m2). GENERAL APPEARANCE: Well appearing, alert, in no acute distress, well-hydrated, well nourished. EYES: No icterus ABDOMEN: Normal, soft, non-tender, no masses or organomegaly. ASSESSMENT AND PLAN: ASSESSMENT/PLAN: 1. Imaging of gastrointestinal tract abnormal - ICD9: 793.4, ICD10: R93.3 (primary diagnosis) - CONSULT TO GASTROENTEROLOGY, Dr Jean for EUS 2. RUQ pain - ICD9: 789.01, ICD10: R10.11 - CONSULT TO GASTROENTEROLOGY Kevin Orlando MD CNOV Observed: 06/24/2017 Status: COMPLETED Source: [facility] 1:30 PM [facility] REPOSITORY Office Visit (AGGASTACC) CADY SALMERON ([id number]) 1935 F Date Time Provider Department 06/24/17 1:30 PM KEVIN ORLANDO AGGASTACC During your visit today, we recorded the following information about you: Pulse Blood pressure Weight Height 65/minute 186/79 66.1 kg 1.626 m Kevin Orlando MD 06/24/2017 2:21 PM Signed HPI: Cady Salmeron is a 82 year old female who presents for follow up of Consult (Dilation of biliary tract). Pt was seen by me in the past (February) and then had trav done by Dr. Timmons recently for gallstones and RUQ pain. Pt has had nl LFT's and MRCP showed some pancreatic and rell ductal dilation w/o any other pathology in November. Recent labs including LFT's, CBC, Ca 19- 9, lipase were all nl. Still has postprandial RUQ pain, and nausea. Pt had IOC that suggested ?'able distal CBD stricture, so Dr. Timmons asked me to see again. I reviewed IOC. Current Outpatient Prescriptions: cefdinir (OMNICEF) 300 mg capsule triamcinolone acetonide (KENALOG) 0.1 % cream Apply 1 application to affected area three times daily as needed. Apply sparingly to area for rash/itching. rosuvastatin (CRESTOR) 5 mg tablet Take 1 tablet by mouth daily at bedtime. nystatin (MYCOSTATIN) 100,000 unit/mL suspension Take 5 mL by mouth four times daily. 1tsp swish in mouth for several minutes, then swallow (or expectorate) 4 times daily until gone. docusate sodium (COLACE) 100 mg capsule Take 1 capsule by mouth once daily. HYDROcodone-Acetaminophen (NORCO) 7.5-325 mg per tablet Take 1 tablet by mouth every 6 hours as needed for Pain. ergocalciferol, vitamin D2, (DRISDOL) 50,000 unit capsule Take 1 capsule three times wekly triamterene-hydrochlorothiazide 37.5-25 mg per capsule Take 1 capsule by mouth once daily. Take in am. albuterol HFA (PROVENTIL HFA, VENTOLIN HFA) 90 mcg/actuation inhaler Inhale 2 Puffs as instructed every 4 hours as needed for Wheezing/Shortness of Breath. apixaban (ELIQUIS) 5 mg tab tab(s) Take 1 tablet by mouth twice daily. benzonatate (TESSALON PERLE) 100 mg capsule Take 1 capsule by mouth three times daily as needed. BIOTIN ORAL Take by mouth. fentaNYL (DURAGESIC) 50 mcg/hr amLODIPine (NORVASC) 10 mg tablet Take 1 tablet by mouth once daily. lisinopril (ZESTRIL) 40 mg tablet Take 1 tablet by mouth once daily. gabapentin (NEURONTIN) 600 mg tablet Take 2 tablets by mouth three times daily. (Patient taking differently: Take 1,200 mg by mouth three times daily. Pt takes twice daily) lansoprazole (PREVACID) 30 mg capsule Take 1 capsule by mouth once daily. nitroglycerin sublingual (NITROQUICK) 0.4 mg SL tablet Dissolve 1 tablet under the tongue as needed. FOR CHEST PAIN. IF NO RELIEF CALL 911 tiZANidine (ZANAFLEX) 4 mg tablet Take 1 tablet by mouth at bedtime as needed. guaiFENesin (COUGH CONTROL) 100 mg/5 mL syrup Take 10 mL by mouth three times daily as needed for Cough. fluticasone (FLONASE) 50 mcg/actuation nasal spray Use 2 Sprays in each nostril once daily. Rinse mouth after use. Diclofenac Sodium 1 % gel Apply to affected area. Apply 2 grams to upper extremity joints up to 4 times daily as needed. No more than 32 grams total per day. No current facility-administered medications for this visit. ALLERGIES Allergen Reactions - Cardizem [Diltiazem* Rash - Cefdinir Hives - Darvocet A500 [Prop* GI Upset - Doxycycline Vomiting - Flexeril [Cyclobenz* Intolerance heart racing - Levaquin [Levofloxa* Unknown - Novacaine [Other] - Peniciillins [Other] Anaphylaxis - Sulfa (Sulfonamide * Swelling tongue swelling REVIEW OF SYSTEMS: GENERAL: No weight loss, malaise or fevers. HEENT: Negative for frequent or significant headaches, No changes in hearing or vision, no nose bleeds or other nasal problems. NECK: Negative for lumps, goiter, pain and significant neck swelling. RESPIRATORY: Negative for cough, hemoptysis, wheezing or shortness of breath CARDIOVASCULAR: Negative for chest pain, leg swelling or palpitations GI: See HPI : No history of dysuria, frequency or incontinence MUSCULOSKELETAL: Negative for joint pain or swelling, back pain or muscle pain. SKIN: Negative for lesions, rash, and itching PSYCH: Negative for sleep disturbance, mood disorder and recent psychosocial stressors NEURO: No history of headaches, syncope, paralysis, seizures or tremors PHYSICAL EXAMINATION: BP 186/79 Pulse 65 Ht 5' 4ANDquot; (1.63m) Wt 145 lb 12.8 oz (66.1kg) BMI 25.01 kg/(m2). GENERAL APPEARANCE: Well appearing, alert, in no acute distress, well-hydrated, well nourished. EYES: No icterus ABDOMEN: Normal, soft, non-tender, no masses or organomegaly. ASSESSMENT AND PLAN: ASSESSMENT/PLAN: 1. Imaging of gastrointestinal tract abnormal - ICD9: 793.4, ICD10: R93.3 (primary diagnosis) - CONSULT TO GASTROENTEROLOGY, Dr Jean for EUS 2. RUQ pain - ICD9: 789.01, ICD10: R10.11 - CONSULT TO GASTROENTEROLOGY Kevin Orlando MD Referring Provider: DOMINGA TIMMONS [[id number]] Allergies As of Date: 06/24/2017 Noted Allergy Reaction CARDIZEM (DILTIAZEM HCL) 03/18/2005 2 - Rash CEFDINIR 04/21/2017 4 - Hives DARVOCET A500 (PROPOXYPHENE N-ROSA*03/18/2005 8 - GI Upset DOXYCYCLINE 05/26/2008 11 - Vomiting FLEXERIL (CYCLOBENZAPRINE HCL) 02/19/2007 5 - Intolerance Comments: heart racing LEVAQUIN (LEVOFLOXACIN) 01/20/2013 16 - Unknown NOVACAINE [Other] 02/15/2005 PENICIILLINS [Other] 02/15/2005 10 - Anaphylaxis SULFA (SULFONAMIDE ANTIBIOTICS) 02/15/2005 7 - Swelling Comments: tongue swelling Date Reviewed: 06/24/2017 Reviewed by: Kevin Orlando - Fully Assessed Reason for Visit: Consult [173] Cmt: Dilation of biliary tract Primary Visit Diagnosis:Imaging of gastrointestinal tract abnormal [R93.3] Other Visit Diagnosis:RUQ pain [R10.11] Order(s):CONSULT TO GASTROENTEROLOGY [9010] Order #: [id number]: 1 Prescriptions as of 06/24/2017 Sig: CEFDINIR 300 MG CAPSULE TRIAMCINOLONE ACETONIDE 0.1 %* Apply 1 application to affect* ROSUVASTATIN 5 MG TABLET Take 1 tablet by mouth daily * NYSTATIN 100,000 UNIT/ML ORAL* Take 5 mL by mouth four times* DOCUSATE SODIUM 100 MG CAPSULE Take 1 capsule by mouth once * HYDROCODONE 7.5 MG-ACETAMINOP* Take 1 tablet by mouth every * ERGOCALCIFEROL (VITAMIN D2) 5* Take 1 capsule three times we* TRIAMTERENE 37.5 MG-HYDROCHLO* Take 1 capsule by mouth once * ALBUTEROL SULFATE HFA 90 MCG/* Inhale 2 Puffs as instructed * APIXABAN 5 MG TABLET Take 1 tablet by mouth twice * BENZONATATE 100 MG CAPSULE Take 1 capsule by mouth three* BIOTIN ORAL Take by mouth. FENTANYL 50 MCG/HR TRANSDERMA* AMLODIPINE 10 MG TABLET Take 1 tablet by mouth once d* LISINOPRIL 40 MG TABLET Take 1 tablet by mouth once d* GABAPENTIN 600 MG TABLET Take 2 tablets by mouth three* Patient taking differently: Take 1,200 mg by mouth three * LANSOPRAZOLE 30 MG CAPSULE,DE* Take 1 capsule by mouth once * NITROGLYCERIN 0.4 MG SUBLINGU* Dissolve 1 tablet under the t* TIZANIDINE 4 MG TABLET Take 1 tablet by mouth at bed* GUAIFENESIN 100 MG/5 ML ORAL * Take 10 mL by mouth three denisse* FLUTICASONE 50 MCG/ACTUATION * Use 2 Sprays in each nostril * DICLOFENAC 1 % TOPICAL GEL Apply to affected area. Appl* Problem List As Of Date 06/24/2017 Noted Resolved GENERALIZED ANXIETY DIS [F41.1] More... DISACCHARIDASE DEF/MALAB [E73.9] GENERAL OSTEOARTHROSIS [M15.9] CARPAL TUNNEL SYNDROME [G56.00] Hyperlipidemia [E78.5] ALLERGIC RHINITIS NOS [J30.9] More... ARTERIAL DISEASE NEC [I77.89] SCIATICA [M54.30] OBESITY NOS [E66.9] ESOPHAGEAL REFLUX [K21.9] PAROX ATRIAL TACHYCARDIA [I47.1] Essential hypertension [I10] Occlusion and stenosis of carotid artery [I65.2*INVALID FOR* Vitamin D deficiency [E55.9] INVALID FOR* Dysmetabolic Syndrome [E88.81] INVALID FOR* Laceration [[id number]] INVALID FOR* Calcaneal spur [M77.30] INVALID FOR* Sinusitis [J32.9] INVALID FOR* More... 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 Disc: Reason for discontinue is not on file. LORazepam (ATIVAN) 1 mg tablet 45 t* 5 06/16/2017 06/24/2017 Class: Print RX Sig: Take one(1) tablet daily at bedtime and half pill daily in afternoon. Each refill should last at least 30 days Disc: Reason for discontinue is not on file. azithromycin (ZITHROMAX) 250 mg tabl* 04/01/2017 06/24/2017 Class: Historical Med Sig: Disc: Reason for discontinue is not on file. Level of Service: [facility] PATIENT VISIT LEVEL 4 [[id number]] Disposition: Return for f/up per DR Jean after procedure. Follow-up and Disposition History Recorded Encounter Status:Closed by KEVIN ORLANDO MD on 06/24/17 ALLERGIES ALLERGIES DATE TYPE / CODE NAME / CODE REACTION SEVERITY SOURCE 06/07/19 Drug Penicillins/[id number] Swelling Unknown [place] 19 Allergy/[id number] 476(RXNORM) [facility] (SNOMED CT) Hospital Repository 06/07/19 Drug Sulfa (Sulfonamide Other Unknown [place] 19 Allergy/[id number] Antibiotics)/[id number] [facility] (SNOMED CT) 0491(RXNORM) Hospital Repository 04/21/20 DRUG CEFDINIR HIVES [place] 17 INGREDI/[id number] Clinic Other (SNOMED CT) [place] Repository 01/21/20 DRUG LEVOFLOXACIN UNKNOWN [place] [facility] INGREDI/[id number] Clinic Other (SNOMED CT) [place] Repository 05/26/19 DRUG DOXYCYCLINE Vomiting [place] [facility] INGREDI/[id number] Clinic Other (SNOMED CT) [place] Repository 02/20/20 DRUG CYCLOBENZAPRINE HCL INTOLERANCE [place] [facility] INGREDI/[id number] Clinic Other (SNOMED CT) [place] Repository 03/18/20 DRUG DILTIAZEM HCL RASH [place] [facility] INGREDI/[id number] Clinic Other (SNOMED CT) [place] Repository 03/18/20 DRUG/[id number](SN PROPOXYPHENE GI UPSET [place] [address]) N-ACETAMINOPHEN Clinic Other [place] Repository 02/16/20 Miscellaneous OTHER [place] [facility] Allergy/[id number] Clinic Other (SNOMED CT) [place] Repository 02/16/20 Miscellaneous OTHER ANAPHYLAXIS [place] 05 Allergy/[id number] Clinic Other (SNOMED CT) [place] [facility] 02/16/20 Drug SULFA (SULFONAMIDE SWELLING [place] 05 Class/[id number](S ANTIBIOTICS) Clinic Other NOMED CT) [facility] NG/[id number](SNOM DILTIAZEM HCL [facility] ED [facility]) [facility] NG/[id number](SNOM PROPOXYPHENE [facility] ED [facility]) N-ACETAMINOPHEN [facility] Rep[facility] NG/658022995(SNOM DOXYCYCLINE [facility] ED [facility]) [facility] NG/[id number](SNOM CYCLOBENZAPRINE HCL [facility] ED [facility]) [facility] NG/[id number](SNOM LEVOFLOXACIN [facility] ED CT) [facility] NG/270441630(SNOM OTHER [facility] ED [facility]) [facility] NG/[id number](SNOM SULFA (SULFONAMIDE [facility] ED CT) ANTIBIOTICS) [facility] NG/204984241(SNOM CEFDINIR [facility] ED CT) [facility] ENCOUNTERS ENCOUNTERS ADMIT/DISCHARGE ACCOUNT NUMBER ADMITTING ENCOUNTER LOCATION SOURCE CLASS 06/10/2018/06/10/19 [id number] Ambulatory [address] Main [place] [facility] 06/09/2018/06/11/19 [id number] Ambulatory [address] [place] [facility] 06/09/2018/06/09/19 [id number] Ambulatory [address] Repository 06/09/2018/06/10/19 [id number] Ambulatory [address] [facility] 06/09/2018/06/09/19 [id number] Ambulatory [address] [facility] 06/08/2018/06/09/19 [id number] Ambulatory [place] [facility] [place] [facility] 06/07/2018/06/07/19 [id number] [facility] [place] [address] ding:ED Repository 06/01/2018/06/02/19 [id number] Ambulatory [place] [facility] [place] [facility] 05/14/2018/05/16/20 [id number] Ambulatory [place] [facility] [place] [facility] 05/07/2018/05/09/20 [id number] Ambulatory [place] [facility] [place] [facility] 03/19/2018/03/22/20 [id number] Ambulatory [place] 18 [facility] Main [place] [facility] 03/19/2018/03/19/20 [id number] Ambulatory [place] 18 [facility] Main [place] [facility] 11/17/2017/12/08/19 [id number] Ambulatory [place] 18 [facility] Main [place] [facility] 11/16/2017/11/17/19 [id number] Ambulatory [place] 18 [facility] Main [place] [facility] 10/09/2017/10/10/19 [id number] Ambulatory [address] Main [place] [facility] 10/09/2017 [id number] Ambulatory [facility] MEDICAL Repository CENTERBuildi ng:AGGASTACC 10/05/2017 [id number] Ambulatory [facility] MEDICAL Repository CENTERBuildi ng:AGGASTACC 09/09/2017/09/10/19 [id number] Ambulatory [place] 18 [facility] Other [place] [facility] 09/09/2017/09/10/19 [id number] Ambulatory [address] MEDICAL Repository CENTERBuildi ng:AGGASTACC 09/08/2017/09/09/19 [id number] Ambulatory [address] Other [facility] 09/08/2017/09/09/19 [id number] Ambulatory [address] MEDICAL Repository CENTERBuildi ng:AGGENS2 09/07/2017/09/08/19 [id number] Ambulatory [address] Main [place] [facility] 09/02/2017/09/03/19 [id number] ARJUN JEAN Ambulatory [place] [address] ANDRZEJ) [facility] Other [facility] 09/02/2017/09/03/19 [id number] ARJUN JEAN Inpatient [place] [address] ANDRZEJ) [facility] MEDICAL Repository CENTERBuildi ng:ENDORoom: POOLBed: 05 08/21/2017 [id number] Ambulatory Building:[facility] Repository 08/14/2017 [id number] ARJUN JEAN [facility] HAMMONDBuildi ng:AKEND 08/05/2017/08/06/19 [id number] Ambulatory [address] Main [place] [facility] 07/31/2017 [id number] Ambulatory [facility] MEDICAL Repository HAMMONDBuildi ng:AGGENS2 07/10/2017/07/15/19 [id number] Ambulatory [address] Main [place] [facility] 07/08/2017/07/08/19 [id number] Ambulatory [address] Main [place] [facility] 07/07/2017/07/07/19 [id number] Ambulatory [address] Other [place] [facility] 07/07/2017/07/07/19 [id number] Ambulatory [address] [facility] 06/24/2017/06/24/19 [id number] Ambulatory [address] Other [place] [facility] 06/24/2017/06/24/19 [id number] Ambulatory [address] [facility] 06/23/2017 [id number] Ambulatory [facility] PAYERS PAYERS ENCOUNTER GUARANTOR PAYER SUBSCRIBER SOURCE 06/07/2018 TIP [id number] Primary IRIS J [facility] Insurance:ADELE MONSALVE: [facility] Number: [id number] Hospital [address]Kyd: ([phone]) [facility]WS[facility] Repository [phone] () Date:[id number] [id number] ANNY TURNER [id number]: 06/07/2018 Secondary NOT GIVENUNK [place] Insurance:SELF PAY [facility] Number: Effective Repository Date:2018-06-07 10/09/2017 CADY MONSALVE: Primary IRIS J [facility] [id number] Insurance:ADELE MONSALVE: [facility] [place] MEDICARE PPOPolicy [id number] [place] Number: [id number]: [phone]) MEBJWWSSEffective [phone] (HP) Date: 10/05/2017 IRIS J STARKDOB: Primary IRIS J [facility] Insurance:AETNATHAN KONGB: [facility] [place] MEDICARE PPOPolicy [id number] Repository [place] Number: [id number]: (330) MEBJWWSSEffective [phone] (HP) Date: 09/09/2017 IRIS J STARKDOB: Primary IRIS J [facility] Insurance:AETNATHAN KONGB: [facility] [place] MEDICARE PPOPolicy [id number] Repository [place] Number: [id number]: [phone]) MEBJWWSSEffective [phone] (HP) Date: 09/08/2017 IRIS J STARKDOB: Primary IRIS J [facility] Insurance:AETNATHAN KONGB: [facility] [place] MEDICARE PPOPolicy [id number] Repository [place] Number: [id number]: [phone]) MEBJWWSSEffective [phone] (HP) Date: 09/02/2017 IRIS J STARKDOB: Primary IRIS J [facility] Insurance:MAYTETNATHAN KONGB: [facility] [place] MEDICARE PPOPolicy [id number] Repository [place] Number: [id number]: (330) MEBJWWSSEffective [phone] (HP) Date: 08/21/2017 IRIS STARKDOB: Primary IRIS STARKDOB: [facility] Insurance:AETNA [id number] [facility] [place] MEDICARE PPOPolicy Repository [place] Number: [id number]: [phone]) MEBJWWSSEffective [phone] (HP) Date: 08/14/2017 IRIS J STARKDOB: Primary IRIS J [facility] Insurance:AETNATHAN KONGB: [facility] [place] MEDICARE PPOPolicy [id number] Repository [place] Number: [id number]: [phone] MEBJWWSSEffective [phone] (HP) Date: 07/31/2017 IRIS J STARKDOB: Primary IRIS J [facility] Insurance:AETNATHAN KONGB: [facility] [place] MEDICARE PPOPolicy [id number] Repository [place] Number: [id number]: [phone] MEBJWWSSEffective [phone] (HP) Date: 07/07/2017 IRIS J STARKDOB: Primary IRIS J [facility] Insurance:AETNATHAN KONGB: [facility] [place] MEDICARE PPOPolicy [id number] Repository [place] Number: [id number]: [phone]) MEBJWWSSEffective [phone] (HP) Date: 06/24/2017 IRIS J STARKDOB: Primary IRIS J [facility] Insurance:MAYTETNATHAN KONGB: [facility] [place] MEDICARE PPOPolicy [id number] Repository [place] Number: [id number]: (330) MEBJWWSSEffective [phone] (HP) Date: 06/23/2017 IRIS J STARKDOB: Primary IRIS J [facility] Insurance:AETNATHAN KONGB: [facility] [place] MEDICARE PPOPolicy [id number] Repository [place] Number: [id number]: ([phone] MEBJWWSSEffective [phone] (HP) Date:
--- OUTSIDE RECORDS SUMMARY | 2018-08-10 02:44 | XMS RPT_ITS | Clinical Summary ---
:1935 Author Organization Formerly [facility] Address [address] [place] [phone] Phone Care Team Providers Name Role Phone Scott Johnson MD Unavailable Conditions or Problems Problem Name Problem Onset Status Entry Provider Comment Standard Annotate Code Date Date Description Carotid 06839743 Active Scott Wei Carotid artery artery (SNOMED 0/ 0 Alex LAWSON stenosis stenosis, CT) bilateral Essential 63183706 Active Scott Wei Essential hypertension (SNOMED 0/26 0/ Alex LAWSON hypertension CT) Sciatica 07206718 Active Scott Wei Sciatica (SNOMED 0/26 0/ Alex LAWSON CT) Pure 910409276 Active Scott Wei Pure hyperglycerid (SNOMED 0/26 0/ Alex LAWSON hyperglyceridemia emia CT) Pure 520101550 Active Scott Wei Pure hypercholeste (SNOMED 0/ 0/ Alex LAWSON hypercholesterole rolemia CT) shimon Paroxysmal 47551428 Active Scott Wei Paroxysmal supraventricu (SNOMED 0 0/ Alex LAWSON supraventricular lar CT) tachycardia tachycardia Hyperlipidemi 73980916 Active Scott Wei Hyperlipidemia a (SNOMED 026 0/[address]) Moderate 78724764 Active Scott Wei Aortic valve aortic (SNOMED 0/26 0/ Alex LAWSON stenosis stenosis CT) Generalized 339990266 Active Scott Wei 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 Generalized 05991335 Active Scott Wei Generalized anxiety (SNOMED 0/26 0/ Alex LAWSON anxiety disorder disorder CT) Esophageal 399476112 Active cSott Wei Gastroesophageal reflux (SNOMED Alex LAWSON reflux disease CT) Dysmetabolic 946662474 Active Scott Wei Metabolic syndrome X (SNOMED Alex LAWSON syndrome X CT) Carpal tunnel 83610822 Active Scott Wei Carpal tunnel syndrome (SNOMED Alex LAWSON syndrome CT) Carotid 435806416 Active Scott Wei Carotid artery artery (SNOMED Alex LAWSON occlusion occlusion CT) Allergic 29608658 Active Scott Wei Allergic rhinitis rhinitis (SNOMED Alex LAWSON CT) Medications Medication Instructions Start Stop Generic Name NDC Provider Date Date ACTIGALL 300 MG One tablet by / URSODIOL [id number] Scott eWi CAPS mouth twice 26 Alex LAWSON daily BIOTIN CAPS / BIOTIN CAPS 65390836401 Scott Wei 26 Alex LAWSON DURAGESIC-50 50 / FENTANYL 12225615897 Scott Wei MCG/HR PT72 26 Alex LAWSON NORCO 7.5-325 MG / HYDROCODONE-ACETA 04876900228 Scott Wei TABS 26 MINOPHEN Alex LAWSON NORVASC 10 MG One tablet by / AMLODIPINE 53269380478 Scott Wei TABS mouth daily 26 BESYLATE Alex LAWSON LISINOPRIL 40 MG One tablet by / LISINOPRIL 28423822700 Scott Wei TABS mouth daily 26 Alex LAWSON GABAPENTIN 600 Two tablets by / GABAPENTIN 93030525973 Scott Wei MG TABS mouth three 26 Alex LAWSON times daily LORAZEPAM 1 MG One tablet by / LORAZEPAM 15289455152 Scott Wei TABS mouth daily 26 Alex LAWSON PREVACID 30 MG One tablet by / LANSOPRAZOLE 75687009845 Scott Wei CPDR mouth daily 26 Alex LAWSON NITROGLYCERIN / NITROGLYCERIN 29824152188 Scott Wei 0.4 MG SUBL 26 Alex LAWSON ZANAFLEX 4 MG One tablet by / TIZANIDINE HCL 98452761811 Scott Wei TABS mouth daily at 26 Alex LAWSON bedtime as needed DRISDOL 93214 One tablet by / ERGOCALCIFEROL 68916165135 Scott Wei UNIT CAPS mouth three 26 Alex LAWSON times weekly TRIAMTERENE-HCTZ One tablet by / TRIAMTERENE-HCTZ 45497568635 Scott Wei 37.5-25 MG TABS mouth daily 26 Alex LAWSON VENTOLIN HFA 108 / ALBUTEROL SULFATE 24405721813 Scott Wei (90 Base) 26 Alex LAWSON MCG/ACT AERS ELIQUIS 5 MG One tablet by / APIXABAN 32616636860 Scott Wei TABS mouth twice 26 Alex LAWSON daily GUAIFENESIN-CODE as needed for / GUAIFENESIN-CODEI 60391871747 Scott Wei INE 100-10 cough 26 [address] Alex LAWSON MG/5ML SOLN MECLIZINE HCL 25 One tablet by / MECLIZINE HCL 80300569068 Scott Wei MG TABS mouth three 26 Alex LAWSON times daily as needed dizziness FLONASE 50 / FLUTICASONE 25442418693 Scott Wei MCG/ACT SUSP 26 PROPIONATE Alex LAWSON DICLOFENAC use as directed / DICLOFENAC SODIUM 48610830296 Scott Wei SODIUM 1 % GEL 26 Alex LAWSON ASPIRIN 81 MG One tablet by / ASPIRIN 76858614643 Scott Wei TABS mouth daily 26 Alex LAWSON LEXISCAN 0.4 / REGADENOSON 65505676634 Scott Wei MG/5ML SOLN 26 Alex LAWSON CARAFATE 1 GM Take 1 tablet / SUCRALFATE 05528426893 Scott Wei TABS prior to meals 26 Alex LAWSON and bedtime LIDODERM 5 % Apply 2 patches / LIDOCAINE 16537069935 Scott Wei [facility] as directed 26 Alex LAWSON every 24 hours. Remove patch after 12 hours TESSALON PERLES One tablet by / BENZONATATE 87511956516 Scott Wei 100 MG CAPS mouth three 26 Alex LAWSON times daily Medications Administered No information available. Allergies, Adverse Reactions, Alerts Allergy Name Reaction Start Date Severity Status Provider Description DARVOCET Critical Active Scott Johnson MD NOVACLAINE Critical Active Scott Jonhson MD SULFADIAZINE Moderate Active Scott Johnson MD [...] NHIS SMOK STATUS Former smoker Tobacco use [facility] Lab Report: CREATININE FINGERSTICK [id number] Test not performed mL/min >60 GE use only - for [employer] import when terms are not otherwise specified Plan of Care Type Date Detail Pending [...]
== END 2018-06-07 15:50 | disposition home or self-care (01) ==
PROVIDERS: Emergency Provider Emergency Medicine; Family Provider Internal Medicine; PCP Internal Medicine
DX: H81.10 Benign paroxysmal vertigo, unspecified ear (principal); R10.9 Unspecified abdominal pain; R19.5 Other fecal abnormalities; I10 Essential (primary) hypertension; I25.10 Atherosclerotic heart disease of native coronary artery without angina pectoris; K21.9 Gastro-esophageal reflux disease without esophagitis; Z86.711 Personal history of pulmonary embolism; Z95.828 Presence of other vascular implants and grafts; Z79.01 Long term (current) use of anticoagulants; Z79.82 Long term (current) use of aspirin; Z79.899 Other long term (current) drug therapy; Z87.891 Personal history of nicotine dependence
CPT/HCPCS: 80048; 85025; 93005; 99285; A4216

== ENCOUNTER → 2018-07-22 09:50 | Outpatient (CLI) | payer MEDICARE, SELFPAY ==
--- NOTE | 2018-07-22 09:56 | RAD_ITS ---
STUDY: AIR-CONTRAST UPPER GI SERIES AND SMALL BOWEL FOLLOW-THROUGH EXAMINATION. REASON FOR EXAM: Female, 83 years old. One-year history of nausea and right upper quadrant pain. Constipation and bloating. FLUOROSCOPY TIME (if supplied): (2:27) minutes/seconds. 23 images were obtained. TECHNIQUE: The patient ingested barium. Multiple images of the esophagus, stomach and duodenum were obtained. COMPARISON: None. FINDINGS: There is evidence of a small sliding hiatal hernia. No evidence of gastroesophageal reflux. The remainder of the stomach and duodenum is unremarkable. A small bowel follow-through examination was then obtained. The small bowel transit is normal. There is no evidence of intrinsic or extrinsic small bowel disease. The terminal ileum is unremarkable. RAD/Upper GI/w Small Bowel IMPRESSION: Small sliding hiatal hernia without gastroesophageal reflux. The remainder of the examination is unremarkable. Electronically Signed: Alan Perrin, at 9:34 EST , Service support ,
== END ==
PROVIDERS: Family Provider Internal Medicine; PCP Internal Medicine; Referring Provider Nurse Practitioner Adult Health; Visit Provider Nurse Practitioner Adult Health
DX: R11.0 Nausea (principal); R19.4 Change in bowel habit
CPT/HCPCS: 74249

== ENCOUNTER 2018-12-26 16:58 | Emergency (ER) | payer MEDICARE, SELFPAY ==
[2018-12-26 16:59] VITALS: BP 199/100; PULSE 96; RESP 18; TEMP 36.2; O2SAT 99; BMI 25.9
--- NOTE | 2018-12-26 17:29 | RAD_ITS ---
HISTORY:PAIN AND LROM, UNABLE TO ABDUCT ARM x3 DAYS, NKI PAIN AND LROM, UNABLE TO ABDUCT ARM x3 DAYS, NKI COMPARISON: None FINDINGS: # of images incl. paperwork: 2 XR Shoulder Min 2 Views: Right BONE AND JOINTS: No acute fracture or subluxation. Acromioclavicular arthropathy SOFT TISSUES: Unremarkable. No radiopaque foreign body. RAD/Shoulder min 2 Views IMPRESSION: No acute pathology Acromioclavicular arthropathy Consider a [place]as[place] view for additional evaluation if clinically indicated at 1744 Reported and signed by: Mckenzie Blood DO Electronically Signed: Mckenzie Blood DO at 17:43 EDT Tel , Service support ,
[2018-12-26] MEDS: HYDROmorphone 1 MG/ML Syringe IM (17:39)
--- NOTE | 2018-12-26 17:57 | ED.VISSUMM ---
- ER Visit Summary Date of Service: 12/26/18 Chief Complaint: [Right shoulder pain History of Present Illness: The patient is a 83 F [presents to the emergency department with pain in her right shoulder and she said for about 4 days. Patient states that she had a similar episode of pain and swelling after injuring her shoulder several weeks ago but then that resolved after a couple of days. Patient denies any trauma this time around. Patient is on Eliquis and Plavix. Patient denies any fevers. She denies any chest pain or shortness of breath. Patient states that the pain is severe and anytime she moves that she has severe pain. Patient already in pain management and has Duragesic patches and uses Vicodin for breakthrough pain.] Physical Examination: [HEENT-PERRLA, EOMI. Cranial nerves II through XII grossly intact. TMs clear. Mucous membranes moist. No adenopathy. Cardiovascular-regular rate and rhythm without murmur or ectopy Lungs-clear to auscultation, chest wall stable without crepitus or subcu emphysema Abdomen-normoactive bowel sounds, soft, nontender, no rebound or rigidity, no peritoneal signs. Extremities-intact ?4, normal range of motion, normal pulses, atraumatic. Right shoulder-patient has soft tissue swelling anterior glenohumeral joint with some fullness noted which I suspect is likely a hemarthrosis. Patient has pain with any type of range of motion. There is no erythema or warmth or cellulitis noted.] Test Results: [X-rays of the right shoulder showed acromioclavicular arthropathy.] Emergency Department Course and Treatment: [He was medicated with Dilaudid 1 mg IM. Case was discussed with orthopedic surgeon on-call Dr. Enoc Tracy who asked that we give the patient a sling and have her follow-up with his office.] I do not suspect patient to have septic joint. Treatment Plan: [Sling and follow-up with orthopedics. Patient also to follow-up with her paint prepper.] Disposition: [Discharged home stable condition] Impression: Right shoulder pain Hemarthrosis [] This note was generated with [employer]ation software. It may contain incorrect words, spelling, and punctuation that were not noted in review of the chart prior to signing ED Disposition - Plan for ED Patient: Referrals: Nayely Connell MD [Primary Care Provider] -
--- NOTE | 2018-12-26 18:00 | ED.DEP ---
ED Disposition - Plan for ED Patient: Instructions: SHOULDER PAIN (Uncertain Cause) Referrals: Nayely Connell MD [Primary Care Provider] - Enoc Tracy DO [STAFF PHYSICIAN] - As soon as possible
[2018-12-26 18:09] VITALS: BP 205/91; PULSE 96; RESP 18; O2SAT 98
--- NOTE | 2018-12-26 18:09 | ED.RN ---
PT GIVEN WRITTEN AND VERBAL DISCHARGE INSTRUCTIONS. SLING APPLIED TO RIGHT SHOULDER. PT EDUCATED ON USE. EDUCATED NOT TO DRIVE ON NARCOTIC MEDICATION. PT BP ELEVATED, DR GRANADOS AWARE. PT REPORTS THAT SHE FORGOT TO TAKE HER MEDS THIS MORNING, BUT WILL TAKE HER NIGHT MEDS.
== END 2018-12-26 18:16 | disposition home or self-care (01) ==
LOC: ED 17:15
PROVIDERS: Emergency Provider Emergency Medicine; Family Provider Internal Medicine; PCP Internal Medicine
DX: M25.011 Hemarthrosis, right shoulder (principal); M25.511 Pain in right shoulder; I25.10 Atherosclerotic heart disease of native coronary artery without angina pectoris; K21.9 Gastro-esophageal reflux disease without esophagitis; I10 Essential (primary) hypertension; Z86.718 Personal history of other venous thrombosis and embolism; Z79.01 Long term (current) use of anticoagulants; Z79.02 Long term (current) use of antithrombotics/antiplatelets; Z79.82 Long term (current) use of aspirin; Z79.899 Other long term (current) drug therapy
CPT/HCPCS: 73030; 96372; 99283

== ENCOUNTER 2019-05-17 11:51 | Inpatient (IN) | payer MEDICARE, SELFPAY ==
[2019-05-17] VITALS (9 sets, daily range): BP systolic 128–213; BP diastolic 44–105; PULSE 59–86; RESP 16–20; TEMP 36.9–37.1; O2SAT 85–97; BMI 25.6; BMI 28.3; BMI 28.4
--- NOTE | 2019-05-17 12:05 | CT_ITS ---
STUDY: CT BRAIN WITHOUT CONTRAST REASON FOR EXAM: Female, 84 years old. Headache and dizziness x 3-4 days, elevated BP also. Hx CHF, hypertension. RADIATION DOSAGE (If Supplied By Facility): CTDIvol = ( 44.99 ) mGy, DLP = ( 745.49 ) mGycm TECHNIQUE: Transaxial CT imaging of the brain was performed without administration of intravenous contrast material. Individualized dose optimization techniques were used for this CT. COMPARISON: 10/20/2014 FINDINGS: Normal soft tissue structures. Normal calvarium. There is mild cerebral atrophy with widening of the extra-axial spaces and ventricular dilatation. There are areas of decreased attenuation within the white matter tracts of the supratentorial brain, consistent with microvascular disease changes. Normal basal ganglia and thalami. Normal brainstem. Normal cerebellum. There is no intracranial hemorrhage. There are no findings of an acute ischemic infarction. Normal visualized paranasal sinuses. CT/Brain/Head without Contrast IMPRESSION: Chronic involutional changes of the brain. Electronically Signed: Dallas Lazaro MD at 13:25 EST Tel , Service support ,
[2019-05-17 12:37] LABS: Absolute Lymphocyte Count 1.38 X10^3/uL (0.83-4.51); Absolute Neutrophil Count 3.7 X10^3/uL (2.0-7.7); Basophil# 0.03 X10^3/uL; Basophil% 0.5 % (0-1); Eosinophil# 0.04 X10^3/uL; Eosinophils% 0.7 % (0-5); Hemoglobin 12.6 g/dL (12.0-15.0); Lymphocyte # 1.38 X10^3/ul (4.0); Lymphocyte % 24.7 % (19-41); Mean Corp Hgb Conc 32.3 g/dL (32-36); Mean Corpuscular Hgb 29.3 pg (27.0-32.0); Mean Corpuscular Volume 90.7 fL (81-99); Mean Platelet Vol. 9.4 fl (6.2-12.0); Monocyte# 0.43 X10^3/uL; Monocyte% 7.7 % (0-10); NRBC Flagged by Analyzer 0 % (0-5); Neutrophil # 3.68 X10^3/uL (2.7-7.7); Platelet Count 240 K/mm3 (150-450); RBC Distribution Width CV 13.7 % (11.6-14.6); RBC Distribution Width SD 45.4 fl (35.1-43.9); White Blood Count 5.6 K/mm3 (4.4-11.0)
[2019-05-17] MEDS: 0.9% Normal Saline 1,000 ML 150 ML IV (12:46)
[2019-05-17] MEDS: Ondansetron 4 MG/2 ML Vial IV (12:46)
[2019-05-17] MEDS: MethylPREDNISolone 125 MG/2 ML Vial IV (12:46)
[2019-05-17 12:58] LABS: AST(SGOT) 25 U/L (15-37); Alanine Aminotransfer ALT/SGPT 33 U/L (13-56); Albumin, Serum 3.9 g/dL (3.2-5.0); Alkaline Phosphatase 54 U/L (45-117); Anion Gap 7 (5-15); BUN 17 mg/dL (7-18); BUN/Creat Ratio 12.8 RATIO (10-20); Bilirubin, Direct 0.11 mg/dL (0.00-0.30); Calcium,Total 9.5 mg/dL (8.5-10.1); Chloride 99 mmol/L (98-107); Creatinine, Serum 1.33 mg/dL (0.55-1.02); EST Glomerular Filtration Rate 41 mL/min (>60); Est Glom Filt Rate - Afr Amer 49 mL/min (>60); Estimated Creatinine Clearance 25.35 ml/min; Globulin 3.4 g/dL (2.2-4.2); Glucose 154 mg/dL (74-106); Potassium 2.5 mmol/L (3.5-5.1); Protein, Total 7.3 g/dL (6.4-8.2); Sodium Level 141 mmol/L (136-145)
[2019-05-17 13:43] LABS: Bacteria 0 SEEN /hpf (None Seen); Mucous, Urine 0 SEEN /hpf (<or=2+); White Blood Cells 0 SEEN /hpf (0-5)
[2019-05-17 13:55] LABS: Color, Urine Yellow (Yellow); Glucose, Dipstick Normal (Normal); Ketone-Dipstick Negative (Negative); Leukocyte Esterase-Dipstick Negative /ul (Negative); Nitrite-Dipstick Negative (Negative); Occult Blood-Urine 50 /ul (Negative); Protein-Dipstick 100 mg/dl (Negative); Urine Bilirubin Dipstick Negative (Negative); Urine Clarity Sl. Cloudy (Clear); Urine Urobilinogen Normal (Normal); Urine pH 6.5 (5.0 - 8.0)
[2019-05-17 14:03] LABS: Red Blood Cells-Urine 0-5 SEEN /hpf (0-5); Squamous Epithelial Cells - UA 0-5 SEEN /hpf (5-10)
--- NOTE | 2019-05-17 14:16 | RAD_ITS ---
STUDY: X-RAY CHEST REASON FOR EXAM: Female, 84 years old. PT STATED SHORT OF BREATH TECHNIQUE: PA and lateral views of the chest. COMPARISON: 10/20/2014 FINDINGS: The lungs are clear and expanded. There is no demonstrated pleural abnormality. There is moderate cardiac enlargement. Normal mediastinum and tabby. Normal visualized pulmonary arteries. Normal visualized aortic arch and descending thoracic aorta. Normal visualized thoracic spine. Normal visualized ribs, clavicles, and shoulders. There is no demonstrated abnormality of the visualized soft tissue structures of the upper abdomen. RAD/Chest PA and Lateral IMPRESSION: No active disease. Electronically Signed: Dallas Lazaro MD at 15:03 EST Tel , Service support ,
--- NOTE | 2019-05-17 14:25 | EKG12_ITS ---
Test Reason : DIZZINESS Blood Pressure : / mmHG Vent. Rate : 066 BPM Atrial Rate : 066 BPM P-R Int : 258 ms QRS Dur : 086 ms QT Int : 448 ms P-R-T Axes : 032 000 164 degrees QTc Int : 469 ms Sinus rhythm with 1st degree A-V block Left ventricular hypertrophy with repolarization abnormality Abnormal ECG Confirmed by MIKEL SHEPHERD ([id number]), international editorial producer SHERRON SAM ([id number]) on 05/19/2019 10:43:20 AM Referred By: Rhianna Tellez Confirmed By:MIKEL SHEPHERD
--- NOTE | 2019-05-17 14:28 | ED.DCSUM_ITS ---
History of Present Illness Chief Complaint: Dizziness Detail of Chief Complaint: Dizzy and nausea Informant: Patient Onset: Days Narrative: Patient presents with complaints of rash on legs, dizzy and nausea. She states she gets recurrent rash on her legs that typically clears with prednisone. She had 2 prior episodes. This episode started just before [place]. She states her doctor told her they would not give her any more prednisone because her blood pressure is too high. She was told to follow-up with dermatology but was not given a name or phone number. She was given prescriptions for triamcinolone cream, hydroxyzine, cetirizine. She states after starting these medications she became dizzy and felt nauseated. She has had vomiting and was unable to keep her medication down over the past 3 days. She states the only medicine she was able to keep down was her Eliquis. She does report a mild headache. She denies feeling short of breath or having chest pain. - Past Medical History (1) Benign hypertension Status: Chronic (2) CAD (coronary artery disease) Status: Chronic (3) Carotid artery disease Status: Chronic (4) GERD (gastroesophageal reflux disease) Status: Chronic (5) HLD (hyperlipidemia) Status: Chronic (6) History of DVT (deep vein thrombosis) Status: Chronic (7) S/P IVC filter Status: Chronic Past Medical History - Allergies and Home Meds Allergies/Adverse Reactions: Allergies Penicillins Allergy (Verified 05/17/19 12:45) Swelling Sulfa (Sulfonamide Antibiotics) Allergy (Verified 05/17/19 12:45) Other Primary Care Physician: Nayely Connell MD [Primary Care Provider] - Prior records reviewed: Yes Surgical History: noncontributory, - - Hysterectomy, right carotid endarterectomy, colon area artery disease, previous stents, previous cardiac catheterization. Lives: Spouse/ Significant Other Smoking Status: Never smoker - Family History Maternal Family History: Reports: No pertinent history Review of Systems General: Denies: Chills, Fever Eyes: Denies: Visual changes - bilaterally ENT: Denies: Bilateral ear pain Cardiovascular: Denies: Chest pain Respiratory: Denies: Dyspnea, Cough Gastrointestinal: Reports: Abdominal pain, Nausea, Vomiting. Denies: Diarrhea Genitourinary: Denies: Dysuria Musculoskeletal: Reports: Extremity Pain - Burning sensation on legs. Denies: Neck pain, Back pain Skin: Reports: Rash Neurological: Reports: Headache. Denies: Weakness, Parasthesia Hematologic: Denies: Easy bruising Allergy: Denies: Uticaria Physical Exam Vital Signs/Narrative: Vital Signs Temp Pulse Resp BP Pulse Ox 05/17/19 13:46 96 05/17/19 11:52 98.6 F 86 16 213/105 H 95 Inital Vital Signs reviewed: Yes General: Well nourished, Well developed Head: Normocephalic ENT: Moist mucous membranes Neck: Supple Cardiovascular: Regular rate, Regular rhythm, Murmur Respiratory: No distress, CTA bilaterally Abdomen: Soft, Nontender Skin: - - Mild patchy erythema to the lower extremities. Lesions do not appear consistent with cellulitis. Lesions are not raised. Neurological: Alert, Oriented x3 Psychological: Normal affect Diagnostic/Tx/Re-eval Chest X-Ray - ED: 2 View, Read by ED Physician, - - Chronic changes, no focal i nfiltrate or effusion. Impressions Brain CT 05/17/19 12:05 IMPRESSION: Chronic involutional changes of the brain. Electronically Signed: Dallas Lazaro MD at 13:25 EST Tel , Service support , 05/17/19 12:05 Brain/Head without Contrast [CT] Stat 05/17/19 14:16 Chest PA and Lateral [RAD] Stat Laboratory Results 05/17/19 05/17/19 05/17/19 12:27 12:27 13:40 WBC 5.6 RBC 4.30 Hgb 12.6 Hct 39.0 MCV 90.7 MCH 29.3 MCHC 32.3 RDW Std Deviation 45.4 H RDW Coeff of Addi 13.7 Plt Count 240 MPV 9.4 Immature Gran % (Auto) 0.400 Neut % (Auto) 66.0 Lymph % (Auto) 24.7 [place] % (Auto) 7.7 Eos % (Auto) 0.7 Baso % (Auto) 0.5 Absolute Neuts (auto) 3.7 Absolute Lymphs (auto) 1.38 Nucleated RBC % 0 Sodium 141 Potassium 2.5 L* Chloride 99 Carbon Dioxide 35.0 H Anion Gap 7 BUN 17 Creatinine 1.33 H Estim Creat Clear Calc 25.35 Est GFR (MDRD) Af Amer 49 L Est GFR (MDRD) Non-Af 41 L BUN/Creatinine Ratio 12.8 Glucose 154 H Calcium 9.5 Total Bilirubin 0.30 Direct Bilirubin 0.11 AST 25 ALT 33 Alkaline Phosphatase 54 Total Protein 7.3 Albumin 3.9 Globulin 3.4 Urine Color Yellow Urine Clarity Sl. Cloudy Urine pH 6.5 Ur Specific [place] 1.010 Urine Protein 100 H Urine Glucose (UA) Normal Urine Ketones Negative Urine Occult Blood 50 H Urine Nitrite Negative Urine Bilirubin Negative Urine Urobilinogen Normal Ur Leukocyte Esterase Negative Urine RBC 0-5 SEEN Urine WBC 0 SEEN Ur Squamous Epith Cells 0-5 SEEN Urine Bacteria 0 SEEN Urine Mucus 0 SEEN - EKG Initial EKG Interpretation: Sinus Rhythm - Sinus at 66 with a first-degree AV block. Nonspecific T wave flattening noted in the lateral precordial leads. - Medical Decision Making Patient was given IV fluids, Zofran, and Solu-Medrol. She was given 20 mg of IV labetalol which improved her blood pressure into the 170s, but on recheck was back up to 196 systolic. Potassium is low and patient is able to tolerate p.o. replacement. She is given her normal home blood pressure medications. Nursing staff states that when they went to check her her pulse ox was 88% on room air and when ambulating to the restroom and back had dropped to as low as 83%. She was placed on nasal cannula. Patient denies feeling short of breath or having cough. She states that she does have some shortness of breath when going up and down steps at home. At this time patient is requiring O2 and will would need to be admitted for this. She is already on Eliquis and I do not suspect pulmonary embolism. ED Disposition - Plan for ED Patient: Disposition: Acute Care [facility] Diagnosis: Hypoxia, Hypokalemia, Hypertension Referrals: Nayely Connell MD [Primary Care Provider] -
[2019-05-17] MEDS: Labetalol 200 MG Tablet PO (15:00)
[2019-05-17] MEDS: amLODIPine 10 MG Tablet PO (15:00)
--- NOTE | 2019-05-17 15:20 | PCM.HP.STD ---
Problem List (1) Rash Status: Acute (2) Hypertension, uncontrolled Status: Acute (3) Hypokalemia Status: Acute (4) Hypoxia Status: Acute (5) Former tobacco use Status: Chronic (6) CAD (coronary artery disease) Status: Chronic Qualifiers: Coronary Disease-Associated Artery/Lesion type: unspecified vessel or lesion type [place] vs. transplanted heart: unspecified whether [place] or transplanted heart Associated angina: angina presence unspecified Qualified Code(s): I25.10 - Atherosclerotic heart disease of [place] coronary artery without angina pectoris (7) Carotid artery disease Status: Chronic Qualifiers: Carotid artery disease type: unspecified Laterality: unspecified laterality Qualified Code(s): I73.9 - Peripheral vascular disease, unspecified (8) GERD (gastroesophageal reflux disease) Status: Chronic Qualifiers: Esophagitis presence: esophagitis presence not specified Qualified Code(s): K21.9 - Gastro-esophageal reflux disease without esophagitis (9) HLD (hyperlipidemia) Status: Chronic Qualifiers: Hyperlipidemia type: unspecified Qualified Code(s): E78.5 - Hyperlipidemia, unspecified (10) History of DVT (deep vein thrombosis) Status: Chronic History of Present Illness Date of Admission: 05/17/19 Chief Complaint: BL LE rash, N/V x 3 days The patient is an 84 y/o F w/ PMHx: Former Tobacco use, 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, CAD, Carotid disease s/p L CEA, HTN, HLD, Chronic pain syndrome following w/ Pain Management, Anxiety and Depression, GERD who presents to the [facility] ED 05/17/19 with history of intermittent bilateral lower extremity rash with patchy erythematous regions, nonraised noted to be severely pruritic with clinical improvement with steroids with most recent episode starting just prior to [facility] evaluation with attempt to avoid steroid initiation with referral to dermatology and at that time initiation of triamcinolone, hydroxyzine and certirizine with onset dizziness and nausea following these regimens as well as emesis with poor oral intake attempt x 3 days including her blood pressure regimen with notably elevated blood pressure as a result. In the ED patient with noted hypoxia primarily with exertion. She does state that she has had a longstanding months to years history of dyspnea primarily when she exerts herself. She does have a very prolonged history of prior tobacco use. Work-up in the ED included T 98.6, rate 86, BP 213/105, respiratory rate 16, 95% on room air, CBC with WBC 5.6, hemoglobin 12.6, platelet 240 without shift, CMP with potassium 2.5, carbond dioxide 35, BUN/creatinine 17/1.33, glucose 134, unremarkable hepatic profile, CT head w/ chronic involution changes, EKG w/ sinus rhythm with no acute evidence of ischemia, UA w/ SG 1.010, Protein 100, Occult blood 50, negative nitrite, negative LE, no marked WBC or bacteria. In the ED patient administered potassium 60 mEq p.o. x1, Zofran, Solu-Medrol 125 mg IV x1, labetalol 20 mg IV x1 in addition to normal saline. Past Medical History Past Medical History (Chronic Problems): Chronic Problems Former tobacco use (Chronic) GERD (gastroesophageal reflux disease) (Chronic) S/P IVC filter (Chronic) Carotid artery disease (Chronic) CAD (coronary artery disease) (Chronic) History of DVT (deep vein thrombosis) (Chronic) HLD (hyperlipidemia) (Chronic) Benign hypertension (Chronic) Allergies Penicillins Allergy (Verified 05/17/19 12:45) Swelling Sulfa (Sulfonamide Antibiotics) Allergy (Verified 05/17/19 12:45) Other Home Medications: Ambulatory Orders Medication Instructions Recorded Amlodipine [Norvasc] 10 mg PO DAILY 10/20/14 Aspirin [Aspirin, Baby] 81 mg PO DAILY@0800 10/20/14 Gabapentin [Neurontin] 1,200 mg PO TID 10/20/14 Hydrocodone/Acetaminophen 1 each PO Q6H PRN PRN 10/20/14 [Hydrocodone-Acetamin 5-325 mg] Lansoprazole [Prevacid] 30 mg PO DAILY 10/20/14 Lisinopril [Zestril] 40 mg PO DAILY 10/20/14 Lorazepam [Ativan] 1 mg PO QHS 10/20/14 Tizanidine HCl [Zanaflex] 4 mg PO QHS PRN PRN 10/20/14 fentaNYL patch [Duragesic patch] 25 mcg TRANSDERM. Q72H 10/20/14 Apixaban [Eliquis] 5 mg PO BID 06/07/18 Cetirizine HCl 10 mg PO DAILY 06/07/18 Labetalol [Trandate (Beta Gen)] 200 mg PO BID 06/07/18 Multivit-Min/Iron/Folic/[id number] 1 each PO DAILY 06/07/18 [Hair, Skin and Nails Tablet] Ondansetron [Zofran Odt] 4 mg PO Q8H PRN PRN #5 tab 06/07/18 Surgical History: - - Hysterectomy, right carotid endarterectomy, colon area artery disease, CAD s/p PCI x 5. Psychiatric History: No pertinent psych hx MANAGEMENT AIDE History: No pertinent MANAGEMENT AIDE history Lives: Spouse/ Significant Other Smoking Status: Former smoker - Patient smokes cigarette tobacco usage from age 23 to approximately 30 years prior to current presentation with 1 pack/day usage. Alcohol: Rare Drugs: None - *Family History Maternal History Items: Diabetes, Heart Disease, Hypertension Paternal History Items: Cancer, Diabetes, Heart Disease, Hypertension Review of Systems Constitutional: Reports: Anorexia, Malaise, Weakness, Fatigue. Denies: Chills, Fever, Weight Change HEENT: Denies: Head Aches, Sinus Congestion, Sinus Drainage Cardiovascular: Denies: Chest Pain, Palpitations Respiratory: Reports: Shortness of breath upon exertion. Denies: Cough, Shortness of breath at rest, Sputum production Gastrointestinal: Reports: Nausea, Vomiting. Denies: Abdominal Pain Genitourinary: Denies: Dysuria Musculoskeletal: Reports: Joint Pain. Denies: Joint Tenderness Skin: Reports: Rash, Skin Changes. Denies: Wounds Neurological: Denies: Numbness, Tingling, Focal weakness Psychiatric: Reports: Anxiety, Depression. Denies: Homicidal Ideations, Suicidal Ideations Hematologic/ Lymphatic: Reports: Easy Bruising, Easy Bleeding VTE Information - Inpt Only VTE Present on Admission: No VTE Mechan Device Prophylaxis: SCD's VTE Pharm Prophylaxis ordered?: No Reason prophylaxis not ordered:: Treatment Not Indicated - We will continue patient home Eliquis regimen. Patient Problems: Active and Suspected Problems Hypertension, uncontrolled (Acute) Hypokalemia (Acute) Hypoxia (Acute) Rash (Acute) Subjective: Seated upright in ED bed, fatigued appearance, no acute distress otherwise but notes lower extremities are itching. Objective: Physical Examination: General: awake, alert, oriented x 3 and cooperative, seated upright in the ED bed in no apparent distress. Skin: normal color, turgor, no icterus, cyanosis except notable bilateral lower extremity erythematous rash primarily to distal below the knee bilaterally, nonraised, pruritic, blanching. HEENT: AT/NC, EOMI, PERRLA, dry MM, no carotid bruits or JVD noted. Lungs: Diffusely diminished breath sounds, greater bases, moderate effort, no rales, ronchi or wheezing. Heart: Regular rate and rhythm; no gallop, rub audible, notable SM present which she notes is chronic. Abdomen: soft, NTTP, ND, normal BS, no HSM. Extremities: no cyanosis, clubbing, see skin, nonedematous lower extremities. Neurological: patient awake, alert, oriented x 3; cognitive function intact; pupils equally reactive to light and accomodation; cranial nerves II-XII grossly normal, moving all 4 extremities, no focal deficits, strength moderately to severely globally decreased secondary to acute presentation as noted. Psychiatric: affect appears fatigued mildly flat, no acute evidence of depressive or anxiety feelings. - Physical Exam Vitals/I&O's: Vital Signs Temp Pulse Resp BP Pulse Ox 98.6 F 76 16 182/98 H 96 05/17/19 11:52 05/17/19 15:00 05/17/19 15:00 05/17/19 15:00 05/17/19 15:00 Oxygen Flow Rate (L/min) 2 Oxygen Delivery Method Nasal Cannula Weight: 140 lb Body Mass Index (BMI) 25.6 Laboratory Results 05/17/19 12:27: WBC 5.6, RBC 4.30, Hgb 12.6, Hct 39.0, MCV 90.7, MCH 29.3, MCHC 32.3, RDW Std Deviation 45.4 H, RDW Coeff of Addi 13.7, Plt Count 240, MPV 9.4, Immature Gran % (Auto) 0.400, Neut % (Auto) 66.0, Lymph % (Auto) 24.7, [place] % (Auto) 7.7, Eos % (Auto) 0.7, Baso % (Auto) 0.5, Absolute Neuts (auto) 3.7, Absolute Lymphs (auto) 1.38, Nucleated RBC % 0 05/17/19 12:27: Sodium 141, Potassium 2.5 L*, Chloride 99, Carbon Dioxide 35.0 H, Anion Gap 7, BUN 17, Creatinine 1.33 H, Estim Creat Clear Calc 25.35, Est GFR (MDRD) Af Amer 49 L, Est GFR (MDRD) Non-Af 41 L, BUN/Creatinine Ratio 12.8, Glucose 154 H, Calcium 9.5, Total Bilirubin 0.30, Direct Bilirubin 0.11, AST 25, ALT 33, Alkaline Phosphatase 54, Total Protein 7.3, Albumin 3.9, Globulin 3.4 05/17/19 13:40: Urine Color Yellow, Urine Clarity Sl. Cloudy, Urine pH 6.5, Ur Specific [place] 1.010, Urine Protein 100 H, Urine Glucose (UA) Normal, Urine Ketones Negative, Urine Occult Blood 50 H, Urine Nitrite Negative, Urine Bilirubin Negative, Urine Urobilinogen Normal, Ur Leukocyte Esterase Negative, Urine RBC 0-5 SEEN, Urine WBC 0 SEEN, Ur Squamous Epith Cells 0-5 SEEN, Urine Bacteria 0 SEEN, Urine Mucus 0 SEEN Current Medications Sodium Chloride () 1,000 mls @ 150 mls/hr IV .Q6H40M [facility] Last Admin: 05/17/19 12:46 Dose: 150 mls/hr Documented by: Assessment/Plan All Active Problems Hypertension, uncontrolled (Acute) Hypokalemia (Acute) Hypoxia (Acute) Rash (Acute) The patient is an 84 y/o F w/ PMHx: 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, CAD, Carotid disease s/p L CEA, HTN, HLD, Chronic pain syndrome following w/ Pain Management, Anxiety and Depression, GERD who presents to the [facility] ED 05/17/19 with history of intermittent bilateral lower extremity rash with patchy erythematous regions, nonraised noted to be severely pruritic with clinical improvement with steroids with most recent episode starting just prior to [facility] evaluation with attempt to avoid steroid initiation with referral to dermatology and at that time initiation of triamcinolone, hydroxyzine and certirizine with onset dizziness and nausea following these regimens as well as emesis with poor oral intake attempt x 3 days. 1. Intractable Dizziness with Nausea, ? Medication side effect versus Recent Acute Viral Syndrome w/ Concurrent noted Hypoxia versus Undiagnosed Chronic COPD: Work-up in the ED included T 98.6, rate 86, BP 213/105, respiratory rate 16, 95% on room air however did decrease with ambulation to 86% on RA, CBC with WC 5.6, hemoglobin 12.6, platelet 240 without shift, CMP with potassium 2.5, carbond dioxide 35, BUN/creatinine 17/1.33, glucose 134, unremarkable hepatic profile, CT head w/ chronic involution changes, EKG w/ sinus rhythm with no acute evidence of ischemia, UA w/ SG 1.010, Protein 100, Occult blood 50, negative nitrite, negative LE, no marked WBC or bacteria. In the ED patient administered potassium 60 mEq p.o. x1, Zofran, Solu-Medrol 125 mg IV x1, labetalol 20 mg IV x1 in addition to normal saline. Given patient presentation and recent history, onset of dizziness as well as nausea with emesis following new medications for lower extremity rash, will discontinue this regimen at this time, as noted Solu-Medrol IV x1 administered in the ED with then plan transition to prednisone therapy with close BP monitoring as of been hypertensive prior, maintain fall precautions, allow clear liquids once improved with PRN nausea regimen, will obtain respiratory viral panel, continue hydration with plan repeat chest x-ray in a.m. in case developing pneumonia given hypoxia, maintain on albuterol as needed, DuoNeb therapy, PT/OT/case management consultations for discharge planning. If chest x-ray and respiratory viral panel unremarkable given patient history of months to years history of dyspnea primarily with exertion and prolonged tobacco use history would plan on outpatient pulmonary function testing with oxygenation assessment prior to discharge to home while ambulatory. 2. Recurrent bilateral lower extremity rash, unclear specific etiology: Patient has had this rash intermittently, clears with oral prednisone therapy, episode started just prior to with her PCP referral to dermatology given elevated BP and preference to avoid further oral prednisone with prescription per PCP recently of triamcinolone, hydroxyzine and certirizine with onset dizziness and nausea following these regimens as well as emesis with poor oral intake attempt x3 days. Will initiate prednisone therapy given recent use of Solu-Medrol the following day, will plan referral to [facility] especially given the physician willingness to get patients in very quickly for close follow-up following discharge. Will hold all prior oral regimens given patient debility associated. 2. Hypertension, Uncontrolled: Notably elevated BP upon presentation, possibly contributing to acute presentation with prednisone therapy deferred per PCP secondary to elevated level, will have PRN antinausea medicines and once improved will initiate home labetalol, lisinopril and Norvasc regimens which she has been unable to keep down, continue PRN IV hydralazine if necessary may add labetalol PRN IV also. 3. Hypokalemia: Admission K+ 2.5, supplementation given, repeat level upon transition to floor and also in AM. Magnesium requested. 4. Hyperglycemia: Admission glucose 154, possibly stress response, hemoglobin A1c requested though does have history of recent steroid usage thus possibly contributing. 5. Renal insufficiency on Suspected CKD stage III: Admission BUN/creatinine 17/1.33, most recent creatinine noted in system on 06/07/2018 1.18, gently hydrating given acute presentation as noted, repeat BMP this evening and in a.m. given electrolyte disturbances. 6. CAD: We will continue patient home aspirin, Eliquis regimen as well as labetalol, lisinopril therapy, not on statin therapy but given age defer to outpatient. 7. History PE/DVT: s/p IVC Filter prior, continue patient home Eliquis regimen. 8. Hyperlipidemia: Not on regimen, defer to outpatient. 9. Chronic pain syndrome: Following with pain management, continue patient home fentanyl Duragesic patch, gabapentin, Zanaflex, oral narcotic therapy for breakthrough with fall precautions, positional changes, PT/OT/case management consultation for discharge planning. 10. Anxiety and depression: We will continue patient home nightly Ativan given prolonged usage but maintain strict fall precautions given acute presentation as noted #1 and hold if sedate. 11. GERD: Continue patient home PPI. 12. DVT prophylaxis: SCDs, continue home Eliquis regimen. CODE status: Patient and spouse present, they do not have a healthcare power of regulatory attorney nor living will set up between them. Encouraged case management discussions to assist in this process. Discussed CODE status at length including difference between FULL code, DNR-CCA and DNR-CC status. Following discussions about the differences in these status, requested full CODE STATUS. Advanced Care Planning Face to Face Time: 16 minutes. Code Visit Inpatient E&M: 10028 Init Hosp L3 Procedures: 08926 Advncd Care Plan 30 Min
[2019-05-17 16:54] LABS: Magnesium 1.8 mg/dL (1.6-2.6)
[2019-05-17] MEDS: 0.9% Normal Saline 1,000 ML 100 ML IV (17:07)
[2019-05-17] MEDS: 0.9% Saline Lock 10 ML Syringe IV (17:08)
[2019-05-17] MEDS: Ensure Clear 120 ML Liquid PO (18:14)
[2019-05-17] MEDS: HYDROcodone Bitartrate/Apap 5/325 Tablet PO (18:17)
[2019-05-17 18:57] LABS: Hemoglobin A1c 7.2 % (4.2-6.3)
--- NOTE | 2019-05-17 18:58 | NURSING ---
Reviewed and agreed on all charting with Tim anton RN
[2019-05-17 21:00] LABS: Anion Gap 14 (5-15); BUN 18 mg/dL (7-18); BUN/Creat Ratio 10.1 RATIO (10-20); Calcium,Total 8.3 mg/dL (8.5-10.1); Chloride 101 mmol/L (98-107); Creatinine, Serum 1.79 mg/dL (0.55-1.02); EST Glomerular Filtration Rate 29 mL/min (>60); Est Glom Filt Rate - Afr Amer 35 mL/min (>60); Estimated Creatinine Clearance 18.83 ml/min; Glucose 300 mg/dL (74-106); Potassium 2.9 mmol/L (3.5-5.1); Sodium Level 139 mmol/L (136-145)
[2019-05-17] MEDS: APIXABAN 5 MG TABLET PO (21:27)
[2019-05-17] MEDS: Gabapentin 600 MG Tablet 1200 MG PO (21:27)
[2019-05-17] MEDS: Sucralfate 1 GM Tablet PO (21:28)
[2019-05-17] MEDS: Labetalol 100 MG Tablet 300 MG PO (21:29)
[2019-05-17] MEDS: Atorvastatin Calcium 80 MG Tablet PO (21:29)
[2019-05-17] MEDS: Potassium Chloride 10mEq/100mL 10 MEQ/100 ML IV.SOLN. 100 MEQ IV BOLUS ×2 (22:42→23:47)
[2019-05-18] VITALS (8 sets, daily range): BP systolic 116–139; BP diastolic 49–55; PULSE 64–74; RESP 16–18; TEMP 36.5–37.1; O2SAT 93–95
[2019-05-18] MEDS: Potassium Chloride 10mEq/100mL 10 MEQ/100 ML IV.SOLN. 100 MEQ IV BOLUS ×2 (00:39→01:51)
[2019-05-18] MEDS: 0.9% Normal Saline 1,000 ML 100 ML IV (04:51)
[2019-05-18 05:27] LABS: Absolute Lymphocyte Count 0.64 X10^3/uL (0.83-4.51); Absolute Neutrophil Count 6.4 X10^3/uL (2.0-7.7); Hematocrit 34.7 % (37-47); Hemoglobin 10.8 g/dL (12.0-15.0); Lymphocyte # 0.64 X10^3/ul (4.0); Lymphocyte % 8.9 % (19-41); Mean Corp Hgb Conc 31.1 g/dL (32-36); Mean Corpuscular Hgb 29.1 pg (27.0-32.0); Mean Corpuscular Volume 93.5 fL (81-99); Mean Platelet Vol. 9.9 fl (6.2-12.0); Monocyte# 0.14 X10^3/uL; NRBC Flagged by Analyzer 0 % (0-5); Neutrophil # 6.35 X10^3/uL (2.7-7.7); Neutrophil % 88.5 % (47-70); Platelet Count 224 K/mm3 (150-450); RBC Distribution Width SD 47.8 fl (35.1-43.9); Red Blood Count 3.71 M/mm3 (4.2-5.4); White Blood Count 7.2 K/mm3 (4.4-11.0)
[2019-05-18 05:48] LABS: ALB/GLOB Ratio 0.9 RATIO (0.9-2.4); AST(SGOT) 16 U/L (15-37); Alanine Aminotransfer ALT/SGPT 30 U/L (13-56); Alkaline Phosphatase 44 U/L (45-117); Anion Gap 8 (5-15); BUN 20 mg/dL (7-18); BUN/Creat Ratio 13.1 RATIO (10-20); Calcium,Total 7.9 mg/dL (8.5-10.1); Chloride 102 mmol/L (98-107); Creatinine, Serum 1.53 mg/dL (0.55-1.02); EST Glomerular Filtration Rate 34 mL/min (>60); Est Glom Filt Rate - Afr Amer 42 mL/min (>60); Estimated Creatinine Clearance 22.03 ml/min; Globulin 3.3 g/dL (2.2-4.2); Glucose 219 mg/dL (74-106); Potassium 4.4 mmol/L (3.5-5.1); Protein, Total 6.3 g/dL (6.4-8.2); Sodium Level 138 mmol/L (136-145)
--- NOTE | 2019-05-18 05:55 | RAD_ITS ---
STUDY: X-RAY CHEST REASON FOR EXAM: Female, 84 years old. DIZZINESS, SOB TECHNIQUE: PA and lateral views of the chest. COMPARISON: May 17, 2019 at 2:33 PM. FINDINGS: Again seen is stable mild hyperinflation. There is stable mild prominence of the interstitium bilaterally and diffusely without focal alveolar opacification. There is no pneumothorax. There is no pleural effusion. Again seen is [id number] enlargement of the cardiac mediastinal silhouette. Normal visualized pulmonary arteries. There is atherosclerotic calcification of the aortic arch with tortuosity. There is no evident acute osseous abnormality. Again seen are nonacute, minimally offset fractures of the posterior left third and fourth ribs. Diffuse degenerative changes are seen throughout visualized cervical spine. There is no demonstrated abnormality of the visualized soft tissue structures of the upper abdomen. RAD/Chest PA and Lateral IMPRESSION: Stable examination. No evident acute cardiopulmonary disease. Nonacute left posterior rib fractures as above. Stable mild to moderate cardiomegaly. Prominent interstitium, most consistent with interstitial fibrosis. Electronically Signed: Evan Salinas MD at 9:43 EST , Service support ,
[2019-05-18] MEDS: Sucralfate 1 GM Tablet PO (05:59)
[2019-05-18] MEDS: HYDROcodone Bitartrate/Apap 5/325 Tablet PO ×2 (09:15→15:26)
[2019-05-18] MEDS: predniSONE 20 MG Tablet 40 MG PO (09:15)
[2019-05-18] MEDS: Aspirin 81 MG TAB.CHEW PO (09:16)
[2019-05-18] MEDS: APIXABAN 5 MG TABLET PO (09:16)
[2019-05-18] MEDS: amLODIPine 10 MG Tablet PO (09:17)
[2019-05-18] MEDS: Clopidogrel Bisulfate 75 MG Tablet PO (09:18)
[2019-05-18] MEDS: Pantoprazole Sodium 40 MG Tablet PO (09:19)
[2019-05-18] MEDS: Labetalol 100 MG Tablet 300 MG PO (09:19)
[2019-05-18] MEDS: Famotidine 20 MG Tablet PO (09:20)
[2019-05-18] MEDS: Lisinopril 40 MG Tablet PO (09:20)
[2019-05-18] MEDS: Ensure Clear 120 ML Liquid PO (15:23)
--- NOTE | 2019-05-18 16:08 | PCM.DC ---
- Discharge Diagnoses Current Active Problems: Current Active and Chronic Problems Hypertension, uncontrolled (Acute) Hypokalemia (Acute) Hypoxia (Acute) Former tobacco use (Chronic) Rash (Acute) Hypoxia (Acute) Hypokalemia (Acute) Hypertension (Chronic) You will use the following diet at home:: No restrictions Your food should be the consistency of: Regular Your liquids should be the consistency of: Regular/Thin Discharge Activity: Return to Normal Activity Weight Bearing Status: Full weight bearing Allergies/Adverse Reactions: Allergies Penicillins Allergy (Verified 05/17/19 12:45) Swelling Sulfa (Sulfonamide Antibiotics) Allergy (Verified 05/17/19 16:25) Swelling milk Adverse Reaction (Verified 05/17/19 16:25) Diarrhea Medications to take at Discharge Amlodipine [Norvasc] 10 mg PO DAILY 10/20/14 Apixaban [Eliquis] 5 mg PO BID 05/17/19 Clopidogrel Bisulfate [Clopidogrel] 75 mg PO DAILY 05/17/19 Colestipol HCl 1 gm PO BID 05/17/19 Ergocalciferol (Vitamin D2) [Vitamin D2] 50,000 unit PO UD 05/17/19 Fentanyl 25 mcg TP Q72H 05/17/19 Labetalol HCl 300 mg PO BID 05/17/19 Lisinopril 40 mg PO DAILY 05/17/19 Rosuvastatin Calcium 40 mg PO QHS 05/17/19 Apixaban [Eliquis] 5 mg PO BID tablet 05/18/19 Gabapentin [Neurontin] 1,200 mg PO QHS #1 tablet 05/18/19 Hydrocodone Bitart/Apap 5-325 [[place] 5/325] 1 - 2 tablet PO Q4H PRN PRN 1 Days #1 tablet 05/18/19 Labetalol [Trandate (Beta Gen)] 300 mg PO BID tablet 05/18/19 Lisinopril [Zestril] 40 mg PO DAILY tablet 05/18/19 MethylPREDNISolone DosePak [Medrol DosePak] 4 mg PO UD #1 box 05/18/19 Pantoprazole Sodium [Protonix] 40 mg PO DAILY #30 tab 05/18/19 The following prescriptions were given: MethylPREDNISolone DosePak [Medrol DosePak] 4 mg PO UD #1 box Transmission Status: Pending to [facility] Gabapentin [Neurontin] 1,200 mg PO QHS #1 tablet Pantoprazole Sodium [Protonix] 40 mg PO DAILY #30 tab Transmission Status: Pending to [facility] Primary Care Physician: Nayely Connell MD [Primary Care Provider] - Please follow up with your Primary Care Physician in: as scheduled Test Results: Test results from this visit will be discussed in further detail at your follow-up appointment, if applicable.
--- NOTE | 2019-05-20 08:27 | DS.PCM_ITS ---
Discharge Date and Diagnosis Date of Admission: 05/17/19 Date of Discharge: 05/18/19 - Primary Discharge Diagnosis #1 hypokalemia-secondary to vomiting #2 Dizziness-etiology unknown #3 hypoxia-etiology unknown #4 essential hypertension #5 coronary artery disease #6 eczema of the lower extremity-probable atopic dermatitis - Secondary Discharge Diagnosis Chronic Problems Former tobacco use (Chronic) Hypertension (Chronic) GERD (gastroesophageal reflux disease) (Chronic) S/P IVC filter (Chronic) Carotid artery disease (Chronic) CAD (coronary artery disease) (Chronic) History of DVT (deep vein thrombosis) (Chronic) HLD (hyperlipidemia) (Chronic) Benign hypertension (Chronic) Hospital Course and Treatment Operations: None Procedures: None Summary of Care Provided: The patient is a 84 year old F who was seen in the emergency room at [facility] with complaints of dizziness, nausea and rash over her lower legs. The rash was not new, she had had prior episodes of this and she was on triamcinolone cream for the rash. Work-up in the emergency room included labs which showed a low potassium, pulse ox was low at 88 on room air when ambulating it dropped to as low as 83% in the emergency room. Patient denied any shortness of breath or chest discomfort, patient was given oral potassium and was given IV labetalol due to elevated blood pressure. Patient was admitted to PCU, IV fluids were continued and patient was seen by PT and OT, blood pressure was monitored, labs were repeated and her potassium normalized. Patient was able to be weaned off oxygen. On 05/18/2019, patient was seen and examined: On examination she appeared in good health and spirits. Vital signs as documented. Skin warm and dry and without overt rashes. Neck without JVD. Lungs clear. Heart exam notable for regular rhythm, normal sounds and absence of murmurs, rubs or gallops. Abdomen unremarkable and without evidence of organomegaly, masses, or abdominal aortic enlargement. Extremities nonedematous. Neuro: Cranial nerves II through XII are grossly intact, no focal motor deficits were noted, sensation to light touch and pinprick is intact. Psych: Patient is alert and oriented x3, she does not appear anxious or depressed Patient was able to ambulate without difficulty on 05/18/2019, she was felt to be stable for discharge home, her medications were reviewed and adjusted prior to her discharge home. - Physical Exam Vitals/I&O's: Vital Signs Temp Pulse Resp BP Pulse Ox 97.7 F L 67 16 116/49 L 94 05/18/19 15:21 05/18/19 15:21 05/18/19 15:21 05/18/19 15:21 05/18/19 15:21 Oxygen Flow Rate (L/min) 2 Oxygen Delivery Method Room Air Weight: 70.352 kg Body Mass Index (BMI) 28.3 Intake and Output for Last 24 Hours 05/18/19 05/19/19 05/20/19 23:59 23:59 23:59 Intake Total 2475.67 / 2475.67 Balance 2475.67 / 2475.67 Microbiology Past 72 Hours 05/17/19 17:12 Mucosa - Nasopharyngeal Respiratory Panel (PCR) - Final Discharge Activity: Return to Normal Activity Weight Bearing Status: Full weight bearing Home Medications: Medications to take at Discharge Amlodipine [Norvasc] 10 mg PO DAILY 10/20/14 Apixaban [Eliquis] 5 mg PO BID 05/17/19 Clopidogrel Bisulfate [Clopidogrel] 75 mg PO DAILY 05/17/19 Colestipol HCl 1 gm PO BID 05/17/19 Ergocalciferol (Vitamin D2) [Vitamin D2] 50,000 unit PO UD 05/17/19 Fentanyl 25 mcg TP Q72H 05/17/19 Labetalol HCl 300 mg PO BID 05/17/19 Lisinopril 40 mg PO DAILY 05/17/19 Rosuvastatin Calcium 40 mg PO QHS 05/17/19 Apixaban [Eliquis] 5 mg PO BID tab 05/18/19 Gabapentin [Neurontin] 1,200 mg PO QHS #1 tab 05/18/19 Labetalol [Trandate (Beta Gen)] 300 mg PO BID tab 05/18/19 Lisinopril [Zestril] 40 mg PO DAILY tab 05/18/19 MethylPREDNISolone DosePak [Medrol DosePak] 4 mg PO UD #1 box 05/18/19 Pantoprazole Sodium [Protonix] 40 mg PO DAILY #30 tab 05/18/19 Following Prescrptions Were Given to Patient: MethylPREDNISolone DosePak [Medrol DosePak] 4 mg PO UD #1 box Transmission Status: Received by [facility] #30 Gabapentin [Neurontin] 1,200 mg PO QHS #1 tab Pantoprazole Sodium [Protonix] 40 mg PO DAILY #30 tab Transmission Status: Received by [facility]30 Primary Care Physician: Nayely Connell MD [Primary Care Provider] - Please follow up with your Primary Care Physician in: as scheduled Disposition: Home Minutes spent on discharge:: 31 Patient Condition:: Stable Medical Necessity - Tobacco Use Smoking Status: Former smoker Tobacco Use: Cigarettes Meaningful Use Info Meaningful Use Diagnoses (Choose all that apply): None applicable Code Visit Inpatient E&M: 05974 Disch Hosp
== END 2019-05-18 17:19 | disposition home or self-care (01) | DRG 641 ==
LOC: ED 15:24 → PCU 15:49
PROVIDERS: Admitting Provider Family Medicine; Emergency Provider Emergency Medicine; Family Provider Internal Medicine; PCP Internal Medicine; Referring Provider Family Medicine; Visit Provider Internal Medicine
DX: E87.6 Hypokalemia (principal); R42 Dizziness and giddiness; R09.02 Hypoxemia; I25.10 Atherosclerotic heart disease of native coronary artery without angina pectoris; L20.9 Atopic dermatitis, unspecified; K21.9 Gastro-esophageal reflux disease without esophagitis; E78.5 Hyperlipidemia, unspecified; I10 Essential (primary) hypertension; Z95.828 Presence of other vascular implants and grafts; Z86.718 Personal history of other venous thrombosis and embolism; Z79.01 Long term (current) use of anticoagulants; G89.4 Chronic pain syndrome; Z87.891 Personal history of nicotine dependence
CPT/HCPCS: 36415; 70450; 71046; 80048; 80053; 80076; 81001; 83036; 83735; 85025; 87633; 93005; 97802; 99251; 99285; J7030; A4216; G0463; J2405

== ENCOUNTER 2019-06-03 09:43 | Emergency (ER) | payer MEDICARE, SELFPAY ==
[2019-05-17 16:27] VITALS: BMI 28.3
[2019-06-03 09:44] VITALS: BP 195/99; PULSE 77; RESP 18; TEMP 36.4; O2SAT 96; BMI 29.8
--- NOTE | 2019-06-03 09:55 | CT_ITS ---
STUDY: CT BRAIN WITHOUT CONTRAST REASON FOR EXAM: Female, 84 years old. FELL, HIT BACK OF HEAD. ON BLOOD THINNERS. RADIATION DOSAGE (If Supplied By Facility): CTDIvol = ( 44.99 ) mGy, DLP = ( 779.24 ) mGycm TECHNIQUE: Transaxial CT imaging of the brain was performed without administration of intravenous contrast material. Individualized dose optimization techniques were used for this CT. COMPARISON: Comparison is made with prior study dated May 17, 2019. FINDINGS: Normal soft tissue structures. Normal calvarium. There is mild cerebral atrophy with widening of the extra-axial spaces and ventricular dilatation. There are areas of decreased attenuation within the white matter tracts of the supratentorial brain, consistent with microvascular disease changes. Normal basal ganglia and thalami. Normal brainstem. There is mild cerebellar atrophy. There is no intracranial hemorrhage. There are no findings of an acute ischemic infarction. Atherosclerotic calcification of the cavernous portions of the internal carotid arteries bilaterally. Normal visualized paranasal sinuses. CT/Brain/Head without Contrast IMPRESSION: Chronic involutional changes of the brain. Electronically Signed: Alan Perrin, at 10:29 EST , Service support ,
--- NOTE | 2019-06-03 09:56 | RAD_ITS ---
STUDY: X-RAY - RIGHT SHOULDER REASON FOR EXAM: Female, 84 years old. FELL THIS MORNING -- SHOULDER PAIN, LIMITED ROM TECHNIQUE: 4 view(s) of the shoulder. COMPARISON: None. FINDINGS: There is mild degenerative arthrosis of the glenohumeral articulation. There is degenerative arthrosis of the acromioclavicular joint without inferior osseous spur formation. Normal acromion. Normal humeral head and visualized proximal humerus. The soft tissue structures are unremarkable. Normal visualized pulmonary apex. RAD/Shoulder min 2 Views IMPRESSION: Mild degree of degenerative changes of the glenohumeral joint and acromioclavicular joint. Electronically Signed: Alan Perrin, at 10:46 EST , Service support ,
--- NOTE | 2019-06-03 09:56 | CT_ITS ---
STUDY: CT CERVICAL SPINE WITHOUT CONTRAST REASON FOR EXAM: Female, 84 years old. FELL, HIT BACK OF HEAD. ON BLOOD THINNERS. RADIATION DOSAGE (If Supplied By Facility): CTDIvol = ( 16.92 ) mGy, DLP = ( 341.29 ) mGycm TECHNIQUE: High resolution transaxial imaging was performed without contrast material. Sagittal and coronal images were reconstructed. Individualized dose optimization techniques were used for this CT. COMPARISON: None FINDINGS: Normal craniovertebral junction. There are degenerative changes of the anterior atlantoaxial articulation. Normal odontoid process. Normal cervical lordosis. Normal vertebral bodies and posterior osseous elements. C2-3: Normal endplates. Normal disc height and morphology. Normal central canal and intervertebral neuroforamina. C3-4: Normal endplates. Normal disc height and morphology. Normal central canal and intervertebral neuroforamina. C4-5: Marked degree of disc space narrowing and spondylosis. Facet joint osteoarthritis. Uncovertebral arthrosis. Bilateral neural foraminal stenosis. C5-6: Mild degree of disc space narrowing. Spondylosis. Uncovertebral arthrosis. Bilateral neural foraminal stenosis worse on the left side. C6-7: Marked degree of disc space narrowing. Spondylosis. Facet joint osteoarthritis and uncovertebral arthrosis. Bilateral neural foraminal stenosis. C7-T1: Normal endplates. Normal disc height and morphology. Normal central canal and intervertebral neuroforamina. Normal visualized soft tissue structures. CT/Spine Cervical without Contras IMPRESSION: Multilevel degenerative changes, as described above. Electronically Signed: Alan Perrin, at 11:19 EST , Service support ,
--- NOTE | 2019-06-03 09:57 | RAD_ITS ---
STUDY: X-RAY - LUMBAR SPINE REASON FOR EXAM: Female, 84 years old. FELL THIS MORNING -- LBP TECHNIQUE: 3 view(s) of the lumbar spine were obtained. COMPARISON: None FINDINGS: Normal lumbar lordosis. There is no substantial scoliosis. There is a normal alignment of the vertebrae. There is endplate spondylosis of the lumbar vertebrae. Mild disc space narrowing at the L3-L4 and L4-L5 levels. Facet joint osteoarthritis. There is atherosclerotic calcification of the abdominal aorta without a demonstrated aneurysm. RAD/Lumbar Spine 2 or 3 Views IMPRESSION: Degenerative changes of the spine, as detailed above. Electronically Signed: Alan Perrin, at 10:44 EST , Service support ,
--- NOTE | 2019-06-03 09:57 | ED.DCSUM_ITS ---
History of Present Illness Chief Complaint: Fall Informant: Patient Onset: Today Current Severity: Moderate Maximum Severity: Severe Worsened by: Movement Narrative: Patient presents after a fall at home. She was carrying a laundry basket down the steps. She missed the last step. Patient states she was holding onto the rail which caused her to twist and landed on her back. She did strike the back of her head. She is on Eliquis. There was no loss of consciousness. Patient is complaining of mild headache and neck pain. She also complaining of right shoulder pain and lower back pain. She was able to get up and ambulate to the emergency room. Patient is already on Vicodin and a pain patch and does not anything further currently. - Past Medical History (1) Benign hypertension Status: Chronic (2) CAD (coronary artery disease) Status: Chronic (3) Carotid artery disease Status: Chronic (4) GERD (gastroesophageal reflux disease) Status: Chronic (5) HLD (hyperlipidemia) Status: Chronic (6) History of DVT (deep vein thrombosis) Status: Chronic Past Medical History - Allergies and Home Meds Allergies/Adverse Reactions: Allergies Penicillins Allergy (Verified 06/03/19 09:44) Swelling Sulfa (Sulfonamide Antibiotics) Allergy (Verified 06/03/19 09:44) Swelling milk Adverse Reaction (Verified 06/03/19 09:44) Diarrhea Primary Care Physician: Nayely Connell MD [Primary Care Provider] - Prior records reviewed: Yes Surgical History: - - Hysterectomy, right carotid endarterectomy, colon area artery disease, CAD s/p PCI x 5. Lives: Spouse/ Significant Other Smoking Status: Former smoker - Family History Paternal Family History: Reports: Cancer, Diabetes, Heart Disease, Hypertension Maternal Family History: Reports: Diabetes, Heart Disease, Hypertension Review of Systems General: Denies: Chills, Fever Eyes: Denies: Visual changes - bilaterally ENT: Denies: Bilateral ear pain Cardiovascular: Denies: Chest pain Respiratory: Denies: Dyspnea, Cough Gastrointestinal: Denies: Abdominal pain, Nausea, Vomiting, Diarrhea Musculoskeletal: Reports: Back pain, Extremity Pain Skin: Denies: Wounds Neurological: Reports: Headache. Denies: Weakness, Parasthesia Allergy: Denies: Uticaria Physical Exam Vital Signs/Narrative: Vital Signs Temp Pulse Resp BP Pulse Ox 06/03/19 09:44 97.6 F L 77 18 195/99 H 96 Inital Vital Signs reviewed: Yes General: Well nourished, Well developed Head: Normocephalic ENT: Moist mucous membranes Neck: Supple Cardiovascular: Irregular, Murmur Respiratory: No distress, CTA bilaterally, Chest tenderness - Mild right lower rib tenderness. No crepitus. Abdomen: Soft, Nontender Back: - - Mild lumbar tenderness. No ecchymosis or abrasions. Extremities: - - Mild tenderness to the right shoulder. Good range of motion. No sign of dislocation. Strong distal pulses. Skin: Normal color Neurological: Alert, Oriented x3, Normal Strength, Normal Sensation Psychological: Normal affect Diagnostic/Tx/Re-eval Impressions Brain CT 06/03/19 09:55 IMPRESSION: Chronic involutional changes of the brain. Electronically Signed: Alan Perrin, at 10:29 EST , Service support , Cervical Spine CT 06/03/19 09:56 IMPRESSION: Multilevel degenerative changes, as described above. Electronically Signed: Alan Perrin at 11:19 EST , Service support , Shoulder X-Ray 06/03/19 09:56 IMPRESSION: Mild degree of degenerative changes of the glenohumeral joint and acromioclavicular joint. Electronically Signed: Alan Perrin at 10:46 EST , Service support , Lumbar Spine X-Ray 06/03/19 09:57 IMPRESSION: Degenerative changes of the spine, as detailed above. Electronically Signed: Alan Perrin at 10:44 EST , Service support , 06/03/19 09:55 CT Head [Brain/Head without Contrast] [CT] Stat 06/03/19 09:56 CT Cervical [Spine Cervical without Contras] [CT] Stat Shoulder min 2 Views [RAD] Stat 06/03/19 09:57 Xray Lumbar [Lumbar Spine 2 or 3 Views] [RAD] Stat - Medical Decision Making Patient declined anything for pain here. Test results were discussed with her. She will continue her home pain medication regimen. Patient was noted to be hypertensive here. On further questioning from the nurse patient has stopped 2 out of her 3 antihypertensives stating that she was having episodes of dizziness. We encouraged her to at least restart her lisinopril. She is scheduled to be seen by a new rubber flap tuber machine operator next month. ED Disposition - Plan for ED Patient: Disposition: Home or Assisted Living Diagnosis: Fall, Closed head injury Instructions: FALL, Mechanical, HEAD INJURY, No Wake-Up (Adult), CONTUSION, Upper Extremity, CONTUSION, Back Referrals: Nayely Connell MD [Primary Care Provider] - 1 Week if not improving
[2019-06-03 11:30] VITALS: BP 181/91
== END 2019-06-03 11:31 | disposition home or self-care (01) ==
PROVIDERS: Emergency Provider Emergency Medicine; PCP Internal Medicine
DX: S09.90XA Unspecified injury of head, initial encounter (principal); M25.511 Pain in right shoulder; R07.89 Other chest pain; M54.5 Low back pain; W10.9XXA Fall (on) (from) unspecified stairs and steps, initial encounter; Y93.9 Activity, unspecified; Y92.9 Unspecified place or not applicable; I10 Essential (primary) hypertension; I25.10 Atherosclerotic heart disease of native coronary artery without angina pectoris; I65.29 Occlusion and stenosis of unspecified carotid artery; K21.9 Gastro-esophageal reflux disease without esophagitis; E78.5 Hyperlipidemia, unspecified; Z86.718 Personal history of other venous thrombosis and embolism; Z79.01 Long term (current) use of anticoagulants; Z79.02 Long term (current) use of antithrombotics/antiplatelets; Z79.899 Other long term (current) drug therapy; Z87.891 Personal history of nicotine dependence
CPT/HCPCS: 70450; 72100; 72125; 73030; 99282

== ENCOUNTER → 2019-06-20 16:59 | Outpatient (CLI) | payer MEDICARE, SELFPAY ==
[2019-06-03 09:44] VITALS: BMI 29.8
[2019-06-20 17:21] LABS: Absolute Lymphocyte Count 2.43 X10^3/uL (0.83-4.51); Absolute Neutrophil Count 3.8 X10^3/uL (2.0-7.7); Basophil# 0.05 X10^3/uL; Basophil% 0.7 % (0-1); Eosinophil# 0.12 X10^3/uL; Eosinophils% 1.7 % (0-5); Hematocrit 38.1 % (37-47); Hemoglobin 11.5 g/dL (12.0-15.0); Lymphocyte # 2.43 X10^3/ul (4.0); Lymphocyte % 35.1 % (19-41); Mean Corp Hgb Conc 30.2 g/dL (32-36); Mean Corpuscular Hgb 28.1 pg (27.0-32.0); Mean Corpuscular Volume 93.2 fL (81-99); Mean Platelet Vol. 9.6 fl (6.2-12.0); Monocyte# 0.51 X10^3/uL; Monocyte% 7.4 % (0-10); NRBC Flagged by Analyzer 0 % (0-5); Neutrophil # 3.79 X10^3/uL (2.7-7.7); Neutrophil % 54.8 % (47-70); Platelet Count 312 K/mm3 (150-450); RBC Distribution Width CV 14.1 % (11.6-14.6); RBC Distribution Width SD 47.9 fl (35.1-43.9); Red Blood Count 4.09 M/mm3 (4.2-5.4); White Blood Count 6.9 K/mm3 (4.4-11.0)
[2019-06-20 18:20] LABS: ALB/GLOB Ratio 1.1 RATIO (0.9-2.4); AST(SGOT) 19 U/L (15-37); Alanine Aminotransfer ALT/SGPT 23 U/L (13-56); Alkaline Phosphatase 99 U/L (45-117); Anion Gap 4 (5-15); BUN 19 mg/dL (7-18); BUN/Creat Ratio 13.3 RATIO (10-20); Chloride 105 mmol/L (98-107); Creatinine, Serum 1.43 mg/dL (0.55-1.02); EST Glomerular Filtration Rate 37 mL/min (>60); Est Glom Filt Rate - Afr Amer 45 mL/min (>60); Globulin 3.5 g/dL (2.2-4.2); Glucose 115 mg/dL (74-106); Potassium 4.1 mmol/L (3.5-5.1); Protein, Total 7.5 g/dL (6.4-8.2); Sodium Level 140 mmol/L (136-145); Thyroid Stim Hormone (TSH) 1.18 uIU/mL (0.358-3.74)
== END ==
PROVIDERS: Visit Provider Family Medicine Geriatric Medicine
DX: I10 Essential (primary) hypertension (principal)
CPT/HCPCS: 36415; 80053; 84443; 85025

== ENCOUNTER 2019-09-30 09:42 | Emergency (ER) | payer MEDICARE, SELFPAY ==
[2019-07-15 11:55] VITALS: BMI 29.2
[2019-09-30 09:43] VITALS: BP 198/81; PULSE 61; RESP 18; TEMP 36.4; O2SAT 95; BMI 26.5
--- NOTE | 2019-09-30 09:50 | CT_ITS ---
STUDY: CT BRAIN WITHOUT CONTRAST REASON FOR EXAM: Female, 84 years old. FALL TWO DAYS AGO. ON BLOOD THINNERS RADIATION DOSAGE (If Supplied By Facility): CTDIvol = ( 44.99 ) mGy, DLP = ( 812.98 ) mGycm TECHNIQUE: Transaxial CT imaging of the brain was performed without administration of intravenous contrast material. Individualized dose optimization techniques were used for this CT. COMPARISON: Comparison is made with prior examination dated June 03, 2019 FINDINGS: Small scalp hematoma overlying the posterior aspect of the superior right parietal bone. Normal calvarium. There is mild cerebral atrophy with widening of the extra-axial spaces and ventricular dilatation. There are areas of decreased attenuation within the white matter tracts of the supratentorial brain, consistent with microvascular disease changes. Normal basal ganglia and thalami. Normal brainstem. There is mild cerebellar atrophy. There is no intracranial hemorrhage. There are no findings of an acute ischemic infarction. Normal visualized paranasal sinuses. CT/Brain/Head without Contrast IMPRESSION: Small scalp hematoma overlying the posterior superior aspect of the right parietal bone. Chronic involutional changes of the brain. Electronically Signed: Alan Perrin, at 10:36 EDT , Service support ,
--- NOTE | 2019-09-30 09:50 | EKG12_ITS ---
Test Reason : FALL Blood Pressure : / mmHG Vent. Rate : 062 BPM Atrial Rate : 062 BPM P-R Int : 300 ms QRS Dur : 084 ms QT Int : 416 ms P-R-T Axes : 088 002 169 degrees QTc Int : 422 ms Sinus rhythm with 1st degree A-V block Left ventricular hypertrophy with repolarization abnormality Abnormal ECG Confirmed by VILMA LAWSON, YUSEF ([id number]), social media editor CHANG CONCEPCION ([id number]) on 10/04/2019 3:13:53 PM Referred By: SIXTO Confirmed By:CARA ESPARZA MD
--- NOTE | 2019-09-30 09:51 | CT_ITS ---
STUDY: CT CERVICAL SPINE WITHOUT CONTRAST REASON FOR EXAM: Female, 84 years old. FALL TWO DAYS AGO. ON BLOOD THINNERS RADIATION DOSAGE (If Supplied By Facility): CTDIvol = ( 16.56 ) mGy, DLP = ( 1225.98 ) mGycm TECHNIQUE: High resolution transaxial imaging was performed without contrast material. Sagittal and coronal images were reconstructed. Individualized dose optimization techniques were used for this CT. COMPARISON: Comparison is made with prior examination dated June 03, 2019. FINDINGS: Normal craniovertebral junction. There are degenerative changes of the anterior atlantoaxial articulation. Normal odontoid process. Normal cervical lordosis. Normal vertebral bodies and posterior osseous elements. C2-3: Normal endplates. Normal disc height and morphology. Normal central canal and intervertebral neuroforamina. C3-4: Minimal posterior spondylosis. No significant disc space narrowing is seen. C4-5: Moderate degree of disc space narrowing with spondylosis and uncovertebral arthrosis. Bilateral neural foraminal stenosis worse on the left side. C5-6: Marked degree of disc space narrowing. Facet joint osteoarthritis with uncovertebral arthrosis. Bilateral neural foraminal stenosis worse on the left side. C6-7: Marked degree of disc space narrowing and spondylosis. Facet joint osteoarthritis and uncovertebral arthrosis. Bilateral neural foraminal stenosis. C7-T1: Normal endplates. Normal disc height and morphology. Normal central canal and intervertebral neuroforamina. Normal visualized soft tissue structures. CT/Spine Cervical without Contras IMPRESSION: Multilevel degenerative changes, as described above. Electronically Signed: Alan Perrin, at 10:39 EDT , Service support ,
--- NOTE | 2019-09-30 09:52 | ED.VIS.GEN ---
History of Present Illness Chief Complaint: Fall Informant: Patient Onset: Days Context: Gradual Onset Timing: Continuous Current Severity: Moderate Maximum Severity: Moderate Narrative: The patient is an 84-year-old female with medical history significant for paroxysmal SVT, severe aortic stenosis who is scheduled for valve replacement at the end of the month, who is also anticoagulated on Eliquis that presents to the emergency department after head injury. Patient states 2 days ago, she was standing in her driveway. She states that there was a young man at her house helping with her yard work. She states she was telling him where she wanted things done and then she passed out. She fell to the ground and struck her head. She denies being prodromal prior to it. She states she suddenly just passed out. She does not think she tripped or fell. She struck her head. Since then, she has had headache, intermittent blurry vision, nausea, and dizziness. She denies any fevers or chills. She denies any cough or chest pain. She states she is otherwise been in her normal state of health. She has been compliant with all of her medications. Prior similar symptoms: No Recent Illness/Hospitalization: No Past Medical History - Allergies and Home Meds Allergies/Adverse Reactions: Allergies cefdinir Allergy (Severe, Verified 09/30/19 09:43) Hives diltiazem [From Cardizem] Allergy (Severe, Verified 09/30/19 09:43) Rash Penicillins Allergy (Verified 09/30/19 09:43) Swelling Sulfa (Sulfonamide Antibiotics) Allergy (Verified 09/30/19 09:43) Swelling acetaminophen [From Darvocet-N] Adverse Reaction (Severe, Verified 09/30/19 09:43) GI Upset cyclobenzaprine [From Flexeril] Adverse Reaction (Severe, Verified 09/30/19 09:43) Heart Racing doxycycline Adverse Reaction (Severe, Verified 09/30/19 09:43) Emesis furosemide Adverse Reaction (Severe, Verified 09/30/19 09:43) Jerking propoxyphene [From Darvocet-N] Adverse Reaction (Severe, Verified 09/30/19 09:43) GI Upset levofloxacin [From Levaquin] Adverse Reaction (Unknown, Verified 09/30/19 09:43) Unknown milk Adverse Reaction (Verified 09/30/19 09:43) Diarrhea Primary Care Physician: Chip Yadav Chi, MD [COURTESY STAFF PHYSICIAN] - Prior records reviewed: Yes Past Medical History: - - Severe aortic stenosis, PSVT, anticoagulation, coronary vascular disease Surgical History: noncontributory, - - Hysterectomy, right carotid endarterectomy, colon area artery disease, CAD s/p PCI x 5. Smoking Status: Former smoker - Family History Paternal Family History: Family History (Last Updated 06/29/19 @ 09:53 by Chloe Quezada) Mother Heart disease Diabetes Father Heart disease Diabetes Sister Diabetes Brother Diabetes Family History: Reports: Cancer, Diabetes, Heart Disease, Hypertension Maternal Family History: Family History (Last Updated 06/29/19 @ 09:53 by Chloe Quezada) Mother Heart disease Diabetes Father Heart disease Diabetes Sister Diabetes Brother Diabetes Family History: Reports: Diabetes, Heart Disease, Hypertension Review of Systems General: Denies: Chills, Fever, Sweats Eyes: Reports: Blurred Vision - bilaterally. Denies: Visual changes - bilaterally, Diplopia ENT: Denies: Rhinorrhea, Sore throat Cardiovascular: Denies: Chest pain, Palpitations Respiratory: Denies: Dyspnea, Cough, Dyspnea on exertion Gastrointestinal: Reports: Nausea. Denies: Abdominal pain, Vomiting, Diarrhea, Melena, Hematochezia Genitourinary: Denies: Dysuria, Hematuria, Frequency Musculoskeletal: Denies: Back pain, Extremity Pain Skin: Denies: Rash, Wounds Neurological: Reports: Headache. Denies: Weakness, Numbness Physical Exam Vital Signs/Narrative: Vital Signs Temp Pulse Resp BP Pulse Ox 09/30/19 09:43 97.5 F L 61 18 198/81 H 95 Inital Vital Signs reviewed: Yes General: Well nourished, Well developed, No Acute Distress Head: Normocephalic, Trauma - Abrasion on posterior occiput Eyes: Perrl, EOMI ENT: Moist mucous membranes, No rhinorrhea Neck: Supple, Nontender Cardiovascular: Regular rate, Regular rhythm, Murmur Respiratory: No distress, CTA bilaterally, Chest nontender Abdomen: Soft, Nontender, Nondistended, Normal bowel sounds Back: Nontender, Normal Inspection Extremities: Nontender, No edema Skin: Normal color, No rash Neurological: Alert, Oriented x3, Cranial nerves II-XII grossly intact, Normal Strength, Normal Sensation Psychological: Normal affect, Normal Mood Diagnostic/Tx/Re-eval Chest X-Ray - ED: 1 View, Normal, Heart, Lungs, Mediastinum Clinical Impression(s) from Imaging Studies Brain CT 09/30/19 09:50 IMPRESSION: Small scalp hematoma overlying the posterior superior aspect of the right parietal bone. Chronic involutional changes of the brain. Electronically Signed: Alan Perrin, at 10:36 EDT , Service support , Cervical Spine CT 09/30/19 09:51 IMPRESSION: Multilevel degenerative changes, as described above. Electronically Signed: Alan Perrin, at 10:39 EDT , Service support , Chest X-Ray 09/30/19 10:20 IMPRESSION: Cardiomegaly. Mild residual linear atelectasis and/or scarring at the lung bases although this has improved as compared to prior study. Electronically Signed: Alan Perrin, at 10:36 EDT , Service support , Abnormal Lab Results 09/30/19 09/30/19 09/30/19 10:05 10:05 10:05 WBC 7.4 RBC 4.01 L Hgb 11.2 L Hct 36.4 L MCV 90.8 MCH 27.9 MCHC 30.8 L RDW Std Deviation 48.3 H RDW Coeff of Addi 14.4 Plt Count 209 MPV 10.4 Immature Gran % (Auto) 0.300 Neut % (Auto) 58.5 Lymph % (Auto) 30.5 [place] % (Auto) 7.4 Eos % (Auto) 2.6 Baso % (Auto) 0.7 Absolute Neuts (auto) 4.4 Absolute Lymphs (auto) 2.27 Nucleated RBC % 0 PT 14.5 INR 1.2 APTT 33.0 Sodium 140 Potassium 3.7 Chloride 104 Carbon Dioxide 28.0 Anion Gap 8 BUN 24 H Creatinine 1.26 H Estim Creat Clear Calc 26.76 Est GFR (MDRD) Af Amer 52 L Est GFR (MDRD) Non-Af 43 L BUN/Creatinine Ratio 19.0 Glucose 118 H Calcium 8.7 Total Bilirubin 0.30 AST 14 L ALT 20 Alkaline Phosphatase 61 Troponin I < 0.015 Total Protein 7.1 Albumin 3.7 Globulin 3.4 Albumin/Globulin Ratio 1.1 - Rhythm Strip Rhythm Strip: Sinus Rhythm Rate: 80 Ectopy: None - EKG Initial EKG Interpretation: Sinus Rhythm, No Acute Injury Pattern Prior: Unchanged - Medical Decision Making The patient presents with head injury 2 days ago. Her history of illness would change based on the questions have asked her. It was very hard to determine if this was josue syncope versus a fall. She states she has significant gait dysfunction and when she walks, she will trip easily. She had reported to her primary care physician that this was a trip. She told me that she just fell backwards but cannot recall the details. EKG was obtained on patient arrival. Was sinus rhythm. There is no acute ischemic change. There was LVH consistent with her aortic stenosis history. CT of the head and C-spine were obtained which do not show acute abnormality. Chest x-ray shows no evidence of volume overload. Patient is not anemic. Chemistry and troponin were obtained. Kidney function is at her baseline. There is no significant electrolyte abnormalities. Cardiac enzymes were negative. After more discussion with the patient, it does seem like the fall was more mechanical. As her metabolic work-up is unremarkable, EKG is unchanged, and she is had no further symptoms for the past 2 days I do feel that she is safe for discharge with outpatient follow-up. She is scheduled for her valve replacement in 10 days. I did adolescent counselor her on concerning symptoms and reasons to return. She will be discharged home. Impression 1. Fall 2. Concussion without loss of consciousness 3. Scalp hematoma ED Disposition - Plan for ED Patient: Instructions: ED Concussion Referrals: Chip Yadav Chi, MD [COURTESY STAFF PHYSICIAN] -
[2019-09-30 10:16] LABS: Absolute Lymphocyte Count 2.27 X10^3/uL (0.83-4.51); Absolute Neutrophil Count 4.4 X10^3/uL (2.0-7.7); Basophil# 0.05 X10^3/uL; Basophil% 0.7 % (0-1); Eosinophil# 0.19 X10^3/uL; Eosinophils% 2.6 % (0-5); Hematocrit 36.4 % (37-47); Hemoglobin 11.2 g/dL (12.0-15.0); Lymphocyte # 2.27 X10^3/ul (4.0); Lymphocyte % 30.5 % (19-41); Mean Corp Hgb Conc 30.8 g/dL (32-36); Mean Corpuscular Hgb 27.9 pg (27.0-32.0); Mean Corpuscular Volume 90.8 fL (81-99); Mean Platelet Vol. 10.4 fl (6.2-12.0); Monocyte# 0.55 X10^3/uL; Monocyte% 7.4 % (0-10); NRBC Flagged by Analyzer 0 % (0-5); Neutrophil # 4.36 X10^3/uL (2.7-7.7); Neutrophil % 58.5 % (47-70); Platelet Count 209 K/mm3 (150-450); RBC Distribution Width CV 14.4 % (11.6-14.6); RBC Distribution Width SD 48.3 fl (35.1-43.9); Red Blood Count 4.01 M/mm3 (4.2-5.4); White Blood Count 7.4 K/mm3 (4.4-11.0)
--- NOTE | 2019-09-30 10:20 | RAD_ITS ---
STUDY: X-RAY CHEST REASON FOR EXAM: Female, 84 years old. FALL, SOB TECHNIQUE: Single AP portable view of the chest. COMPARISON: Comparison is made with prior study dated May 18, 2019. FINDINGS: Minimal increased markings at the lung bases suggests some mild linear atelectasis slightly more prominent on the left side. This as improved as compared to prior study. There is no demonstrated pleural abnormality. There is mild cardiac enlargement. Normal mediastinum and tabby. Normal visualized pulmonary arteries. There is atherosclerotic calcification of the aortic arch with tortuosity. Normal visualized thoracic spine. Normal visualized ribs, clavicles, and shoulders. There is no demonstrated abnormality of the visualized soft tissue structures of the upper abdomen. RAD/Chest 1 View (Portable) IMPRESSION: Cardiomegaly. Mild residual linear atelectasis and/or scarring at the lung bases although this has improved as compared to prior study. Electronically Signed: Alan Perrin, at 10:36 EDT , Service support ,
[2019-09-30 10:33] LABS: International Normalized Ratio 1.2; Prothrombin Time (Protime)PT. 14.5 SECONDS (11.7-14.9)
[2019-09-30] MEDS: Ondansetron 4 MG/2 ML Vial IV (10:41)
[2019-09-30 10:56] LABS: ALB/GLOB Ratio 1.1 RATIO (0.9-2.4); AST(SGOT) 14 U/L (15-37); Alanine Aminotransfer ALT/SGPT 20 U/L (13-56); Albumin, Serum 3.7 g/dL (3.2-5.0); Alkaline Phosphatase 61 U/L (45-117); Anion Gap 8 (5-15); BUN 24 mg/dL (7-18); Calcium,Total 8.7 mg/dL (8.5-10.1); Chloride 104 mmol/L (98-107); Creatinine, Serum 1.26 mg/dL (0.55-1.02); EST Glomerular Filtration Rate 43 mL/min (>60); Est Glom Filt Rate - Afr Amer 52 mL/min (>60); Estimated Creatinine Clearance 26.76 ml/min; Globulin 3.4 g/dL (2.2-4.2); Glucose 118 mg/dL (74-106); Potassium 3.7 mmol/L (3.5-5.1); Protein, Total 7.1 g/dL (6.4-8.2); Sodium Level 140 mmol/L (136-145)
[2019-09-30 11:06] VITALS: BP 181/64; PULSE 69; RESP 18; O2SAT 95
[2019-09-30 11:09] LABS: Color, Urine Yellow (Yellow); Glucose, Dipstick Normal (Normal); Ketone-Dipstick Negative (Negative); Leukocyte Esterase-Dipstick 25 /ul (Negative); Nitrite-Dipstick Negative (Negative); Occult Blood-Urine 25 /ul (Negative); Protein-Dipstick 15 mg/dl (Negative); Specific Gravity, Urine 1.015 (1.002-1.030); Urine Bilirubin Dipstick Negative (Negative); Urine Clarity Sl. Cloudy (Clear); Urine Urobilinogen Normal (Normal)
[2019-09-30 11:21] LABS: Bacteria RARE /hpf (None Seen); Red Blood Cells-Urine 0-5 SEEN /hpf (0-5); Squamous Epithelial Cells - UA 0-5 SEEN /hpf (5-10); White Blood Cells 0-5 SEEN /hpf (0-5)
[2019-09-30 11:22] LABS: Mucous, Urine 1+ /hpf (<or=2+)
[2019-09-30 12:05] VITALS: BP 142/97; PULSE 81; RESP 18; O2SAT 98
--- NOTE | 2019-09-30 12:05 | ED.RN ---
THIS NURSE REVIEWED D/C INSTRUCTIONS WITH PT. PT VERBALIZED UNDERSTANDING OF INSTRUCTIONS. IV D/C. IV CATHETER INTACT. PT TOLERATED WELL. PT DENIES FURTHER NEEDS OR QUESTIONS AT THIS TIME.
== END 2019-09-30 12:05 | disposition home or self-care (01) ==
LOC: ED 10:43
PROVIDERS: Emergency Provider Emergency Medicine; PCP Internal Medicine
DX: S06.0X9A Concussion with loss of consciousness of unspecified duration, initial encounter (principal); S00.03XA Contusion of scalp, initial encounter; W19.XXXA Unspecified fall, initial encounter; Y93.9 Activity, unspecified; Y92.9 Unspecified place or not applicable; I47.1 Supraventricular tachycardia; I35.0 Nonrheumatic aortic (valve) stenosis; I25.10 Atherosclerotic heart disease of native coronary artery without angina pectoris; Z79.01 Long term (current) use of anticoagulants; Z79.899 Other long term (current) drug therapy; Z87.891 Personal history of nicotine dependence
CPT/HCPCS: 70450; 71045; 72125; 80053; 81001; 84484; 85025; 85610; 85730; 93005; 96361; 96374; 99284; J7040; J2405

== ENCOUNTER 2020-02-02 14:33 | Emergency (ER) | payer MEDICARE, SELFPAY ==
[2020-02-02 14:34] VITALS: BP 195/84; PULSE 69; RESP 16; TEMP 36.3; O2SAT 97; BMI 28.1
--- NOTE | 2020-02-02 14:50 | CT_ITS ---
STUDY: CT ABDOMEN AND PELVIS WITHOUT CONTRAST REASON FOR EXAM: Female, 84 years old. KIDNEY INFECTION, LT FLANK PAIN, URGENCY/BURNING, HX-KS, HTN RADIATION DOSAGE (If Supplied By Facility): CTDIvol = ( 11.42 ) mGy, DLP = ( 517.54 ) mGycm TECHNIQUE: Transaxial images were obtained from the dome of the diaphragm to the symphysis pubis without oral contrast, and without intravenous contrast. Sagittal and coronal images were reconstructed. Individualized dose optimization techniques were used for this CT. COMPARISON: None. FINDINGS: Minimal increased markings at the lung bases suggestive of atelectasis. Coronary artery calcification. Aortic valve replacement. Normal liver. There are surgical clips in the gallbladder fossa consistent with a prior cholecystectomy. Normal spleen. Normal pancreas. Normal bilateral adrenal glands. 3.5 mm calculus in the posterior inferior pole calyx. This also evidence of a 3.7 mm calculus in the lower pole calyx of the right kidney. Normal left kidney. Normal visualized stomach. Normal small intestine. There are multiple colonic diverticula consistent with diverticulosis. The appendix is visualized and appears normal. There is diffuse atherosclerotic calcification of the abdominal aorta and its major visceral branches, without a demonstrated aneurysm. Normal inferior vena cava. Normal retroperitoneum. Normal urinary bladder. There is absence of the uterus consistent with a prior hysterectomy. Normal abdominal wall. There are mild degenerative changes of the visualized lumbar spine. CT/Abdomen/Pelvis without Cont IMPRESSION: Nonobstructive right intrarenal calculi. Status post cholecystectomy. Electronically Signed: Alan Perrin, at 15:43 EDT , Service support ,
[2020-02-02] MEDS: 0.9% Normal Saline 1,000 ML 250 ML IV (15:11)
[2020-02-02 15:17] VITALS: BP 195/84; PULSE 69; RESP 16; TEMP 36.3; O2SAT 97
[2020-02-02 15:19] LABS: Bacteria 0 SEEN /hpf (None Seen); Mucous, Urine 0 SEEN /hpf (<or=2+); White Blood Cells 0 SEEN /hpf (0-5)
--- NOTE | 2020-02-02 15:20 | ED.VISSUMM ---
- ER Visit Summary Date of Service: 02/02/20 Chief Complaint: Abdominal pain History of Present Illness: The patient is a 84 F presenting with abdominal pain. She states this started yesterday. She complains of suprapubic abdominal pain and left flank pain. She has dysuria and urinary frequency. She denies vomiting. She has chronic diarrhea. Denies fever. Denies chest pain or shortness of breath. Denies other complaints. Physical Examination: Vitals are stable. Patient is afebrile. Alert no acute distress. HEENT exam is unremarkable. Neck is supple. Lungs are clear and equal bilaterally. Heart is regular rate and rhythm. Abdomen is soft mild suprapubic tenderness with no guarding or rebound No CVA tenderness Extremities are unremarkable. Skin is warm and dry. No rash No focal neurologic deficit. Remainder of exam is unremarkable. Emergency Department Course and Treatment: CBC shows white count 13.2. Chemistries show BUN 28, creatinine 1.38, near her baseline. CT flank shows nonobstructive right intrarenal calculi. status post cholecystectomy. Urinalysis shows 0 white cells, 0-5 red blood cells. Urine culture was sent. On reevaluation, patient is resting comfortably. She states she has pain medication at home. She will follow-up with her primary care physician. She is advised to return to ED for worsening complaints. Disposition: Discharge home Impression: Abdominal pain This note was generated with [employer] dictation software. It may contain incorrect words, spelling, and punctuation that were not noted in review of the chart prior to signing ED Disposition - Plan for ED Patient: Disposition: Home or Assisted Living Instructions: ED Abdominal Pain Unkn Cause Fem Referrals: Nayely Connell MD [Primary Care Provider] -
[2020-02-02 15:21] LABS: Absolute Lymphocyte Count 3.95 X10^3/uL (0.83-4.51); Absolute Neutrophil Count 7.5 X10^3/uL (2.0-7.7); Basophil# 0.08 X10^3/uL; Basophil% 0.6 % (0-1); Eosinophil# 0.27 X10^3/uL; Hematocrit 42.1 % (37-47); Hemoglobin 13.2 g/dL (12.0-15.0); Lymphocyte # 3.95 X10^3/ul (4.0); Lymphocyte % 29.9 % (19-41); Mean Corp Hgb Conc 31.4 g/dL (32-36); Mean Corpuscular Hgb 27.9 pg (27.0-32.0); Mean Platelet Vol. 9.5 fl (6.2-12.0); Monocyte# 1.02 X10^3/uL; Monocyte% 7.7 % (0-10); NRBC Flagged by Analyzer 0 % (0-5); Neutrophil # 7.51 X10^3/uL (2.7-7.7); Platelet Count 267 K/mm3 (150-450); RBC Distribution Width CV 14.8 % (11.6-14.6); RBC Distribution Width SD 47.9 fl (35.1-43.9); Red Blood Count 4.73 M/mm3 (4.2-5.4); White Blood Count 13.2 K/mm3 (4.4-11.0)
[2020-02-02 15:27] LABS: Color, Urine Yellow (Yellow); Glucose, Dipstick Normal (Normal); Ketone-Dipstick Negative (Negative); Leukocyte Esterase-Dipstick Negative /ul (Negative); Nitrite-Dipstick Negative (Negative); Occult Blood-Urine 50 /ul (Negative); Protein-Dipstick 30 mg/dl (Negative); Specific Gravity, Urine 1.015 (1.002-1.030); Urine Bilirubin Dipstick Negative (Negative); Urine Clarity Sl. Cloudy (Clear); Urine Urobilinogen Normal (Normal)
[2020-02-02 15:50] LABS: Anion Gap 6 (5-15); BUN 28 mg/dL (7-18); BUN/Creat Ratio 20.3 RATIO (10-20); Calcium,Total 9.2 mg/dL (8.5-10.1); Chloride 99 mmol/L (98-107); Creatinine, Serum 1.38 mg/dL (0.55-1.02); EST Glomerular Filtration Rate 39 mL/min (>60); Est Glom Filt Rate - Afr Amer 47 mL/min (>60); Estimated Creatinine Clearance 24.43 ml/min; Glucose 103 mg/dL (74-106); Potassium 3.6 mmol/L (3.5-5.1); Sodium Level 137 mmol/L (136-145)
[2020-02-02 16:20] LABS: Red Blood Cells-Urine 0-5 SEEN /hpf (0-5); Squamous Epithelial Cells - UA 0-5 SEEN /hpf (5-10)
[2020-02-02 16:41] VITALS: BP 195/84; PULSE 69; RESP 16; TEMP 36.3; O2SAT 97
--- NOTE | 2020-02-02 16:44 | ED.DEP ---
ED Disposition - Plan for ED Patient: Instructions: ED Abdominal Pain Unkn Cause Fem Referrals: Nayely Connell MD [Primary Care Provider] -
[2020-02-02 16:57] VITALS: BP 149/78; PULSE 67; RESP 18; O2SAT 99
== END 2020-02-02 16:58 | disposition home or self-care (01) ==
PROVIDERS: Emergency Provider Emergency Medicine; PCP Internal Medicine
DX: R10.30 Lower abdominal pain, unspecified (principal); N20.0 Calculus of kidney; K52.9 Noninfective gastroenteritis and colitis, unspecified; I11.0 Hypertensive heart disease with heart failure; I50.9 Heart failure, unspecified; K21.9 Gastro-esophageal reflux disease without esophagitis; I25.10 Atherosclerotic heart disease of native coronary artery without angina pectoris; E78.00 Pure hypercholesterolemia, unspecified; Z87.442 Personal history of urinary calculi; Z90.49 Acquired absence of other specified parts of digestive tract; Z79.01 Long term (current) use of anticoagulants; Z79.899 Other long term (current) drug therapy
CPT/HCPCS: 74176; 80048; 81001; 85025; 87086; 96360; 96361; 99283; J7030

== ENCOUNTER 2020-05-18 13:04 | Emergency (ER) | payer MEDICARE, SELFPAY ==
[2020-05-18 13:05] VITALS: BP 151/84; PULSE 89; RESP 16; TEMP 36.2; O2SAT 93; BMI 29.2
--- NOTE | 2020-05-18 13:24 | ED.VISSUMM ---
- ER Visit Summary Date of Service: 05/18/20 Chief Complaint: Arthritis pain History of Present Illness: The patient is a [address] Connell. She reports that she has a history of arthritis and has been on fentanyl patches for the past 25 years. States that on the eighth of this month she was fired from her pain management doctor because she took 4 extra pills. She states that she went to a new painter and decorator apprentice yesterday and that they cannot help me because of my blood pressure. Patient reports she has right wrist pain that is chronic, but increased yesterday. Is a throbbing pain is 10 of 10 severity. Is worsened by weather and relieved by fentanyl and [place]. She denies any recent trauma. No fall, MVA, or change in activity. Review of systems: General: No fever, chills, cold sweats. Cardiovascular: No chest pain, palpitations. Respiratory: No cough, shortness of breath, dyspnea on exertion. Gastrointestinal: No abdominal pain, nausea, vomiting, diarrhea, melena, or hematochezia. Genitourinary: No dysuria, frequency, hematuria. Skin: No rash. Neuro: No headache, numbness, weakness. Physical Examination: Vitals: Stable. Afebrile. General: Well-nourished and well-developed. Head: Normocephalic atraumatic. Neck: Supple, no lymphadenopathy. No JVD. Nontender. Cardiovascular: Regular rate and rhythm. No murmurs. Respiratory: No respiratory distress. Clear to auscultation bilaterally. Abdominal: Soft, nontender, nondistended, normal bowel sounds. No guarding, rebound, or peritoneal signs. Back: Nontender. Extremities: Moderate tenderness palpation over the lateral portion of her right wrist. There are chronic deformities here. There is no erythema or warmth to suggest infection or septic joint. She has mild tenderness palpation is diffuse over her elbows bilaterally. She has 2+ radial pulses bilaterally. Less than 2-second capillary refill.. Skin: Normal color, no rash. Neurologic: Alert and oriented ?3. Cranial nerves II through XII are intact. Normal strength and sensation. Psych: Normal affect. Emergency Department Course and Treatment: An [facility] report was obtained which shows that she would have run out of her fentanyl patches on May 06. She would have run out of the [place] prescribed by Dr. Connell on May 01. She has no active prescriptions for opiates. She was given a dose of [place] here. Treatment Plan: I discussed the patient that she does need to establish a painter and decorator apprentice for treatment of her pain. She reports that she has been fired from Dr. Diaz's practice and that she was told she has to go out of state for pain management. I suggested that she see Dr. Connell for management of her chronic pain then. She reports that Dr. Connell told her that it is illegal. Discussed with her that treatment of her chronic pain from the emergency department is not appropriate and is also not allowed by the [facility] medical Board. She does not have an active prescription for opiates. She will be given a prescription for 12 [place] and instructed to follow-up with Dr. Connell for further evaluation and treatment/referral for her chronic pain. Return to the emergency department for any worsening symptoms. Disposition: To home in improved and stable condition. Impression: 1. Chronic right wrist pain. 2. Arthritis. This note was generated with [employer] software. It may contain incorrect words, spelling, and punctuation that were not noted in review of the chart prior to signing ED Disposition - Plan for ED Patient: Instructions: ED Chronic Pain Prescriptions: Hydrocodone Bitart/Apap 5-325 [[place] 5MG-325MG] 1 tablet PO Q4H PRN PRN 2 Days #12 tablet PRN Reason: Pain Referrals: Nayely Connell MD [Primary Care Provider] - As soon as possible
[2020-05-18 13:30] VITALS: RESP 16
[2020-05-18] MEDS: HYDROcodone Bitartrate/Apap 5/325 Tablet PO (13:34)
== END 2020-05-18 13:49 | disposition home or self-care (01) ==
PROVIDERS: Emergency Provider Emergency Medicine; PCP Internal Medicine
DX: M25.531 Pain in right wrist (principal); G89.29 Other chronic pain; M19.90 Unspecified osteoarthritis, unspecified site; I25.10 Atherosclerotic heart disease of native coronary artery without angina pectoris; I11.0 Hypertensive heart disease with heart failure; I50.9 Heart failure, unspecified; K21.9 Gastro-esophageal reflux disease without esophagitis; E11.9 Type 2 diabetes mellitus without complications; E78.00 Pure hypercholesterolemia, unspecified; Z95.5 Presence of coronary angioplasty implant and graft; Z79.899 Other long term (current) drug therapy; Z87.891 Personal history of nicotine dependence
CPT/HCPCS: 99283

== ENCOUNTER 2020-07-20 13:03 | Emergency (ER) | payer MEDICARE, SELFPAY ==
[2020-07-20 13:04] VITALS: BP 168/90; PULSE 69; RESP 18; TEMP 36.4; O2SAT 95; BMI 25.6
--- NOTE | 2020-07-20 13:35 | VDLE_ITS ---
Reason For Study: SWELLING RIGHT LEFT GSV is normal. GSV is normal. CFV is compressible, spontaneous, phasic, CFV is compressible, spontaneous, phasic, competent and demonstrates normal competent, and demonstrates normal augmentation. augmentation. FV is compressible, spontaneous, phasic, FV is compressible, spontaneous, phasic, competent and demonstrates normal competent and demonstrates normal augmentation. augmentation. POP V is compressible, spontaneous, phasic, POP V is compressible, spontaneous, phasic, competent and demonstrates normal competent and demonstrates normal augmentation. augmentation. T/P Trunk is compressible. T/P Trunk is compressible. PTV is compressible. PTV is compressible. RT PerV is compressible. LT PerV is compressible. Procedure Exam performed portable in ED. A preliminary report was called and/or faxed to ED. Interpretation Summary Deep veins of the lower extremities are bilaterally patent and compressible segmentally. There is no evidence of deep vein thrombosis on either side. Valvular competence appears intact within the proximal deep venous systems bilaterally. The great saphenous veins appear bilaterally patent and compressible segmentally. Ordering Physician: Nathan Lawson Referring Physician: DAVID RAYMUNDO Performed By: Janene Baez, BECCACS, RVT
--- NOTE | 2020-07-20 13:45 | RAD_ITS ---
STUDY: X-RAY - UNILATERAL RIBS ( LEFT ) WITH CHEST REASON FOR EXAM: Female, 85 years old. Fall TECHNIQUE - RIBS: 2 view(s) of the ribs. TECHNIQUE - CHEST: Single PA view of the chest. COMPARISON: Comparison is made with prior chest radiograph dated 09/30/2019. FINDINGS - RIBS: Normal visualized ribs without a demonstrated fracture. FINDINGS - CHEST: Minimal increased markings at the left lung base suggest mild atelectasis. Blunting of the left costophrenic angle. There is borderline cardiomegaly. Status post aortic valve replacement. Normal mediastinum and tabby. Normal visualized pulmonary arteries. There is atherosclerotic calcification of the aortic arch with tortuosity. There is demineralization of the osseous structures. Normal visualized ribs, clavicles, and shoulders. There is no demonstrated abnormality of the visualized soft tissue structures of the upper abdomen. RAD/Ribs Uni Min 3V w/PA Chest IMPRESSION: RIBS: Normal x-ray examination of the ribs. CHEST: Mild left basilar atelectasis and blunting of left costophrenic angle. Electronically Signed: Alan Perrin MD at 14:05 EST , Service support ,
[2020-07-20] MEDS: Meclizine HCl 25 MG Tablet PO (13:53)
[2020-07-20] MEDS: HYDROcodone Bitartrate/Apap 5/325 Tablet PO (13:53)
--- NOTE | 2020-07-20 14:17 | ED.VISSUMM ---
- ER Visit Summary Date of Service: 07/20/20 Chief Complaint: Fall History of Present Illness: The patient is a 85 F who presents after a fall 3 days ago. Patient states she fell out of bed at that time. Patient states she hit the left side of her chest on her nightstand. Patient states the pain is over the left chest and radiates into her back. Patient describes the pain as aching and stabbing. Patient states the pain is worse with deep breathing. Patient denies any loss of consciousness. Patient denies any paresthesias or weakness. Patient also admits to some dizziness that is worse whenever she moves her head. Patient describes this as a spinning sensation. Patient denies any headaches. Patient states she has had the dizziness since before the fall. Patient also admits to some pain and swelling in her right hand. Patient states she gets this from time to time. Patient states it is from arthritis. Patient states she is scheduled to see a calender let off operator for this. Patient denies any trauma to her right hand. Patient also admits to pain and swelling over both legs. Patient is concerned over possible DVT. Physical Examination: Vital signs are stable. Patient is afebrile. Patient is in no acute distress. Pupils are equal, round, and reactive to light bilaterally. Extraocular muscles are intact. There is no nystagmus noted. Oral mucosa is pink and moist. Neck is supple. Trachea is midline. There is no JVD. Heart was regular rate and rhythm. Lungs are clear and equal bilaterally. There is reproducible tenderness over the left lateral chest. There is some ecchymosis over this area. There is no bony crepitance or step-off. Abdomen is soft. Bowel sounds are normal. There is no tenderness. Extremities are intact. There is calf tenderness and edema bilaterally. There is also tenderness and edema over the right hand. There is no erythema or warmth. Cranial nerves II through XII are intact. There are no focal motor or sensory deficits noted. Test Results: X-rays of the left ribs were obtained. There are 3 views. On my interpretation, there is no acute fracture. There is no pneumothorax. There is no acute cardiopulmonary process. Radiologist also interpreted the x-ray and agrees. Venous duplex of the lower extremities was obtained. There is no evidence of DVT. Emergency Department Course and Treatment: Patient was given a dose of [place] here. Patient was also given a dose of meclizine. Patient is feeling better on reevaluation. Patient states her dizziness has resolved. Patient was given prescriptions for [place] and meclizine. Patient was instructed to take 10-15 deep breaths every hour while awake to prevent atelectasis and pneumonia. Patient was instructed to follow-up with her primary care physician in 5 to 7 days. Patient understood and was agreeable with the plan. All questions were answered. Disposition: Discharge home Impression: 1. Left chest contusion 2. Vertigo This note was generated with [employer] dictation software. It may contain incorrect words, spelling, and punctuation that were not noted in review of the chart prior to signing ED Disposition - Plan for ED Patient: Disposition: Home or Assisted Living Diagnosis: Contusion of left chest wall, Vertigo Instructions: ED Contusion, Rib, ED Vertigo, Unspecified Prescriptions: Meclizine HCl 25 mg PO Q8H PRN PRN #20 tab PRN Reason: Dizziness Prescription Printed Hydrocodone Bitart/Apap 5-325 [[place] 5MG-325MG] 1 tab PO Q6H PRN PRN 3 Days #10 tab PRN Reason: Pain Prescription Printed Referrals: Nayely Connell MD [Primary Care Provider] - 5-7 Days
[2020-07-20 15:43] VITALS: BP 152/74; PULSE 71; RESP 17; O2SAT 97
== END 2020-07-20 15:43 | disposition home or self-care (01) ==
PROVIDERS: Emergency Provider Emergency Medicine; PCP Internal Medicine
DX: S20.212A Contusion of left front wall of thorax, initial encounter (principal); R42 Dizziness and giddiness; M19.041 Primary osteoarthritis, right hand; M79.605 Pain in left leg; M79.604 Pain in right leg; M79.89 Other specified soft tissue disorders; W06.XXXA Fall from bed, initial encounter; Y93.9 Activity, unspecified; Y92.9 Unspecified place or not applicable; I25.10 Atherosclerotic heart disease of native coronary artery without angina pectoris; Z95.5 Presence of coronary angioplasty implant and graft; Z79.899 Other long term (current) drug therapy
CPT/HCPCS: 71101; 93970; 99283

== ENCOUNTER 2020-07-28 09:54 | Observation (INO) | payer MEDICARE, SELFPAY ==
[2020-07-28] VITALS (8 sets, daily range): BP systolic 113–193; BP diastolic 65–82; PULSE 78–99; RESP 10–18; TEMP 36.7–37.2; O2SAT 92–99; BMI 25.6; BMI 27.5
--- NOTE | 2020-07-28 10:14 | CT_ITS ---
STUDY: CT BRAIN WITHOUT CONTRAST REASON FOR EXAM: Female, 85 years old. Weakness RADIATION DOSAGE (If Supplied By Facility): CTDIvol = ( 44.99 ) mGy, DLP = ( 796.11 ) mGycm TECHNIQUE: Transaxial CT imaging of the brain was performed without administration of intravenous contrast material. Individualized dose optimization techniques were used for this CT. COMPARISON: 09/30/2019 FINDINGS: Normal soft tissue structures. Normal calvarium. There is mild cerebral atrophy with widening of the extra-axial spaces and ventricular dilatation. There are areas of decreased attenuation within the white matter tracts of the supratentorial brain, consistent with microvascular disease changes. Normal basal ganglia and thalami. Normal brainstem. Normal cerebellum. There is no intracranial hemorrhage. There are no findings of an acute ischemic infarction. Normal visualized paranasal sinuses. CT/Brain/Head without Contrast IMPRESSION: Chronic involutional changes of the brain. Electronically Signed: Dallas Lazaro MD at 11:28 EST Tel , Service support ,
--- NOTE | 2020-07-28 10:15 | EKG12_ITS ---
Test Reason : LE PAIN Blood Pressure : / mmHG Vent. Rate : 084 BPM Atrial Rate : 084 BPM P-R Int : 254 ms QRS Dur : 092 ms QT Int : 384 ms P-R-T Axes : 052 -08 120 degrees QTc Int : 453 ms Sinus rhythm with 1st degree A-V block Moderate voltage criteria for LVH, may be normal variant Nonspecific T wave abnormality Abnormal ECG Confirmed by VILMA LAWSON, YUSEF ([id number]), editorial intern ALETHA MTZ ([id number]) on 07/30/2020 10:36:50 A M Referred By: FARHEEN Confirmed By:CARA ESPARZA MD
--- NOTE | 2020-07-28 10:16 | RAD_ITS ---
STUDY: X-RAY CHEST REASON FOR EXAM: Female, 85 years old. Weakness TECHNIQUE: Single AP portable view of the chest. COMPARISON: 07/20/2020 FINDINGS: The lungs are clear and expanded. There is no demonstrated pleural abnormality. There is moderate cardiac enlargement. Normal mediastinum and tabby. Normal visualized pulmonary arteries. Normal visualized aortic arch and descending thoracic aorta. Normal visualized thoracic spine. Normal visualized ribs, clavicles, and shoulders. There is no demonstrated abnormality of the visualized soft tissue structures of the upper abdomen. RAD/Chest 1 View (Portable) IMPRESSION: No active disease. Electronically Signed: Dallas Lazaro MD at 11:29 EST Tel , Service support ,
--- NOTE | 2020-07-28 10:22 | ED.DCSUM_ITS ---
- ER Visit Summary Date of Service: 07/28/20 Chief Complaint: Bilateral lower extremity pain History of Present Illness: The patient is a 85 F who presents with lower extremity pain that has been getting worse over the past week. Patient states she has a history of chronic pain. Patient states that she was taken off of her Vicodin that she was taking for her chronic pain and she started to go through withdrawal. Patient states she saw another physician who prescribed her Suboxone for that. Patient states she has been taking that with no improvement of her pain. Patient describes her pain as throbbing. Patient states it is in both lower extremities but worse on the right. Patient states the pain is worse with any movement. Patient also admits to some dizziness. Patient states this is a spinning sensation. Patient states it is worse whenever she moves her head or neck. Patient was seen here approximately 10 days ago after a fall. Patient had dizziness at that time. Patient was given a dose of meclizine at that time and her dizziness had resolved. Patient states her dizziness started prior to the fall. Patient's daughter called in and talk to nursing staff. She reports that the patient has been having some increased confusion and auditory and visual hallucinations. Daughter reports that the patient has been taking her medications as prescribed. Daughter states this has started since she started taking the Suboxone. Daughter states the patient is unable to get around at home and care for herself. Physical Examination: Vital signs are stable except for an elevated blood pressure of 180/72. Patient is afebrile. Patient is in no acute distress. Pupils are equal, round, and reactive to light bilaterally. Extraocular muscles are intact. There is no nystagmus noted. Neck is supple. Trachea is midline. There is no JVD. Heart was regular rate and rhythm. Lungs are clear and equal bilaterally. Abdomen is soft. Bowel sounds are normal. There is some mild suprapubic tenderness. There is no rebound or guarding noted. Cranial nerves I I through XII are intact. Strength is 4/5 in the right upper and lower extremities. Strength is 5/5 in the left upper and lower extremities. There are no deficits noted. Skin is warm and dry. There is some erythema and warmth over the anterior lower legs bilaterally. There are no vesicles or pustules. There is no discharge or drainage. Test Results: EKG was obtained. On my interpretation, there is a sinus rhythm with a first-degree AV block with a rate of 84. There are nonspecific ST-T wave changes in leads I, aVL, and V4 through V6. These were unchanged compared to previous EKG dated 09/30/2019. Portable 1 view chest x-ray was obtained. On my interpretation, lung khan are clear. There is normal cardiac silhouette. Bony thorax is normal. There is no acute process noted. Radiologist also interpreted the x-ray and agrees. CT scan of the brain was obtained. There is no acute process. There are chronic changes noted. This was interpreted by the radiologist and reviewed by myself. CBC, comprehensive metabolic profile, PT with INR, PTT, and urinalysis were obtained were all within normal limits. Troponin was normal. BNP was only slightly elevated at 172.9. COVID-19 rapid antigen was obtained. Emergency Department Course and Treatment: Patient's oxygen saturation decreased to 88% on room air. This would improve with stimulation and repositioning. However when the patient started to rest again her oxygen saturation decreased with good waveform on the monitor. Patient was placed on oxygen. Patient states she is seeing things abnormally in the room. Patient states she looks at the light switch and states it goes all the way down to the floor. Patient states that the curtain in front of the door appears to be across her bed. Case was discussed with the hospitalist. She will admit the patient to her service. Patient and family understood and were agreeable with the plan. All questions were answered. Disposition: Admit to hospital Impression: 1. Confusion 2. Weakness 3. Hypoxia This note was generated with [employer] dictation software. It may contain incorrect words, spelling, and punctuation that were not noted in review of the chart prior to signing ED Disposition - Plan for ED Patient: Disposition: Acute Care Hospital [facility] Diagnosis: Confusion, Weakness, Hypoxia Referrals: Nayely Connell MD [Primary Care Provider] -
[2020-07-28 10:47] LABS: ALB/GLOB Ratio 0.7 RATIO (0.9-2.4); AST(SGOT) 12 U/L (15-37); Alanine Aminotransfer ALT/SGPT 18 U/L (13-56); Albumin, Serum 3.4 g/dL (3.2-5.0); Alkaline Phosphatase 82 U/L (45-117); Anion Gap 7 (5-15); BUN 11 mg/dL (7-18); BUN/Creat Ratio 10.9 RATIO (10-20); Calcium,Total 9.8 mg/dL (8.5-10.1); Chloride 99 mmol/L (98-107); Creatinine, Serum 1.01 mg/dL (0.55-1.02); EST Glomerular Filtration Rate 56 mL/min (>60); Est Glom Filt Rate - Afr Amer 67 mL/min (>60); Estimated Creatinine Clearance 32.79 ml/min; Globulin 5.1 g/dL (2.2-4.2); Glucose 140 mg/dL (74-106); Potassium 3.7 mmol/L (3.5-5.1); Protein, Total 8.5 g/dL (6.4-8.2); Sodium Level 138 mmol/L (136-145)
[2020-07-28 10:52] LABS: Absolute Neutrophil Count 8.8 X10^3/uL (2.0-7.7); Basophil# 0.06 X10^3/uL; Basophil% 0.5 % (0-1); Eosinophil# 0.13 X10^3/uL; Eosinophils% 1.1 % (0-5); Hemoglobin 12.2 g/dL (12.0-15.0); Lymphocyte % 17.5 % (19-41); Mean Corp Hgb Conc 29.8 g/dL (32-36); Mean Corpuscular Hgb 26.2 pg (27.0-32.0); Monocyte# 0.86 X10^3/uL; Monocyte% 7.2 % (0-10); NRBC Flagged by Analyzer 0 % (0-5); Neutrophil # 8.78 X10^3/uL (2.7-7.7); Neutrophil % 73.4 % (47-70); Platelet Count 334 K/mm3 (150-450); RBC Distribution Width CV 13.8 % (11.6-14.6); RBC Distribution Width SD 44.6 fl (35.1-43.9); Red Blood Count 4.66 M/mm3 (4.2-5.4)
[2020-07-28 10:56] LABS: International Normalized Ratio 1.5; Prothrombin Time (Protime)PT. 17.3 SECONDS (11.7-14.9)
[2020-07-28 11:11] LABS: BNP,B-Type NATRIURETIC PEPTIDE 172.9 pg/mL (0-100)
--- NOTE | 2020-07-28 11:19 | ED.RN ---
Pt's daughter called to offer information for patient. Physician informed.
[2020-07-28 11:22] LABS: Mucous, Urine 0 SEEN /hpf (<or=2+); Red Blood Cells-Urine 0 SEEN /hpf (0-5); White Blood Cells 0 SEEN /hpf (0-5)
[2020-07-28 11:28] LABS: Color, Urine Yellow (Yellow); Glucose, Dipstick Normal (Normal); Ketone-Dipstick Negative (Negative); Leukocyte Esterase-Dipstick Negative /ul (Negative); Nitrite-Dipstick Negative (Negative); Occult Blood-Urine 50 /ul (Negative); Protein-Dipstick 30 mg/dl (Negative); Specific Gravity, Urine 1.015 (1.002-1.030); Urine Bilirubin Dipstick Negative (Negative); Urine Clarity Clear (Clear); Urine Urobilinogen Normal (Normal)
[2020-07-28 11:33] LABS: Bacteria RARE /hpf (None Seen); Squamous Epithelial Cells - UA 0-5 SEEN /hpf (5-10)
--- NOTE | 2020-07-28 11:58 | NURSING ---
DR NAVARRETE FOR DR FREITAS
--- NOTE | 2020-07-28 12:02 | HP.PCM_ITS ---
History of Present Illness Date of Admission: 07/28/20 Chief Complaint: lower extremity pain, confusion The patient is a 85 year old F with an extensive past medical history as outlined. She was admitted through the ED on 07/28/2020 with a complaint of bilateral lower extremity pain. Patient has a history of chronic pain which appears to be due to arthritis. She however does not know which arthritis that she has. 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 She was however taken off of her narcotics and states she started going to an addiction facility in [place] through which she got a prescription for Suboxone. However a few weeks ago, she started taking Vicodin again because the Suboxone was not controlling her pain well. Her physician took care of the Vicodin and she said she started going through withdrawal and she was put back on her Suboxone. She says her pain has been persistent and she complains of pain mainly in her right hand and both ankles and knees. Pain is throbbing and she states it is worse in the morning and last for a long while. She also complains of some dizziness with movement. She was last seen in the ED about 10 days ago after a fall and also had dizziness at that time. Her dizziness resolved with meclizine. Per ED physicians documentation, patient's daughter called and spoke to nursing staff saying that patient had been having increased confusion as well as auditory and visual hallucinations. Patient however did not mention anything like this when I saw her. Her main concern was her pain and wanted to know if she could be put back on narcotics. She denied any chest pain, nausea vomiting, abdominal cramps, spiculated area of will be 2. Review of systems was otherwise negative. In the ED, vitals were temperature of 98.6 Fahrenheit with blood pressure of 12 8/73, pulse rate of 83 and respiratory rate of 11. Chemistry was essentially unremarkable and BNP was 172.9. Troponin was negative. CBC showed hemoglobin of 12 and WBC of 12 as well as platelets of 334. CT of the brain showed chronic involutional changes chest x-ray showed no active disease. She has been admitted to be managed for intractable cute on chronic pain and debility due to the severe pain likely from arthritis. [] Past Medical History Past Medical History (Chronic Problems): Chronic Problems (Last Updated 06/29/19 @ 10:38 by Chloe Quezada) Pure hypercholesterolemia (Chronic) Chronic diastolic heart failure (Chronic) Nonrheumatic aortic (valve) stenosis (Chronic) Presence of stent in coronary artery (Chronic ~12/14/18) PCI/Stent to RCA 1998; PCI/RADHA x2 to LCX 12/14/18 Atherosclerotic heart disease of [place] coronary artery without angina pectoris (Chronic) Former tobacco use (Chronic) GERD (gastroesophageal reflux disease) (Chronic) Carotid artery disease (Chronic) Benign hypertension (Chronic) Medical History: Medical History (Last Updated 06/29/19 @ 10:38 by Chloe Quezada) Pure hypercholesterolemia (Chronic) E78.00 Paroxysmal supraventricular tachycardia (Acute) I47.1 Chronic diastolic heart failure (Chronic) I50.32 Nonrheumatic aortic (valve) stenosis (Chronic) I35.0 Presence of stent in coronary artery (Chronic) Onset Date: ~12/14/18 Z95.5 PCI/Stent to RCA 1998; PCI/RADHA x2 to LCX 12/14/18 Atherosclerotic heart disease of [place] coronary artery without angina pectoris (Chronic) I25.10 Hypertension, uncontrolled (Acute) I10 Hypokalemia (Acute) E87.6 Hypoxia (Acute) R09.02 Former tobacco use (Chronic) Z87.891 Rash (Acute) R21 Hypoxia (Acute) R09.02 Hypokalemia (Acute) E87.6 GERD (gastroesophageal reflux disease) (Chronic) K21.9 Carotid artery disease (Chronic) I77.9 Benign hypertension (Chronic) I10 History of DVT (deep vein thrombosis) Z86.718 History of pulmonary embolism Z86.711 CAD (coronary artery disease) (Inactive) I25.10 Allergies cefdinir Allergy (Severe, Verified 07/28/20 10:03) Hives diltiazem [From Cardizem] Allergy (Severe, Verified 07/28/20 10:03) Rash Penicillins Allergy (Verified 07/28/20 10:03) Swelling Sulfa (Sulfonamide Antibiotics) Allergy (Verified 07/28/20 10:03) Swelling acetaminophen [From Darvocet-N] Adverse Reaction (Severe, Verified 07/28/20 10:03) GI Upset cyclobenzaprine [From Flexeril] Adverse Reaction (Severe, Verified 07/28/20 10:03) Heart Racing doxycycline Adverse Reaction (Severe, Verified 07/28/20 10:03) Emesis furosemide Adverse Reaction (Severe, Verified 07/28/20 10:03) Jerking propoxyphene [From Darvocet-N] Adverse Reaction (Severe, Verified 07/28/20 10:03) GI Upset levofloxacin [From Levaquin] Adverse Reaction (Unknown, Verified 07/28/20 10:03) Unknown milk Adverse Reaction (Verified 07/28/20 10:03) Diarrhea Home Medications: Ambulatory Orders Medication Instructions Recorded Amlodipine [Norvasc] 10 mg PO DAILY 10/20/14 Apixaban [Eliquis] 5 mg PO BID tab 05/18/19 nitroglycerin 0.4 mg sublingual 0.4 mg SUBLINGUAL Q5-15M PRN 06/29/19 tablet ergocalciferol (vitamin D2) 1,250 50,000 unit PO .3XW cap 07/15/19 mcg (50,000 unit) capsule gabapentin 600 mg tablet 1,200 mg PO .COMPLEX #0 tab 07/15/19 magnesium oxide 400 mg PO DAILY 07/15/19 tizanidine 4 mg tablet 4 mg PO QHS 09/02/19 Furosemide [Lasix] 20 mg PO DAILY PRN 09/30/19 Meclizine HCl 25 mg PO Q8H PRN PRN #20 tab 07/20/20 Buprenorphine HCl/Naloxone HCl 1 tab SL DAILY 07/28/20 [Buprenorphin-Naloxon 8-2 mg Sl] Buprenorphine HCl/Naloxone HCl 1 ea SL DAILY 07/28/20 [Suboxone 8 mg-2 mg Sl Film] Surgical History: Surgical History (Last Updated 06/29/19 @ 10:38 by Chloe Quezada) Presence of coronary angioplasty implant and graft Onset Date: ~12/14/18 Z95.5 PCI/Stent to RCA 1998; PCI/RADHA x2 to LCX 12/14/18 S/P IVC filter Z95.828 History of cholecystectomy Z90.49 History of total abdominal hysterectomy Z90.710 Surgical History: noncontributory, - - Hysterectomy, right carotid endarterectomy, colon area artery disease, CAD s/p PCI x 5. 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 Smoking Status: Never smoker - *Family History Paternal Family History: Family History (Last Updated 06/29/19 @ 09:53 by Chloe Quezada) Mother Heart disease Diabetes Father Heart disease Diabetes Sister Diabetes Brother Diabetes History Items: Cancer, Diabetes, Heart Disease, Hypertension Maternal Family History: Family History (Last Updated 06/29/19 @ 09:53 by Chloe Quezada) Mother Heart disease Diabetes Father Heart disease Diabetes Sister Diabetes Brother Diabetes History Items: Diabetes, Heart Disease, Hypertension Review of Systems Constitutional: Denies: Chills, Fever, Malaise, Weakness, Weight Change Eyes: Denies: Blurred vision HEENT: Denies: Head Aches, Sinus Congestion, Sinus Drainage Cardiovascular: Denies: Chest Pain, Palpitations Respiratory: Denies: Cough, Shortness of Breath, Shortness of breath at rest, Sputum production Gastrointestinal: Denies: Abdominal Pain, Nausea, Vomiting Genitourinary: Denies: Dysuria Musculoskeletal: Reports: Joint Pain, Joint swelling, Joint Tenderness Skin: Denies: Rash, Wounds Neurological: Denies: Numbness, Tingling, Focal weakness Psychiatric: Denies: Anxiety, Depression, Homicidal Ideations, Suicidal Ideations Hematologic/ Lymphatic: Denies: Easy Bruising, Easy Bleeding VTE Information - Inpt Only VTE Present on Admission: No VTE Pharm Prophylaxis ordered?: Yes Patient Problems: Active and Suspected Problems (Last Updated 06/29/19 @ 10:38 by Chloe Quezada) Confusion (Acute) Weakness (Acute) Hypoxia (Acute) - Physical Exam Vitals/I&O's: Vital Signs Temp Pulse Resp BP Pulse Ox 98.6 F 83 11 L 128/73 H 99 07/28/20 11:16 07/28/20 11:16 07/28/20 11:16 07/28/20 11:16 07/28/20 11:16 Oxygen Flow Rate (L/min) 2 Oxygen Delivery Method Nasal Cannula Weight: 140 lb Body Mass Index (BMI) 25.6 General: Alert, Oriented x3, Cooperative, No apparent distress HEENT: Atraumatic, PERRLA, EOMI, Normocephalic Oral: Dry Mucosa Neck: Supple, No JVD, Negative Carotid Bruits Lungs: Clear to auscultation, Normal air movement, No rhonchi, No wheeze Cardiovascular: Regular rate, Regular Rhythm, Normal S1, Normal S2, No murmurs Abdomen: Bowel Sounds Present, Soft, Non Tender Extremities: No clubbing, No cyanosis, No edema, Capillary Refill Less than 3 Seconds Skin: No rashes, No breakdown Musculoskeletal: Tenderness - has tenderness of her LEs, over her ankles, has swelling and tenderness of the PIPs of the right hand. Lymphatic: No Cervical, Supraclavicular, or Inguinal Adenopathy Neurological: Cranial nerves II-XII grossly intact, Neuro grossly intact, Motor Exam 5/5 strength throughout Psych/Mental Status: Normal Affect, Appropriate, Alert and oriented to time, place, person, mood and affect Laboratory Results 07/28/20 10:05: WBC 12.0 H, RBC 4.66, Hgb 12.2, Hct 41.0, MCV 88.0, MCH 26.2 L, MCHC 29.8 L, RDW Std Deviation 44.6 H, RDW Coeff of Addi 13.8, Plt Count 334, MPV 10.0, Immature Gran % (Auto) 0.300, Neut % (Auto) 73.4 H, Lymph % (Auto) 17.5 L, Millard % (Auto) 7.2, Eos % (Auto) 1.1, Baso % (Auto) 0.5, Absolute Neuts (auto) 8.8 H, Absolute Lymphs (auto) 2.10, Nucleated RBC % 0 07/28/20 10:05: PT 17.3 H, INR 1.5, APTT 38.0 H 07/28/20 10:05: Sodium 138, Potassium 3.7, Chloride 99, Carbon Dioxide 32.0, Anion Gap 7, BUN 11, Creatinine 1.01, Estim Creat Clear Calc 32.79, Est GFR (MDRD) Af Amer 67, Est GFR (MDRD) Non-Af 56 L, BUN/Creatinine Ratio 10.9, Glucose 140 H, Calcium 9.8, Total Bilirubin 0.60, AST 12 L, ALT 18, Alkaline Phosphatase 82, Troponin I < 0.015, Total Protein 8.5 H, Albumin 3.4, Globulin 5.1 H, Albumin/Globulin Ratio 0.7 L 07/28/20 10:05: B-Natriuretic Peptide 172.9 H 07/28/20 11:17: Urine Color Yellow, Urine Clarity Clear, Urine pH 5.0, Ur Specific [place] 1.015, Urine Protein 30 H, Urine Glucose (UA) Normal, Urine Ketones Negative, Urine Occult Blood 50 H, Urine Nitrite Negative, Urine Bilirubin Negative, Urine Urobilinogen Normal, Ur Leukocyte Esterase Negative, Urine RBC 0 SEEN, Urine WBC 0 SEEN, Ur Squamous Epith Cells 0-5 SEEN, Urine Bacteria RARE, Urine Mucus 0 SEEN Diagnostic Data Brain CT 07/28/20 10:14 IMPRESSION: Chronic involutional changes of the brain. Electronically Signed: Dallas Lazaro MD at 11:28 EST Tel , Service support , Chest X-Ray 07/28/20 10:16 IMPRESSION: No active disease. Electronically Signed: Dallas Lazaro MD at 11:29 EST Tel , Service support , Assessment/Plan All Active Problems (Last Updated 06/29/19 @ 10:38 by Chloe Quezada) Confusion (Acute) Weakness (Acute) Paroxysmal supraventricular tachycardia (Acute) Hypertension, uncontrolled (Acute) Hypokalemia (Acute) Hypoxia (Acute) Rash (Acute) Hypoxia (Acute) Hypokalemia (Acute) 85 y/o admitted with a complaint of acute on chronic pain in her lower extremities adn right hand #Intractable pain due to arthritis * admit patient to PCU o/a of concerns of encephalopathy * has chronic pain for which she has been seeing pain management; she is on suboxone now * consult pain managemnt * PT/.OT consult * fall precautions * give PO tylenol and IV toradol. I am hesitant to give opiates simply because she is on suboxone. * * #Hypertension: On amlodipine #Dizziness: * Ct of the brain was negative. * She didnt really complain about dizziness when I evaluated her, as she was mainly fixated on her pain which was her main issue. * on meclizine, which has helped with her dizziness previously * #CAD s/p stents: * Stable. She is not on aspirin or statin or any beta-david or ROSA inhibitor/ARB. It is unclear why. * #History of DVT: On Eliquis. Will hold Eliquis for now also pain management has been consulted as she may need a pain shot. DVT prophylaxis: Lovenox. Jorge Luis held as above. OBSV E&M: [id number] Initial observation care L2
--- NOTE | 2020-07-28 12:12 | NURSING ---
PCU ACUTE METABOLIC ENCEPHALOPATHY KORAM
--- NOTE | 2020-07-28 12:17 | NURSING ---
DR NAVARRETE IN ROOM
[2020-07-28] MEDS: 0.9% Normal Saline 1,000 ML 75 ML IV (15:27)
[2020-07-28] MEDS: Gabapentin 600 MG Tablet 1200 MG PO (17:16)
[2020-07-28] MEDS: tiZANidine HCl 2 MG Tablet 4 MG PO (21:03)
[2020-07-29] VITALS (12 sets, daily range): BP systolic 146–191; BP diastolic 54–78; PULSE 60–84; RESP 18; TEMP 36.4–36.9; O2SAT 94–96
[2020-07-29] MEDS: Acetaminophen 325 MG Tablet 650 MG PO (05:44)
[2020-07-29 06:50] LABS: Absolute Lymphocyte Count 2.12 X10^3/uL (0.83-4.51); Absolute Neutrophil Count 7.6 X10^3/uL (2.0-7.7); Basophil# 0.04 X10^3/uL; Basophil% 0.4 % (0-1); Eosinophils% 0.9 % (0-5); Hematocrit 34.1 % (37-47); Hemoglobin 10.1 g/dL (12.0-15.0); Lymphocyte # 2.12 X10^3/ul (4.0); Lymphocyte % 19.5 % (19-41); Mean Corp Hgb Conc 29.6 g/dL (32-36); Mean Corpuscular Volume 87.9 fL (81-99); Mean Platelet Vol. 9.9 fl (6.2-12.0); Monocyte# 0.97 X10^3/uL; Monocyte% 8.9 % (0-10); NRBC Flagged by Analyzer 0 % (0-5); Neutrophil # 7.61 X10^3/uL (2.7-7.7); Platelet Count 275 K/mm3 (150-450); RBC Distribution Width CV 14.1 % (11.6-14.6); Red Blood Count 3.88 M/mm3 (4.2-5.4); White Blood Count 10.9 K/mm3 (4.4-11.0)
[2020-07-29 07:26] LABS: Anion Gap 8 (5-15); BUN 14 mg/dL (7-18); BUN/Creat Ratio 14.4 RATIO (10-20); Calcium,Total 8.4 mg/dL (8.5-10.1); Chloride 104 mmol/L (98-107); Creatinine, Serum 0.97 mg/dL (0.55-1.02); EST Glomerular Filtration Rate 58 mL/min (>60); Est Glom Filt Rate - Afr Amer 70 mL/min (>60); Estimated Creatinine Clearance 34.15 ml/min; Glucose 127 mg/dL (74-106); Potassium 4.3 mmol/L (3.5-5.1); Sodium Level 139 mmol/L (136-145)
[2020-07-29] MEDS: Gabapentin 600 MG Tablet 1200 MG PO ×2 (08:58→16:13)
[2020-07-29] MEDS: amLODIPine 10 MG Tablet PO (08:58)
[2020-07-29] MEDS: Magnesium Chloride 64 MG Delay Rel.Tablet 128 MG PO (08:58)
[2020-07-29] MEDS: Enoxaparin 40 MG/0.4 ML Syringe SC (09:01)
[2020-07-29] MEDS: Ketorolac 15 MG/ML Vial IV ×2 (09:08→21:41)
[2020-07-29] MEDS: 0.9% Saline Lock 10 ML Syringe IV ×3 (09:08→21:40)
--- NOTE | 2020-07-29 10:06 | PCM.PN.HOSP ---
Patient Problems: Active and Suspected Problems (Last Updated 06/29/19 @ 10:38 by Chloe Quezada) Confusion (Acute) Weakness (Acute) Hypoxia (Acute) Subjective: Patient seen and examined. SHe still complains of pain in her right ankle and hands. She says the buprenorphine is not helping iwth her pain, nor tylenol or toradol. Review of systems is otherwise negative. She is willing to try narcotics and holding the buprenorphine for now. SHe has remained hemodynamically stable. Vitals/I&O's: Vital Signs Temp Pulse Resp BP Pulse Ox 97.5 F L 78 18 191/78 H 95 07/29/20 08:55 07/29/20 08:55 07/29/20 08:55 07/29/20 08:55 07/29/20 08:55 Oxygen Flow Rate (L/min) 3 Oxygen Delivery Method Nasal Cannula Weight: 150 lb 5.684 oz Body Mass Index (BMI) 27.5 Intake and Output for Last 24 Hours 07/27/20 07/28/20 07/30/20 23:59 23:59 00:59 Intake Total 290 / 290 1100.00 / 1100.00 Output Total 250 / 250 Balance 40 / 40 1100.00 / 1100.00 General: Alert, Oriented x3, Cooperative, No apparent distress HEENT: Atraumatic, PERRLA, EOMI, Normocephalic Oral: Dry Mucosa Neck: Supple, No JVD, Negative Carotid Bruits Lungs: Clear to auscultation, Normal air movement, No rhonchi, No wheeze Cardiovascular: Regular rate, Regular Rhythm, Normal S1, Normal S2, No murmurs Abdomen: Bowel Sounds Present, Soft, Non Tender Extremities: No clubbing, No cyanosis, No edema, Capillary Refill Less than 3 Seconds Skin: No rashes, No breakdown Musculoskeletal: Tenderness - has tenderness of her LEs, over her ankles, right hand swelling has resolved. Lymphatic: No Cervical, Supraclavicular, or Inguinal Adenopathy Neurological: Cranial nerves II-XII grossly intact, Neuro grossly intact, Motor Exam 5/5 strength throughout Psych/Mental Status: Normal Affect, Appropriate, Alert and oriented to time, place, person, mood and affect Microbiology Past 72 Hours 07/28/20 11:50 Mucosa - Nose SARS-CoV-2 Antigen (Rapid) - Final Laboratory Results 07/28/20 10:05: WBC 12.0 H, RBC 4.66, Hgb 12.2, Hct 41.0, MCV 88.0, MCH 26.2 L, MCHC 29.8 L, RDW Std Deviation 44.6 H, RDW Coeff of Addi 13.8, Plt Count 334, MPV 10.0, Immature Gran % (Auto) 0.300, Neut % (Auto) 73.4 H, Lymph % (Auto) 17.5 L, Bath % (Auto) 7.2, Eos % (Auto) 1.1, Baso % (Auto) 0.5, Absolute Neuts (auto) 8.8 H, Absolute Lymphs (auto) 2.10, Nucleated RBC % 0 07/28/20 10:05: PT 17.3 H, INR 1.5, APTT 38.0 H 07/28/20 10:05: Sodium 138, Potassium 3.7, Chloride 99, Carbon Dioxide 32.0, Anion Gap 7, BUN 11, Creatinine 1.01, Estim Creat Clear Calc 32.79, Est GFR (MDRD) Af Amer 67, Est GFR (MDRD) Non-Af 56 L, BUN/Creatinine Ratio 10.9, Glucose 140 H, Calcium 9.8, Total Bilirubin 0.60, AST 12 L, ALT 18, Alkaline Phosphatase 82, Troponin I < 0.015, Total Protein 8.5 H, Albumin 3.4, Globulin 5.1 H, Albumin/Globulin Ratio 0.7 L 07/28/20 10:05: B-Natriuretic Peptide 172.9 H 07/28/20 11:17: Urine Color Yellow, Urine Clarity Clear, Urine pH 5.0, Ur Specific Recluse 1.015, Urine Protein 30 H, Urine Glucose (UA) Normal, Urine Ketones Negative, Urine Occult Blood 50 H, Urine Nitrite Negative, Urine Bilirubin Negative, Urine Urobilinogen Normal, Ur Leukocyte Esterase Negative, Urine RBC 0 SEEN, Urine WBC 0 SEEN, Ur Squamous Epith Cells 0-5 SEEN, Urine Bacteria RARE, Urine Mucus 0 SEEN 07/29/20 05:50: WBC 10.9, RBC 3.88 L, Hgb 10.1 L, Hct 34.1 L, MCV 87.9, MCH 26.0 L, MCHC 29.6 L, RDW Std Deviation 45.0 H, RDW Coeff of Addi 14.1, Plt Count 275, MPV 9.9, Immature Gran % (Auto) 0.300, Neut % (Auto) 70.0, Lymph % (Auto) 19.5, Bath % (Auto) 8.9, Eos % (Auto) 0.9, Baso % (Auto) 0.4, Absolute Neuts (auto) 7.6, Absolute Lymphs (auto) 2.12, Nucleated RBC % 0 07/29/20 05:50: Sodium 139, Potassium 4.3, Chloride 104, Carbon Dioxide 27.0, Anion Gap 8, BUN 14, Creatinine 0.97, Estim Creat Clear Calc 34.15, Est GFR (MDRD) Af Amer 70, Est GFR (MDRD) Non-Af 58 L, BUN/Creatinine Ratio 14.4, Glucose 127 H, Calcium 8.4 L Diagnostic Data Brain CT 07/28/20 10:14 IMPRESSION: Chronic involutional changes of the brain. Electronically Signed: Dallas Lazaro MD at 11:28 EST Tel , Service support , Chest X-Ray 07/28/20 10:16 IMPRESSION: No active disease. Electronically Signed: Dallas Lazaro MD at 11:29 EST Tel , Service support , Current Medications Acetaminophen (Acetaminophen 325 Mg Tablet) 650 mg PO Q6H PRN PRN PRN Reason: Pain Score 1-10/Temp > 100.7 F Last Admin: 07/29/20 05:44 Dose: 650 mg Documented by: Amlodipine Besylate (Amlodipine 10 Mg Tablet) 10 mg PO DAILY [facility] Last Admin: 07/29/20 08:58 Dose: 10 mg Documented by: Buprenorphine HCl (Buprenorphine Hcl 8 Mg Tab.Subl) 8 mg SL DAILY [facility] Enoxaparin Sodium (Enoxaparin 40 Mg/0.4 Ml Syringe) 40 mg SC DAILY [facility] Last Admin: 07/29/20 09:01 Dose: 40 mg Documented by: Ergocalciferol (Ergocalciferol 50,000 Unit Capsule) 50,000 unit PO MoWeFr@1000 [facility] Furosemide (Furosemide 20 Mg Tablet) 20 mg PO DAILY PRN PRN Reason: EDEMA Gabapentin (Gabapentin 600 Mg Tablet) 1,200 mg PO BIDCM [facility] Last Admin: 07/29/20 08:58 Dose: 1,200 mg Documented by: Ketorolac Tromethamine (Ketorolac 15 Mg/Ml Vial) 15 mg IV Q8H PRN PRN PRN Reason: Pain Score 1-10 Stop: 08/02/20 13:46 Last Admin: 07/29/20 09:08 Dose: 15 mg Documented by: Magnesium Chloride (Magnesium Chloride 64 Mg Delay Rel.Tablet) 128 mg PO DAILY [facility] Last Admin: 07/29/20 08:58 Dose: 128 mg Documented by: Meclizine HCl (Meclizine Hcl 25 Mg Tablet) 25 mg PO Q8H PRN PRN PRN Reason: DIZZINESS Nitroglycerin (Nitroglycerin (Inpatient Use) 0.4 Mg Tab.Subl) 0.4 mg SL Q5M PRN PRN Reason: CHEST PAIN Sodium Chloride (0.9% Saline Lock 10 Ml Syringe) 10 - 40 ml IV UD PRN PRN Reason: SALINE FLUSH Last Admin: 07/29/20 09:08 Dose: 20 ml Documented by: Tizanidine HCl (Tizanidine Hcl 2 Mg Tablet) 4 mg PO QHS [facility] Last Admin: 07/28/20 21:03 Dose: 4 mg Documented by: STROKE Vital Signs/Narrative: Vital Signs Temp Pulse Resp BP Pulse Ox 07/29/20 08:55 97.5 F L 78 18 191/78 H 95 07/29/20 07:26 96 07/29/20 07:00 73 Medical Necessity - Tobacco Use Smoking Status: Former smoker Tobacco Use: Cigarettes Assessment/Plan All Active Problems (Last Updated 06/29/19 @ 10:38 by Chloe Quezada) Confusion (Acute) Weakness (Acute) Paroxysmal supraventricular tachycardia (Acute) Hypertension, uncontrolled (Acute) Hypokalemia (Acute) Hypoxia (Acute) Rash (Acute) Hypoxia (Acute) Hypokalemia (Acute) 85 y/o admitted with a complaint of acute on chronic pain in her lower extremities and right hand #Intractable pain due to arthritis still complains of severe generalized pain, mainly in her ankles and hands PT.OT on board toradol and tylenol not helpiing much; neither is the buprenorphine will dc buprenorphine and start IV morphine, which is what she thinks will be beneficial consult pain management. She used to see Dr Diaz #Hypertension: On amlodipine #Dizziness: Ct of the brain was negative. resolved. on meclizine #CAD s/p stents: Stable. She is not on aspirin or statin or any beta-david or ROSA inhibitor/ARB. It is unclear why. #History of DVT: On Eliquis. Will hold Eliquis for now also pain management has been consulted as she may need a pain shot. DVT prophylaxis: Lovenox. Eliquis held as above. OBSV E&M: 32012 Subsequent observation care L2
[2020-07-29] MEDS: Morphine 2 MG/ML Syringe IV (14:32)
[2020-07-29] MEDS: tiZANidine HCl 2 MG Tablet 4 MG PO (21:40)
[2020-07-30] VITALS (10 sets, daily range): BP systolic 147–185; BP diastolic 63–75; PULSE 52–88; RESP 16–18; TEMP 36.5–36.7; O2SAT 91–98
[2020-07-30] MEDS: 0.9% Saline Lock 10 ML Syringe IV ×2 (05:39→08:36)
[2020-07-30] MEDS: Ketorolac 15 MG/ML Vial IV (05:41)
[2020-07-30] MEDS: Magnesium Chloride 64 MG Delay Rel.Tablet 128 MG PO (08:35)
[2020-07-30] MEDS: Gabapentin 600 MG Tablet 1200 MG PO (08:35)
[2020-07-30] MEDS: Morphine 2 MG/ML Syringe IV (08:36)
[2020-07-30] MEDS: amLODIPine 10 MG Tablet PO (08:36)
[2020-07-30] MEDS: Enoxaparin 40 MG/0.4 ML Syringe SC (08:38)
--- NOTE | 2020-07-30 10:49 | CASEMGMT ---
Addendum entered by Chely Marcus 07/30/20 12:21: This RN CM back to room and she states she would like [facility] at this time for PT/OT. Call to Jenae at [facility] and she is updated on referral at this time, voices understanding. Pt states she has a WW, BSC, and shower chair at home. Pt states she does not normally use the WW as she does not want to become dependent on it but is aware she will need to use at discharge. Pt voices no further questions/concerns/needs. Gwen HANKINS CM Original Note: This RN CM to room with SRIVASTAVA form at this time, explanation done-pt voices understanding, and signs SRIVASTAVA form at this time. Original to chart and copy to pt at this time. Pt states she would like HHC therapy set up at discharge and provided with a list of HHC providers including quality and resource data and consistent with the pt's preferred geographic region, medical needs, and insurance network. CM to follow PT/OT and to f/u w/ pt regarding HHC decision. Gwen HANKINS CM
--- NOTE | 2020-07-30 11:48 | PCM.DC ---
- Discharge Diagnoses Current Active Problems: Current Active and Chronic Problems (Last Updated 06/29/19 @ 10:38 by Chole Quezada) Intractable pain You will use the following diet at home:: No restrictions Discharge Activity: Return to Normal Activity Call your doctor if you observe: Shortness of breath, Dizziness, Fainting spells, Chest pain Allergies/Adverse Reactions: Allergies cefdinir Allergy (Severe, Verified 07/28/20 10:03) Hives diltiazem [From Cardizem] Allergy (Severe, Verified 07/28/20 10:03) Rash Penicillins Allergy (Verified 07/28/20 10:03) Swelling Sulfa (Sulfonamide Antibiotics) Allergy (Verified 07/28/20 10:03) Swelling acetaminophen [From Darvocet-N] Adverse Reaction (Severe, Verified 07/28/20 10:03) GI Upset cyclobenzaprine [From Flexeril] Adverse Reaction (Severe, Verified 07/28/20 10:03) Heart Racing doxycycline Adverse Reaction (Severe, Verified 07/28/20 10:03) Emesis furosemide Adverse Reaction (Severe, Verified 07/28/20 10:03) Jerking propoxyphene [From Darvocet-N] Adverse Reaction (Severe, Verified 07/28/20 10:03) GI Upset levofloxacin [From Levaquin] Adverse Reaction (Unknown, Verified 07/28/20 10:03) Unknown milk Adverse Reaction (Verified 07/28/20 10:03) Diarrhea Medications to take at Discharge Amlodipine [Norvasc] 10 mg PO DAILY 10/20/14 nitroglycerin 0.4 mg sublingual tablet 0.4 mg SUBLINGUAL Q5-15M PRN 06/29/19 ergocalciferol (vitamin D2) 1,250 mcg (50,000 unit) capsule 50,000 unit PO .3XW cap 07/15/19 magnesium oxide 400 mg PO DAILY 07/15/19 tizanidine 4 mg tablet 4 mg PO QHS 09/02/19 Furosemide [Lasix] 20 mg PO DAILY PRN 09/30/19 Meclizine HCl 25 mg PO Q8H PRN PRN #20 tab 07/20/20 Apixaban [Eliquis] 5 mg PO BID 07/28/20 Gabapentin 1,200 mg PO BID 07/28/20 Hydrocodone Bitart/Apap 5-325 [[place] 5/325] 1 - 2 tablet PO Q8 PRN 3 Days #12 tablet 07/30/20 The following prescriptions were given: Hydrocodone Bitart/Apap 5-325 [[place] 5/325] 1 - 2 tablet PO Q8 PRN 3 Days #12 tablet PRN Reason: Pain Score 4-10 Transmission Status: Sent to [email or web address] #[email or web address] Primary Care Physician: Nayely Connell MD [Primary Care Provider] - Please follow up with your Primary Care Physician in: 1 Week Test Results: Test results from this visit will be discussed in further detail at your follow-up appointment, if applicable. Please Follow Up With: Lashon Diaz MD When: On Thursday as scheduled Proposed Discharge Date: 07/30/20
--- NOTE | 2020-07-30 11:59 | DS.PCM_ITS ---
<Sona Hobbs [facility] - Last Filed: 07/30/20 12:06> Discharge Date and Diagnosis Date of Admission: 07/28/20 Date of Discharge: 07/30/20 - Primary Discharge Diagnosis Acute Problems: Active Problems (Last Updated 06/29/19 @ 10:38 by Chloe Quezada) 1. Intractable pain secondary to chronic arthritis 2. Hypertension 3. Dizziness-CVA ruled out. 4. CAD with history of stents 5. History of DVT - Secondary Discharge Diagnosis Chronic Problems: Chronic Problems (Last Updated 06/29/19 @ 10:38 by Chloe Quezada) Pure hypercholesterolemia (Chronic) Chronic diastolic heart failure (Chronic) Nonrheumatic aortic (valve) stenosis (Chronic) Presence of stent in coronary artery (Chronic ~12/14/18) PCI/Stent to RCA 1998; PCI/RADHA x2 to LCX 12/14/18 Atherosclerotic heart disease of [place] coronary artery without angina pectoris (Chronic) Former tobacco use (Chronic) GERD (gastroesophageal reflux disease) (Chronic) Carotid artery disease (Chronic) Benign hypertension (Chronic) Hospital Course and Treatment Imaging Results: Diagnostic Data Brain CT 07/28/20 10:14 IMPRESSION: Chronic involutional changes of the brain. Electronically Signed: Dallas Lazaro MD at 11:28 EST Tel , Service support , Chest X-Ray 07/28/20 10:16 IMPRESSION: No active disease. Electronically Signed: Dallas Lazaro MD at 11:29 EST Tel , Service support , Dr. Diaz- pain management Operations: None Procedures: None Summary of Care Provided: The patient is a 85 year old F admitted 07/28/2020 due to lower extremity pain. 1. Intractable pain secondary to chronic arthritis-patient complains of severe generalized pain. PT/OT on admission. Patient requesting to return home at discharge with home therapy. Previously on buprenorphine which was discontinued. Pain management consulted, Dr. Diaz. Pain management recommends discontinuing buprenorphine and beginning as needed Cl[place]. She will follow up with pain management on Thursday. 2. Hypertension-stable, continue amlodipine. 3. Dizziness-CVA ruled out. Brain CT negative. On as needed meclizine at baseline. 4. CAD with history of stents-not on medication regimen. No active symptoms. 5. History of DVT-on Eliquis. Patient seen and examined prior to discharge. Physical assessment as noted below. Patient is stable for discharge with follow up recommendations as noted above. This patient was seen by TIFFANIE Swift under the supervision of Dr. Ya. - Physical Exam Vitals/I&O's: Vital Signs Temp Pulse Resp BP Pulse Ox 97.7 F L 80 18 185/75 H 97 07/30/20 08:30 07/30/20 11:00 07/30/20 08:30 07/30/20 08:30 07/30/20 08:30 Oxygen Flow Rate (L/min) 1 Oxygen Delivery Method Nasal Cannula Weight: 150 lb 5.684 oz Body Mass Index (BMI) 27.5 Intake and Output for Last 24 Hours 07/28/20 07/29/20 07/30/20 22:59 23:59 23:59 Intake Total 50 / 50 Output Total Balance 50 / 50 General: Alert, Oriented x3, Cooperative HEENT: Atraumatic, PERRLA, EOMI, Normocephalic Neck: Supple, No JVD, Negative Carotid Bruits Lungs: Clear to auscultation, Normal air movement Cardiovascular: Regular rate, No murmurs Abdomen: Bowel Sounds Present, Soft, Non Tender, Non-Distended Extremities: No clubbing, No cyanosis, No edema, Capillary Refill Less than 3 Seconds Skin: No rashes, No breakdown Musculoskeletal: No Tenderness to Palpation of Joints or Extremities Neurological: Cranial nerves II-XII grossly intact, Neuro grossly intact Psych/Mental Status: Normal Affect, Appropriate Microbiology Past 72 Hours 07/28/20 11:50 Mucosa - Nose SARS-CoV-2 Antigen (Rapid) - Final Current Medications Acetaminophen (Acetaminophen 325 Mg Tablet) 650 mg PO Q6H PRN PRN PRN Reason: Pain Score 1-10/Temp > 100.7 F Last Admin: 07/29/20 05:44 Dose: 650 mg Documented by: Hydrocodone Bitart/Acetaminophen (Hydrocodone Bitartrate/Apap 5/325 Tablet) 1 - 2 tablet PO Q8 PRN PRN Reason: Pain Score 4-10 Amlodipine Besylate (Amlodipine 10 Mg Tablet) 10 mg PO DAILY [facility] Last Admin: 07/30/20 08:36 Dose: 10 mg Documented by: Enoxaparin Sodium (Enoxaparin 40 Mg/0.4 Ml Syringe) 40 mg SC DAILY [facility] Last Admin: 07/30/20 08:38 Dose: 40 mg Documented by: Ergocalciferol (Ergocalciferol 50,000 Unit Capsule) 50,000 unit PO MoWeFr@1000 [facility] Last Admin: 07/30/20 08:35 Dose: 50,000 unit Documented by: Furosemide (Furosemide 20 Mg Tablet) 20 mg PO DAILY PRN PRN Reason: EDEMA Gabapentin (Gabapentin 600 Mg Tablet) 1,200 mg PO BIDCM [facility] Last Admin: 07/30/20 08:35 Dose: 1,200 mg Documented by: Ketorolac Tromethamine (Ketorolac 15 Mg/Ml Vial) 15 mg IV Q8H PRN PRN PRN Reason: Pain Score 1-10 Stop: 08/02/20 13:46 Last Admin: 07/30/20 05:41 Dose: 15 mg Documented by: Magnesium Chloride (Magnesium Chloride 64 Mg Delay Rel.Tablet) 128 mg PO DAILY [facility] Last Admin: 07/30/20 08:35 Dose: 128 mg Documented by: Meclizine HCl (Meclizine Hcl 25 Mg Tablet) 25 mg PO Q8H PRN PRN PRN Reason: DIZZINESS Morphine Sulfate (Morphine 2 Mg/Ml Syringe) 2 mg IV Q3H PRN PRN PRN Reason: Pain Score 4-10 Last Admin: 07/30/20 08:36 Dose: 2 mg Documented by: Nitroglycerin (Nitroglycerin (Inpatient Use) 0.4 Mg Tab.Subl) 0.4 mg SL Q5M PRN PRN Reason: CHEST PAIN Sodium Chloride (0.9% Saline Lock 10 Ml Syringe) 10 - 40 ml IV UD PRN PRN Reason: SALINE FLUSH Last Admin: 07/30/20 08:36 Dose: 20 ml Documented by: Tizanidine HCl (Tizanidine Hcl 2 Mg Tablet) 4 mg PO QHS [facility] Last Admin: 07/29/20 21:40 Dose: 4 mg Documented by: Discharge Diet: No Restrictions Discharge Activity: Return to Normal Activity Call your doctor if you observe: Shortness of breath, Dizziness, Fainting spells, Chest pain Home Medications: Medications to take at Discharge Amlodipine [Norvasc] 10 mg PO DAILY 10/20/14 nitroglycerin 0.4 mg sublingual tablet 0.4 mg SUBLINGUAL Q5-15M PRN 06/29/19 ergocalciferol (vitamin D2) 1,250 mcg (50,000 unit) capsule 50,000 unit PO .3XW cap 07/15/19 magnesium oxide 400 mg PO DAILY 07/15/19 tizanidine 4 mg tablet 4 mg PO QHS 09/02/19 Furosemide [Lasix] 20 mg PO DAILY PRN 09/30/19 Meclizine HCl 25 mg PO Q8H PRN PRN #20 tab 07/20/20 Apixaban [Eliquis] 5 mg PO BID 07/28/20 Gabapentin 1,200 mg PO BID 07/28/20 Hydrocodone Bitart/Apap 5-325 [[place] 5/325] 1 - 2 tab PO Q8 PRN 3 Days #12 tab 07/30/20 Following Prescriptions Were Given to Patient: Hydrocodone Bitart/Apap 5-325 [[place] 5/325] 1 - 2 tab PO Q8 PRN 3 Days #12 tab PRN Reason: Pain Score 4-10 Transmission Status: Received by [employer] #30 Primary Care Physician: Nayely Connell MD [Primary Care Provider] - Please follow up with your Primary Care Physician in: 1 Week Please Follow Up With: Lashon Diaz MD When: On Thursday as scheduled Disposition: Home Minutes spent on discharge:: 35 Patient Condition:: Stable Medical Necessity - Tobacco Use Smoking Status: Former smoker Tobacco Use: Cigarettes Meaningful Use Info Meaningful Use Diagnoses (Choose all that apply): None applicable <Leonard Ya - Last Filed: 07/30/20 13:24> Discharge Date and Diagnosis - Secondary Discharge Diagnosis Chronic Problems: Chronic Problems (Last Updated 07/30/20 @ 12:00 by Sona Hobbs NP, [facility]) Weakness (Chronic) Pure hypercholesterolemia (Chronic) Chronic diastolic heart failure (Chronic) Nonrheumatic aortic (valve) stenosis (Chronic) Presence of stent in coronary artery (Chronic ~12/14/18) PCI/Stent to RCA 1998; PCI/RADHA x2 to LCX 12/14/18 Atherosclerotic heart disease of [place] coronary artery without angina pectoris (Chronic) Former tobacco use (Chronic) GERD (gastroesophageal reflux disease) (Chronic) Carotid artery disease (Chronic) Benign hypertension (Chronic) Hospital Course and Treatment Summary of Care Provided: Hospitalist note: Discharge summary above reviewed and I concur with above discharge treatment plan. Patient was admitted for intractable acute on chronic pain due to generalized arthritis. Patient has been following up with the pain management as outpatient for chronic pain issues. Dr. Diaz was consulted and he recommended to discontinue Subutex that patient has been on for chronic narcotics use and recommended to start him on [place] as needed for pain. Dr. De La Garza mentioned that there is no indication for surgical intervention or procedure at this time. He recommended to start Cl[place] for pain control and follow-up with him as outpatient. Patient complained of dizziness for which CT brain done and showed no acute findings. Routine blood work was unremarkable. Urinalysis showed no evidence of infection. Chest x-ray showed no acute fin dings. Patient discharged home in a stable medical condition, discharged on [place] as needed for pain, Subutex discontinued, discharged on gabapentin 1200 mg p.o. twice daily, plan to follow-up with Dr. Diaz in the next couple of days, recommended from with PCP in 1 week. This note was generated with [employer] dictation software. It may contain incorrect words, spelling, and punctuation that were not noted in checking the note before signing. - Physical Exam Vitals/I&O's: Vital Signs Temp Pulse Resp BP Pulse Ox 97.7 F L 86 18 185/75 H 97 07/30/20 12:01 07/30/20 12:01 07/30/20 12:01 07/30/20 08:30 07/30/20 12:01 Oxygen Flow Rate (L/min) 1 Oxygen Delivery Method Nasal Cannula Weight: 150 lb 5.684 oz Body Mass Index (BMI) 27.5 Intake and Output for Last 24 Hours 07/28/20 07/29/20 07/30/20 22:59 23:59 23:59 Intake Total 50 / 50 Output Total Balance 50 / 50 Microbiology Past 72 Hours 07/28/20 11:50 Mucosa - Nose SARS-CoV-2 Antigen (Rapid) - Final Current Medications Acetaminophen (Acetaminophen 325 Mg Tablet) 650 mg PO Q6H PRN PRN PRN Reason: Pain Score 1-10/Temp > 100.7 F Last Admin: 07/29/20 05:44 Dose: 650 mg Documented by: Hydrocodone Bitart/Acetaminophen (Hydrocodone Bitartrate/Apap 5/325 Tablet) 1 - 2 tablet PO Q8 PRN PRN Reason: Pain Score 4-10 Amlodipine Besylate (Amlodipine 10 Mg Tablet) 10 mg PO DAILY [facility] Last Admin: 07/30/20 08:36 Dose: 10 mg Documented by: Enoxaparin Sodium (Enoxaparin 40 Mg/0.4 Ml Syringe) 40 mg SC DAILY [facility] Last Admin: 07/30/20 08:38 Dose: 40 mg Documented by: Ergocalciferol (Ergocalciferol 50,000 Unit Capsule) 50,000 unit PO MoWeFr@1000 [facility] Last Admin: 07/30/20 08:35 Dose: 50,000 unit Documented by: Furosemide (Furosemide 20 Mg Tablet) 20 mg PO DAILY PRN PRN Reason: EDEMA Gabapentin (Gabapentin 600 Mg Tablet) 1,200 mg PO BIDCM [facility] Last Admin: 07/30/20 08:35 Dose: 1,200 mg Documented by: Ketorolac Tromethamine (Ketorolac 15 Mg/Ml Vial) 15 mg IV Q8H PRN PRN PRN Reason: Pain Score 1-10 Stop: 08/02/20 13:46 Last Admin: 07/30/20 05:41 Dose: 15 mg Documented by: Magnesium Chloride (Magnesium Chloride 64 Mg Delay Rel.Tablet) 128 mg PO DAILY [facility] Last Admin: 07/30/20 08:35 Dose: 128 mg Documented by: Meclizine HCl (Meclizine Hcl 25 Mg Tablet) 25 mg PO Q8H PRN PRN PRN Reason: DIZZINESS Morphine Sulfate (Morphine 2 Mg/Ml Syringe) 2 mg IV Q3H PRN PRN PRN Reason: Pain Score 4-10 Last Admin: 07/30/20 08:36 Dose: 2 mg Documented by: Nitroglycerin (Nitroglycerin (Inpatient Use) 0.4 Mg Tab.Subl) 0.4 mg SL Q5M PRN PRN Reason: CHEST PAIN Sodium Chloride (0.9% Saline Lock 10 Ml Syringe) 10 - 40 ml IV UD PRN PRN Reason: SALINE FLUSH Last Admin: 07/30/20 08:36 Dose: 20 ml Documented by: Tizanidine HCl (Tizanidine Hcl 2 Mg Tablet) 4 mg PO QHS JOSE M Last Admin: 07/29/20 21:40 Dose: 4 mg Documented by: Disposition: Home Minutes spent on discharge:: 27 Patient Condition:: Stable Meaningful Use Info Meaningful Use Diagnoses (Choose all that apply): None applicable OBSV E&M: 18826 Observation care discharge
--- NOTE | 2020-07-30 12:21 | PHA.DC.MR ---
Pharmacy Service has performed discharge medication reconciliation for this patient. The patient's discharge medication list was reviewed for discrepancies and discrepancies were resolved. Home Medications Amlodipine [Norvasc] 10 mg PO DAILY 10/20/14 nitroglycerin 0.4 mg sublingual tablet 0.4 mg SUBLINGUAL Q5-15M PRN 06/29/19 ergocalciferol (vitamin D2) 1,250 mcg (50,000 unit) capsule 50,000 unit PO .3XW cap 07/15/19 magnesium oxide 400 mg PO DAILY 07/15/19 tizanidine 4 mg tablet 4 mg PO QHS 09/02/19 Furosemide [Lasix] 20 mg PO DAILY PRN 09/30/19 Meclizine HCl 25 mg PO Q8H PRN PRN #20 tab 07/20/20 Apixaban [Eliquis] 5 mg PO BID 07/28/20 Gabapentin 1,200 mg PO BID 07/28/20 Hydrocodone Bitart/Apap 5-325 [[place] 5/325] 1 - 2 tab PO Q8 PRN 3 Days #12 tab 07/30/20
== END 2020-07-30 11:48 | disposition home or self-care (01) ==
LOC: ED 12:03 → PCU 12:30
PROVIDERS: Admitting Provider Student in an Organized Health Care Education/Training Program; Emergency Provider Emergency Medicine; PCP Internal Medicine; Visit Provider Hospitalist
DX: M19.90 Unspecified osteoarthritis, unspecified site (principal); R42 Dizziness and giddiness; G89.29 Other chronic pain; I25.10 Atherosclerotic heart disease of native coronary artery without angina pectoris; R41.0 Disorientation, unspecified; R09.02 Hypoxemia; F11.20 Opioid dependence, uncomplicated; I11.0 Hypertensive heart disease with heart failure; I50.32 Chronic diastolic (congestive) heart failure; K21.9 Gastro-esophageal reflux disease without esophagitis; E78.00 Pure hypercholesterolemia, unspecified; Z87.891 Personal history of nicotine dependence; Z86.718 Personal history of other venous thrombosis and embolism; Z79.899 Other long term (current) drug therapy; Z86.711 Personal history of pulmonary embolism
CPT/HCPCS: 70450; 71045; 80048; 80053; 81001; 83880; 84484; 85025; 85610; 85730; 87426; 93005; 96361; 96372; 96374; 96375; 96376; 97110; 97163; 97166; 97530; 97535; 99218; 99285; J7030; P9612; A4216; G0378

== ENCOUNTER 2020-09-05 14:57 | Emergency (ER) | payer MEDICARE, SELFPAY ==
[2020-07-28 13:18] VITALS: BMI 27.5
[2020-09-05 14:58] VITALS: BP 201/88; PULSE 86; RESP 16; TEMP 36.8; O2SAT 96; BMI 28.6
--- NOTE | 2020-09-05 15:19 | EKG12_ITS ---
Test Reason : DIZZINESS Blood Pressure : / mmHG Vent. Rate : 076 BPM Atrial Rate : 076 BPM P-R Int : 258 ms QRS Dur : 092 ms QT Int : 378 ms P-R-T Axes : 036 -08 081 degrees QTc Int : 425 ms Sinus rhythm with 1st degree A-V block Voltage criteria for left ventricular hypertrophy Abnormal ECG Confirmed by VILMA LAWSON, YUSEF ([id number]), vocational nurse ALETHA MTZ ([id number]) on 09/07/2020 8:16:58 AM Referred By: PRINCE Confirmed By:CARA ESPARZA MD
--- NOTE | 2020-09-05 15:20 | CT_ITS ---
STUDY: CT BRAIN WITHOUT CONTRAST REASON FOR EXAM: Female, 85 years old. Head injury RADIATION DOSAGE (If Supplied By Facility): CTDIvol = ( 44.99 ) mGy, DLP = ( 779.24 ) mGycm TECHNIQUE: Transaxial CT imaging of the brain was performed without administration of intravenous contrast material. Individualized dose optimization techniques were used for this CT. COMPARISON: Comparison is made with prior study dated 07/28/2020. FINDINGS: Normal soft tissue structures. Normal calvarium. There is mild cerebral atrophy with widening of the extra-axial spaces and ventricular dilatation. There are areas of decreased attenuation within the white matter tracts of the supratentorial brain, consistent with microvascular disease changes. Normal basal ganglia and thalami. Normal brainstem. Normal cerebellum. There is no intracranial hemorrhage. There are no findings of an acute ischemic infarction. Atherosclerotic calcification of the cavernous portions of the internal carotid arteries. Normal visualized paranasal sinuses. CT/Brain/Head without Contrast IMPRESSION: Chronic involutional changes of the brain. Electronically Signed: Alan Perrin MD at 16:01 EDT , Service support ,
--- NOTE | 2020-09-05 15:21 | CT_ITS ---
STUDY: CT CERVICAL SPINE WITHOUT CONTRAST REASON FOR EXAM: Female, 85 years old. Neck pain RADIATION DOSAGE (If Supplied By Facility): CTDIvol = ( 15.40 ) mGy, DLP = ( 347.12 ) mGycm TECHNIQUE: High resolution transaxial imaging was performed without contrast material. Sagittal and coronal images were reconstructed. Individualized dose optimization techniques were used for this CT. COMPARISON: Comparison is made with prior study dated 09/30/2019. FINDINGS: Normal craniovertebral junction. There are degenerative changes of the anterior atlantoaxial articulation. Normal odontoid process. Normal cervical lordosis. Normal vertebral bodies and posterior osseous elements. C2-3: Normal endplates. Normal disc height and morphology. Normal central canal and intervertebral neuroforamina. C3-4: Normal endplates. Normal disc height and morphology. Normal central canal and intervertebral neuroforamina. C4-5: Moderate degree of disc space narrowing and spondylosis. Uncovertebral arthrosis. Bilateral neural foraminal stenosis worse on the left side. C5-6: Moderate degree of disc space narrowing. Facet joint osteoarthritis and uncovertebral arthrosis. Bilateral neural foraminal stenosis worse on the left side. C6-7: Marked degree of disc space narrowing. Facet joint osteoarthritis. Bilateral neural foraminal stenosis. C7-T1: Normal endplates. Normal disc height and morphology. Normal central canal and intervertebral neuroforamina. Atherosclerotic changes of the cavernous portions of the internal carotid arteries bilaterally. CT/Spine Cervical without Contras IMPRESSION: Multilevel degenerative changes, as described above. Electronically Signed: Alan Perrin MD at 16:03 EDT , Service support ,
--- NOTE | 2020-09-05 15:21 | ED.VIS.GEN ---
History of Present Illness Chief Complaint: Dizziness Informant: Patient Narrative: 85-year-old female presenting with dizziness. She does describe this as vertiginous. She is takes meclizine on a regular basis. She states she took some this morning and it only had helped minimally. She states that over the last 3 days her dizziness has been worse and she has had a fall every day. She complains of contusion to the right forehead and some neck pain. She denies any other injuries. Patient is on Eliquis for history of blood clots. Patient does not have any chest pain or shortness of breath. She is not had a fever or chills. She has some mild nausea without vomiting. - Past Medical History (1) Pure hypercholesterolemia Status: Chronic (2) Chronic diastolic heart failure Status: Chronic (3) Nonrheumatic aortic (valve) stenosis Status: Chronic (4) Presence of stent in coronary artery Status: Chronic Comment: PCI/Stent to RCA 1998; PCI/RADHA x2 to LCX 12/14/18 (5) Atherosclerotic heart disease of [place] coronary artery without angina pectoris Status: Chronic (6) Hypertension, uncontrolled Status: Acute Past Medical History - Allergies and Home Meds Allergies/Adverse Reactions: Allergies cefdinir Allergy (Severe, Verified 09/05/20 15:03) Hives diltiazem [From Cardizem] Allergy (Severe, Verified 09/05/20 15:03) Rash Penicillins Allergy (Verified 09/05/20 15:03) Swelling Sulfa (Sulfonamide Antibiotics) Allergy (Verified 09/05/20 15:03) Swelling acetaminophen [From Darvocet-N] Adverse Reaction (Severe, Verified 09/05/20 15:03) GI Upset cyclobenzaprine [From Flexeril] Adverse Reaction (Severe, Verified 09/05/20 15:03) Heart Racing doxycycline Adverse Reaction (Severe, Verified 09/05/20 15:03) Emesis furosemide Adverse Reaction (Severe, Verified 09/05/20 15:03) Jerking propoxyphene [From Darvocet-N] Adverse Reaction (Severe, Verified 09/05/20 15:03) GI Upset levofloxacin [From Levaquin] Adverse Reaction (Unknown, Verified 09/05/20 15:03) Unknown milk Adverse Reaction (Verified 09/05/20 15:03) Diarrhea Primary Care Physician: Nayely Connell MD [Primary Care Provider] - Prior records reviewed: Yes Past Medical History: - - Reviewed in problem list Surgical History: noncontributory, - - Hysterectomy, right carotid endarterectomy, colon area artery disease, CAD s/p PCI x 5. Smoking Status: Never smoker - Family History Paternal Family History: Family History (Last Updated 06/29/19 @ 09:53 by Chloe Quezada) Mother Heart disease Diabetes Father Heart disease Diabetes Sister Diabetes Brother Diabetes Family History: Reports: Cancer, Diabetes, Heart Disease, Hypertension Maternal Family History: Family History (Last Updated 06/29/19 @ 09:53 by Chloe Quezada) Mother Heart disease Diabetes Father Heart disease Diabetes Sister Diabetes Brother Diabetes Family History: Reports: Diabetes, Heart Disease, Hypertension Review of Systems General: Denies: Chills, Fever, Sweats Eyes: Denies: Visual changes - bilaterally, Diplopia ENT: Denies: Rhinorrhea, Sore throat Cardiovascular: Denies: Chest pain, Palpitations Respiratory: Denies: Dyspnea, Cough, Dyspnea on exertion Gastrointestinal: Denies: Abdominal pain, Nausea, Vomiting, Diarrhea, Melena, Hematochezia Genitourinary: Denies: Dysuria, Hematuria, Frequency Musculoskeletal: Reports: Neck pain. Denies: Back pain, Extremity Pain Skin: Reports: Wounds - Contusion to right forehead.. Denies: Rash Neurological: Reports: Headache. Denies: Weakness, Parasthesia Psych: Denies: Depression, Anxiety Physical Exam Vital Signs/Narrative: Vital Signs Temp Pulse Resp BP Pulse Ox 09/05/20 14:58 98.2 F 86 16 201/88 H 96 Inital Vital Signs reviewed: Yes General: Well nourished, No Acute Distress Head: Normocephalic, - - Contusion to the right side of forehead. No skull induration. No deformity. No laceration. Eyes: Perrl, EOMI. Negative for: Pale conjunctiva ENT: Moist mucous membranes, No rhinorrhea, TM's clear, - - Dizziness elicited with head turning. Neck: Supple, Nontender Cardiovascular: Regular rate, Regular rhythm Respiratory: No distress, CTA bilaterally Abdomen: Soft, Nontender Extremities: Nontender, No edema Skin: Normal color, No rash Neurological: Alert, Oriented x3, Cranial nerves II-XII grossly intact, - - No focal neurologic deficits or lateralizing signs or symptoms. Psychological: Normal affect, Normal Mood Diagnostic/Tx/Re-eval Clinical Impression(s) from Imaging Studies Brain CT 09/05/20 15:20 IMPRESSION: Chronic involutional changes of the brain. Electronically Signed: Alan Perrin MD at 16:01 EDT , Service support , Cervical Spine CT 09/05/20 15:21 IMPRESSION: Multilevel degenerative changes, as described above. Electronically Signed: Alan Perrin MD at 16:03 EDT , Service support , Chest X-Ray 09/05/20 15:42 IMPRESSION: Stable examination. No acute abnormality is seen. Electronically Signed: Alan Perrin MD at 16:00 EDT , Service support , Laboratory Data 09/05/20 09/05/20 15:10 15:10 WBC 9.2 RBC 3.98 L Hgb 10.5 L Hct 34.4 L MCV 86.4 MCH 26.4 L MCHC 30.5 L RDW Std Deviation 56.5 H RDW Coeff of Addi 17.9 H Plt Count 176 MPV 10.1 Immature Gran % (Auto) 0.400 Neut % (Auto) 69.9 Lymph % (Auto) 20.5 [place] % (Auto) 8.0 Eos % (Auto) 0.8 Baso % (Auto) 0.4 Absolute Neuts (auto) 6.4 Absolute Lymphs (auto) 1.88 Nucleated RBC % 0 Sodium 140 Potassium 3.9 Chloride 105 Carbon Dioxide 28.0 Anion Gap 7 BUN 24 H Creatinine 1.14 H Estim Creat Clear Calc 29.05 Est GFR (MDRD) Af Amer 58 L Est GFR (MDRD) Non-Af 48 L BUN/Creatinine Ratio 21.1 H Glucose 140 H Calcium 9.1 Troponin I 0.015 TSH 0.60 - Medical Decision Making 85-year-old female presenting with dizziness. This appears to be a chronic issue however she has been falling more the last couple of days. She does have a contusion on right forehead. She did take her Antivert this morning and states that it has not significantly helped her. She is on Eliquis. On patient's physical exam I am able to elicit her dizziness by just turning her head. She was given Phenergan and after her CT brain and cervical spine were negative she was given oral meclizine. Her EKG performed on arrival shows a sinus rhythm with first-degree AV block as interpreted by myself which appears to be present on EKG in July 2020. Patient's chest x-ray is interpreted by myself shows no acute cardiopulmonary process. Radiology does agree. Other than her prerenal azotemia her lab work appears to be at baseline. Troponin is negative. She has ambulated in the ED. she has a stable gait. She feels she can be discharged home. Patient given return precautions. Impression: 1. Vertigo 2. Closed head injury 3. Falls ED Disposition - Plan for ED Patient: Disposition: Home or Assisted Living Instructions: ED Vertigo, Unspecified Referrals: Nayely Connell MD [Primary Care Provider] -
[2020-09-05 15:27] LABS: Absolute Lymphocyte Count 1.88 X10^3/uL (0.83-4.51); Absolute Neutrophil Count 6.4 X10^3/uL (2.0-7.7); Basophil# 0.04 X10^3/uL; Basophil% 0.4 % (0-1); Eosinophil# 0.07 X10^3/uL; Eosinophils% 0.8 % (0-5); Hematocrit 34.4 % (37-47); Hemoglobin 10.5 g/dL (12.0-15.0); Lymphocyte # 1.88 X10^3/ul (0.83-4.51); Lymphocyte % 20.5 % (19-41); Mean Corp Hgb Conc 30.5 g/dL (32-36); Mean Corpuscular Hgb 26.4 pg (27.0-32.0); Mean Corpuscular Volume 86.4 fL (81-99); Mean Platelet Vol. 10.1 fl (6.2-12.0); Monocyte# 0.73 X10^3/uL; NRBC Flagged by Analyzer 0 % (0-5); Neutrophil # 6.42 X10^3/uL (2.7-7.7); Neutrophil % 69.9 % (47-70); Platelet Count 176 K/mm3 (150-450); RBC Distribution Width CV 17.9 % (11.6-14.6); RBC Distribution Width SD 56.5 fl (35.1-43.9); Red Blood Count 3.98 M/mm3 (4.2-5.4); White Blood Count 9.2 K/mm3 (4.4-11.0)
--- NOTE | 2020-09-05 15:42 | RAD_ITS ---
STUDY: X-RAY CHEST REASON FOR EXAM: Female, 85 years old. Chest pain TECHNIQUE: Single AP portable view of the chest. COMPARISON: Comparison is made with prior study of 07/28/2020. FINDINGS: EKG electrodes are seen. The lungs are clear and expanded. There is no demonstrated pleural abnormality. There is borderline cardiomegaly. Prior aortic valve replacement. Normal mediastinum and tabby. Normal visualized pulmonary arteries. There is atherosclerotic calcification of the aortic arch with tortuosity. Normal visualized thoracic spine. Normal visualized ribs, clavicles, and shoulders. There is no demonstrated abnormality of the visualized soft tissue structures of the upper abdomen. RAD/Chest 1 View (Portable) IMPRESSION: Stable examination. No acute abnormality is seen. Electronically Signed: Alan Perrin MD at 16:00 EDT , Service support ,
[2020-09-05 15:51] LABS: Anion Gap 7 (5-15); BUN 24 mg/dL (7-18); BUN/Creat Ratio 21.1 RATIO (10-20); Calcium,Total 9.1 mg/dL (8.5-10.1); Chloride 105 mmol/L (98-107); Creatinine, Serum 1.14 mg/dL (0.55-1.02); EST Glomerular Filtration Rate 48 mL/min (>60); Est Glom Filt Rate - Afr Amer 58 mL/min (>60); Estimated Creatinine Clearance 29.05 ml/min; Glucose 140 mg/dL (74-106); Potassium 3.9 mmol/L (3.5-5.1); Sodium Level 140 mmol/L (136-145)
[2020-09-05] MEDS: proMETHazine 25 MG/ML Syringe 12.5 MG IM (16:51)
[2020-09-05] MEDS: Meclizine HCl 25 MG Tablet PO (17:57)
[2020-09-05 18:04] VITALS: BP 174/64; PULSE 70; RESP 13; O2SAT 91
[2020-09-05 20:17] VITALS: BP 189/79; PULSE 72; RESP 17
== END 2020-09-05 20:17 | disposition home or self-care (01) ==
PROVIDERS: Emergency Provider Student in an Organized Health Care Education/Training Program; PCP Internal Medicine
DX: R42 Dizziness and giddiness (principal); S00.83XA Contusion of other part of head, initial encounter; W19.XXXA Unspecified fall, initial encounter; Z91.81 History of falling; Y93.9 Activity, unspecified; Y92.9 Unspecified place or not applicable; M54.2 Cervicalgia; I44.0 Atrioventricular block, first degree; E78.00 Pure hypercholesterolemia, unspecified; I11.0 Hypertensive heart disease with heart failure; I50.32 Chronic diastolic (congestive) heart failure; I25.10 Atherosclerotic heart disease of native coronary artery without angina pectoris; Z95.5 Presence of coronary angioplasty implant and graft; Z79.01 Long term (current) use of anticoagulants; Z86.718 Personal history of other venous thrombosis and embolism; Z79.899 Other long term (current) drug therapy
CPT/HCPCS: 70450; 71045; 72125; 80048; 84443; 84484; 85025; 93005; 96372; 99285; A4216

== ENCOUNTER → 2020-09-10 12:45 | Outpatient (CLI) | payer MEDICARE, SELFPAY ==
[2020-09-05 14:58] VITALS: BMI 28.6
--- NOTE | 2020-09-10 13:00 | RAD_ITS ---
STUDY: X-RAY - CERVICAL SPINE REASON FOR EXAM: Female, 85 years old. NECK PAIN TECHNIQUE: 3 view(s) of the cervical spine were obtained. COMPARISON: 09/05/2020 CT cervical spine. FINDINGS: Normal cervical lordosis. There is multi-level endplate spondylosis. There is multi-level degenerative disc disease with multilevel disc space narrowing. The soft tissue structures are unremarkable. RAD/Cerv Spine 2 or 3 Views IMPRESSION: Degenerative changes of the spine. Electronically Signed: Tyler Gleason MD at 9:09 EDT Tel , Service support ,
[2020-09-10 13:47] LABS: Amphetamine Urine VISTA NEGATIVE (<1000 ng/mL); Barbiturate Urine VISTA NEGATIVE (< 200 ng/mL); Benzodiazepine Urine VISTA NEGATIVE (< 200 ng/mL); Cocaine Urine VISTA NEGATIVE (< 300 ng/mL); Ecstacy Urine VISTA NEGATIVE (< 500 ng/mL); Methadone Urine VISTA NEGATIVE (< 300 ng/mL); PCP Urine VISTA NEGATIVE (< 25 ng/mL); THC Urine VISTA NEGATIVE (< 50 ng/mL); Vista UDS pH Range 5
== END ==
PROVIDERS: PCP Internal Medicine; Referring Provider Anesthesiology Pain Medicine; Visit Provider Anesthesiology Pain Medicine
DX: M54.2 Cervicalgia (principal); F11.20 Opioid dependence, uncomplicated
CPT/HCPCS: 72040; 80307

== ENCOUNTER → 2020-09-14 14:46 | Outpatient (CLI) | payer MEDICARE, SELFPAY ==
[2020-09-05 14:58] VITALS: BMI 28.6
[2020-09-14 17:55] LABS: Absolute Lymphocyte Count 2.18 X10^3/uL (0.83-4.51); Absolute Neutrophil Count 4.4 X10^3/uL (2.0-7.7); Basophil# 0.04 X10^3/uL; Basophil% 0.6 % (0-1); Eosinophil# 0.15 X10^3/uL; Eosinophils% 2.1 % (0-5); Hematocrit 35.2 % (37-47); Hemoglobin 10.4 g/dL (12.0-15.0); Lymphocyte # 2.18 X10^3/ul (0.83-4.51); Lymphocyte % 30.1 % (19-41); Mean Corp Hgb Conc 29.5 g/dL (32-36); Mean Corpuscular Hgb 26.3 pg (27.0-32.0); Mean Corpuscular Volume 88.9 fL (81-99); Mean Platelet Vol. 9.9 fl (6.2-12.0); Monocyte# 0.42 X10^3/uL; Monocyte% 5.8 % (0-10); NRBC Flagged by Analyzer 0 % (0-5); Neutrophil # 4.39 X10^3/uL (2.7-7.7); Neutrophil % 60.6 % (47-70); Platelet Count 291 K/mm3 (150-450); RBC Distribution Width CV 17.2 % (11.6-14.6); RBC Distribution Width SD 56.5 fl (35.1-43.9); Red Blood Count 3.96 M/mm3 (4.2-5.4); White Blood Count 7.2 K/mm3 (4.4-11.0)
[2020-09-14 18:17] LABS: AST(SGOT) 18 U/L (15-37); Alanine Aminotransfer ALT/SGPT 24 U/L (13-56); Albumin, Serum 3.5 g/dL (3.2-5.0); Alkaline Phosphatase 66 U/L (45-117); Anion Gap 5 (5-15); BUN 22 mg/dL (7-18); BUN/Creat Ratio 14.5 RATIO (10-20); CRP 7.46 mg/L (0.0-3.0); Calcium,Total 8.7 mg/dL (8.5-10.1); Chloride 106 mmol/L (98-107); Creatinine, Serum 1.52 mg/dL (0.55-1.02); EST Glomerular Filtration Rate 35 mL/min (>60); Est Glom Filt Rate - Afr Amer 42 mL/min (>60); Globulin 3.6 g/dL (2.2-4.2); Glucose 90 mg/dL (74-106); Potassium 3.5 mmol/L (3.5-5.1); Protein, Total 7.1 g/dL (6.4-8.2); Rheumatoid Factor < 10.0 IU/mL (<15); Sodium Level 141 mmol/L (136-145)
[2020-09-14 18:19] LABS: Erythrocyte Sedimentation Rate 18 mm/hr (0-30)
[2020-09-17 10:25] LABS: Hepatitis B Surface Antibody Non-Reactive; Hepatitis B Surface Antigen Preliminary Reactive (Nonreactive); Hepatitis C Antibody Non-Reactive (Nonreactive)
[2020-09-17 10:45] LABS: ANTINUCLEAR ANTIBODIES DIRECT Negative (Negative)
[2020-09-19 09:54] LABS: CCP IgG Antibodies 4 units (0-19)
== END ==
PROVIDERS: PCP Internal Medicine Rheumatology; Referring Provider Internal Medicine Rheumatology; Visit Provider Internal Medicine Rheumatology
DX: M06.4 Inflammatory polyarthropathy (principal); M18.0 Bilateral primary osteoarthritis of first carpometacarpal joints; M19.041 Primary osteoarthritis, right hand; M47.897 Other spondylosis, lumbosacral region; M47.892 Other spondylosis, cervical region; H81.10 Benign paroxysmal vertigo, unspecified ear; I48.0 Paroxysmal atrial fibrillation; I25.10 Atherosclerotic heart disease of native coronary artery without angina pectoris; I73.9 Peripheral vascular disease, unspecified; I10 Essential (primary) hypertension; E78.5 Hyperlipidemia, unspecified; F41.1 Generalized anxiety disorder; K21.9 Gastro-esophageal reflux disease without esophagitis; I47.1 Supraventricular tachycardia
CPT/HCPCS: 36415; 80053; 85025; 85652; 86038; 86140; 86200; 86431; 86706; 86803; 87340

== ENCOUNTER → 2020-11-13 12:24 | Outpatient (CLI) | payer MEDICARE, SELFPAY ==
[2020-11-13 15:28] LABS: Absolute Neutrophil Count 6.1 X10^3/uL (2.0-7.7); Basophil# 0.06 X10^3/uL; Basophil% 0.6 % (0-1); Eosinophil# 0.15 X10^3/uL; Eosinophils% 1.6 % (0-5); Hematocrit 33.6 % (37-47); Hemoglobin 10.5 g/dL (12.0-15.0); Lymphocyte % 25.7 % (19-41); Mean Corp Hgb Conc 31.3 g/dL (32-36); Mean Corpuscular Hgb 28.2 pg (27.0-32.0); Mean Corpuscular Volume 90.3 fL (81-99); Mean Platelet Vol. 10.2 fl (6.2-12.0); Monocyte# 0.56 X10^3/uL; NRBC Flagged by Analyzer 0 % (0-5); Neutrophil # 6.14 X10^3/uL (2.7-7.7); Neutrophil % 65.8 % (47-70); Platelet Count 282 K/mm3 (150-450); RBC Distribution Width SD 49.5 fl (35.1-43.9); Red Blood Count 3.72 M/mm3 (4.2-5.4); White Blood Count 9.3 K/mm3 (4.4-11.0)
[2020-11-13 15:48] LABS: AST(SGOT) 19 U/L (15-37); Alanine Aminotransfer ALT/SGPT 23 U/L (13-56); Albumin, Serum 3.6 g/dL (3.2-5.0); Alkaline Phosphatase 57 U/L (45-117); Anion Gap 4 (5-15); BUN 13 mg/dL (7-18); BUN/Creat Ratio 10.6 RATIO (10-20); Calcium,Total 8.8 mg/dL (8.5-10.1); Chloride 107 mmol/L (98-107); Creatinine, Serum 1.23 mg/dL (0.55-1.02); EST Glomerular Filtration Rate 44 mL/min (>60); Est Glom Filt Rate - Afr Amer 53 mL/min (>60); Globulin 3.6 g/dL (2.2-4.2); Glucose 91 mg/dL (74-106); Potassium 3.9 mmol/L (3.5-5.1); Protein, Total 7.2 g/dL (6.4-8.2); Sodium Level 139 mmol/L (136-145)
== END ==
PROVIDERS: PCP Internal Medicine; Referring Provider Internal Medicine Rheumatology; Visit Provider Internal Medicine Rheumatology
DX: M06.4 Inflammatory polyarthropathy (principal); M18.0 Bilateral primary osteoarthritis of first carpometacarpal joints; M19.041 Primary osteoarthritis, right hand; M47.897 Other spondylosis, lumbosacral region; M47.892 Other spondylosis, cervical region; H81.10 Benign paroxysmal vertigo, unspecified ear; I48.0 Paroxysmal atrial fibrillation; I25.10 Atherosclerotic heart disease of native coronary artery without angina pectoris; I73.9 Peripheral vascular disease, unspecified; I10 Essential (primary) hypertension; E78.5 Hyperlipidemia, unspecified; F41.1 Generalized anxiety disorder; K21.9 Gastro-esophageal reflux disease without esophagitis; I47.1 Supraventricular tachycardia
CPT/HCPCS: 36415; 80053; 85025

== ENCOUNTER 2020-12-27 12:06 | Emergency (ER) | payer MEDICARE, SELFPAY ==
[2020-12-27 12:08] VITALS: BP 204/85; PULSE 73; RESP 16; TEMP 36.8; O2SAT 96; BMI 29.0
--- NOTE | 2020-12-27 12:45 | EKG12_ITS ---
Test Reason : Blood Pressure : / mmHG Vent. Rate : 072 BPM Atrial Rate : 072 BPM P-R Int : 270 ms QRS Dur : 084 ms QT Int : 406 ms P-R-T Axes : 084 -13 140 degrees QTc Int : 444 ms Sinus rhythm with 1st degree A-V block with occasional Premature ventricular complexes Left ventricular hypertrophy Septal IN, age undetermined, cannot be excluded Nonspecific ST and T wave abnormality Abnormal ECG Confirmed by DAVID LAWSON, YORDAN ([id number]), fashion editor ALETHA MTZ ([id number]) on 01/01/2021 8:42:20 AM Referred By: Confirmed By:YORDAN HERNANDEZ MD
--- NOTE | 2020-12-27 12:45 | RAD_ITS ---
STUDY: X-RAY CHEST REASON FOR EXAM: Female, 85 years old. Chest pain TECHNIQUE: Single AP portable view of the chest. COMPARISON: 09/05/2020. FINDINGS: Cardiac stenting. Valve repair. Mild cardiomegaly. Minimal congestion. Aorta calcified. No focal patchy airspace opacities. No pleural effusions. Slightly coarse lung markings. Upper abdomen unremarkable. Osseous structures intact with degenerative features. No pneumothorax. RAD/Chest 1 View (Portable) IMPRESSION: Minimal congestion Mild cardiomegaly with post surgical changes Electronically Signed: Nathan Anderson DO at 13:22 EDT Tel , Service support ,
--- NOTE | 2020-12-27 13:00 | ED.RN ---
PAGED FOR DR BUCKLEY
--- NOTE | 2020-12-27 13:01 | EDS_ITS ---
HPI History of Present Illness Chief Complaint: Shortness of Breath Informant: patient Onset/Context/Timing Onset: Month(s) Context: gradual Timing: Continuous Quality: Positive for Dyspnea on exertion Worsened by: Exertion Relieved by: Nothing Associated Symptoms ear pain; Negative for cough, rhinorrhea, post nasal drip, fever, sore throat or chills Chest Pain: Negative for None Narrative Narrative: Patient presents with shortness of breath that has been waxing and waning over the last couple months. Patient states she is on a Holter monitor. Patient states that her plug paster called her last night and told her to go to the emergency department at the [facility]. Patient states she was unable to go last night. Patient states she contacted her plug paster office again today and asked if it would be okay to go to a local emergency department. Patient states her plug paster was agreeable with that. Patient does not know what they saw on the Holter monitor. [facility] Medical History (Updated 12/27/20 @ 15:[address] Nathan Lawson, DO) Allergic rhinitis Atherosclerotic heart disease of [place] coronary artery without angina pectoris Benign hypertension Benign paroxysmal positional vertigo CAD (coronary artery disease) Carotid artery disease Chronic diastolic heart failure Coronary artery disease Essential hypertension Former tobacco use Generalized anxiety disorder GERD (gastroesophageal reflux disease) History of DVT (deep vein thrombosis) History of pulmonary embolism Hypertension, uncontrolled Hypokalemia Hypokalemia Hypoxia Inflammatory polyarthropathy Nonrheumatic aortic (valve) stenosis Paroxysmal atrial fibrillation Paroxysmal supraventricular tachycardia Presence of stent in coronary artery (~12/14/18) Pure hypercholesterolemia PVD (peripheral vascular disease) Rash Spondylosis Home Medications amlodipine 10 mg PO DAILY 10/20/14 [History Last Taken 07/27/20 21:00] nitroglycerin 0.4 mg sublingual tablet 0.4 mg SUBLINGUAL Q5-15M PRN 06/29/19 [History Last Taken Unknown] ergocalciferol (vitamin D2) 1,250 mcg (50,000 unit) capsule 50,000 unit PO .3XW cap 07/15/19 [History Last Taken 07/20/20 09:00] magnesium oxide 400 mg PO BID 07/15/19 [History Last Taken 07/06/20 09:00] tizanidine 4 mg tablet 4 mg PO QHS PRN 04/17/20 [History Last Taken 07/27/20 21:00] furosemide 20 mg PO DAILY 09/30/19 [History Last Taken 07/21/20 09:00] apixaban 5 mg PO BID 07/28/20 [History Last Taken 07/28/20 09:00] gabapentin 1,200 mg PO BID 07/28/20 [History Last Taken 07/28/20 09:00] clindamycin HCl 600 mg PO X1 12/27/20 [History Last Taken Unknown] clonidine HCl 0.1 mg PO TID 12/27/20 [History Last Taken Unknown] labetalol 200 mg PO BID 12/27/20 [History Last Taken Unknown] lisinopril 40 mg PO DAILY 12/27/20 [History Last Taken Unknown] meclizine 12.5 mg PO Q8H PRN PRN 12/27/20 [History Last Taken Unknown] prednisone 10 mg PO DAILY 12/27/20 [History Last Taken Unknown] rosuvastatin 10 mg PO DAILY 12/27/20 [History Last Taken Unknown] sucralfate 1 g PO 4X/DAY 12/27/20 [History Last Taken Unknown] Allergy/AdvReac Type Severity Reaction Status Date / Time cefdinir Allergy Severe Hives Verified 12/27/20 12:08 diltiazem [From Cardizem] Allergy Severe Rash Verified 12/27/20 12:08 Penicillins Allergy Swelling Verified 12/27/20 12:08 Sulfa (Sulfonamide Allergy Swelling Verified 12/27/20 12:08 Antibiotics) acetaminophen AdvReac Severe GI Upset Verified 12/27/20 12:08 [From Darvocet-N] cyclobenzaprine AdvReac Severe Heart Verified 12/27/20 12:08 [From Flexeril] Racing doxycycline AdvReac Severe Emesis Verified 12/27/20 12:08 furosemide AdvReac Severe Jerking Verified 12/27/20 12:08 propoxyphene AdvReac Severe GI Upset Verified 12/27/20 12:08 [From Darvocet-N] levofloxacin [From Levaquin] AdvReac Unknown Unknown Verified 12/27/20 12:08 milk AdvReac Diarrhea Verified 12/27/20 12:08 Family History (Updated 06/29/19 @ 09:53 by Chloe Quezada) Mother Heart disease Diabetes Father Heart disease Diabetes Sister Diabetes Brother Diabetes Surgical History (Updated 12/27/20 @ 14:01 by Alyssa Rosario) History of cholecystectomy History of total abdominal hysterectomy Presence of coronary angioplasty implant and graft (~12/14/18) S/P IVC filter S/P TAVR (transcatheter aortic valve replacement) Social History Smoking Status: Former smoker alcohol intake: never substance use type: does not use caffeine: Yes Type: coffee Number of servings: 2 ROS ROS ED Constitutional Constitutional ED: Denies chills or fever(s) Eyes Eyes: Denies blurry vision or change in vision ENT ENT ED: Reports ear pain right; Denies rhinorrhea or sore throat Cardiovascular Cardiovascular: Reports palpitations; Denies chest pain Respiratory/Chest Respiratory/Chest: Reports dyspnea; Denies cough Gastrointestinal Gastrointestinal: Denies nausea or vomiting Genitourinary Genitourinary ED: Denies dysuria or hematuria Musculoskeletal Musculoskeletal: Reports neck pain; Denies back pain Integumentary Denies abscess or rash Neurologic Neurologic: Reports headache(s); Denies weakness Allergic/Immunologic Allergic/Immunologic ED: Denies mouth swelling or urticaria EXAM Physical Exam Const Vital Signs: 12/27/20 12:08 12/27/20 14:02 Temperature 98.2 F Temperature Source Temporal Pulse Rate 73 70 Respiratory Rate 16 15 Blood Pressure 204/85 H 196/92 H Blood Pressure Mean 124 126 Pulse Ox 96 96 Oxygen Delivery Method Room Air Room Air Positive well nourished and well developed General Appearance ED: well developed HEENT Reports moist mucous membranes Neck supple and no JVD Resp normal respiratory effort and clear to auscultation bilaterally Cardio regular rate, regular rhythm and no murmurs GI normal to inspection, nondistended, normoactive bowel sounds and non-tender Palpation: soft Extremity normal to inspection General Extremety ED: Negative for edema or tenderness General Extremity: Negative for edema Neuro oriented x3, CN's II-XII intact bilaterally and no sensory deficits noted Sensorium / Orientation: alert Motor Exam: strength 5/5 throughout Psych mental status grossly normal Skin no rashes or lesions noted MDM MDM MDM Narrative Medical decision making narrative: EKG was obtained. On my interpretation, it shows a sinus rhythm with first-degree AV block with occasional PVCs with a rate of 72. There is left ventricular hypertrophy and nonspecific ST-T wave changes. This was unchanged compared to previous EKG dated 09/05/2020. Portable 1 view chest x-ray was obtained. On my interpretation, lung khan are clear. There is normal cardiac silhouette. Bony thorax is normal. There is no acute process noted. Radiologist also interpreted the x-ray and agrees. CBC and comprehensive metabolic profile were obtained and were essentially within normal limits. High-sensitivity troponin was obtained and was normal. 2-hour repeat troponin was within normal limits. Patient was advised of her findings. Case was discussed with her plug paster from [facility], Dr. Valentin. He stated that the vein access technician thought there may be a high degree AV block on her monitor. Currently patient only has a first-degree AV block. He reported the patient has an appointment with plywood patcher, Dr. Goodson. He recommended having the patient keep her appointment. Patient understood and was agreeable with the plan. All questions were answered. Lab Data Attestation: I reviewed the patient's lab results. Labs: Laboratory Results - last 24 hr 12/27/20 12/27/20 12:55 12:55 WBC 8.9 RBC 3.93 L Hgb 11.4 L Hct 36.1 L MCV 91.9 MCH 29.0 MCHC 31.6 L RDW Std Deviation 49.3 H RDW Coeff of Addi 14.6 Plt Count 226 MPV 9.6 Immature Gran % (Auto) 0.600 Neut % (Auto) 57.1 Lymph % (Auto) 31.4 [place] % (Auto) 8.7 Eos % (Auto) 1.5 Baso % (Auto) 0.7 Absolute Neuts (auto) 5.1 Absolute Lymphs (auto) 2.81 Nucleated RBC % 0 Sodium 140 Potassium 3.6 Chloride 102 Carbon Dioxide 27.0 Anion Gap 11 BUN 19 H Creatinine 1.21 H Estim Creat Clear Calc 27.37 Est GFR (MDRD) Af Amer 54 L Est GFR (MDRD) Non-Af 45 L BUN/Creatinine Ratio 15.7 Glucose 98 Calcium 9.0 Total Bilirubin 0.20 AST 16 ALT 30 Alkaline Phosphatase 49 Troponin I High Sens 16.6 Total Protein 7.0 Albumin 3.7 Globulin 3.3 Albumin/Globulin Ratio 1.1 Radiography Diagnostic Testing: Radiology Impression Chest X-Ray 12/27/20 12:45 IMPRESSION: Minimal congestion Mild cardiomegaly with post surgical changes Electronically Signed: Nathan DO Justin at 13:22 EDT Tel , Service support , EKG Initial EKG: Attestation: I personally reviewed and interpreted this EKG as follows: Interpretation: Sinus Rhythm (Sinus rhythm with first-degree AV block with occasional PVCs with a rate of 72) and No Acute Injury Pattern Comments: Left ventricular hypertrophy Discharge Plan Triage Chief Complaint: Shortness of Breath ED Provider: Nathan Lawson Dx/Rx/DC Orders Clinical Impression: Dyspnea, Palpitations Prescriptions: No Action nitroglycerin 0.4 mg tablet, sublingual 0.4 mg SUBLINGUAL Q5-15M PRN (Reason: CHEST PAIN) RF: 0 magnesium oxide 400 mg magnesium capsule 400 mg PO BID RF: 0 ergocalciferol (vitamin D2) 1,250 mcg (50,000 unit) capsule 50,000 unit PO .3XW RF: 0 amlodipine 10 MG tablet 10 mg PO DAILY RF: 0 furosemide 20 MG tablet 20 mg PO DAILY RF: 0 gabapentin 600 MG tablet 1,200 mg PO BID RF: 0 apixaban 5 MG tablet 5 mg PO BID RF: 0 clonidine HCl 0.1 mg Tablet 0.1 mg PO TID RF: 0 prednisone 10 mg Tablet 10 mg PO DAILY RF: 0 labetalol 200 mg Tablet 200 mg PO BID RF: 0 clindamycin HCl 300 mg Capsule 600 mg PO X1 RF: 0 sucralfate 1 gram Tablet 1 g PO 4X/DAY RF: 0 lisinopril 40 mg Tablet 40 mg PO DAILY RF: 0 rosuvastatin 20 mg Tablet 10 mg PO DAILY RF: 0 meclizine 25 MG tablet 12.5 mg PO Q8H PRN PRN (Reason: Dizziness) RF: 0 tizanidine 4 mg tablet 4 mg PO QHS PRN (Reason: Muscle Spasm) RF: 0 Primary Care Provider: Nayely Connell Referrals: Nayely Connell MD [Primary Care Provider] - 5-7 Days Activity Restrictions/Additional Instructions: Follow-up with your appointment with the plywood patcher, Dr. Goodson as scheduled. Disposition Disposition: Home, Self Care
[2020-12-27 13:04] LABS: Absolute Lymphocyte Count 2.81 X10^3/uL (0.83-4.51); Absolute Neutrophil Count 5.1 X10^3/uL (2.0-7.7); Basophil# 0.06 X10^3/uL; Basophil% 0.7 % (0-1); Eosinophil# 0.13 X10^3/uL; Eosinophils% 1.5 % (0-5); Hematocrit 36.1 % (37-47); Hemoglobin 11.4 g/dL (12.0-15.0); Lymphocyte # 2.81 X10^3/ul (0.83-4.51); Lymphocyte % 31.4 % (19-41); Mean Corp Hgb Conc 31.6 g/dL (32-36); Mean Corpuscular Volume 91.9 fL (81-99); Mean Platelet Vol. 9.6 fl (6.2-12.0); Monocyte# 0.78 X10^3/uL; Monocyte% 8.7 % (0-10); NRBC Flagged by Analyzer 0 % (0-5); Neutrophil # 5.11 X10^3/uL (2.7-7.7); Neutrophil % 57.1 % (47-70); Platelet Count 226 K/mm3 (150-450); RBC Distribution Width CV 14.6 % (11.6-14.6); RBC Distribution Width SD 49.3 fl (35.1-43.9); Red Blood Count 3.93 M/mm3 (4.2-5.4); White Blood Count 8.9 K/mm3 (4.4-11.0)
[2020-12-27 13:21] LABS: ALB/GLOB Ratio 1.1 RATIO (0.9-2.4); AST(SGOT) 16 U/L (15-37); Alanine Aminotransfer ALT/SGPT 30 U/L (13-56); Albumin, Serum 3.7 g/dL (3.2-5.0); Alkaline Phosphatase 49 U/L (45-117); Anion Gap 11 (5-15); BUN 19 mg/dL (7-18); BUN/Creat Ratio 15.7 RATIO (10-20); Chloride 102 mmol/L (98-107); Creatinine, Serum 1.21 mg/dL (0.55-1.02); EST Glomerular Filtration Rate 45 mL/min (>60); Est Glom Filt Rate - Afr Amer 54 mL/min (>60); Estimated Creatinine Clearance 27.37 ml/min; Globulin 3.3 g/dL (2.2-4.2); Glucose 98 mg/dL (74-106); Potassium 3.6 mmol/L (3.5-5.1); Sodium Level 140 mmol/L (136-145); Troponin-I HS 16.6 pg/mL (3.0-53.7)
[2020-12-27 14:02] VITALS: BP 196/92; PULSE 70; RESP 15; O2SAT 96
[2020-12-27 15:23] LABS: Troponin-I HS 17.9 pg/mL (3.0-53.7)
[2020-12-27 15:46] VITALS: BP 195/80; PULSE 80; RESP 17; O2SAT 96
== END 2020-12-27 15:46 | disposition home or self-care (01) ==
PROVIDERS: Emergency Provider Emergency Medicine; PCP Internal Medicine
DX: R06.00 Dyspnea, unspecified (principal); R00.2 Palpitations; I44.0 Atrioventricular block, first degree; I49.3 Ventricular premature depolarization; F41.1 Generalized anxiety disorder; H81.10 Benign paroxysmal vertigo, unspecified ear; I11.0 Hypertensive heart disease with heart failure; I50.32 Chronic diastolic (congestive) heart failure; I25.10 Atherosclerotic heart disease of native coronary artery without angina pectoris; E78.00 Pure hypercholesterolemia, unspecified; I35.0 Nonrheumatic aortic (valve) stenosis; I47.1 Supraventricular tachycardia; I73.9 Peripheral vascular disease, unspecified; I48.0 Paroxysmal atrial fibrillation; K21.9 Gastro-esophageal reflux disease without esophagitis; M06.4 Inflammatory polyarthropathy; Z86.718 Personal history of other venous thrombosis and embolism; Z86.711 Personal history of pulmonary embolism; Z95.5 Presence of coronary angioplasty implant and graft; Z79.01 Long term (current) use of anticoagulants; Z79.899 Other long term (current) drug therapy; Z87.891 Personal history of nicotine dependence
CPT/HCPCS: 71045; 80053; 84484; 85025; 87426; 93005; 99284; A4216

== ENCOUNTER → 2020-12-31 16:46 | Outpatient (CLI) | payer MEDICARE, SELFPAY ==
[2020-12-27 12:08] VITALS: BMI 29.0
--- NOTE | 2020-12-31 16:50 | RAD_ITS ---
HISTORY: injury EXAMINATION/TECHNIQUE: XR Foot Min 3 Views: COMPARISON: None FINDINGS: BONES/JOINTS: Intra-articular avulsion fracture at the proximal first phalanx medially. Small cortical avulsion fracture of the proximal first phalanx laterally. Preservation of the joint spaces. No sclerotic or destructive changes observed. Small plantar calcaneal spur. SOFT TISSUES: No soft tissue swelling or gas. No radiopaque foreign body. RAD/Foot min 3 Views IMPRESSION: Avulsion fractures of the medial and lateral aspects of the proximal first phalanx. at 1804 Reported and signed by: Augusto Garcia MD Electronically Signed: Augusto Garcia MD at 18:02 EDT Tel , Service support ,
--- NOTE | 2020-12-31 16:50 | RAD_ITS ---
HISTORY: Trauma, injury, fall EXAMINATION/TECHNIQUE: XR Ankle Min 3 Views: COMPARISON: None FINDINGS: BONES/JOINTS: No acute fracture or dislocation. Preservation of the joint spaces. No sclerotic or destructive changes observed. SOFT TISSUES: Lateral ankle swelling. No radiopaque foreign body. RAD/Ankle min 3 Views IMPRESSION: No acute bony abnormality. at 1805 Reported and signed by: Augusto Garcia MD Electronically Signed: Augusto Garcia MD at 18:04 EDT Tel , Service support ,
== END ==
PROVIDERS: PCP Internal Medicine; Referring Provider Physician Assistant; Visit Provider Physician Assistant
DX: S99.911A Unspecified injury of right ankle, initial encounter (principal); S99.921A Unspecified injury of right foot, initial encounter
CPT/HCPCS: 73610; 73630

== ENCOUNTER → 2021-01-14 10:58 | Outpatient (CLI) | payer MEDICARE, SELFPAY ==
--- NOTE | 2021-01-14 11:42 | RAD_ITS ---
STUDY: X-RAY - BILATERAL RIBS WITH CHEST REASON FOR EXAM: Female, 85 years old. Trauma. Fell on left side 2 days ago. Pain under the left breast. History of previously fractured left lower ribs. TECHNIQUE - RIBS: 6 view(s) of the ribs. TECHNIQUE - CHEST: Single PA view of the chest. COMPARISON: 12/27/2020 left RIBS, 07/20/2020. FINDINGS - RIBS : Normal visualized ribs without a demonstrated fracture. FINDINGS - CHEST: The lungs are clear and expanded. There is no demonstrated pleural abnormality. Normal size heart. There is evidence of cardiac valvuloplasty. Normal mediastinum and tabby. Normal visualized pulmonary arteries. Normal visualized aortic arch and descending thoracic aorta. There are diffuse degenerative changes of the visualized thoracic spine. There is degenerative osteoarthritis of the bilateral shoulders. There is no demonstrated abnormality of the visualized soft tissue structures of the upper abdomen. RAD/Ribs Ranjan Min 4V w/PA Chest IMPRESSION: RIBS: Normal x-ray examination of the bilateral ribs. CHEST: Degenerative changes, as described above. No demonstrated acute cardiopulmonary process. Electronically Signed: Ramana Pruett DO at 18:04 EDT Tel [phone], Service support ,
== END ==
PROVIDERS: PCP Internal Medicine; Referring Provider Anesthesiology Pain Medicine; Visit Provider Anesthesiology Pain Medicine
DX: T14.90XA Injury, unspecified, initial encounter (principal)
CPT/HCPCS: 71111

== ENCOUNTER 2021-03-24 11:31 | Emergency (ER) | payer MEDICARE, SELFPAY ==
[2021-03-24 11:32] VITALS: BP 164/58; PULSE 70; RESP 16; TEMP 37.1; O2SAT 94; BMI 26.5
--- NOTE | 2021-03-24 11:48 | EDS_ITS ---
HPI History of Present Illness Chief Complaint: Wound Informant: patient Narrative Narrative: 85-year-old female presents to the emergency room with a wound on her right ankle. She tells me that she has chronic lymphedema over the past couple days since her 's in the hospital stroke she has not been able to elevate the legs normally. Consequently they have been swollen more. She notes that the right one is larger than the left one and that is not atypical for her. She states that about 3 weeks ago she sprung a hole on her ankle and has been leaking fluid since. She currently takes Lasix 40 mg twice a day. She states that she cannot tolerate compression hose. She states that she was up most of the last the last night with discomfort in her legs. She wanted to come to emergency today and get an antibiotic she believes that there is an infection in the leg. She denies any fever. She states that she has been to numerous doctors regarding her swelling of her legs and has not had success resolving the issue. Patient is on Eliquis and has not missed any doses. [facility] Medical History Allergic rhinitis Atherosclerotic heart disease of [place] coronary artery without angina pectoris Benign hypertension Benign paroxysmal positional vertigo CAD (coronary artery disease) Carotid artery disease Chronic diastolic heart failure Contusion of right ankle Contusion of right foot Contusion of right lesser toe(s) without damage to nail, initial encounter Coronary artery disease Essential hypertension Former tobacco use Generalized anxiety disorder GERD (gastroesophageal reflux disease) History of DVT (deep vein thrombosis) History of pulmonary embolism Hypertension, uncontrolled Hypokalemia Hypokalemia Hypoxia Inflammatory polyarthropathy Nonrheumatic aortic (valve) stenosis Paroxysmal atrial fibrillation Paroxysmal supraventricular tachycardia Presence of stent in coronary artery (~12/14/18) Pure hypercholesterolemia PVD (peripheral vascular disease) Rash Spondylosis Home Medications amlodipine 10 mg PO DAILY 10/20/14 [History Last Taken 07/27/20 21:00] nitroglycerin 0.4 mg sublingual tablet 0.4 mg SUBLINGUAL Q5-15M PRN 06/29/19 [History Last Taken Unknown] ergocalciferol (vitamin D2) 1,250 mcg (50,000 unit) capsule 50,000 unit PO .3XW cap 07/15/19 [History Last Taken 07/20/20 09:00] magnesium oxide 400 mg PO BID 07/15/19 [History Last Taken 07/06/20 09:00] tizanidine 4 mg tablet 4 mg PO QHS PRN 09/02/19 [History Last Taken 07/27/20 21 :00] furosemide 20 mg PO DAILY 09/30/19 [History Last Taken 07/21/20 09:00] apixaban 5 mg PO BID 07/28/20 [History Last Taken 07/28/20 09:00] gabapentin 1,200 mg PO BID 07/28/20 [History Last Taken 07/28/20 09:00] clindamycin HCl 600 mg PO X1 12/27/20 [History Last Taken Unknown] clonidine HCl 0.1 mg PO TID 12/27/20 [History Last Taken Unknown] labetalol 200 mg PO BID 12/27/20 [History Last Taken Unknown] lisinopril 40 mg PO DAILY 12/27/20 [History Last Taken Unknown] meclizine 12.5 mg PO Q8H PRN PRN 12/27/20 [History Last Taken Unknown] prednisone 10 mg PO DAILY 12/27/20 [History Last Taken Unknown] rosuvastatin 10 mg PO DAILY 12/27/20 [History Last Taken Unknown] sucralfate 1 g PO 4X/DAY 12/27/20 [History Last Taken Unknown] clindamycin HCl [Cleocin HCl] 300 mg PO Q6H #28 capsule 03/24/21 [Rx Last Taken Unknown] furosemide [Lasix] See Rx Instructions .ROUTE .COMPLEX #15 tab 03/24/21 [Rx Last Taken Unknown] Allergy/AdvReac Type Severity Reaction Status Date / Time cefdinir Allergy Severe Hives Verified 03/24/21 11:35 diltiazem [From Cardizem] Allergy Severe Rash Verified 03/24/21 11:35 Penicillins Allergy Swelling Verified 03/24/21 11:35 Sulfa (Sulfonamide Allergy Swelling Verified 03/24/21 11:35 Antibiotics) acetaminophen AdvReac Severe GI Upset Verified 03/24/21 11:35 [From Darvocet-N] cyclobenzaprine AdvReac Severe Heart Verified 03/24/21 11:35 [From Flexeril] Racing doxycycline AdvReac Severe Emesis Verified 03/24/21 11:35 furosemide AdvReac Severe Jerking Verified 03/24/21 11:35 propoxyphene AdvReac Severe GI Upset Verified 03/24/21 11:35 [From Darvocet-N] levofloxacin [From Levaquin] AdvReac Unknown Unknown Verified 03/24/21 11:35 milk AdvReac Diarrhea Verified 03/24/21 11:35 Family History Mother Heart disease Diabetes Father Heart disease Diabetes Sister Diabetes Brother Diabetes Surgical History History of cholecystectomy History of total abdominal hysterectomy Presence of coronary angioplasty implant and graft (~12/14/18) S/P IVC filter S/P TAVR (transcatheter aortic valve replacement) Social History Smoking Status: Former smoker alcohol intake: never substance use type: does not use caffeine: Yes Type: coffee Number of servings: 2 ROS ROS ED Constitutional Constitutional ED: Denies chills, fever(s) or weight loss Eyes Eyes: Denies change in vision or diplopia ENT ENT ED: Denies ear pain, rhinorrhea or sore throat Cardiovascular Cardiovascular: Denies chest pain, orthopnea, palpitations or racing heartbeat Respiratory/Chest Respiratory/Chest: Denies cough, dyspnea or orthopnea Gastrointestinal Gastrointestinal: Denies abdominal pain, diarrhea, nausea or vomiting Genitourinary Genitourinary ED: Denies dysuria, hematuria or urinary frequency Musculoskeletal Musculoskeletal: Reports other Details: Bilateral lower extremity edema right greater than left ; Denies arthralgias or myalgias Integumentary Denies abscess or rash Neurologic Neurologic: Denies headache(s) or weakness Psychiatric Psychiatric: Denies anxiety, depression, suicidal ideation or suicidal thoughts Endocrine Endocrinology: Denies polydipsia, polyphagia or polyuria Allergic/Immunologic Allergic/Immunologic ED: Denies mouth swelling, tongue swelling or urticaria EXAM Physical Exam Const Vital Signs: 03/24/21 11:32 Temperature 98.8 F Temperature Source Oral Pulse Rate 70 Respiratory Rate 16 Blood Pressure 164/58 H Blood Pressure Mean 93 Pulse Ox 94 Oxygen Delivery Method Room Air Positive well nourished and well developed General Appearance ED: well developed HEENT Reports normocephalic, head/scalp atraumatic, TM's clear and moist mucous membranes Negative for trauma Tympanic Membrane ED: Yes TM's clear Eyes PERRL and EOMs intact bilaterally Neck no lymphadenopathy, supple and no JVD Resp normal respiratory effort and clear to auscultation bilaterally Cardio regular rate, regular rhythm and no murmurs GI normal to inspection, nondistended, normoactive bowel sounds and non-tender Palpation: soft Back/Spine no CVA tenderness and normal ROM Extremity Extremity Narrative: Right greater than left lower extremity pitting edema. She has evidence of venous stasis skin changes on the feet. Near the lateral malleolus is a small area of skin that has some very mild clear fluid draining. This area appears somewhat irritated but is only about 1/2 cm in length. I do not appreciate any significant warmth or any significant erythema. There is some petechiae which I suspect is due to to the fluid pressure. General Extremety ED: Yes edema General Extremity: edema Neuro oriented x3 and CN's II-XII intact bilaterally Sensorium / Orientation: alert Motor Exam: strength 5/5 throughout Psych mental status grossly normal Mood & Affect: Negative for depressed or tearful Skin no rashes or lesions noted and no wounds MDM MDM MDM Narrative Medical decision making narrative: I explained to the patient that I believe that she does not actually have an infection just significant lymphedema. However I cannot seem to change her beliefs at this time. I can write her clindamycin given her allergies. She was advised that all antibiotics do come with some risk including C. difficile diarrhea. I recommend that she try to elevate her legs. I informed the patient that this is a chronic problem that there is not usually a easy fix for. Discharge Plan Triage Chief Complaint: Wound ED Provider: Guillermo Jay Dx/Rx/DC Orders Clinical Impression: Lymphedema, Wound of right ankle Instructions: ED Lymphedema Prescriptions: New clindamycin HCl [Cleocin HCl] 300 MG capsule 300 mg PO Q6H Qty: 28 RF: 0 furosemide [Lasix] 40 mg tablet See Rx Instructions .ROUTE .COMPLEX Qty: 15 RF: 0 No Action nitroglycerin 0.4 mg tablet, sublingual 0.4 mg SUBLINGUAL Q5-15M PRN (Reason: CHEST PAIN) RF: 0 magnesium oxide 400 mg magnesium capsule 400 mg PO BID RF: 0 ergocalciferol (vitamin D2) 1,250 mcg (50,000 unit) capsule 50,000 unit PO .3XW RF: 0 amlodipine 10 MG tablet 10 mg PO DAILY RF: 0 furosemide 20 MG tablet 20 mg PO DAILY RF: 0 gabapentin 600 MG tablet 1,200 mg PO BID RF: 0 apixaban 5 MG tablet 5 mg PO BID RF: 0 clonidine HCl 0.1 mg Tablet 0.1 mg PO TID RF: 0 prednisone 10 mg Tablet 10 mg PO DAILY RF: 0 labetalol 200 mg Tablet 200 mg PO BID RF: 0 clindamycin HCl 300 mg Capsule 600 mg PO X1 RF: 0 sucralfate 1 gram Tablet 1 g PO 4X/DAY RF: 0 lisinopril 40 mg Tablet 40 mg PO DAILY RF: 0 rosuvastatin 20 mg Tablet 10 mg PO DAILY RF: 0 meclizine 25 MG tablet 12.5 mg PO Q8H PRN PRN (Reason: Dizziness) RF: 0 tizanidine 4 mg tablet 4 mg PO QHS PRN (Reason: Muscle Spasm) RF: 0 Primary Care Provider: Nayely Connell Referrals: Nayely Connell MD [Primary Care Provider] - As soon as possible Activity Restrictions/Additional Instructions: For the next 5 days takes 80 mg of Lasix in the morning 40 mg in the afternoon. Disposition Disposition: Home, Self Care Discharge Date/Time: 03/24/21 12:05
== END 2021-03-24 12:05 | disposition home or self-care (01) ==
LOC: ED 12:00
PROVIDERS: Emergency Provider Emergency Medicine; PCP Internal Medicine
DX: I89.0 Lymphedema, not elsewhere classified (principal); S91.001A Unspecified open wound, right ankle, initial encounter; X58.XXXA Exposure to other specified factors, initial encounter; Y93.9 Activity, unspecified; Y92.9 Unspecified place or not applicable; E78.00 Pure hypercholesterolemia, unspecified; F41.1 Generalized anxiety disorder; I11.0 Hypertensive heart disease with heart failure; I25.10 Atherosclerotic heart disease of native coronary artery without angina pectoris; I35.0 Nonrheumatic aortic (valve) stenosis; I47.1 Supraventricular tachycardia; I73.9 Peripheral vascular disease, unspecified; I48.0 Paroxysmal atrial fibrillation; I50.32 Chronic diastolic (congestive) heart failure; K21.9 Gastro-esophageal reflux disease without esophagitis; M06.4 Inflammatory polyarthropathy; Z86.718 Personal history of other venous thrombosis and embolism; Z86.711 Personal history of pulmonary embolism; Z95.5 Presence of coronary angioplasty implant and graft; Z79.01 Long term (current) use of anticoagulants; Z79.899 Other long term (current) drug therapy; Z87.891 Personal history of nicotine dependence
CPT/HCPCS: 99282

== ENCOUNTER 2021-04-04 14:45 | Outpatient (RCR) | payer MEDICARE, SELFPAY ==
[2021-03-28 14:21] VITALS: BP 145/22; PULSE 75; TEMP 35.7
--- NOTE | 2021-03-28 16:16 | HP.PCM_ITS ---
History of Present Illness Date of Service: 03/28/21 Chief Complaint: Right lower extremity ulcer History of Wound: Aracelis Jolly is an 85-year-old female who presents to the wound healing center with complaints of a nonhealing right lower extremity ulcer. She has a past medical history as listed above. The patient states for approximately 3 months the swelling to her bilateral lower extremities has worsened. She does state that she has a past history of lymphedema but it is usually better controlled. She states that approximately 3 weeks ago she developed a wound to her right ankle and had been using Neosporin and covering with a Band-Aid, changing daily with minimal improvement. She also reports that she has been unable to wear her ZULLY hose due to them being too painful and her inability to put them on herself. On 03/24/2021 the patient presented to [facility] ED with complaints of increased pain to her right lower extremity and concern for infection to the wound. She was prescribed clindamycin which she states she is tolerating well, and her Lasix dose was increased, and she now takes a total of 80 mg of Lasix per day. Today, the patient states her right leg is less painful and she states that she feels like the antibiotic has helped so far. Past medical, family, and social history reviewed and not pertinent to the current visit and all other systems reviewed and negative with exception of those listed above. [facility] Medical History (Updated 03/28/21 @ 16:30 by Irineo Mccoy NP, [employer]) Allergic rhinitis Atherosclerotic heart disease of [place] coronary artery without angina pectoris Benign hypertension Benign paroxysmal positional vertigo CAD (coronary artery disease) Carotid artery disease Chronic diastolic heart failure Contusion of right ankle Contusion of right foot Contusion of right lesser toe(s) without damage to nail, initial encounter Coronary artery disease Essential hypertension Former tobacco use Generalized anxiety disorder GERD (gastroesophageal reflux disease) History of DVT (deep vein thrombosis) History of pulmonary embolism Hypertension, uncontrolled Hypokalemia Hypokalemia Hypoxia Inflammatory polyarthropathy Nonrheumatic aortic (valve) stenosis Paroxysmal atrial fibrillation Paroxysmal supraventricular tachycardia Presence of stent in coronary artery (~12/14/18) Pure hypercholesterolemia PVD (peripheral vascular disease) Rash Spondylosis Venous ulcer of right leg Home Medications amlodipine 10 mg PO DAILY 10/20/14 [History Last Taken 07/27/20 21:00] nitroglycerin 0.4 mg sublingual tablet 0.4 mg SUBLINGUAL Q5-15M PRN 06/29/19 [History Last Taken Unknown] ergocalciferol (vitamin D2) 1,250 mcg (50,000 unit) capsule 50,000 unit PO .3XW cap 07/15/19 [History Last Taken 07/20/20 09:00] magnesium oxide 400 mg PO BID 07/15/19 [History Last Taken 07/06/20 09:00] tizanidine 4 mg tablet 4 mg PO QHS PRN 09/02/19 [History Last Taken 07/27/20 21:00] furosemide 20 mg PO DAILY 09/30/19 [History Last Taken 07/21/20 09:00] apixaban 5 mg PO BID 07/28/20 [History Last Taken 07/28/20 09:00] gabapentin 1,200 mg PO BID 07/28/20 [History Last Taken 07/28/20 09:00] clindamycin HCl 600 mg PO X1 12/27/20 [History Last Taken Unknown] clonidine HCl 0.1 mg PO TID 12/27/20 [History Last Taken Unknown] labetalol 200 mg PO BID 12/27/20 [History Last Taken Unknown] lisinopril 40 mg PO DAILY 12/27/20 [History Last Taken Unknown] meclizine 12.5 mg PO Q8H PRN PRN 12/27/20 [History Last Taken Unknown] prednisone 10 mg PO DAILY 12/27/20 [History Last Taken Unknown] rosuvastatin 10 mg PO DAILY 12/27/20 [History Last Taken Unknown] sucralfate 1 g PO 4X/DAY 12/27/20 [History Last Taken Unknown] clindamycin HCl [Cleocin HCl] 300 mg PO Q6H #28 capsule 03/24/21 [Rx Last Taken Unknown] furosemide [Lasix] See Rx Instructions .ROUTE .COMPLEX #15 tab 03/24/21 [Rx Last Taken Unknown] Allergy/AdvReac Type Severity Reaction Status Date / Time cefdinir Allergy Severe Hives Verified 03/24/21 11:35 diltiazem [From Cardizem] Allergy Severe Rash Verified 03/24/21 11:35 Penicillins Allergy Swelling Verified 03/24/21 11:35 Sulfa (Sulfonamide Allergy Swelling Verified 03/24/21 11:35 Antibiotics) acetaminophen AdvReac Severe GI Upset Verified 03/24/21 11:35 [From Darvocet-N] cyclobenzaprine AdvReac Severe Heart Verified 03/24/21 11:35 [From Flexeril] Racing doxycycline AdvReac Severe Emesis Verified 03/24/21 11:35 propoxyphene AdvReac Severe GI Upset Verified 03/24/21 11:35 [From Darvocet-N] levofloxacin [From Levaquin] AdvReac Unknown Unknown Verified 03/24/21 11:35 milk AdvReac Diarrhea Verified 03/24/21 11:35 Family History Mother Heart disease Diabetes Father Heart disease Diabetes Sister Diabetes Brother Diabetes Surgical History History of cholecystectomy History of total abdominal hysterectomy Presence of coronary angioplasty implant and graft (~12/14/18) S/P IVC filter S/P TAVR (transcatheter aortic valve replacement) Social History Smoking Status: Former smoker alcohol intake: never substance use type: does not use caffeine: Yes Type: coffee Number of servings: 2 ROS Constitutional Constitutional: Reports systems reviewed and no addt'l complaints, except as documented Eyes Eyes: Reports systems reviewed and no addt'l complaints, except as documented ENT HEENT: Reports systems reviewed and no addt'l complaints, except as documented Cardiovascular Cardiovascular: Reports systems reviewed and no addt'l complaints, except as documented Respiratory/Chest Respiratory/Chest: Reports systems reviewed and no addt'l complaints, except as documented Gastrointestinal Gastrointestinal: Reports systems reviewed and no addt'l complaints, except as documented Genitourinary Genitourinary: Reports systems reviewed and no addt'l complaints, except as documented Musculoskeletal Musculoskeletal: Reports systems reviewed and no addt'l complaints, except as documented Integumentary Integumentary: Reports systems reviewed and no addt'l complaints, except as documented Neurologic Neurologic: Reports systems reviewed and no addt'l complaints, except as documented Psychiatric Psychiatric: Reports systems reviewed and no addt'l complaints, except as documented Endocrine Endocrinology: Reports systems reviewed and no addt'l complaints, except as documented Hematologic/Lymphatic Hematologic/Lymphatic: Reports systems reviewed and no addt'l complaints, except as documented Allergic/Immunologic Allergic/Immunologic: Reports systems reviewed and no addt'l complaints, except as documented Vital Signs Vital Signs Vital Signs: 03/28/21 14:21 Temperature 96.3 F L Temperature Source Temporal Pulse Rate 75 Blood Pressure 145/22 H Blood Pressure Mean 63 Blood Pressure Source Monitor Blood Pressure Position Semi-Fowlers Blood Pressure Location Right Arm Physical Exam Const alert, oriented x3, no apparent distress, healthy appearing and well nourished General Appearance: cooperative Exam Limitations: no limitations HEENT normocephalic Head and Scalp: normal to inspection Mouth: oral and palatal mucosa normal Eyes General Eye: normal appearance of both eyes Resp normal respiratory effort, normal air movement and no use of accessory muscles Effort and Inspection: able to speak in complete sentences Auscultation: clear to auscultation bilaterally Cardio regular rate, regular rhythm, S1 normal heart sound, S2 normal heart sound, no murmurs and peripheral pulses 2+ throughout Palpation: normal PMI Rate: regular rate Heart Sounds: S1 normal and S2 normal GI normal to inspection, nondistended, normoactive bowel sounds, soft to palpation, non-tender and non-distended Palpation: soft Extremity normal to inspection and full ROM Extremity Narrative: Bilateral lower extremity edema, 1+ pitting, diminished dorsal pedis pulses and right lower extremity wound on the lateral ankle with adherent slough, no signs of infection at this time General Extremity: normal exam except as noted Neuro oriented x3 and moves all extremities Sensorium / Orientation: awake, alert, oriented to person, oriented to place and oriented to time Psych mental status grossly normal, thought process normal and denies hallucinations Appearance: grossly normal Attitude: calm Activity / Motor Behavior: appropriate eye contact Speech: normal speech Thought Process: normal thought process Thought Content: normal thought content Attention / Concentration: attention grossly intact Insight: insight good Judgement: judgement good Debridement Note Debridement Note Wound debrided: Right venous leg ulcer Laterality: Right Type of Debridement: Excisional debridement Anesthesia Used: 5% Lidocaine Gel Depth: Down to and including healthy tissue and in the subcutaneous layer Percentage of wound debrided: 100 Instrument Used: 5mm curette Tissue Removed: Right lower extremity ulcer Severity: Fat Layer Exposed Amount of bleeding with debridement: Mild Bleeding Controlled with: Pressure Patient tolerated procedure: Patient tolerated procedure well Post-Debridement Measurements and Additional Note: Post-Debridement Measurements/Treatment EVARISTO - Nurse 1 - General Ulcer Assessment Start: 03/28/21 14:21 Freq: Status: Active Protocol: KAREEN Activity Type Activity Date Activity User E-Sign Co-Sign Detail Recorded Client Recorded Date Recorded By Document 03/28/21 14:21 EDWARD [id number] 03/28/21 14:30 EDWARD 03/28/21 14:21 WC - Today's Visit Information Type of service Initial Visit Arrival Mode Ambulatory Patient Identification Verified (Name & Yes ) Vital Signs Temperature (97.8 F-99.1 F) 96.3 F L Temperature Source Temporal Pulse Rate (60-100) 75 Pulse Location Monitor Blood Pressure (90/60-120/80) 145/22 H Blood Pressure Mean 63 Source Monitor Position Semi-Fowlers Blood Pressure Location Right Arm History Since Last Visit- (Skip if this is Patient's initial visit) Have you changed medications since your No last visit? Any new allergies or adverse reactions No Had a fall/change in ADL's that may No increase risk of falls Signs or symptoms of abuse and/or No neglect since last visit Have you been in the hospital since your No last visit? Has dressing in place as prescribed No Has compression in place as prescribed No Has offloadiing in place as prescribed No Experienced any changes in pain level or No management Left Footwear Regular Shoe Right Footwear Regular Shoe Pain Scale: 0-10 Numeric Is Patient Pain Free? Yes EVARISTO - Nurse 1 - General Ulcer Measurement Start: 03/28/21 14:21 Freq: Status: Active Protocol: Activity Type Activity Date Activity User E-Sign Co-Sign Detail Recorded Client Recorded Date Recorded By Document 03/28/21 14:21 EDWARD [id number] 03/28/21 14:30 KR 03/28/21 14:21 Wound Center Nurse 1 #1 Right Ankle -Current Size (cm) - Length 2 -Current Size (cm) - Width 0.3 -Current Size (cm) - Depth 0.2 -Total Square Cm 0.6 -Exudate Amt Small -Exudate Type Serosanguineous -Wound Margin Distinct, Outline Attached -Granulation Amt Small (1-33%) -Granulation Quality Red -Necrosis Amt Small (1-33%) -Necrotic Tissue Type Adherent Slough -Texture (Elis-wound Skin Appearance) Assessed, Scarring -Moisture (Elis-wound Skin Appearance) Assessed, Maceration -Temperature (Elis-wound Skin No Abnormality Appearance) (Pt Warm) -Tenderness on Palpation (Elis-wound No Skin Appearance) -Ulcer Cleansing Soap and Water -Foul Odor after Cleansing No -Anesthetic Used 5% Lidocaine Gel Right Calf (cm) 39.5 Right Ankle (cm) 23.2 Left Calf (cm) 34.5 Left Ankle (cm) 21.5 WC - Nurse 2 - General Ulcer CM Notes Start: 03/28/21 14:21 Freq: Status: Active Protocol: Activity Type Activity Date Activity User E-Sign Co-Sign Detail Recorded Client Recorded Date Recorded By Document 03/28/21 14:53 MW [id number] 03/28/21 14:56 MW 03/28/21 14:53 Wound Center Nurse 2 #1 Right Ankle -Time 14:54 -Correct Patient Yes -Correct Side, Site, Position Yes -Correct Procedure Yes -Procedure Performed Yes -Type of Procedure Debridement -Clinical Debridement Subcutaneous -Tissue Removed Subcutaneous -Post Debridement (cm) - Length 2.5 -Post Debridement (cm) - Width 0.6 -Post Debridement (cm) - Depth 0.2 -Total Square (Post) (cm) 1.50 -Area of Debridement (cm) - Length 2.5 -Area of Debridement (cm) - Width 0.6 -Total Square (Area) (cm) 1.50 -Tunneling No -Undermining/Tunneling No -Circular Undermining No -Wound/Ulcer Outcome Not Healed -Ulcer Cleansing Rinsed/ Irrigated with Saline -Foul Odor after Cleansing No -Bioengineered Tissue No -Bleeding Controlled with Pressure -Offloading No -Treatment Response Procedure Tolerated Well -Debridement - Subq, 1st 20sq cm Yes Pain Scale: 0-10 Numeric Is Patient Pain Free? Yes WC - Nurse 3 - General Ulcer D/C NN Start: 03/28/21 14:21 Freq: Status: Active Protocol: Activity Type Activity Date Activity User E-Sign Co-Sign Detail Recorded Client Recorded Date Recorded By Document 03/28/21 15:01 MW [id number] 03/28/21 15:03 MW 03/28/21 15:01 Wound Care Nurse 3 #1 Right Ankle -Foul Odor after Cleansing No -Negative Pressure Wound Therapy N/A -Primary Dressing Applied NonAdherent Contact Layer -Primary Dressing Covered/Secured with Dry Gauze & Roll Gauze, Secured with Tape Treatment Response Procedure Tolerated Well Pain Scale: 0-10 Numeric Is Patient Pain Free? Yes Teaching: Wound Center Dressing Your Wound -Person Taught Patient -Teaching Method Discussion, Demonstration -Response to teaching Verbalize understanding WC - Visit Discharge Discharge Condition Stable Ambulatory Status Ambulatory Transportation Private Auto Accompanied by self Medication Reconcilliation completed & No provided to patient/care provider Clinical Summary of Care Provided Yes Charges/Coding Visit Charges Office Visits / Consults: [id number] OV L3 New Procedures Integumentary [id number]: [id number] Patricia subq tissue 20 sq cm/< Assessment/Plan Assessment/Plan (1) Venous ulcer of right leg: CODE(S): I83.019 - Varicose veins of right lower extremity with ulcer of unspecified site; L97.919 - Non-pressure chronic ulcer of unspecified part of right lower leg with unspecified severity (2) Lymphedema: CODE(S): I89.0 - Lymphedema, not elsewhere classified (3) Chronic diastolic heart failure: CODE(S): I50.32 - Chronic diastolic (congestive) heart failure (4) Presence of stent in coronary artery: CODE(S): Z95.5 - Presence of coronary angioplasty implant and graft PLAN: Debridement performed today in clinic as annotated above. Adaptic cover with gauze applied. At home wound-care instructions: Daily application of Adaptic cover with gauze, Change dressing once daily or more frequently as needed due to contamination. Wash wounds daily with antibacterial soap and water, rinse and dry thoroughly before each dressing change. Compression: Double layer Tubigrip's Off-loading: The patient was instructed to avoid pressure and friction on the affected areas. Reposition every 2 hours at minimum. Avoid prolonged standing and/or dangling of legs. When seated, feet should be elevated at chest level. Frequent ambulation is encouraged. Diet: Patient encouraged to increase protein intake while taking caution to avoid high carbohydrate and/or sugar intake. Patient is a non-smoker Labs/cultures/imaging: Cultures held today. Routine baseline lab work held. Vascular studies held. Follow-up: Return to clinic in 1 week for re-evaluation. Return sooner or report to the emergency room should symptoms worsen, or new symptoms arise. This note was generated with Dragon dictation software. It may contain incorrect words, spelling, and punctuation that were not noted in checking the note before signing. I have spent 35 minutes today reviewing labs, records, and history. Time includes coordinating care, interpretation of tests, and counseling the patient/family. This also includes time I spent with the patient for exam, treatment plan, and education as well as documenting clinical information in the electronic health record.
[2021-04-04 14:53] VITALS: TEMP 36.1
--- NOTE | 2021-04-04 23:42 | PCM.WC.PN ---
History of Present Illness Date of Service: 04/04/21 Chief Complaint: Right lower extremity ulcer History of Wound: Aracelis Jolly is an 85-year-old female who presents to the wound healing center with complaints of a nonhealing right lower extremity ulcer. She has a past medical history as listed above. The patient states for approximately 3 months the swelling to her bilateral lower extremities has worsened. She does state that she has a past history of lymphedema but it is usually better controlled. She states that approximately 3 weeks ago she developed a wound to her right ankle and had been using Neosporin and covering with a Band-Aid, changing daily with minimal improvement. She also reports that she has been unable to wear her ZULLY hose due to them being too painful and her inability to put them on herself. On 03/24/2021 the patient presented to [facility] ED with complaints of increased pain to her right lower extremity and concern for infection to the wound. She was prescribed clindamycin which she states she is tolerating well, and her Lasix dose was increased, and she now takes a total of 80 mg of Lasix per day. Today, the patient states her right leg is less painful and she states that she feels like the antibiotic has helped so far. Past medical, family, and social history reviewed and not pertinent to the current visit and all other systems reviewed and negative with exception of those listed above. Progress of Wound: 04/05/2021?patient notes an increase in her chronic pain that shoots from her right hip down to her right lower extremity, she also notes that her superficial ulcer to her right lower extremity is more painful this week. Denies any fever or chills or any excessive drainage. She is unable to tolerate compression. She does follow up with Dr. Diaz and pain management and receives injections and is also on narcotics and gabapentin. She is still on her clindamycin. Objective Data Objective Data Vital Signs: Vital Signs Temp Pulse BP 96.9 F L 75 145/22 H 04/04/21 14:53 03/28/21 14:21 03/28/21 14:21 Charges/Coding Procedures Integumentary 111xxx-113xx: [id number] Patricia subq tissue 20 sq cm/< Physical Exam Const alert, oriented x3, no apparent distress, healthy appearing and well nourished General Appearance: cooperative Exam Limitations: no limitations HEENT normocephalic Head and Scalp: normal to inspection Mouth: oral and palatal mucosa normal Eyes General Eye: normal appearance of both eyes Resp normal respiratory effort, normal air movement and no use of accessory muscles Effort and Inspection: able to speak in complete sentences Auscultation: clear to auscultation bilaterally Cardio regular rate, regular rhythm, S1 normal heart sound, S2 normal heart sound, no murmurs and peripheral pulses 2+ throughout Palpation: normal PMI Rate: regular rate Heart Sounds: S1 normal and S2 normal GI normal to inspection, nondistended, normoactive bowel sounds, soft to palpation, non-tender and non-distended Palpation: soft Extremity normal to inspection and full ROM Extremity Narrative: Bilateral lower extremity edema, 1+ pitting, diminished dorsal pedis pulses and right lower extremity wound on the lateral ankle with adherent slough, no signs of infection at this time General Extremity: normal exam except as noted Neuro oriented x3 and moves all extremities Sensorium / Orientation: awake, alert, oriented to person, oriented to place and oriented to time Psych mental status grossly normal, thought process normal and denies hallucinations Appearance: grossly normal Attitude: calm Activity / Motor Behavior: appropriate eye contact Speech: normal speech Thought Process: normal thought process Thought Content: normal thought content Attention / Concentration: attention grossly intact Insight: insight good Judgement: judgement good Debridement Note Debridement Note Wound debrided: Right lower extremity ulcer Laterality: Right Type of Debridement: Excisional debridement Anesthesia Used: 5% Lidocaine Gel Depth: in the subcutaneous layer Percentage of wound debrided: 100 Instrument Used: 3mm curette Tissue Removed: Slough and devitalized tissue Severity: Fat Layer Exposed Amount of bleeding with debridement: Mild Bleeding Controlled with: Pressure Patient tolerated procedure: Patient tolerated procedure well Post-Debridement Measurements and Additional Note: Post-Debridement Measurements/Treatment - Nurse 1 - General Ulcer Assessment Start: 03/28/21 14:21 Freq: Status: Active Protocol: KAREEN Activity Type Activity Date Activity User E-Sign Co-Sign Detail Recorded Client Recorded Date Recorded By Document 03/28/21 14:21 EDWARD [id number] 03/28/21 14:30 KR Document 04/04/21 14:53 CARLOS [id number] 04/04/21 15:00 CARLOS 03/28/21 04/04/21 14:21 14:53 - Today's Visit Information Type of service Initial Visit Follow-up Visit (Physician/[employer] SPECIALIST ) Arrival Mode Ambulatory Ambulatory Patient Identification Verified (Name & Yes Yes ) Patient Requires Transmission-Based No Precautions Vital Signs Temperature (97.8 F-99.1 F) 96.3 F L 96.9 F L Temperature Source Temporal Temporal Pulse Rate (60-100) 75 Pulse Location Monitor Blood Pressure (90/60-120/80) 145/22 H Blood Pressure Mean (mm Hg) 63 Source Monitor Position Semi-Fowlers Blood Pressure Location Right Arm History Since Last Visit- (Skip if this is Patient's initial visit) Have you changed medications since your No last visit? Any new allergies or adverse reactions No Had a fall/change in ADL's that may No increase risk of falls Signs or symptoms of abuse and/or No neglect since last visit Have you been in the hospital since your No last visit? Has dressing in place as prescribed No Has compression in place as prescribed No Has offloadiing in place as prescribed No Experienced any changes in pain level or No management Left Footwear Regular Shoe Right Footwear Regular Shoe Pain Scale: 0-10 Numeric Is Patient Pain Free? Yes WC - Nurse 1 - General Ulcer Measurement Start: 03/28/21 14:21 Freq: Status: Active Protocol: Activity Type Activity Date Activity User E-Sign Co-Sign Detail Recorded Client Recorded Date Recorded By Document 03/28/21 14:21 EDWARD [id number] 03/28/21 14:30 KR Document 04/04/21 14:53 [place] [id number] 04/04/21 15:00 AK 03/28/21 04/04/21 14:21 14:53 Wound Center Nurse 1 #1 Right Lateral Ankle -Current Size (cm) - Length 2 2.5 -Current Size (cm) - Width 0.3 0.6 -Current Size (cm) - Depth 0.2 0.1 -Total Square Cm 0.6 1.50 -Photo Taken No -Epithelialization None Present -Tunneling No -Undermining/Tunneling No -Circular Undermining No -Exudate Amt Small Medium -Exudate Type Serosanguineous Serosanguineous -Wound Margin Distinct, Distinct, Outline Outline Attached Attached -Granulation Amt Small (1-33%) None Present (0 %) -Granulation Quality Red N/A -Slough/Fibrin Yes -Necrosis Amt Small (1-33%) Large (67-100%) -Necrotic Tissue Type Adherent Slough Adherent Slough -Structure Exposed N/A -Texture (Elis-wound Skin Appearance) Assessed, No Abnormality, Scarring Assessed -Moisture (Elis-wound Skin Appearance) Assessed, No Abnormality, Maceration Assessed -Color (Elis-wound Skin Appearance) Assessed, Erythema -Temperature (Elis-wound Skin No Abnormality No Abnormality Appearance) (Pt Warm) (Pt Warm) -Tenderness on Palpation (Elis-wound No No Skin Appearance) -Ulcer Cleansing Soap and Water Rinsed/ Irrigated with Saline -Foul Odor after Cleansing No No -Anesthetic Used 5% Lidocaine 5% Lidocaine Gel Gel Right Calf (cm) 39.5 41 Right Ankle (cm) 23.2 23.7 Left Calf (cm) 34.5 Left Ankle (cm) 21.5 WC - Nurse 2 - General Ulcer CM Notes Start: 03/28/21 14:21 Freq: Status: Active Protocol: Activity Type Activity Date Activity User E-Sign Co-Sign Detail Recorded Client Recorded Date Recorded By Document 03/28/21 14:53 MW [id number] 03/28/21 14:56 MW Document 04/04/21 15:11 MW [id number] 04/04/21 15:18 MW 03/28/21 04/04/21 14:53 15:11 Wound Center Nurse 2 #1 Right Lateral Ankle -Time 14:54 15:13 -Correct Patient Yes Yes -Correct Side, Site, Position Yes Yes -Correct Procedure Yes Yes -Procedure Performed Yes Yes -Type of Procedure Debridement Debridement -Clinical Debridement Subcutaneous Subcutaneous -Tissue Removed Subcutaneous Subcutaneous -Post Debridement (cm) - Length 2.5 2.5 -Post Debridement (cm) - Width 0.6 1.0 -Post Debridement (cm) - Depth 0.2 0.1 -Total Square (Post) (cm) 1.50 2.50 -Area of Debridement (cm) - Length 2.5 2.5 -Area of Debridement (cm) - Width 0.6 1.0 -Total Square (Area) (cm) 1.50 2.50 -Tunneling No No -Undermining/Tunneling No No -Circular Undermining No No -Wound/Ulcer Outcome Not Healed Not Healed -Ulcer Cleansing Rinsed/ Rinsed/ Irrigated with Irrigated with Saline Saline -Foul Odor after Cleansing No No -Bioengineered Tissue No No -Bleeding Controlled with Pressure Pressure -Offloading No No -Treatment Response Procedure Procedure Tolerated Well Tolerated Well -Debridement - Subq, 1st 20sq cm Yes Yes Pain Scale: 0-10 Numeric Is Patient Pain Free? Yes Yes - Nurse 3 - General Ulcer D/C NN Start: 03/28/21 14:21 Freq: Status: Active Protocol: Activity Type Activity Date Activity User E-Sign Co-Sign Detail Recorded Client Recorded Date Recorded By Document 03/28/21 15:01 MW [id number] 03/28/21 15:03 MW Document 04/04/21 15:27 AK [id number] 04/04/21 15:32 AK 03/28/21 04/04/21 15:01 15:27 Wound Care Nurse 3 #1 Right Lateral Ankle -Ulcer Cleansing Rinsed/ Irrigated with Saline -Foul Odor after Cleansing No No -Negative Pressure Wound Therapy N/A N/A -Primary Dressing Applied NonAdherent NonAdherent Contact Layer Contact Layer, Promogran Jaida Matter -Primary Dressing Covered/Secured with Dry Gauze & Dry Gauze & Roll Gauze, Roll Gauze, Secured with Secured with Tape Tape -Promogran Jaida Matter 1 Treatment Response Procedure Procedure Tolerated Well Tolerated Well Pain Scale: 0-10 Numeric Is Patient Pain Free? Yes Yes Teaching: Wound Center Dressing Your Wound -Person Taught Patient -Teaching Method Discussion, Demonstration -Response to teaching Verbalize understanding WC - Visit Discharge Discharge Condition Stable Stable Ambulatory Status Ambulatory Transportation Private Auto Private Auto Accompanied by self Medication Reconcilliation completed & No provided to patient/care provider Clinical Summary of Care Provided Yes Assessment/Plan Assessment/Plan (1) Venous ulcer of right leg: CODE(S): I83.019 - Varicose veins of right lower extremity with ulcer of unspecified site; L97.919 - Non-pressure chronic ulcer of unspecified part of right lower leg with unspecified severity (2) Lymphedema: CODE(S): I89.0 - Lymphedema, not elsewhere classified (3) Chronic diastolic heart failure: CODE(S): I50.32 - Chronic diastolic (congestive) heart failure (4) Presence of stent in coronary artery: CODE(S): Z95.5 - Presence of coronary angioplasty implant and graft PLAN: Debridement performed today in clinic as annotated above. jaida and Adaptic cover with gauze applied. At home wound-care instructions: Daily application of jaida and Adaptic cover with gauze, Change dressing once daily or more frequently as needed due to contamination. Wash wounds daily with antibacterial soap and water, rinse and dry thoroughly before each dressing change. Compression: Double layer Tubigrip's Off-loading: The patient was instructed to avoid pressure and friction on the affected areas. Reposition every 2 hours at minimum. Avoid prolonged standing and/or dangling of legs. When seated, feet should be elevated at chest level. Frequent ambulation is encouraged. Diet: Patient encouraged to increase protein intake while taking caution to avoid high carbohydrate and/or sugar intake. Patient is a non-smoker Labs/cultures/imaging: Cultures done today. Routine baseline lab work held. Vascular studies held. She does note that earlier this week she had an ultrasound done of the right lower extremity which is negative for any blood clots. Patient to follow-up with primary care and pain management for her neuropathic and chronic pain issues. Follow-up: Return to clinic in 1 week for re-evaluation. Return sooner or report to the emergency room should symptoms worsen, or new symptoms arise. This note was generated with [facility] dictation software. It may contain incorrect words, spelling, and punctuation that were not noted in checking the note before signing. I have spent 35 minutes today reviewing labs, records, and history. Time includes coordinating care, interpretation of tests, and counseling the patient/family. This also includes time I spent with the patient for exam, treatment plan, and education as well as documenting clinical information in the electronic health record.
--- NOTE | 2021-04-09 11:43 | WC ---
Wound culture results reviewed per Irineo Mccoy NP. Antibiotic Clindamycin sent to [facility] in [place]. Spoke to patient at 1020 to notify and instructed her to take an OTC probiotic as well per Irineo. Voiced understanding and will pick it up today.
== END 2021-04-16 23:59 ==
LOC: WC 14:45
PROVIDERS: PCP Internal Medicine; Visit Provider Nurse Practitioner Family
DX: I83.018 Varicose veins of right lower extremity with ulcer other part of lower leg (principal); L97.812 Non-pressure chronic ulcer of other part of right lower leg with fat layer exposed; I89.0 Lymphedema, not elsewhere classified; R60.0 Localized edema; I73.9 Peripheral vascular disease, unspecified; I11.0 Hypertensive heart disease with heart failure; I50.32 Chronic diastolic (congestive) heart failure; I48.0 Paroxysmal atrial fibrillation; I25.10 Atherosclerotic heart disease of native coronary artery without angina pectoris; M06.4 Inflammatory polyarthropathy; G89.29 Other chronic pain; I47.1 Supraventricular tachycardia; I35.0 Nonrheumatic aortic (valve) stenosis; E78.00 Pure hypercholesterolemia, unspecified; K21.9 Gastro-esophageal reflux disease without esophagitis; F41.1 Generalized anxiety disorder; Z79.52 Long term (current) use of systemic steroids; Z79.01 Long term (current) use of anticoagulants; Z86.718 Personal history of other venous thrombosis and embolism; Z86.711 Personal history of pulmonary embolism; Z87.891 Personal history of nicotine dependence; Z95.5 Presence of coronary angioplasty implant and graft
CPT/HCPCS: 11042; 87070; 87075; 87077; 87186; 87205; 99213; G0463

== ENCOUNTER 2021-04-22 13:50 | Inpatient (IN) | payer MEDICARE, SELFPAY ==
[2021-04-22] VITALS (7 sets, daily range): BP systolic 166–178; BP diastolic 57–95; PULSE 80–90; RESP 16–18; TEMP 36.6–37.6; O2SAT 92–94; BMI 29.7
--- NOTE | 2021-04-22 14:18 | CT_ITS ---
STUDY: CT BRAIN WITHOUT CONTRAST REASON FOR EXAM: Female, 86 years old. injury RADIATION DOSAGE (If Supplied By Facility): CTDIvol = ( 44.99 ) mGy, DLP = ( 796.11 ) mGycm TECHNIQUE: Transaxial CT imaging of the brain was performed without administration of intravenous contrast material. Individualized dose optimization techniques were used for this CT. COMPARISON: No relevant priors. FINDINGS: Normal soft tissue structures. Normal calvarium. There is mild cerebral atrophy with widening of the extra-axial spaces and ventricular dilatation. There are areas of decreased attenuation within the white matter tracts of the supratentorial brain, consistent with microvascular disease changes. Normal basal ganglia and thalami. Normal brainstem. Normal cerebellum. Atherosclerosis of the carotid siphons. There is no intracranial hemorrhage. There are no findings of an acute ischemic infarction. Normal visualized paranasal sinuses. CT/Brain/Head without Contrast IMPRESSION: 1. No acute intracranial hemorrhage or mass effect. Electronically Signed: Rk Srinivasan MD ([place]) at 15:35 EST , Service support ,
--- NOTE | 2021-04-22 14:19 | CT_ITS ---
STUDY: CT CHEST WITHOUT CONTRAST REASON FOR EXAM: Female, 86 years old. blunt rib trauma RADIATION DOSAGE (If Supplied By Facility): CTDIvol = ( 15.37 ) mGy, DLP = ( 472.47 ) mGycm TECHNIQUE: Transaxial imaging was performed without the administration of intravenous contrast material. Individualized dose optimization techniques were used for this CT. COMPARISON: None. FINDINGS: Atelectasis in the left more than right lower lobe with small volume left pleural effusion. No pneumothorax. Mild cardiomegaly. No pericardial effusion. Aortic valve replacement. Normal mediastinum. Normal hilar regions. There is prominence of the pulmonary hilar arteries without peripheral pulmonary vascular congestion, suggesting pulmonary hypertension. There is atherosclerotic calcification of the aortic arch with tortuosity and elongation of the aortic arch and descending thoracic aorta. There are transverse fractures of left anterior/lateral 7, eighth and ninth ribs. The 10th, 11th and 12th ribs are incompletely imaged. Degenerative changes of the lumbar spine. Mild T12 compression fracture, indeterminate age. Small hiatal hernia. CT/Chest without Contrast IMPRESSION: 1. Left anterior lateral rib fractures. No pneumothorax. 2. Left more than right basilar atelectasis with small volume effusion. 3. T12 compression fracture, indeterminate age. Electronically Signed: Rk Srinivasan MD ([place]) at 15:38 EST , Service support ,
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
[2021-04-22 14:41] LABS: Absolute Lymphocyte Count 1.69 X10^3/uL (0.83-4.51); Basophil# 0.04 X10^3/uL; Basophil% 0.3 % (0-1); Eosinophil# 0.02 X10^3/uL; Eosinophils% 0.2 % (0-5); Hematocrit 33.2 % (37-47); Hemoglobin 10.9 g/dL (12.0-15.0); Lymphocyte # 1.69 X10^3/ul (0.83-4.51); Lymphocyte % 14.3 % (19-41); Mean Corp Hgb Conc 32.8 g/dL (32-36); Mean Corpuscular Hgb 28.9 pg (27.0-32.0); Mean Corpuscular Volume 88.1 fL (81-99); Mean Platelet Vol. 9.8 fl (6.2-12.0); Monocyte# 1.03 X10^3/uL; Monocyte% 8.7 % (0-10); NRBC Flagged by Analyzer 0 % (0-5); Neutrophil # 8.95 X10^3/uL (2.7-7.7); Neutrophil % 76.1 % (47-70); Platelet Count 282 K/mm3 (150-450); RBC Distribution Width CV 13.4 % (11.6-14.6); RBC Distribution Width SD 43.5 fl (35.1-43.9); Red Blood Count 3.77 M/mm3 (4.2-5.4); White Blood Count 11.8 K/mm3 (4.4-11.0)
[2021-04-22] MEDS: Morphine 4 MG/ML Syringe IV ×2 (14:48→21:47)
[2021-04-22 14:58] LABS: ALB/GLOB Ratio 0.7 RATIO (0.9-2.4); AST(SGOT) 15 U/L (15-37); Alanine Aminotransfer ALT/SGPT 22 U/L (13-56); Albumin, Serum 3.2 g/dL (3.2-5.0); Alkaline Phosphatase 60 U/L (45-117); Anion Gap 5 (5-15); BUN 20 mg/dL (7-18); BUN/Creat Ratio 15.9 RATIO (10-20); Calcium,Total 9.7 mg/dL (8.5-10.1); Chloride 106 mmol/L (98-107); Creatinine, Serum 1.26 mg/dL (0.55-1.02); EST Glomerular Filtration Rate 43 mL/min (>60); Est Glom Filt Rate - Afr Amer 52 mL/min (>60); Estimated Creatinine Clearance 32.93 ml/min; Globulin 4.3 g/dL (2.2-4.2); Glucose 138 mg/dL (74-106); Potassium 3.8 mmol/L (3.5-5.1); Protein, Total 7.5 g/dL (6.4-8.2); Sodium Level 141 mmol/L (136-145)
[2021-04-22] MEDS: Ondansetron 4 MG/2 ML Vial IV (17:07)
[2021-04-22] MEDS: Ketorolac 15 MG/ML Vial IV (17:07)
--- NOTE | 2021-04-22 17:24 | PCM.HP.STD ---
Documented by User: TIFFANIE Madera 04/22/21 17:45 HPI - General General Date of Admission: 04/22/21 Date of Service: 04/22/21 Chief Complaint: Rib pain HPI Narrative CADY SALMERON, is a 86 F who presents with continued left rib pain following a fall 2 days ago. Patient also reports a head injury noted for during the fall. Patient reports that she is on Eliquis due to atrial fibrillation. Brain and chest CT completed in ER. [facility] Medical History Allergic rhinitis Atherosclerotic heart disease of [place] coronary artery without angina pectoris Benign hypertension Benign paroxysmal positional vertigo CAD (coronary artery disease) Carotid artery disease Chronic diastolic heart failure Contusion of right ankle Contusion of right foot Contusion of right lesser toe(s) without damage to nail, initial encounter Coronary artery disease Essential hypertension Former tobacco use Generalized anxiety disorder GERD (gastroesophageal reflux disease) History of DVT (deep vein thrombosis) History of pulmonary embolism Hypertension, uncontrolled Hypokalemia Hypokalemia Hypoxia Inflammatory polyarthropathy Nonrheumatic aortic (valve) stenosis Paroxysmal atrial fibrillation Paroxysmal supraventricular tachycardia Presence of stent in coronary artery (~12/14/18) Pure hypercholesterolemia PVD (peripheral vascular disease) Rash Spondylosis Venous ulcer of right leg Home Medications amlodipine 10 mg PO DAILY 10/20/14 [History Last Taken 04/21/21] nitroglycerin 0.4 mg sublingual tablet 0.4 mg SUBLINGUAL Q5-15M PRN 06/29/19 [History Last Taken 04/22/21] ergocalciferol (vitamin D2) 1,250 mcg (50,000 unit) capsule 50,000 unit PO .3XW cap 07/15/19 [History Last Taken 04/15/21] tizanidine 4 mg tablet 4 mg PO QHS PRN 09/02/19 [History Last Taken 04/21/21] furosemide 20 mg PO DAILY 09/30/19 [History Last Taken 04/21/21] apixaban 5 mg PO BID 07/28/20 [History Last Taken 04/20/21] gabapentin 1,200 mg PO BID 07/28/20 [History Last Taken 04/21/21] clonidine HCl 0.1 mg PO TID 12/27/20 [History Last Taken 04/21/21] labetalol 200 mg PO BID 12/27/20 [History Last Taken 04/21/21] lisinopril 40 mg PO DAILY 12/27/20 [History Last Taken 04/21/21] meclizine 12.5 mg PO Q8H PRN PRN 12/27/20 [History Last Taken 04/22/21] prednisone 10 mg PO DAILY 12/27/20 [History Last Taken 04/22/21] rosuvastatin 10 mg PO DAILY 12/27/20 [History Last Taken 04/21/21] sucralfate 1 g PO 4X/DAY 12/27/20 [History Last Taken 04/21/21] clindamycin HCl 300 mg capsule 300 mg PO Q6H #28 capsule 04/09/21 [Rx Last Taken 04/21/21] Allergy/AdvReac Type Severity Reaction Status Date / Time cefdinir Allergy Severe Hives Verified 04/22/21 13:58 diltiazem [From Cardizem] Allergy Severe Rash Verified 04/22/21 13:58 Penicillins Allergy Swelling Verified 04/22/21 13:58 Sulfa (Sulfonamide Allergy Swelling Verified 04/22/21 13:58 Antibiotics) acetaminophen AdvReac Severe GI Upset Verified 04/22/21 13:58 [From Darvocet-N] cyclobenzaprine AdvReac Severe Heart Verified 04/22/21 13:58 [From Flexeril] Racing doxycycline AdvReac Severe Emesis Verified 04/22/21 13:58 propoxyphene AdvReac Severe GI Upset Verified 04/22/21 13:58 [From Darvocet-N] levofloxacin [From Levaquin] AdvReac Unknown Unknown Verified 04/22/21 13:58 milk AdvReac Diarrhea Verified 04/22/21 13:58 Family History Mother Heart disease Diabetes Father Heart disease Diabetes Sister Diabetes Brother Diabetes Surgical History History of cholecystectomy History of total abdominal hysterectomy Presence of coronary angioplasty implant and graft (~12/14/18) S/P IVC filter S/P TAVR (transcatheter aortic valve replacement) Social History Smoking Status: Former smoker alcohol intake: never substance use type: does not use caffeine: Yes Type: coffee Number of servings: 2 ROS Constitutional Constitutional: Reports weakness; Denies anorexia, chills, fatigue, fever(s) or malaise Cardiovascular Cardiovascular: Denies chest pain, edema, palpitations or syncope Respiratory/Chest Respiratory/Chest: Reports pain on inspiration and pain with cough; Denies cough, shortness of breath at rest, shortness of breath with exertion or wheezing Gastrointestinal Gastrointestinal: Denies abdominal pain, constipation, diarrhea, nausea or vomiting Genitourinary Genitourinary: Denies dysuria Musculoskeletal Musculoskeletal: Denies back pain, extremity pain, joint pain, joint stiffness or joint swelling Integumentary Integumentary: Denies dry skin Neurologic Neurologic: Denies abnormal gait, abnormal speech, confusion, dizziness or focal weakness Psychiatric Psychiatric: Denies anxiety or depression Endocrine Endocrinology: Denies change in body appearance Hematologic/Lymphatic Hematologic/Lymphatic: Denies anemia Vital Signs Vital Signs Vital Signs: 04/22/21 13:51 04/22/21 14:02 04/22/21 14:54 Temperature 98.7 F Temperature Source Temporal Pulse Rate 89 90 Respiratory Rate 16 18 Respiratory Effort Normal Non-Labored Respiratory Depth Normal Respiratory Pattern Normal Blood Pressure 178/72 H 178/86 H Blood Pressure Mean 107 116 Pulse Ox 92 92 Oxygen Delivery Method Room Air Room Air Room Air 04/22/21 16:21 04/22/21 17:11 Temperature 98.3 F 98.3 F Temperature Source Oral Oral Pulse Rate 86 86 Respiratory Rate 16 16 Respiratory Effort Respiratory Depth Respiratory Pattern Blood Pressure 170/62 H 170/62 H Blood Pressure Mean 98 98 Pulse Ox 93 93 Oxygen Delivery Method Room Air Room Air Weight Weight: 195 lb 8.8 oz Body Mass Index (BMI) 29.7 Physical Exam Const alert and oriented x3 General Appearance: cooperative HEENT normocephalic and head/scalp atraumatic Eyes conjunctivae normal and no scleral icterus Neck supple General: trachea midline Resp normal respiratory effort, normal air movement and clear to auscultation bilaterally Resp Narrative: Mid to lower left ribs tender with palpation anteriorly and posteriorly Cardio regular rate, regular rhythm, S1 normal heart sound, S2 normal heart sound and peripheral pulses 2+ throughout GI normal to inspection, nondistended, normoactive bowel sounds, soft to palpation and non-tender Extremity normal capillary refill General Extremity: edema bilateral lower extremity and no tenderness to palpation of joints or extremities Skin General Skin Exam: no breakdown and turgor normal Lesions: no lesions Rashes: no rashes Neuro oriented x3, moves all extremities, no focal motor deficits and no sensory deficits noted Psych thought process normal, cooperative and affect normal Appearance: appropriate Results Lab / Micro Data Result Diagrams: 04/22/21 14:35 04/22/21 14:35 Labs: Laboratory Results - last 24 hr 04/22/21 14:35: WBC 11.8 H, RBC 3.77 L, Hgb 10.9 L, Hct 33.2 L, MCV 88.1, MCH 28.9, MCHC 32.8, RDW Std Deviation 43.5, RDW Coeff of Addi 13.4, Plt Count 282, MPV 9.8, Immature Gran % (Auto) 0.400, Neut % (Auto) 76.1 H, Lymph % (Auto) 14.3 L, [place] % (Auto) 8.7, Eos % (Auto) 0.2, Baso % (Auto) 0.3, Absolute Neuts (auto) 9.0 H, Absolute Lymphs (auto) 1.69, Nucleated RBC % 0 04/22/21 14:35: Sodium 141, Potassium 3.8, Chloride 106, Carbon Dioxide 30.0, Anion Gap 5, BUN 20 H, Creatinine 1.26 H, Estim Creat Clear Calc 32.93, Est GFR (MDRD) Af Amer 52 L, Est GFR (MDRD) Non-Af 43 L, BUN/Creatinine Ratio 15.9, Glucose 138 H, Calcium 9.7, Total Bilirubin 0.40, AST 15, ALT 22, Alkaline Phosphatase 60, Total Protein 7.5, Albumin 3.2, Globulin 4.3 H, Albumin/Globulin Ratio 0.7 L Radiology Impression Brain CT 04/22/21 14:18 IMPRESSION: 1. No acute intracranial hemorrhage or mass effect. Electronically Signed: Rk Srinivasan MD (Brooks) at 15:35 EST , Service support , Chest CT 04/22/21 14:19 IMPRESSION: 1. Left anterior lateral rib fractures. No pneumothorax. 2. Left more than right basilar atelectasis with small volume effusion. 3. T12 compression fracture, indeterminate age. Electronically Signed: Rk Srinivasna MD (Brooks) at 15:38 EST , Service support , Assessment & Plan Assessment/Plan (1) Multiple rib fractures: QUALIFIERS: Encounter type: initial encounter Fracture type: closed Laterality: left Qualified Code(s): S22.42XA - Multiple fractures of ribs, left side, initial encounter for closed fracture (2) Venous ulcer of right leg: PLAN: 1. Multiple rib fractures -Admit to [facility] -Encourage incentive spirometry -Pain medication regimen ordered. Of note patient has a history of opioid abuse so opioids should be used with caution. -PT to eval and treat, patient may need short-term custodial for rehab. 2. Head injury -CT negative for acute intracranial hemorrhage 3. Right lower extremity ulcer -Patient has been following up outpatient with wound clinic -Per wound clinic note daily application of Leydi and Adaptic to area and cover with gauze. Change daily and as needed. - Will continue patient's home medication regiment for chronic diseases including chronic heart failure, CAD, hypertension, GERD Documented by User: Dr. Cam Cheema MD 04/22/21 18:35 HPI - General General Date of Admission: 04/22/21 [facility] Medical History Allergic rhinitis Atherosclerotic heart disease of [place] coronary artery without angina pectoris Benign hypertension Benign paroxysmal positional vertigo CAD (coronary artery disease) Carotid artery disease Chronic diastolic heart failure Contusion of right ankle Contusion of right foot Contusion of right lesser toe(s) without damage to nail, initial encounter Coronary artery disease Essential hypertension Former tobacco use Generalized anxiety disorder GERD (gastroesophageal reflux disease) History of DVT (deep vein thrombosis) History of pulmonary embolism Hypertension, uncontrolled Hypokalemia Hypokalemia Hypoxia Inflammatory polyarthropathy Nonrheumatic aortic (valve) stenosis Paroxysmal atrial fibrillation Paroxysmal supraventricular tachycardia Presence of stent in coronary artery (~12/14/18) Pure hypercholesterolemia PVD (peripheral vascular disease) Rash Spondylosis Venous ulcer of right leg Home Medications amlodipine 10 mg PO DAILY 10/20/14 [History Last Taken 04/21/21] nitroglycerin 0.4 mg sublingual tablet 0.4 mg SUBLINGUAL Q5-15M PRN 06/29/19 [History Last Taken 04/22/21] ergocalciferol (vitamin D2) 1,250 mcg (50,000 unit) capsule 50,000 unit PO .3XW cap 07/15/19 [History Last Taken 04/15/21] tizanidine 4 mg tablet 4 mg PO QHS PRN 09/02/19 [History Last Taken 04/21/21] furosemide 20 mg PO DAILY 09/30/19 [History Last Taken 04/21/21] apixaban 5 mg PO BID 07/28/20 [History Last Taken 04/20/21] gabapentin 1,200 mg PO BID 07/28/20 [History Last Taken 04/21/21] clonidine HCl 0.1 mg PO TID 12/27/20 [History Last Taken 04/21/21] labetalol 200 mg PO BID 12/27/20 [History Last Taken 04/21/21] lisinopril 40 mg PO DAILY 12/27/20 [History Last Taken 04/21/21] meclizine 12.5 mg PO Q8H PRN PRN 12/27/20 [History Last Taken 04/22/21] prednisone 10 mg PO DAILY 12/27/20 [History Last Taken 04/22/21] rosuvastatin 10 mg PO DAILY 12/27/20 [History Last Taken 04/21/21] sucralfate 1 g PO 4X/DAY 12/27/20 [History Last Taken 04/21/21] clindamycin HCl 300 mg capsule 300 mg PO Q6H #28 capsule 04/09/21 [Rx Last Taken 04/21/21] Allergy/AdvReac Type Severity Reaction Status Date / Time cefdinir Allergy Severe Hives Verified 04/22/21 13:58 diltiazem [From Cardizem] Allergy Severe Rash Verified 04/22/21 13:58 Penicillins Allergy Swelling Verified 04/22/21 13:58 Sulfa (Sulfonamide Allergy Swelling Verified 04/22/21 13:58 Antibiotics) acetaminophen AdvReac Severe GI Upset Verified 04/22/21 13:58 [From Darvocet-N] cyclobenzaprine AdvReac Severe Heart Verified 04/22/21 13:58 [From Flexeril] Racing doxycycline AdvReac Severe Emesis Verified 04/22/21 13:58 propoxyphene AdvReac Severe GI Upset Verified 04/22/21 13:58 [From Darvocet-N] levofloxacin [From Levaquin] AdvReac Unknown Unknown Verified 04/22/21 13:58 milk AdvReac Diarrhea Verified 04/22/21 13:58 Family History Mother Heart disease Diabetes Father Heart disease Diabetes Sister Diabetes Brother Diabetes Surgical History History of cholecystectomy History of total abdominal hysterectomy Presence of coronary angioplasty implant and graft (~12/14/18) S/P IVC filter S/P TAVR (transcatheter aortic valve replacement) Social History Smoking Status: Former smoker alcohol intake: never substance use type: does not use caffeine: Yes Type: coffee Number of servings: 2 Results Lab / Micro Data Result Diagrams: 04/22/21 14:35 04/22/21 14:35 Charges/Coding Addendum Addendum: Dr. Cheema: I personally reviewed the chart and examined the patient, and agree with the above findings.86-year-old female presents from home after a fall. She fell about 2 days ago, states that it was a mechanical fall, she was stepped backwards and lost her balance. She does have a history of being on Suboxone and currently sees pain management for chronic pain secondary to back pain. She is also had some issues with a nonhealing wound on her right lower extremity and takes clindamycin for that. She is noticed that she has been having left-sided chest pain and has been increasingly short of breath. She is found to have multiple anterior rib fractures on the left and it looks like she is developing atelectasis from shallow breathing secondary to splinting for the pain. I did encourage her to take deep breaths and to ambulate, in the meantime we will provide her with appropriate pain medication as well as incentive spirometry. We will continue with her clindamycin for her right foot, she states that the wounds are healing and that she has been worked up as an outpatient with arterial studies and an Dopplers. Visit Charges Inpatient E&M: 93056 Init Hosp L3
[2021-04-22] MEDS: Atorvastatin Calcium 20 MG Tablet PO (21:47)
[2021-04-22] MEDS: Sucralfate 1 GM Tablet PO (21:47)
[2021-04-22] MEDS: cloNIDine HCl 0.1 MG Tablet PO (21:47)
[2021-04-22] MEDS: Gabapentin 600 MG Tablet 1200 MG PO (21:47)
[2021-04-22] MEDS: Labetalol 200 MG Tablet PO (21:47)
[2021-04-22] MEDS: APIXABAN 5 MG TABLET PO (21:47)
[2021-04-22] MEDS: 0.9% Saline Lock 10 ML Syringe IV (21:47)
[2021-04-22] MEDS: Clindamycin HCl 150 MG Capsule 300 MG PO (23:43)
[2021-04-23] VITALS (11 sets, daily range): BP systolic 131–171; BP diastolic 50–87; PULSE 62–81; RESP 16–18; TEMP 36.4–37.2; O2SAT 86–98
[2021-04-23 05:52] LABS: Absolute Lymphocyte Count 0.94 X10^3/uL (0.83-4.51); Basophil# 0.04 X10^3/uL; Basophil% 0.4 % (0-1); Eosinophil# 0.04 X10^3/uL; Eosinophils% 0.4 % (0-5); Hematocrit 36.5 % (37-47); Hemoglobin 11.3 g/dL (12.0-15.0); Lymphocyte # 0.94 X10^3/ul (0.83-4.51); Lymphocyte % 8.8 % (19-41); Mean Corpuscular Hgb 28.3 pg (27.0-32.0); Mean Corpuscular Volume 91.3 fL (81-99); Mean Platelet Vol. 9.8 fl (6.2-12.0); Monocyte# 0.62 X10^3/uL; Monocyte% 5.8 % (0-10); NRBC Flagged by Analyzer 0 % (0-5); Neutrophil # 9.03 X10^3/uL (2.7-7.7); Neutrophil % 84.2 % (47-70); Platelet Count 289 K/mm3 (150-450); RBC Distribution Width CV 13.4 % (11.6-14.6); RBC Distribution Width SD 45.6 fl (35.1-43.9); White Blood Count 10.7 K/mm3 (4.4-11.0)
[2021-04-23] MEDS: cloNIDine HCl 0.1 MG Tablet PO ×2 (06:04→22:26)
[2021-04-23] MEDS: Clindamycin HCl 150 MG Capsule 300 MG PO ×2 (06:04→17:07)
[2021-04-23] MEDS: Sucralfate 1 GM Tablet PO ×4 (06:04→22:26)
[2021-04-23 06:18] LABS: Anion Gap 10 (5-15); BUN 20 mg/dL (7-18); BUN/Creat Ratio 15.7 RATIO (10-20); Calcium,Total 9.1 mg/dL (8.5-10.1); Chloride 103 mmol/L (98-107); Creatinine, Serum 1.27 mg/dL (0.55-1.02); EST Glomerular Filtration Rate 43 mL/min (>60); Est Glom Filt Rate - Afr Amer 51 mL/min (>60); Estimated Creatinine Clearance 25.61 ml/min; Glucose 175 mg/dL (74-106); Potassium 4.4 mmol/L (3.5-5.1); Sodium Level 138 mmol/L (136-145)
--- NOTE | 2021-04-23 07:30 | CPS ---
Pt increased to 3 lpm. Nurse aware of change.
--- NOTE | 2021-04-23 07:40 | NURSING ---
straight cath pt under sterile field, pt tolerated well.
--- NOTE | 2021-04-23 09:32 | NURSING ---
pt pulling off gown and oxygen. warm to touch. temp 99.0 oral. Chelsie HANKINS notified.
[2021-04-23] MEDS: Gabapentin 600 MG Tablet 1200 MG PO ×2 (10:29→22:29)
[2021-04-23] MEDS: Lisinopril 40 MG Tablet PO (10:30)
[2021-04-23] MEDS: Labetalol 200 MG Tablet PO ×2 (10:30→22:27)
[2021-04-23] MEDS: amLODIPine 10 MG Tablet PO (10:30)
[2021-04-23] MEDS: APIXABAN 5 MG TABLET PO ×2 (10:30→22:27)
[2021-04-23] MEDS: Furosemide 20 MG Tablet PO (10:30)
[2021-04-23] MEDS: Acetaminophen 325 MG Tablet 650 MG PO (10:35)
--- NOTE | 2021-04-23 10:59 | CASEMGMT ---
This RN CM to room and pt with O2 and gown off, trying to climb out of bed. HOB elevated per pt request and pt's gown and O2 placed back on with call light and cell phone in reach. Damaris, PCU charge, updated and bed alarm turned on for pt at this time. Pt seems somewhat confused at times with safety concerns. Pt states has had recent falls at home. CM to follow for therapy evals. [facility] CM
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
--- NOTE | 2021-04-23 14:35 | CASEMGMT ---
[facility]I ÁLVAREZ ASSESSMENT Pt sleeping/groggy at this time. NHI CM to room to meet with pt's , who is at bedside, for initial transition planning/care coordination assessment. [facility]I ÁLVAREZ introduced self and role at [facility]. voices understanding and consents to assessment at this time. Care providers, pharmacy, and demographics verified/updated at this time. PCP: Dr Connell Specialists:Wound Clinic. Pt also sees other doctors, but does not remember names of doctors. Preferred Pharmacy: [facility] [place] Insurance: [employer] [facility] Prescription Benefit: Yes Living Will/HPOA: Pt does not currently have LW/HCPOA. LNOK: , Kyle. Daughters, Merlyn Nielsen and Angie Serna. Also has 2 sons w/MRDD Living Arrangements: Lives w/her and 2 sons w/MRDD. Pt and her help to care for sons. They go to workshop M-F from 0820-22:30. Sons are indep w/ADL's, but pt and manage other care, medications, and appts. Pt was independent w/ADL's prior to vertigo and fall @ home and shared home mgmt tasks w/. Since then, has been doing most home tasks. states pt's daughter, Merlyn, is on stand-by and will come stay w/pt's sons to care for them in the event pt and her are not able to . Transportation: Pt and DME: Has/uses: shower chair, rails/grab bars, medical alert button, cane on occasion. Has a walker she just started using this past week. Also has available, but does not use: [facility], W/C. denies need for further DME at this time. HHC/SNF: No hx of either. Discussed options @ d/c, including SNF. states, There's no way she'll go anywhere, stating We've had 4-5 friends pass away in nursing homes and I know she will not go. He did state he thinks HHC would be beneficial and asked for CM to talk w/pt about this more once she is awake and able to answer questions. states he will be able to assist her 24/7 if needed and daughters would also be willing/able to help. voices no further concerns/needs at this time. Advised him to ask for CM if any further questions/concerns/needs arise. Voices understanding. PLAN: states pt will want to return home w/HHC. Follow clinical course of treatment and progress w/therapy. Bel BEAVERSN RN CM
[2021-04-23] MEDS: Juven (unflavored) Packet 1 PACKET PO (17:07)
[2021-04-23] MEDS: Atorvastatin Calcium 20 MG Tablet PO (22:27)
[2021-04-24] MEDS: Sucralfate 1 GM Tablet PO ×2 (03:57→09:03)
[2021-04-24] MEDS: cloNIDine HCl 0.1 MG Tablet PO (03:57)
[2021-04-24] MEDS: oxyCODONE 5 MG Tablet PO (03:57)
[2021-04-24 04:06] VITALS: BP 178/66; PULSE 76; RESP 17; TEMP 37.1; O2SAT 95
--- NOTE | 2021-04-24 04:40 | NURSING ---
pt has not voided. pt asst to bathroom w walker. pt not able to void. asst back to bed. bladder scan 272. Pt said I am not getting cath. Encourage pt to drink more
[2021-04-24 05:21] LABS: Absolute Neutrophil Count 7.2 X10^3/uL (2.0-7.7); Basophil# 0.02 X10^3/uL; Basophil% 0.2 % (0-1); Eosinophil# 0.11 X10^3/uL; Eosinophils% 1.2 % (0-5); Hematocrit 32.7 % (37-47); Lymphocyte % 13.8 % (19-41); Mean Corp Hgb Conc 30.6 g/dL (32-36); Mean Corpuscular Hgb 27.5 pg (27.0-32.0); Mean Corpuscular Volume 89.8 fL (81-99); Mean Platelet Vol. 9.8 fl (6.2-12.0); Monocyte# 0.76 X10^3/uL; Monocyte% 8.1 % (0-10); NRBC Flagged by Analyzer 0 % (0-5); Neutrophil # 7.18 X10^3/uL (2.7-7.7); Neutrophil % 76.3 % (47-70); Platelet Count 279 K/mm3 (150-450); RBC Distribution Width CV 13.2 % (11.6-14.6); RBC Distribution Width SD 44.1 fl (35.1-43.9); Red Blood Count 3.64 M/mm3 (4.2-5.4); White Blood Count 9.4 K/mm3 (4.4-11.0)
[2021-04-24 05:46] LABS: Anion Gap 7 (5-15); BUN 28 mg/dL (7-18); BUN/Creat Ratio 20.7 RATIO (10-20); Calcium,Total 8.6 mg/dL (8.5-10.1); Chloride 103 mmol/L (98-107); Creatinine, Serum 1.35 mg/dL (0.55-1.02); EST Glomerular Filtration Rate 40 mL/min (>60); Est Glom Filt Rate - Afr Amer 48 mL/min (>60); Glucose 149 mg/dL (74-106); Sodium Level 139 mmol/L (136-145)
[2021-04-24 07:20] VITALS: O2SAT 90
[2021-04-24] MEDS: HYDROcodone Bitartrate/Apap 5/325 Tablet PO (09:00)
[2021-04-24] MEDS: APIXABAN 5 MG TABLET PO (09:02)
[2021-04-24] MEDS: Furosemide 20 MG Tablet PO (09:02)
[2021-04-24] MEDS: amLODIPine 10 MG Tablet PO (09:02)
[2021-04-24] MEDS: Juven (unflavored) Packet 1 PACKET PO (09:02)
[2021-04-24] MEDS: Labetalol 200 MG Tablet PO (09:03)
[2021-04-24] MEDS: Lisinopril 40 MG Tablet PO (09:03)
[2021-04-24 09:06] VITALS: O2SAT 94
[2021-04-24 09:08] VITALS: BP 160/59; PULSE 72; RESP 18; TEMP 36.8; O2SAT 94
--- NOTE | 2021-04-24 09:30 | PCM.DC ---
Discharge Instructions Diet Discharge Diet: Low fat / Low cholesterol Activity Discharge Activity: Return to Normal Activity and Use Walker Dressing / Incision Call your doctor if you observe: Numbness or Tingling, Shortness of breath and Chest pain Follow Up Care Test Results: Test results from this visit will be discussed in further detail at your follow-up appointment, if applicable. Discharge Plan Admission Admit Date/Time: 04/22/21 16:42 Primary Reason for Your Visit: Fall, Rib Fractures Attending Provider: Karishma Rosario Primary Care Provider: Nayely Connell Discharge Orders/Prescriptions Prescriptions: New hydrocodone-acetaminophen 5-325 mg Tablet 1 tab PO Q4H PRN PRN (Reason: Pain Score 4-10) Qty: 0 RF: 0 Continued nitroglycerin 0.4 mg tablet, sublingual 0.4 mg SUBLINGUAL Q5-15M PRN (Reason: CHEST PAIN) RF: 0 ergocalciferol (vitamin D2) 1,250 mcg (50,000 unit) capsule 50,000 unit PO .3XW RF: 0 amlodipine 10 MG tablet 10 mg PO DAILY RF: 0 furosemide 20 MG tablet 20 mg PO DAILY RF: 0 gabapentin 600 MG tablet 1,200 mg PO QHS RF: 0 apixaban 5 MG tablet 5 mg PO BID RF: 0 clonidine HCl 0.1 mg Tablet 0.1 mg PO TID RF: 0 prednisone 10 mg Tablet 10 mg PO DAILY RF: 0 labetalol 200 mg Tablet 200 mg PO BID RF: 0 sucralfate 1 gram Tablet 1 g PO 4X/DAY RF: 0 lisinopril 40 mg Tablet 40 mg PO DAILY RF: 0 rosuvastatin 20 mg Tablet 10 mg PO DAILY RF: 0 meclizine 25 MG tablet 12.5 mg PO Q8H PRN PRN (Reason: Dizziness) RF: 0 tizanidine 4 mg tablet 4 mg PO QHS PRN (Reason: Muscle Spasm) RF: 0 clindamycin HCl [Cleocin HCl] 300 mg capsule 300 mg PO Q6H Qty: 28 RF: 0 Referrals / Follow Up: Lashon Diaz MD [STAFF PHYSICIAN] - In 1 Week Nayely Connell MD [Primary Care Provider] - Within 2 Weeks Disposition Disposition (needs filled in before D/C Order can be placed): Home Health Service
--- NOTE | 2021-04-24 09:35 | PCM.DC.SUM ---
Documented by User: TIFFANIE Madera 04/24/21 09:40 Providers Date of Admission: 04/22/21 Primary Care Physician: Dr. Nayely Connell MD Reason For Visit: RIB FRACTURES Diagnosis Discharge Diagnosis (1) Multiple rib fractures: Status: Acute Code(s): S22.49XA - Multiple fractures of ribs, unspecified side, initial encounter for closed fracture Qualifiers: Encounter type: initial encounter Fracture type: closed Laterality: left Qualified Code(s): S22.42XA - Multiple fractures of ribs, left side, initial encounter for closed fracture (2) Venous ulcer of right leg: Status: Acute Code(s): I83.019 - Varicose veins of right lower extremity with ulcer of unspecified site; L97.919 - Non-pressure chronic ulcer of unspecified part of right lower leg with unspecified severity (3) Head injury: Status: Acute Code(s): S09.90XA - Unspecified injury of head, initial encounter Qualifiers: Encounter type: initial encounter Qualified Code(s): S09.90XA - Unspecified injury of head, initial encounter Medications at Discharge Home Medications amlodipine 10 mg PO DAILY 10/20/14 nitroglycerin 0.4 mg sublingual tablet 0.4 mg SUBLINGUAL Q5-15M PRN 06/29/19 ergocalciferol (vitamin D2) 1,250 mcg (50,000 unit) capsule 50,000 unit PO .3XW cap 07/15/19 tizanidine 4 mg tablet 4 mg PO QHS PRN 09/02/19 furosemide 20 mg PO DAILY 09/30/19 apixaban 5 mg PO BID 07/28/20 gabapentin 1,200 mg PO QHS 07/28/20 clonidine HCl 0.1 mg PO TID 12/27/20 labetalol 200 mg PO BID 12/27/20 lisinopril 40 mg PO DAILY 12/27/20 meclizine 12.5 mg PO Q8H PRN PRN 12/27/20 prednisone 10 mg PO DAILY 12/27/20 rosuvastatin 10 mg PO DAILY 12/27/20 sucralfate 1 g PO 4X/DAY 12/27/20 clindamycin HCl 300 mg capsule 300 mg PO Q6H #28 capsule 04/09/21 hydrocodone-acetaminophen 1 tab PO Q4H PRN PRN #0 tab 04/24/21 Hospital Course Operations None Procedures None Summary of Care Provided Minutes Spent on Discharge: 35 Hospital Course: Patient is an 86-year-old female who presented following a fall with complaints of head pain and rib pain. Patient was noted on CT scan to have left anterior lateral rib fractures along with left more than right atelectasis. Patient's brain CT was negative for acute intracranial hemorrhage. Upon presentation patient appeared confused however patient received morphine in ER and states that morphine makes her crazy. Patient ended x3-day of discharge. PT and OT recommending continued therapy however patient is refusing to go to a [facility] facility. Patient states that she is amenable to home health care. This will be arranged prior to her discharge. Physical Exam Const alert, oriented x3 and no apparent distress General Appearance: cooperative HEENT normocephalic and head/scalp atraumatic Eyes conjunctivae normal and no scleral icterus Neck no lymphadenopathy and supple General: trachea midline Resp normal respiratory effort, normal air movement and clear to auscultation bilaterally Auscultation: Negative for crackles Cardio regular rate, regular rhythm, S1 normal heart sound, S2 normal heart sound, no clicks, no JVD and peripheral pulses 2+ throughout GI normal to inspection, nondistended, normoactive bowel sounds, soft to palpation and non-tender Extremity normal capillary refill and no clubbing, cyanosis or edema General Extremity: no tenderness to palpation of joints or extremities Skin skin turgor normal General Skin Exam: no breakdown Lesions: no lesions Rashes: no rashes Neuro oriented x3, moves all extremities, no focal motor deficits and no sensory deficits noted Psych affect normal Appearance: appropriate Attitude: bizarre Thought Process: confused Weight / BMI Weight Weight: 162 lb 14.4 oz Body Mass Index (BMI) 29.7 ABG / Lab / Microbiology Data Result Diagrams: 04/24/21 04:52 04/24/21 04:52 Laboratory: Laboratory Results - last 24 hr 04/24/21 04:52: WBC 9.4, RBC 3.64 L, Hgb 10.0 L, Hct 32.7 L, MCV 89.8, MCH 27.5, MCHC 30.6 L, RDW Std Deviation 44.1 H, RDW Coeff of Addi 13.2, Plt Count 279, MPV 9.8, Immature Gran % (Auto) 0.400, Neut % (Auto) 76.3 H, Lymph % (Auto) 13.8 L, [place] % (Auto) 8.1, Eos % (Auto) 1.2, Baso % (Auto) 0.2, Absolute Neuts (auto) 7.2, Absolute Lymphs (auto) 1.30, Nucleated RBC % 0 04/24/21 04:52: Sodium 139, Potassium 4.0, Chloride 103, Carbon Dioxide 29.0, Anion Gap 7, BUN 28 H, Creatinine 1.35 H, Estim Creat Clear Calc 24.10, Est GFR (MDRD) Af Amer 48 L, Est GFR (MDRD) Non-Af 40 L, BUN/Creatinine Ratio 20.7 H, Glucose 149 H, Calcium 8.6 D/C Instructions Discharge Diet: Low fat / Low cholesterol Call your doctor if you observe: Numbness or Tingling, Shortness of breath and Chest pain Meaningful Use Info Meaningful Use Diagnoses (Choose all that apply): None applicable Discharge Plan Admission Admit Date/Time: 04/22/21 16:42 Primary Reason for Your Visit: Fall, Rib Fractures Attending Provider: Karishma Rosario Primary Care Provider: Nayely Connell Discharge Orders/Prescriptions Prescriptions: New hydrocodone-acetaminophen 5-325 mg Tablet 1 tab PO Q4H PRN PRN (Reason: Pain Score 4-10) Qty: 0 RF: 0 Continued nitroglycerin 0.4 mg tablet, sublingual 0.4 mg SUBLINGUAL Q5-15M PRN (Reason: CHEST PAIN) RF: 0 ergocalciferol (vitamin D2) 1,250 mcg (50,000 unit) capsule 50,000 unit PO .3XW RF: 0 amlodipine 10 MG tablet 10 mg PO DAILY RF: 0 furosemide 20 MG tablet 20 mg PO DAILY RF: 0 gabapentin 600 MG tablet 1,200 mg PO QHS RF: 0 apixaban 5 MG tablet 5 mg PO BID RF: 0 clonidine HCl 0.1 mg Tablet 0.1 mg PO TID RF: 0 prednisone 10 mg Tablet 10 mg PO DAILY RF: 0 labetalol 200 mg Tablet 200 mg PO BID RF: 0 sucralfate 1 gram Tablet 1 g PO 4X/DAY RF: 0 lisinopril 40 mg Tablet 40 mg PO DAILY RF: 0 rosuvastatin 20 mg Tablet 10 mg PO DAILY RF: 0 meclizine 25 MG tablet 12.5 mg PO Q8H PRN PRN (Reason: Dizziness) RF: 0 tizanidine 4 mg tablet 4 mg PO QHS PRN (Reason: Muscle Spasm) RF: 0 clindamycin HCl [Cleocin HCl] 300 mg capsule 300 mg PO Q6H Qty: 28 RF: 0 Referrals / Follow Up: Lashon Diaz MD [STAFF PHYSICIAN] - 05/01/21 12:45 pm Nayely Connell MD [Primary Care Provider] - 05/06/21 9:55 am Disposition Disposition (needs filled in before D/C Order can be placed): Home Health Service Documented by User: Dr. Karishma Rosario DO 04/24/21 13:20 Providers Date of Admission: 04/22/21 Reason For Visit: RIB FRACTURES Medications at Discharge Home Medications amlodipine 10 mg PO DAILY 10/20/14 nitroglycerin 0.4 mg sublingual tablet 0.4 mg SUBLINGUAL Q5-15M PRN 06/29/19 ergocalciferol (vitamin D2) 1,250 mcg (50,000 unit) capsule 50,000 unit PO .3XW cap 07/15/19 tizanidine 4 mg tablet 4 mg PO QHS PRN 09/02/19 furosemide 20 mg PO DAILY 09/30/19 apixaban 5 mg PO BID 07/28/20 gabapentin 1,200 mg PO QHS 07/28/20 clonidine HCl 0.1 mg PO TID 12/27/20 labetalol 200 mg PO BID 12/27/20 lisinopril 40 mg PO DAILY 12/27/20 meclizine 12.5 mg PO Q8H PRN PRN 12/27/20 prednisone 10 mg PO DAILY 12/27/20 rosuvastatin 10 mg PO DAILY 12/27/20 sucralfate 1 g PO 4X/DAY 12/27/20 clindamycin HCl 300 mg capsule 300 mg PO Q6H #28 capsule 04/09/21 hydrocodone-acetaminophen 1 tab PO Q4H PRN PRN #0 tab 04/24/21 Hospital Course Operations None Procedures None Summary of Care Provided Minutes Spent on Discharge: 33 Hospital Course: This patient was seen in conjunction with Justine Womack NP. The following represents my independent history and physical examination. Please see below for addendum the above. Mrs. Jolly is an 86-year-old female who presented to the emergency department at [facility] on 04/22/2021 with continued left rib pain following a fall 2 days prior. She also had a head injury during the fall. At baseline she is noted to be on Eliquis due to chronic atrial fibrillation. The fall was noted to be mechanical in that she stepped backwards and lost her balance. She is on chronic Suboxone and sees pain management due to chronic pain in her back. She also has some issues with a nonhealing wound in her right lower extremity for which she follows at the wound center and is taking clindamycin. A CT of her head was negative for any acute bleeding. A CT was done of her chest in the emergency department she was noted to have multiple anterior rib fractures on the left and had developed some atelectasis related to shallow breathing and splinting secondary to pain. In the emergency department she was given morphine and ended up with a metabolic encephalopathy for approximately 18 hours after the dose was given but this has since resolved and she is back to baseline mentally. Ongoing therapy services were recommended and the patient was resistant to skilled facility but was accepting of home health care at discharge. She was maintained on her chronic Suboxone and given a small dose of [place] to continue at discharge with explicit instructions to follow-up with Dr. Diaz, her pain management physician. She was given incentive spirometer and instructed on use and encouraged on further use at home with attempts to avoid developing pneumonia. She voiced understanding and indicated she would be compliant. Home health care was arranged at discharge and they will continue with therapy service as well as wound care until she is able to get back to the wound center. She was discharged home in stable condition on 04/24/2021. Discharge diagnoses: Multiple left-sided rib fractures Closed head injury Metabolic encephalopathy Right venous leg ulcer Hypertension Paroxysmal atrial fibrillation Inflammatory polyarthropathy GERD History of DVT/PE CAD Hypertension Hyperlipidemia Carotid artery disease Chronic diastolic heart failure History of tobacco abuse Anxiety Depression Chronic pain CKD stage IIIb Physical Exam Const alert, oriented x3 and no apparent distress Constitutional Narrative: Elderly white female sitting up in bed upset that her pain meds are not quite what she is on at home, appears comfortable, nontoxic General Appearance: cooperative and well developed Orientation / Consciousness: oriented to person and oriented to place Exam Limitations: altered mental status HEENT normocephalic, head/scalp atraumatic and moist oral mucous membranes HEENT Narrative: Upper dentures in place, Mallampati 2, no thrush Eyes PERRL, EOMs intact bilaterally, conjunctivae normal and no scleral icterus Eyes Narrative: No scleral icterus normal conjunctiva Neck no lymphadenopathy, supple and thyroid normal General: trachea midline Resp normal respiratory effort, normal air movement and clear to auscultation bilaterally Auscultation: Negative for crackles, rales, rhonchi or wheezes Cardio regular rate, regular rhythm, S1 normal heart sound, S2 normal heart sound, no murmurs, no rub, no gallops, no clicks, no JVD and peripheral pulses 2+ throughout GI normal to inspection, nondistended, normoactive bowel sounds, soft to palpation and non-tender; Negative for non-distended Extremity normal capillary refill and no clubbing, cyanosis or edema General Extremity: no tenderness to palpation of joints or extremities Skin skin turgor normal General Skin Exam: no breakdown Lesions: no lesions Rashes: no rashes Neuro oriented x3, CN's II-XII intact bilaterally, moves all extremities, no focal motor deficits and no sensory deficits noted Motor Exam: general weakness Psych affect normal Appearance: appropriate Attitude: bizarre Thought Process: confused ABG / Lab / Microbiology Data Result Diagrams: 04/24/21 04:52 04/24/21 04:52 Discharge Plan Admission Admit Date/Time: 04/22/21 16:42 Primary Reason for Your Visit: Fall, Rib Fractures Attending Provider: Karishma Rosario Primary Care Provider: Nayely Connell Discharge Orders/Prescriptions Prescriptions: New hydrocodone-acetaminophen 5-325 mg Tablet 1 tab PO Q4H PRN PRN (Reason: Pain Score 4-10) Qty: 0 RF: 0 Continued nitroglycerin 0.4 mg tablet, sublingual 0.4 mg SUBLINGUAL Q5-15M PRN (Reason: CHEST PAIN) RF: 0 ergocalciferol (vitamin D2) 1,250 mcg (50,000 unit) capsule 50,000 unit PO .3XW RF: 0 amlodipine 10 MG tablet 10 mg PO DAILY RF: 0 furosemide 20 MG tablet 20 mg PO DAILY RF: 0 gabapentin 600 MG tablet 1,200 mg PO QHS RF: 0 apixaban 5 MG tablet 5 mg PO BID RF: 0 clonidine HCl 0.1 mg Tablet 0.1 mg PO TID RF: 0 prednisone 10 mg Tablet 10 mg PO DAILY RF: 0 labetalol 200 mg Tablet 200 mg PO BID RF: 0 sucralfate 1 gram Tablet 1 g PO 4X/DAY RF: 0 lisinopril 40 mg Tablet 40 mg PO DAILY RF: 0 rosuvastatin 20 mg Tablet 10 mg PO DAILY RF: 0 meclizine 25 MG tablet 12.5 mg PO Q8H PRN PRN (Reason: Dizziness) RF: 0 tizanidine 4 mg tablet 4 mg PO QHS PRN (Reason: Muscle Spasm) RF: 0 clindamycin HCl [Cleocin HCl] 300 mg capsule 300 mg PO Q6H Qty: 28 RF: 0 Referrals / Follow Up: Lashon Diaz MD [STAFF PHYSICIAN] - 05/01/21 12:45 pm Nayely Connell MD [Primary Care Provider] - 05/06/21 9:55 am Disposition Disposition (needs filled in before D/C Order can be placed): Home Health Service Charges/Coding Visit Charges Inpatient E&M: 73854 Disch Hosp
[2021-04-24 09:46] VITALS: BP 157/50; PULSE 70; RESP 18; TEMP 36.7; O2SAT 92
--- NOTE | 2021-04-24 09:52 | CASEMGMT ---
Addendum entered by Chely Marcus 04/24/21 10:14: SN added as pt goes to the wound clinic once every 2 weeks for wound care. Honey at [facility] notified and states they can accept with SOC 04/25/21. Gwen HANKINS CM Original Note: Pt states would like to go home but is agreeable to [facility] and states would like [facility] as she has had them in the past. Order placed for PT/OT and call to Honey at [facility] with referral. CM to follow for acceptance. Gwen HANKNIS CM
== END 2021-04-24 11:59 | disposition home health service (06) | DRG 183 ==
LOC: ED 16:41 → PCU 17:00
PROVIDERS: Nurse Practitioner Family; Admitting Provider Family Medicine; Emergency Provider Emergency Medicine; PCP Internal Medicine; Visit Provider Internal Medicine
DX: S22.42XA Multiple fractures of ribs, left side, initial encounter for closed fracture (principal); G93.41 Metabolic encephalopathy; I13.0 Hypertensive heart and chronic kidney disease with heart failure and stage 1 through stage 4 chronic kidney disease, or unspecified chronic kidney disease; I50.32 Chronic diastolic (congestive) heart failure; L97.919 Non-pressure chronic ulcer of unspecified part of right lower leg with unspecified severity; J98.11 Atelectasis; S09.90XA Unspecified injury of head, initial encounter; W01.0XXA Fall on same level from slipping, tripping and stumbling without subsequent striking against object, initial encounter; Y93.9 Activity, unspecified; Y92.9 Unspecified place or not applicable; I48.0 Paroxysmal atrial fibrillation; E11.22 Type 2 diabetes mellitus with diabetic chronic kidney disease; E11.51 Type 2 diabetes mellitus with diabetic peripheral angiopathy without gangrene; I83.019 Varicose veins of right lower extremity with ulcer of unspecified site; E78.00 Pure hypercholesterolemia, unspecified; E78.5 Hyperlipidemia, unspecified; F32.A Depression, unspecified; F41.1 Generalized anxiety disorder; G89.29 Other chronic pain; H81.10 Benign paroxysmal vertigo, unspecified ear; I25.10 Atherosclerotic heart disease of native coronary artery without angina pectoris; I35.0 Nonrheumatic aortic (valve) stenosis; I65.29 Occlusion and stenosis of unspecified carotid artery; K21.9 Gastro-esophageal reflux disease without esophagitis; M06.4 Inflammatory polyarthropathy; N18.32 Chronic kidney disease, stage 3b; Z86.718 Personal history of other venous thrombosis and embolism; Z86.711 Personal history of pulmonary embolism; Z95.2 Presence of prosthetic heart valve; Z95.828 Presence of other vascular implants and grafts; Z79.01 Long term (current) use of anticoagulants; Z79.899 Other long term (current) drug therapy; Z87.891 Personal history of nicotine dependence
CPT/HCPCS: 36415; 70450; 71250; 80048; 80053; 85025; 97110; 97162; 97166; 97530; 97535; 99285; A4216; J2405

== ENCOUNTER 2021-05-20 17:30 | Outpatient (CLI) | payer MEDICARE, SELFPAY ==
[2021-05-20 19:22] LABS: Amphetamine Urine VISTA NEGATIVE (<1000 ng/mL); Barbiturate Urine VISTA NEGATIVE (< 200 ng/mL); Benzodiazepine Urine VISTA NEGATIVE (< 200 ng/mL); Cocaine Urine VISTA NEGATIVE (< 300 ng/mL); Ecstacy Urine VISTA NEGATIVE (< 500 ng/mL); Methadone Urine VISTA NEGATIVE (< 300 ng/mL); PCP Urine VISTA NEGATIVE (< 25 ng/mL); THC Urine VISTA NEGATIVE (< 50 ng/mL); Vista UDS pH Range 5
== END 2021-05-20 23:59 | disposition short-term general hospital (02) ==
LOC: LAB 17:32
PROVIDERS: PCP Internal Medicine; Referring Provider Anesthesiology Pain Medicine; Visit Provider Anesthesiology Pain Medicine
DX: F11.20 Opioid dependence, uncomplicated (principal)
CPT/HCPCS: 80307

== ENCOUNTER 2021-08-06 17:20 | Emergency (ER) | payer MEDICARE, SELFPAY ==
[2021-08-06] VITALS (7 sets, daily range): BP systolic 174–193; BP diastolic 66–75; PULSE 82–94; RESP 15–21; TEMP 36.9–38.7; O2SAT 93–97; BMI 29.9
--- NOTE | 2021-08-06 17:52 | EKG12_ITS ---
Test Reason : VOMITING Blood Pressure : / mmHG Vent. Rate : 088 BPM Atrial Rate : 088 BPM P-R Int : 264 ms QRS Dur : 086 ms QT Int : 390 ms P-R-T Axes : 076 -02 106 degrees QTc Int : 471 ms Sinus rhythm with 1st degree A-V block with occasional Premature ventricular complexes and Premature atrial complexes Consider Left ventricular hypertrophy Septal [place], age undetermined, cannot be excluded Nonspecific ST and T wave abnormality Abnormal ECG Confirmed by DAVID LAWSON, YORDAN ([id number]), editor managing director ALETHA MTZ ([id number]) on 08/08/2021 9:59:37 AM Referred By: FARHEEN Confirmed By:YORDAN HERNANDEZ MD
--- NOTE | 2021-08-06 17:52 | CT_ITS ---
STUDY: CT Abdomen And Pelvis W/ Contrast Injection 08/06/2021 7:28 PM REASON FOR EXAM: Female, 86 years old. Abdominal pain abd pain and fever Individualized dose optimization techniques were used for this CT. COMPARISON: 02.02.20 TECHNIQUE: CT Abdomen And Pelvis W/ Contrast Injection IV 100mL [id number] FINDINGS: There are atherosclerotic calcifications of visualized coronary arteries. The visualized portions of the heart are within normal limits. TAVR noted. Lower lobe infiltrate or atelectasis. Normal liver. There are surgical clips in the gallbladder fossa consistent with a prior cholecystectomy. Normal spleen. Normal pancreas. Normal bilateral adrenal glands. There is moderate cortical atrophy of the right kidney, consistent with chronic medical renal disease. No acute findings of the left kidney. Non obstructive 2 mm right renal parenchymal stones. Normal visualized stomach. Normal small intestine. There are multiple colonic diverticula consistent with diverticulosis. The appendix is visualized and appears normal. There are calcifications of the abdominal aorta. This is consistent for atherosclerotic disease. There is no abdominal aortic aneurysm. Normal inferior vena cava. Subcentimeter mesenteric lymph nodes. Normal urinary bladder. There is absence of the uterus consistent with a prior hysterectomy. Normal abdominal wall. There are diffuse degenerative changes of the visualized lumbar spine. Osteitis pubis. IMPRESSION: (NOT LISTED IN ORDER OF SIGNIFICANCE) Lower lobe infiltrate or atelectasis. There are multiple colonic diverticula consistent with diverticulosis. There is moderate cortical atrophy of the right kidney, consistent with chronic medical renal disease. Non obstructive 1 to 2 mm right renal parenchymal stones. Other findings as above. Electronically Signed: Radu Brown MD at 19:31 EDT , CT/Abdomen/Pelvis W IV Cont ONLY
--- NOTE | 2021-08-06 17:58 | EDS_ITS ---
HPI HPI - GI History of Present Illness Chief Complaint: Nausea/Vomiting Informant: patient Abdominal Pain/Flank Pain Onset: Days Context: Gradual Onset Timing: Continuous Quality: Aching and Cramping Location: Diffuse Current Severity: Mild Maximum Severity: Mild Worsened by: Nothing Relieved by: Nothing Nausea/Vomiting/Emesis GI Symptom: Positive for Nausea and Vomiting Onset: Days Severity: Mild Diarrhea/Melena/Hematochezia GI Symptom: Positive for Diarrhea; Negative for Melena and Hematochezia Onset: Days Stool Quality: Positive for Loose Severity: Mild Associated Symptoms Associated Symptoms: Negative for Dysuria, Frequency, Hematuria and Urgency Narrative Narrative: 86-year-old female extensive past medical history of CHF on hospice, CAD, prior pulmonary emboli, A. fib on Eliquis with an IVC filter. Patient states that she has had nausea vomiting and diarrhea for 4 days. This started on Thursday. States that she has developed abdominal pain also. Lives at home with her . She denies any exposures. She denies any dysuria. Prior similar symptoms: No Recent Illness/Hospitalization: No PFSH PFSH Medical History Allergic rhinitis Atherosclerotic heart disease of [place] coronary artery without angina pectoris Benign hypertension Benign paroxysmal positional vertigo CAD (coronary artery disease) Carotid artery disease Chronic diastolic heart failure Contusion of right ankle Contusion of right foot Contusion of right lesser toe(s) without damage to nail, initial encounter Coronary artery disease Essential hypertension Former tobacco use Generalized anxiety disorder GERD (gastroesophageal reflux disease) History of DVT (deep vein thrombosis) History of pulmonary embolism Hypertension, uncontrolled Hypokalemia Hypokalemia Hypoxia Inflammatory polyarthropathy Nonrheumatic aortic (valve) stenosis Paroxysmal atrial fibrillation Paroxysmal supraventricular tachycardia Presence of stent in coronary artery (~12/14/18) Pure hypercholesterolemia PVD (peripheral vascular disease) Rash Right-sided heart failure Spondylosis Venous ulcer of right leg Home Medications amlodipine 10 mg PO DAILY 10/20/14 [History Last Taken 04/21/21] nitroglycerin 0.4 mg sublingual tablet 0.4 mg SUBLINGUAL Q5-15M PRN 06/29/19 [History Last Taken 04/22/21] ergocalciferol (vitamin D2) 1,250 mcg (50,000 unit) capsule 50,000 unit PO .3XW cap 07/15/19 [History Last Taken 04/15/21] tizanidine 4 mg tablet 4 mg PO QHS PRN 09/02/19 [History Last Taken 04/21/21] furosemide 20 mg PO DAILY 09/30/19 [History Last Taken 04/21/21] apixaban 5 mg PO BID 07/28/20 [History Last Taken 04/20/21] gabapentin 1,200 mg PO QHS 07/28/20 [History Last Taken 04/21/21] clonidine HCl 0.1 mg PO TID 12/27/20 [History Last Taken 04/21/21] labetalol 200 mg PO BID 12/27/20 [History Last Taken 04/21/21] lisinopril 40 mg PO DAILY 12/27/20 [History Last Taken 04/21/21] meclizine 12.5 mg PO Q8H PRN PRN 12/27/20 [History Last Taken 04/22/21] prednisone 10 mg PO DAILY 12/27/20 [History Last Taken 04/22/21] rosuvastatin 10 mg PO DAILY 12/27/20 [History Last Taken 04/21/21] sucralfate 1 g PO 4X/DAY 12/27/20 [History Last Taken 04/21/21] clindamycin HCl 300 mg capsule 300 mg PO Q6H #28 capsule 04/09/21 [Rx Last Taken 04/21/21] hydrocodone-acetaminophen 1 tab PO Q4H PRN PRN #0 tab 04/24/21 [Rx Last Taken Unknown] ondansetron 4 mg PO Q6H PRN #7 tab 08/06/21 [Rx Last Taken Unknown] Allergy/AdvReac Type Severity Reaction Status Date / Time cefdinir Allergy Severe Hives Verified 04/22/21 13:58 diltiazem [From Cardizem] Allergy Severe Rash Verified 04/22/21 13:58 Penicillins Allergy Swelling Verified 04/22/21 13:58 Sulfa (Sulfonamide Allergy Swelling Verified 04/22/21 13:58 Antibiotics) acetaminophen AdvReac Severe GI Upset Verified 04/22/21 13:58 [From Darvocet-N] cyclobenzaprine AdvReac Severe Heart Verified 04/22/21 13:58 [From Flexeril] Racing doxycycline AdvReac Severe Emesis Verified 04/22/21 13:58 propoxyphene AdvReac Severe GI Upset Verified 04/22/21 13:58 [From Darvocet-N] levofloxacin [From Levaquin] AdvReac Unknown Unknown Verified 04/22/21 13:58 milk AdvReac Diarrhea Verified 04/22/21 13:58 Family History Mother Heart disease Diabetes Father Heart disease Diabetes Sister Diabetes Brother Diabetes Surgical History History of cholecystectomy History of total abdominal hysterectomy Presence of coronary angioplasty implant and graft (~12/14/18) S/P IVC filter S/P TAVR (transcatheter aortic valve replacement) Social History Smoking Status: Former smoker alcohol intake: never substance use type: does not use caffeine: Yes Type: coffee Number of servings: 2 ROS ROS ED ROS Narrative Fever. Abdominal pain. Nausea vomiting diarrhea. Review of Systems ROS Unobtainable: Denies due to encephalopathy Constitutional Constitutional ED: Reports fever(s) ENT ENT ED: Denies ear pain Cardiovascular Cardiovascular: Denies chest pain Respiratory/Chest Respiratory/Chest: Denies dyspnea Gastrointestinal Gastrointestinal: Reports abdominal pain, diarrhea, nausea and vomiting; Denies constipation or melena Genitourinary Genitourinary ED: Denies dysuria Musculoskeletal Musculoskeletal: Denies myalgias Integumentary Denies rash Neurologic Neurologic: Denies headache(s) Psychiatric Psychiatric: Denies depression Endocrine Endocrinology: Denies polyuria Hematologic/Lymphatic Hematologic/Lymphatic: Denies easy bruising Allergic/Immunologic Allergic/Immunologic ED: Denies urticaria EXAM Physical Exam Narrative Exam Narrative: 86-year-old female vital signs are stable she does have a fever of 101.7. Patient looks clinically ill. She looks dehydrated. H EENT exam dry mucous membranes. Neck nontender no lymphadenopathy. No meningismus. Lungs clear to auscultation bilaterally. Heart regular rhythm rate about 90. Abdomen soft. Diffusely tender. No peritoneal signs. Moving all 4 extremities. Nontender. No edema. Neurologically she is awake and alert. Answering questions and following commands. Const Vital Signs: 08/06/21 17:21 08/06/21 17:24 08/06/21 17:30 Temperature 101.7 F H 101.7 F H Temperature Source Oral Temporal Pulse Rate 93 93 Respiratory Rate 18 18 Blood Pressure 189/74 H 189/74 H Blood Pressure Mean 112 112 Pulse Ox 94 94 Oxygen Delivery Method Nasal Cannula Nasal Cannula Oxygen Flow Rate (L/min) 2 2 08/06/21 18:16 08/06/21 18:18 08/06/21 18:35 Temperature 98.4 F 98.4 F 98.4 F Temperature Source Oral Oral Oral Pulse Rate 85 82 Respiratory Rate 19 H 15 Blood Pressure 174/75 H 193/73 H Blood Pressure Mean 108 113 Pulse Ox 97 94 Oxygen Delivery Method Nasal Cannula Nasal Cannula Oxygen Flow Rate (L/min) 2 2 Positive well nourished and well developed; Negative for obese, cachectic, contractures or unkempt General Appearance ED: well developed and NAD; Negative for unkempt, cachectic, contractures or pallor Nutritional Appearance: Negative for cachectic or obese HEENT Reports dry mucous membranes; Denies moist mucous membranes normocephalic and atraumatic; Negative for tenderness Mouth ED: Yes dry mucous membranes Mouth: dry mucous membranes Eyes PERRL and EOMs intact bilaterally Neck no lymphadenopathy, supple and no JVD General: Negative for tenderness Resp normal respiratory effort and clear to auscultation bilaterally Auscultation: Negative for rales, rhonchi or wheezes Cardio regular rate, regular rhythm, S1 normal heart sound, S2 normal heart sound and no murmurs GI non-distended and no masses; Negative for non-tender Inspection: Negative for abdominal distention Auscultation: normoactive bowel sounds; Negative for hyperactive bowel sounds or hypoactive bowel sounds Palpation: soft and tender; Negative for guarding, rigid or rebound tenderness present Back/Spine no CVA tenderness General Back: Negative for CVA tenderness Cervical Spine: Negative for cervical spine tenderness Thoracic Spine / Upper Back: Negative for thoracic spinal tenderness Extremity full ROM General Extremety ED: Negative for edema or tenderness General Extremity: Negative for edema Neuro moves all extremities Sensorium / Orientation: alert, oriented to person, oriented to place and oriented to time; Negative for orientation impaired, confused, lethargic or stuporous Motor Exam: strength 5/5 throughout Psych mental status grossly normal and thought process normal Appearance: Negative for unkempt Skin General Skin Exam: Negative for jaundice or pallor Lesions: no lesions Rashes: no rashes MDM MDM MDM Narrative Medical decision making narrative: 86-year-old female with significant past medical history. Has had nausea vomiting diarrhea for 4 days. Has developed abdominal pain and fever. Jovon's differential diagnosis. She will get a CAT scan and labs. She will be started on the sepsis protocol. She be given a liter of normal saline. Zofran for nausea. Patient is hospice all discussed with the family how aggressive they want to be. Given her current condition we will start with an aggressive work-up. Repeat exam patient is doing well at 8:45 PM. I went over the lab results with the patient and family. She will be given another dose of Zofran. Patient is under hospice family does not want her admitted and should be discharged home with Zofran. Clinically I think is a viral gastroenteritis. Lab Data Attestation: I reviewed the patient's lab results. Lab results narrative: CBC shows elevated white count of 14.9. H&H 11.3 and 34.7. PT 19.6 INR 1.7. PTT of 47. Electrolytes show potassium of 3.0 gap of 5 BUN of 10 creatinine of 1. Glucose of 197. Liver enzymes are unremarkable. Lipase normal at 94. Lactic acid normal at 1.4. Urinalysis shows red blood cells but no infection. Labs: Laboratory Results - last 24 hr 08/06/21 08/06/21 08/06/21 17:40 17:40 17:40 WBC 14.9 H RBC 3.93 L Hgb 11.3 L Hct 34.7 L MCV 88.3 MCH 28.8 MCHC 32.6 RDW Std Deviation 47.9 H RDW Coeff of Addi 14.8 H Plt Count 185 MPV 10.2 Immature Gran % (Auto) 0.800 Neut % (Auto) 91.0 H Lymph % (Auto) 3.5 L Love % (Auto) 4.6 Eos % (Auto) 0.0 Baso % (Auto) 0.1 Absolute Neuts (auto) 13.6 H Absolute Lymphs (auto) 0.52 L Nucleated RBC % 0 Differential Comment SCANNED PT 19.6 H INR 1.7 APTT 47.0 H Sodium 136 Potassium 3.0 L Chloride 101 Carbon Dioxide 30.0 Anion Gap 5 BUN 10 Creatinine 1.06 H Estim Creat Clear Calc 30.69 Est GFR (MDRD) Af Amer 63 Est GFR (MDRD) Non-Af 52 L BUN/Creatinine Ratio 9.4 L Glucose 197 H Lactic Acid Calcium 9.0 Total Bilirubin 0.50 AST 24 ALT 25 Alkaline Phosphatase 56 Total Protein 7.3 Albumin 3.2 Globulin 4.1 Albumin/Globulin Ratio 0.8 L Lipase 94 Urine Color Urine Clarity Urine pH Ur Specific [place] Urine Protein Urine Glucose (UA) Urine Ketones Urine Occult Blood Urine Nitrite Urine Bilirubin Urine Urobilinogen Ur Leukocyte Esterase Urine RBC Urine WBC Ur Squamous Epith Cells Urine Bacteria Urine Mucus 08/06/21 08/06/21 17:40 18:30 WBC RBC Hgb Hct MCV MCH MCHC RDW Std Deviation RDW Coeff of Addi Plt Count MPV Immature Gran % (Auto) Neut % (Auto) Lymph % (Auto) Love % (Auto) Eos % (Auto) Baso % (Auto) Absolute Neuts (auto) Absolute Lymphs (auto) Nucleated RBC % Differential Comment PT INR APTT Sodium Potassium Chloride Carbon Dioxide Anion Gap BUN Creatinine Estim Creat Clear Calc Est GFR (MDRD) Af Amer Est GFR (MDRD) Non-Af BUN/Creatinine Ratio Glucose Lactic Acid 1.4 Calcium Total Bilirubin AST ALT Alkaline Phosphatase Total Protein Albumin Globulin Albumin/Globulin Ratio Lipase Urine Color Yellow Urine Clarity Clear Urine pH 6.5 Ur Specific [place] 1.010 Urine Protein 100 H Urine Glucose (UA) Normal Urine Ketones Negative Urine Occult Blood 150 H Urine Nitrite Negative Urine Bilirubin Negative Urine Urobilinogen Normal Ur Leukocyte Esterase Negative Urine RBC 10-25 SEEN Urine WBC 0 SEEN Ur Squamous Epith Cells 0-5 SEEN Urine Bacteria 0 SEEN Urine Mucus 0 SEEN Radiography Diagnostic Testing: Clinical Impression(s) from Imaging Studies Abdomen/Pelvis CT 08/06/21 17:52 Chest X-Ray 08/06/21 18:40 IMPRESSION: 1. Questionable mild pneumonia in the left lower lobe. 2. Mild to moderate cardiomegaly with a mild increase in cardiac size since previous study of 01/14/2021. 3. No current evidence of heart failure. 4. No atelectasis, effusion, pulmonary mass lesions. 5. Mild demineralization. Electronically Signed: Eduin Galicia MD at 19:18 EDT , Chest x-ray, portable, single view interpreted myself and radiologist shows no acute abnormality. Radiologist is questioning left lower lobe infiltrate I do not feel there is any signs of pneumonia at this time. Rhythm Strip Rhythm Strip: Sinus Rhythm Rate: 88 Ectopy: PVC(s) EKG Initial EKG: Attestation: I personally reviewed and interpreted this EKG as follows: Interpretation: Sinus Rhythm and No Acute Injury Pattern Comments: Normal sinus rhythm rate of 88. First-degree AV block. PVCs. LVH. No acute signs of [place] or ischemia. No significant change from an EKG from December 2020. Prior: Unchanged Discharge Plan Triage Chief Complaint: Nausea/Vomiting ED Provider: Eriberto Zee Dx/Rx/DC Orders Clinical Impression: Viral gastroenteritis, History of chronic CHF, Hospice care patient, History of atrial fibrillation, Chronic anticoagulation Instructions: ED Gastroenteritis, Viral (Adult) Prescriptions: New ondansetron 4 mg tablet,disintegrating 4 mg PO Q6H PRN (Reason: nausea and vomiting) Qty: 7 RF: 0 No Action nitroglycerin 0.4 mg tablet, sublingual 0.4 mg SUBLINGUAL Q5-15M PRN (Reason: CHEST PAIN) RF: 0 ergocalciferol (vitamin D2) 1,250 mcg (50,000 unit) capsule 50,000 unit PO .3XW RF: 0 amlodipine 10 MG tablet 10 mg PO DAILY RF: 0 furosemide 20 MG tablet 20 mg PO DAILY RF: 0 gabapentin 600 MG tablet 1,200 mg PO QHS RF: 0 apixaban 5 MG tablet 5 mg PO BID RF: 0 clonidine HCl 0.1 mg Tablet 0.1 mg PO TID RF: 0 prednisone 10 mg Tablet 10 mg PO DAILY RF: 0 labetalol 200 mg Tablet 200 mg PO BID RF: 0 sucralfate 1 gram Tablet 1 g PO 4X/DAY RF: 0 lisinopril 40 mg Tablet 40 mg PO DAILY RF: 0 rosuvastatin 20 mg Tablet 10 mg PO DAILY RF: 0 meclizine 25 MG tablet 12.5 mg PO Q8H PRN PRN (Reason: Dizziness) RF: 0 hydrocodone-acetaminophen 5-325 mg Tablet 1 tab PO Q4H PRN PRN (Reason: Pain Score 4-10) Qty: 0 RF: 0 tizanidine 4 mg tablet 4 mg PO QHS PRN (Reason: Muscle Spasm) RF: 0 clindamycin HCl [Cleocin HCl] 300 mg capsule 300 mg PO Q6H Qty: 28 RF: 0 Primary Care Provider: Nayely Connell Referrals: Nayely Connell MD [Primary Care Provider] - 1-2 Days if not improving Activity Restrictions/Additional Instructions: Plenty of fluids and rest. Zofran as needed for nausea which you may swallow or let dissolve under your tongue. Return if feeling worse or follow-up with your doctor if not improving. Hold your furosemide which is the diuretic today and tomorrow only then you may restarted. Disposition Disposition: Home, Self Care
[2021-08-06] MEDS: 0.9% Normal Saline 1,000 ML 999 ML IV (18:06)
[2021-08-06] MEDS: Ondansetron 4 MG/2 ML Vial IV ×2 (18:08→21:00)
[2021-08-06 18:10] LABS: Absolute Lymphocyte Count 0.52 X10^3/uL (0.83-4.51); Absolute Neutrophil Count 13.6 X10^3/uL (2.0-7.7); Basophil# 0.02 X10^3/uL; Basophil% 0.1 % (0-1); Hematocrit 34.7 % (37-47); Hemoglobin 11.3 g/dL (12.0-15.0); Lymphocyte # 0.52 X10^3/ul (0.83-4.51); Lymphocyte % 3.5 % (19-41); Mean Corp Hgb Conc 32.6 g/dL (32-36); Mean Corpuscular Hgb 28.8 pg (27.0-32.0); Mean Corpuscular Volume 88.3 fL (81-99); Mean Platelet Vol. 10.2 fl (6.2-12.0); Monocyte# 0.68 X10^3/uL; Monocyte% 4.6 % (0-10); NRBC Flagged by Analyzer 0 % (0-5); Neutrophil # 13.57 X10^3/uL (2.7-7.7); POSITIVE DIFFERENTIAL YES; Platelet Count 185 K/mm3 (150-450); RBC Distribution Width CV 14.8 % (11.6-14.6); RBC Distribution Width SD 47.9 fl (35.1-43.9); Red Blood Count 3.93 M/mm3 (4.2-5.4); White Blood Count 14.9 K/mm3 (4.4-11.0)
--- NOTE | 2021-08-06 18:10 | ED.RN ---
This RN has called and talked to patients daughter over the phone. Daughter states all of her information needed is in the folder and binder that has been sent with the patient. RN stated she has received the folder and the binder with a list of which medications have been given today but no times. RN also states patient has made the statement she has a DNR code status but no paperwork in her medical chart or in any of the paperwork that has been sent with patient. A lot of paperwork sent with patient but none has been filled out other than the medications given. Daughter states she will be in to see patient. This RN also spoke with [facility] nurse requesting a copy of her code status that they have on file. Nurse stated that if patient is to receive blood work or be admitted to hospital, her hospice will be revoked. Dr. Zee at this time has requested blood work, IV and fluids and admission will be likely done at this time.
[2021-08-06 18:17] LABS: Differential Indicated SCAN CRITERIA MET
[2021-08-06 18:28] LABS: International Normalized Ratio 1.7; Prothrombin Time (Protime)PT. 19.6 SECONDS (11.7-14.9)
[2021-08-06 18:34] LABS: ALB/GLOB Ratio 0.8 RATIO (0.9-2.4); AST(SGOT) 24 U/L (15-37); Alanine Aminotransfer ALT/SGPT 25 U/L (13-56); Albumin, Serum 3.2 g/dL (3.2-5.0); Alkaline Phosphatase 56 U/L (45-117); Anion Gap 5 (5-15); BUN 10 mg/dL (7-18); BUN/Creat Ratio 9.4 RATIO (10-20); Chloride 101 mmol/L (98-107); Creatinine, Serum 1.06 mg/dL (0.55-1.02); EST Glomerular Filtration Rate 52 mL/min (>60); Est Glom Filt Rate - Afr Amer 63 mL/min (>60); Estimated Creatinine Clearance 30.69 ml/min; Globulin 4.1 g/dL (2.2-4.2); Glucose 197 mg/dL (74-106); Lipase 94 U/L (73-393); Protein, Total 7.3 g/dL (6.4-8.2); Sodium Level 136 mmol/L (136-145)
[2021-08-06 18:36] LABS: Lactic Acid 1.4 mmol/L (0.4-1.9)
[2021-08-06 18:37] LABS: Bacteria 0 SEEN /hpf (None Seen); Color, Urine Yellow (Yellow); Glucose, Dipstick Normal (Normal); Ketone-Dipstick Negative (Negative); Leukocyte Esterase-Dipstick Negative /ul (Negative); Mucous, Urine 0 SEEN /hpf (<or=2+); Nitrite-Dipstick Negative (Negative); Occult Blood-Urine 150 /ul (Negative); Protein-Dipstick 100 mg/dl (Negative); Urine Bilirubin Dipstick Negative (Negative); Urine Clarity Clear (Clear); Urine Urobilinogen Normal (Normal); Urine pH 6.5 (5.0 - 8.0); White Blood Cells 0 SEEN /hpf (0-5)
[2021-08-06 18:40] LABS: Differential Comment SCANNED
--- NOTE | 2021-08-06 18:40 | RAD_ITS ---
STUDY: AP PORTABLE UPRIGHT CHEST OF 0631 HOURS ON 08/06/2021 REASON FOR EXAM: 59-year-old female with fever. TECHNIQUE: A single view AP portable upright chest x-ray was performed. COMPARISON: 01/14/2021. FINDINGS: Mild demineralization. Mild to moderate cardiomegaly--with a mild increase in cardiac size since previous study of 01/14/2021. No heart failure. Again, there are prominent vascular markings in the left lower lobe that were noted previously. There is very slight obscuration of the left hemidiaphragm. These markings could represent a mild pneumonia. No atelectasis, effusion, or pulmonary mass lesions. RAD/Chest 1 View (Portable) IMPRESSION: 1. Questionable mild pneumonia in the left lower lobe. 2. Mild to moderate cardiomegaly with a mild increase in cardiac size since previous study of 01/14/2021. 3. No current evidence of heart failure. 4. No atelectasis, effusion, pulmonary mass lesions. 5. Mild demineralization. Electronically Signed: Eduin Galicia MD at 19:18 EDT ,
[2021-08-06 18:43] LABS: Red Blood Cells-Urine 10-25 SEEN /hpf (0-5); Squamous Epithelial Cells - UA 0-5 SEEN /hpf (5-10)
== END 2021-08-06 21:44 | disposition home or self-care (01) ==
PROVIDERS: Emergency Provider Emergency Medicine; PCP Internal Medicine; Visit Provider Emergency Medicine
DX: A08.4 Viral intestinal infection, unspecified (principal); I11.0 Hypertensive heart disease with heart failure; I50.9 Heart failure, unspecified; I73.9 Peripheral vascular disease, unspecified; I48.0 Paroxysmal atrial fibrillation; Z87.891 Personal history of nicotine dependence; I25.10 Atherosclerotic heart disease of native coronary artery without angina pectoris; E78.00 Pure hypercholesterolemia, unspecified; K21.9 Gastro-esophageal reflux disease without esophagitis; Z95.5 Presence of coronary angioplasty implant and graft; Z86.711 Personal history of pulmonary embolism; Z79.01 Long term (current) use of anticoagulants; Z79.899 Other long term (current) drug therapy; Z95.828 Presence of other vascular implants and grafts; Z86.718 Personal history of other venous thrombosis and embolism; I44.0 Atrioventricular block, first degree; I49.3 Ventricular premature depolarization; Z51.5 Encounter for palliative care
CPT/HCPCS: 71045; 74177; 80053; 81001; 83605; 83690; 85025; 85610; 85730; 87040; 87086; 87149; 87186; 93005; 96361; 96374; 96376; 99285; J7030; P9612; Q9967; A4216; J2405